=== PATIENT | male | born 1960 | race Caucasian/White ===

== ENCOUNTER 2016-09-01 12:43 | Emergency (ER) | payer OTHER, MEDICARE ==
[~2016-09-01 12:43] MED LIST: ACEPHEN650 M1 PR; ACIDOPHILUS1 EACH G TUBE; ALBUTEROL0.63 MG/1 PO; ALBUTEROL2.5 MG/3 M INH; AMOX-CLAV400 MG/5 M PO; AMOXIL 250250 MG/5 M PO; AUGMENTIN 875875 MG G TUBE; AVELOX400 MG J TUBE; BACLOFEN10 M1 G TUBE; BACTRIM DS 8001 TAB OTHER; BISAC-EVAC10 M1 PR; CLOPIDOGREL75 MG J TUBE; CLOPIDOGREL75 MG PO; COLACE100 MG J TUBE; DIOCTO50 MG/5 ML G TUBE; DOCU-LIQUI150 MG/15 PO; DULCOLAX5 MG PO; DUONEB 3 MG/3 ML3 ML INH/SOL; DURAGESIC25 MCG TOP; ESCITALOPRAM10 MG PO; FENTANYL1 EAC2 TOP; FLEET ENEMA133 ML RC; GLUCERNA 1.2 C237 ML J TUBE; ITCH RELIEF CRE28 GM TOP; JEVITY 1.2 CA1000 ML J TUBE; JEVITY 1.2 CAL237 M1 PEG; KEFLEX500 MG PO; LEXAPRO 10MG10 MG J TUBE; LIORESAL 10MG T10 MG PO; MILK OF MA400 MG/5 M PEG; MILK OF MAGNESI30 ML J TUBE; MYCOSTATIN POWD15 GM TOP; NYSTATIN15 G1 TOP; OSTERA TABLET1 EACH PO; PLAVIX 75MG TAB75 MG J TUBE; RANITIDINE15 MG/1 ML G TUBE; RANITIDINE15 MG/M1 PO; SIMVASTATIN10 MG J TUBE; SIMVASTATIN10 MG PO; TAMIFLU 75MG75 MG PO; TYLENOL EXTRA500 M2 PO; VITAMIN D31000 IU PO; VITAMIN D31000 UNI2 G TUBE; ZANTAC25 MG/ML J TUBE; ZOCOR10 M1 G TUBE; [UNRECOGNIZED DRUG - OTHER] J TUBE; [UNRECOGNIZED DRUG - OTHER] J TUBE; [UNRECOGNIZED DRUG - OTHER] PO
--- NOTE | 2016-09-01 12:50 | ED GENERAL ADULT ---
History of Present Illness General Chief Complaint: General Adult Stated Complaint: BIBA ?UPPER GI BLEED Source: patient, family, old records, EMS Exam Limitations: clinical condition Vital Signs & Intake/Output Vital Signs & Intake/Output Vital Signs Date Time Temp Pulse Resp B/P Pulse O2 O2 Flow FiO2 Ox Delivery Rate 09/01 1507 99.2 100 16 121/85 96 Trach Mask 09/01 1300 Trach Mask 09/01 1300 92 Trach Mask 40% 09/01 1257 99.3 94 16 135/81 94 Trach Mask 10L Allergies Coded Allergies: scopolamine (Mild, HIVES 10/25/15) NSAIDS (Non-Steroidal Anti-Inflamma (PER 02/29/16) adhesive (HIVES - EKG STICKERS, RED DOT [place] STICKERS 02/29/16) aspirin (PER 02/29/16) clopidogrel (From PLAVIX) (PER 02/29/16) Reconcile Medications Albuterol Sulfate 0.63 MG/3 ML VIAL.NEB 1 VIAL PO BID BREATHING PROBLEMS ( Reported) Baclofen 10 MG TABLET 1 TAB J TUBE TID SPASMS (Reported) Cholecalciferol (Vitamin D3) 1,000 IU TAB 1 TAB J TUBE DAILY SUPPLEMENT ( Reported) Docusate Sodium (Docusate Sod) 50 MG/5 ML MONICO 10 ML J TUBE BID GI (Reported) Escitalopram Oxalate 5 MG/5 ML SOLUTION 5 MG J TUBE DAILY MENTAL HEALTH ( Reported) Fentanyl 25 MCG/HR TDM 1 PAT TOP Q3D PAIN (Reported) Lactobacillus Acidophilus (Acidophilus) 1 CAP CAP 1 CAP J TUBE DAILY GI ( Reported) Oseltamivir Phosphate (Tamiflu) 30 MG CAPSULE 1 CAP PO DAILY FLU (Reported) Ranitidine HCl 15 MG/1 ML SYRUP 150 MG J TUBE BID GI (Reported) Simvastatin (Zocor) 10 MG TAB 1 TAB J TUBE QHS CHOLESTEROL (Reported) Triage Nurses Notes Reviewed? yes Onset: Just prior to arrival Duration: 2 EPISODES Timing: recent history Injury Environment: home Severity: moderate HPI: Patient is a 56-year-old male, history of CVA, on a trach presenting to [facility] emergency department [facility] with chief complaint of emesis 2 episodes prior to arrival. Per nursing staff emesis was dark, coffee ground, concern for bleeding so they sent him in for evaluation. History of coffee- ground emesis in the past. Per family no recent history of upper GI bleed. Patient does not take any NSAIDs. Per Family patient has been at baseline. No fevers documented a [facility]. (RYAN LOPEZ) Past History Medical History Any Pertinent Medical History? 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 ASP PNA Gastrointestinal: constipation, GERD, peptic ulcer disease, upper GI bleed, C. 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 MOTHER (Type 2 DM). Grand father (CVA). Hx Contributory? Yes (RYAN LOPEZ) Review of Systems Review of Systems Constitutional: Reports: no symptoms. Comments Review of systems: See HPI, All other systems negative. Constitutional, no chills fever or weight loss HEENT: No visual changes no sore throat no congestion Cardiovascular: No chest pain ,palpitation , orthopnea or ankle swelling Skin, no jaundice no rashes Respiratory: No dyspnea cough sputum or hemoptysis GI: No diarrhea : No dysuria No hematuria Muscle skeletal: no back pain Neurologic: No numbness Psych: No stress anxiety or depression,. Heme/endocrine: No bruising no bleeding no polyuria or polydipsia Immunology: No splenectomy or history of AIDS (RYAN LOPEZ) Physical Exam Physical Exam General Appearance: no apparent distress, alert, awake, TACH HOOKED UP Comments: Well-developed well-nourished person in no acute distress HEENT: Pupils equally round and reactive to light and accommodation. Nose is atraumatic. Pharynx normal. No swelling or edema. Neck: NORMAL INSPECTION WITH TRACH Cardiovascular: Regular rate and rhythms no murmurs rubs or gallops, normal JVP Respiratory: Chest nontender. No respiratory distress.breath sounds slightly diminished to auscultation bilaterally Abdomen: Soft, nontender nondistended, no appreciable organomegaly. Normal bowel sounds. No ascites Extremity: NoN pitting edema and enlarged ovaries bilaterally, no calf tenderness to palpation, normal and equal pulses. Neuro: Alert, responsive to verbal and tactile stimuli, responds with blinking eyes Skin: No appreciable rash on exposed skin, skin is warm and dry. Psych: Mood and affect is normal Core Measures ACS in differential dx? No CVA/TIA Diagnosis: No Severe Sepsis Present: No Septic Shock Present: No (HYUN ROJAS,RYAN) Progress Differential Diagnoses I considered the following diagnoses in my evaluation of the patient: Aspiration pneumonia, dehydration, all externally abnormality, gastritis, upper GI bleed Plan of Care: Orders Procedure Date/time Status PARTIAL THROMBOPLASTIN TIME 09/01 124 Complete PROTHROMBIN TIME 09/01 124 Complete COMPREHENSIVE METABOLIC PANEL 09/01 1248 Complete CBC WITHOUT DIFFERENTIAL 09/01 1248 Complete TYPE & SCREEN (NOT X-MATCH) 09/01 124 Complete Laboratory Tests 09/01/16 1335: PT 11.3, INR 1.08, APTT 34, CBC w Diff MAN DIFF ORDERED, RBC 5.51, MCV 88.0, MCH 29.0, RDW 16.1 H, MPV 10.9 H, Gran % 90.1 H, Lymphocytes % 4.7 L, Monocytes % 4.9, Eosinophils % 0.1, Basophils % 0.2, Absolute Granulocytes 10.2 H, Segmented Neutrophils 82 H, Band Neutrophils 6 H, Absolute Lymphocytes 0.5 L, Lymphocytes 4 L, Monocytes 8, Absolute Monocytes 0.6, Absolute Eosinophils 0, Absolute Basophils 0, Platelet Estimate VERIFIED BY SMEAR, Anisocytosis 1+, PUBS MCHC 33.0 09/01/16 1327: Anion Gap 11, Estimated GFR > 60, BUN/Creatinine Ratio 36.0 H, Glucose 153 H, Calcium 9.3, Total Bilirubin 1.0, AST 22, ALT 35, Alkaline Phosphatase 93, Total Protein 7.9, Albumin 3.9, Globulin 4.0, Albumin/Globulin Ratio 1.0 L Diagnostic Imaging: Viewed by Me: Radiology Read. Discussed w/RAD: Radiology Read. Radiology Impression: PATIENT: SUNDAY ESPINAL PRESENT AGE: 56 PATIENT ACCOUNT NO: [id number] : 60 LOCATION: [facility] ORDERING PHYSICIAN: RYAN ROJAS SERVICE DATE: 09/01/16 EXAM TYPE: RAD - XRY-PORTABLE CHEST XRAY EXAMINATION: XR PORTABLE CHEST CLINICAL INFORMATION: Vomiting. COMPARISON: Prior chest radiographs, most recently 2015. TECHNIQUE: Portable AP semi-erect view of the chest was obtained. FINDINGS : The heart, great vessels, pulmonary vasculature mediastinum are stable. A tracheostomy tube is unchanged in position, with tip situated approximately 4.6 cm superior to the carol. Lung volumes are again low. There is mild left base linear atelectasis. The patient's jaw overlaps the left apex, limiting evaluation. No acute osseous abnormality is seen. There is a moderate thoracic dextroscoliosis. IMPRESSION: Limited evaluation, with low lung volumes and scoliotic changes. There is mild right base atelectasis, which can be more fully evaluated with a lateral view. Initial ED EKG: none Comments: On arrival respiratory was called, trach was hooked up to ventilation. Patient no acute distress. Per family this is baseline for patient. Family members informed of all lab work results. Patient afebrile still. Oxygen saturation between 96 and 97%. Patient will be transferred back to the nursing facility. Patient was seen and evaluated by Dr. Kerns AND she agrees with plan. (RYAN LOPEZ) Departure Departure Time of Disposition: 1505 Disposition: HOME OR SELF CARE Condition: Stable Clinical Impression Primary Impression: Vomiting Qualifiers: Vomiting type: unspecified Vomiting Intractability: non-intractable Nausea presence: unspecified Qualified Code: R11.10 - Vomiting, unspecified Referrals: GABI OLVERA MD (PCP/Family) Additional Instructions: Follow-up with Dr. Olvera make an appointment. Continue prescription medications as prescribed. Return for fevers, worsening symptoms or concerns. Departure Forms: Customer Survey General Discharge Information (RYAN LOPEZ) PA/CLINICAL SERVICES DIRECTOR Co-Sign Statement Statement: ED Attending supervision documentation- [X] I saw and evaluated the patient. I have also reviewed all the pertinent lab results and diagnostic results. I agree with the findings and the plan of care as documented in the PA's/CLINICAL SERVICES DIRECTOR's documentation. [X] I have reviewed the ED Record and agree with the PA's/CLINICAL SERVICES DIRECTOR's documentation. [] Additions or exceptions (if any) to the PAs/CLINICAL SERVICES DIRECTOR's note and plan are summarized below: [] (CLAUDIA SOTELO,CHRIS) Critical Care Note Critical Care Note Critical Care Time: non-applicable (HYUN ROJAS,RYAN)
--- NOTE | 2016-09-01 13:38 | RADIOLOGY REPORT ---
EXAMINATION: XR PORTABLE CHEST CLINICAL INFORMATION: Vomiting. COMPARISON: Prior chest radiographs, most recently 06/19/2016. TECHNIQUE: Portable AP semi-erect view of the chest was obtained. FINDINGS: The heart, great vessels, pulmonary vasculature mediastinum are stable. A tracheostomy tube is unchanged in position, with tip situated approximately 4.6 cm superior to the carol. Lung volumes are again low. There is mild left base linear atelectasis. The patient's jaw overlaps the left apex, limiting evaluation. No acute osseous abnormality is seen. There is a moderate thoracic dextroscoliosis. IMPRESSION: Limited evaluation, with low lung volumes and scoliotic changes. There is mild right base atelectasis, which can be more fully evaluated with a lateral view.
[2016-09-01 14:15] LABS: ABSOLUTE BASOPHIL COUNT 0 /CUMM (0.0-0.2); ABSOLUTE EOSINOPHIL COUNT 0 /CUMM (0.0-0.7); ABSOLUTE GRANULOCYTE CT 10.2 /CUMM (1.4-6.5); ABSOLUTE LYMPH COUNT 0.5 /CUMM (1.2-3.4); ABSOLUTE MONOCYTE COUNT 0.6 /CUMM (0.10-0.60); BASOPHIL % 0.2 % (0.0-2.0); EOSINOPHIL % 0.1 % (0-5); GRANULOCYTE % 90.1 % (42.2-75.2); HEMATOCRIT 48.5 % (42-52); MEAN PLATELET VOLUME 10.9 FL (7.4-10.4); PLATELET COUNT 189 /CUMM (130-400); RBC DISTRIBUTION WIDTH 16.1 % (11.5-14.5); RED BLOOD CELL CT 5.51 /CUMM (4.70-6.10); WHITE BLOOD CELL COUNT 11.3 /CUMM (4.8-10.8)
[2016-09-01] MEDS ORDERED: TAMIFLU30 M1 PO (14:20)
[2016-09-01] MEDS ORDERED: ESCITALOPRAM OXA5 MG G TUBE (14:21)
[2016-09-01 14:22] LABS: PT 11.3 SEC (9.4-12.5); PTT 34 SEC (25-37)
[2016-09-01 15:07] VITALS: BP 121/85
== END 2016-09-01 16:00 ==
LOC: ERH 12:43
PROVIDERS: Physician Assistant
DX: R11.10 Vomiting, unspecified (principal); I69.365 Other paralytic syndrome following cerebral infarction, bilateral; G82.50 Quadriplegia, unspecified; E78.5 Hyperlipidemia, unspecified; I50.32 Chronic diastolic (congestive) heart failure; Z93.0 Tracheostomy status; Z99.81 Dependence on supplemental oxygen; Z95.828 Presence of other vascular implants and grafts
CPT/HCPCS: 1342

== ENCOUNTER 2016-09-26 11:47 | Emergency (ER) | payer OTHER, MEDICARE ==
[~2016-09-26 11:47] MED LIST changes: +ESCITALOPRAM OXA5 MG G TUBE; +TAMIFLU30 M1 PO
--- NOTE | 2016-09-26 12:13 | ED GENERAL ADULT ---
History of Present Illness General Chief Complaint: General Adult Stated Complaint: ?CLOGGED J-TUBE Source: patient, family, old records, [facility] Exam Limitations: clinical condition Vital Signs & Intake/Output Vital Signs & Intake/Output Vital Signs Date Time Temp Pulse Resp B/P Pulse O2 O2 Flow FiO2 Ox Delivery Rate 09/26 1623 97.2 75 20 97/58 94 Trach Mask 6.0L 09/26 1350 98.4 70 24 115/68 94 Trach Mask 6.0L 09/26 1244 98 Trach Mask 6.0L 09/26 1154 97.4 58 22 158/76 98 Trach Mask 30% Allergies Coded Allergies: scopolamine (Mild, HIVES 10/25/15) NSAIDS (Non-Steroidal Anti-Inflamma (PER 02/29/16) adhesive (HIVES - EKG STICKERS, RED DOT [place] STICKERS 02/29/16) aspirin (PER 02/29/16) clopidogrel (From PLAVIX) (PER 02/29/16) Uncoded Allergies: EKG AND RED DOT LEADS (Intermediate, RASH 09/26/16) Reconcile Medications Albuterol Sulfate 0.63 MG/3 ML VIAL.NEB 1 VIAL PO BID BREATHING PROBLEMS ( Reported) Baclofen 10 MG TABLET 1 TAB G TUBE TID SPASMS (Reported) Cholecalciferol (Vitamin D3) 1,000 UNIT TABLET 1 TAB G TUBE DAILY SUPPLEMENT (Reported) Docusate Sodium (Diocto) 50 MG/5 ML LIQUID 10 ML G TUBE BID GI (Reported) Escitalopram Oxalate 5 MG TABLET 1 TAB G TUBE DAILY MENTAL HEALTH (Reported) Fentanyl 25 MCG/HOUR PATCH.TD72 1 PAT TOP Q3D PAIN (Reported) Lactobacillus Acidophilus (Acidophilus) 1 EACH CAPSULE 1 CAP G TUBE DAILY GI (Reported) Ranitidine HCl 15 MG/ML SYRUP 10 ML G TUBE BID GI (Reported) Simvastatin (Zocor*) 10 MG TABLET 1 TAB G TUBE QPM CHOLESTEROL (Reported) Triage Note: BIBA FROM SNF FOR C/O CLOGGED J-TUBE PER STAFF. NOTICED J-TUBE LEAKING/NOT FLUSHING LAST NIGHT 1900. PT OTHERWISE IS AT BASELINE AND IS IN NO DISTRESS. [facility]10 FROM FACILITY REQUESTING "CAN YOU PUT IN A TUBE THAT HAS LARGER LUMEN?" Triage Nurses Notes Reviewed? yes HPI: 56-year-old male paraplegic sent in from nursing facility with a clogged gastrostomy tube. Per the records it was noted to be nonfunctional last night, he usually has is unchanged by interventional radiology here, last was done in May. I reviewed his previous records. There are no complaints at this time Past History Travel History Traveled to [place] past 21 day No Medical History Any Pertinent Medical History? 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 ASP PNA Gastrointestinal: constipation, GERD, peptic ulcer disease, upper GI bleed, C. 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 MOTHER (Type 2 DM). Grand father (CVA). Hx Contributory? No Review of Systems Review of Systems Constitutional: Reports: see HPI. EENTM: Reports: no symptoms. Respiratory: Reports: no symptoms. Cardiovascular: Reports: no symptoms. GI: Reports: no symptoms. Genitourinary: Reports: no symptoms. Musculoskeletal: Reports: no symptoms. Skin: Reports: no symptoms. Neurological/Psychological: Reports: no symptoms. Hematologic/Endocrine: Reports: no symptoms. Immunologic/Allergic: Reports: no symptoms. All Other Systems: Reviewed and Negative Physical Exam Physical Exam General Appearance: well developed/nourished Comments: Well-developed well-nourished no apparent distress. HEENT: Atraumatic, extraocular motion intact Neck: Supple, no lymphadenopathy Respiratory: No respiratory distress Abdomen: Soft nontender, G-tube site is clear, G-tube is not functioning Extremities: No edema, Neuro: Alert and oriented x3 Psych: Mood affect normal, normal memory normal judgment. Skin: Warm and dry, no rash on exposed skin Core Measures ACS in differential dx? No CVA/TIA Diagnosis: No Severe Sepsis Present: No Septic Shock Present: No Progress Differential Diagnoses I considered the following diagnoses in my evaluation of the patient: PERFORATION Plan of Care: Orders Procedure Date/time Status GASTROSTOMY TUBE CHANGE 09/26 1209 Active Initial ED EKG: none Comments: G TUBE PLACED BY IR. PT RETURNS WITHOUT COMPLICATIONS. STABLE FOR DC BACK TO ECF Departure Departure Disposition: HOME OR SELF CARE Condition: Stable Clinical Impression Primary Impression: Gastrojejunostomy tube dislodgement Referrals: GABI VASQUEZ MD (PCP/Family) Additional Instructions: RETURN NEEDED. Departure Forms: Customer Survey General Discharge Information Critical Care Note Critical Care Note Critical Care Time: non-applicable
[2016-09-26 16:23] VITALS: BP 97/58
--- NOTE | 2016-09-26 16:48 | INTERVENTIONAL RADIOLOGY RPT ---
CLINICAL HISTORY: This patient is a 56-year-old male with quadriplegia and GJ tube, who presents to interventional radiology for exchange of a nonfunctioning tube. The tube is leaking and clogged. PROCEDURES: 1. Tube sinogram. 2. Replacement of the existing 12 Fr gastrojejunostomy tube with a new 12 Fr gastrojejunostomy tube. 3. Post replacement tube sinogram. PHYSICIANS: Dr. Giovanny Britt MD Vascular interventional radiologist MONITORING: Continuous blood pressure, pulse oximetry as well as heartrate monitoring was performed by an independent registered nurse. No sedation was required. MEDICATIONS: 10 mL of 1% lidocaine SQ. COMPLICATIONS: None. ESTIMATED BLOOD LOSS: <5 mL. SPECIMENS: The existing tube was removed entirely.. CONTRAST: 20 mL Optiray. FLUOROSCOPY TIME: 252 seconds. PROCEDURE NOTE: Informed consent was obtained from the patient's sister prior to the procedure. During this process, the procedure and potential alternatives were explained along with the intended outcome and benefits. The risks of the procedure, including the possibility of an unsuccessful procedure, as well as the risk of not doing the procedure, were discussed. The patient sister was given the opportunity to ask questions regarding the procedure and appeared competent to make decisions. A signed consent form documenting this discussion was placed in the medical record. A time-out procedure was performed. The patient was placed supine on the fluoroscopy table. The abdomen was prepped and draped in the usual sterile fashion. A spot film was obtained. The existing tube was injected with contrast, but no contrast would travel through the tube as it was clogged. A 0.035 Amplatz wire was advanced through the tube and coiled within the jejunum. However, the tube could not be removed over the wire. Therefore, a 5 Syrian Kumpe catheter and stiff Glidewire were placed adjacent to the indwelling catheter via the existing tract and negotiated through the stomach into the jejunum. At this point, the existing tube and Amplatz wire were removed entirely. The Kumpe catheter was removed. A new 12 Syrian Cook jejunostomy feeding tube was placed over the stiff Glidewire. The wire was removed and the proximal pigtail was formed. Contrast was injected in the tube to confirm location within the jejunum. FINDINGS: 1. The existing nonfunctioning tube was a 12 Fr Cook gastrojejunostomy tube with distal tip positioned in the jejunum. 2. Successful replacement of the 12 Fr Cook gastrojejunostomy tube with distal tip confirmed in the jejunum. IMPRESSION: Successful exchange of a 12 Syrian gastrojejunostomy tube. PLAN: 1. The patient was stable after the procedure and was transferred back to the Emergency Department. 2. The new tube is ready for use.
== END 2016-09-26 17:09 ==
LOC: ERH 11:47
DX: K94.29 Other complications of gastrostomy (principal)

== ENCOUNTER 2016-12-17 09:53 | Emergency (ER) | payer OTHER, MEDICARE ==
[~2016-12-17] VITALS: Ht 175.3 cm; Wt 86.2 kg
[2016-12-17 09:55] VITALS: BP 150/72
--- NOTE | 2016-12-17 09:57 | ED GI/GU/ABDOMINAL COMPLAINT ---
History of Present Illness General Chief Complaint: General Adult Stated Complaint: CLOGGED PEG TUBE Allergies Coded Allergies: scopolamine (Mild, HIVES 10/25/15) NSAIDS (Non-Steroidal Anti-Inflamma (PER 02/29/16) adhesive (HIVES - EKG STICKERS, RED DOT [place] STICKERS 02/29/16) aspirin (PER 02/29/16) clopidogrel (From PLAVIX) (PER 02/29/16) Uncoded Allergies: EKG AND RED DOT LEADS (Intermediate, RASH 09/26/16) Reconcile Medications Albuterol Sulfate 0.63 MG/3 ML VIAL.NEB 1 VIAL PO BID BREATHING PROBLEMS ( Reported) Baclofen 10 MG TABLET 1 TAB G TUBE TID SPASMS (Reported) Cholecalciferol (Vitamin D3) 1,000 UNIT TABLET 1 TAB G TUBE DAILY SUPPLEMENT (Reported) Docusate Sodium (Diocto) 50 MG/5 ML LIQUID 10 ML G TUBE BID GI (Reported) Escitalopram Oxalate 5 MG TABLET 1 TAB G TUBE DAILY MENTAL HEALTH (Reported) Fentanyl 25 MCG/HOUR PATCH.TD72 1 PAT TOP Q3D PAIN (Reported) Lactobacillus Acidophilus (Acidophilus) 1 EACH CAPSULE 1 CAP G TUBE DAILY GI (Reported) Ranitidine HCl 15 MG/ML SYRUP 10 ML G TUBE BID GI (Reported) Simvastatin (Zocor*) 10 MG TABLET 1 TAB G TUBE QPM CHOLESTEROL (Reported) Past History Travel History Traveled to [place] past 21 day No Medical History Neurological: CVA, 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 ASP PNA #7 TRACH Gastrointestinal: constipation, GERD, peptic ulcer disease, upper GI bleed, C. 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 MOTHER (Type 2 DM). Grand father (CVA). Departure Departure Condition: Stable Referrals: GABI VASQUEZ MD (PCP/Family) Departure Forms: Customer Survey General Discharge Information
--- NOTE | 2016-12-17 10:18 | ED GI/GU/ABDOMINAL COMPLAINT ---
History of Present Illness General Chief Complaint: General Adult Stated Complaint: CLOGGED PEG TUBE Source: old records, EMS, [facility] Exam Limitations: clinical condition Vital Signs & Intake/Output Vital Signs & Intake/Output ED Intake and Output 12/18 0000 12/17 1200 Intake Total Output Total Balance Patient 190 lb Weight Weight Estimated Measurement Method Allergies Coded Allergies: scopolamine (Mild, HIVES 10/25/15) NSAIDS (Non-Steroidal Anti-Inflamma (PER 02/29/16) adhesive (HIVES - EKG STICKERS, RED DOT [place] STICKERS 02/29/16) aspirin (PER 02/29/16) clopidogrel (From PLAVIX) (PER 02/29/16) Uncoded Allergies: EKG AND RED DOT LEADS (Intermediate, RASH 09/26/16) Reconcile Medications Albuterol Sulfate 0.63 MG/3 ML VIAL.NEB 1 VIAL PO BID BREATHING PROBLEMS ( Reported) Baclofen 10 MG TABLET 1 TAB G TUBE TID SPASMS (Reported) Cholecalciferol (Vitamin D3) 1,000 UNIT TABLET 1 TAB G TUBE DAILY SUPPLEMENT (Reported) Docusate Sodium (Diocto) 50 MG/5 ML LIQUID 10 ML G TUBE BID GI (Reported) Escitalopram Oxalate 5 MG TABLET 1 TAB G TUBE DAILY MENTAL HEALTH (Reported) Fentanyl 25 MCG/HOUR PATCH.TD72 1 PAT TOP Q3D PAIN (Reported) Lactobacillus Acidophilus (Acidophilus) 1 EACH CAPSULE 1 CAP G TUBE DAILY GI (Reported) Ranitidine HCl 15 MG/ML SYRUP 10 ML G TUBE BID GI (Reported) Simvastatin (Zocor*) 10 MG TABLET 1 TAB G TUBE QPM CHOLESTEROL (Reported) Triage Note: PT BIBA FOR CLOGGED PEG TUBE Triage Nurses Notes Reviewed? yes Onset: Abrupt Duration: hour(s): (few) Quality/Severity: moderate Location: peg No Modifying Factors: none HPI: 56 year old male with history of CVA, locked in syndrome presents via EMS for clogged G tube. Staff reported to EMS that they were unable to give him his medications. Tube placed in September per medical records. Patient non verbal at baseline.. Past History Travel History Traveled to [place] past 21 day No Medical History Any Pertinent Medical History? 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 ASP PNA #7 TRACH Gastrointestinal: constipation, GERD, peptic ulcer disease, upper GI bleed, C. 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 MOTHER (Type 2 DM). Grand father (CVA). Hx Contributory? No Review of Systems Review of Systems Constitutional: Reports: see HPI (per w10/ems). Physical Exam Physical Exam General Appearance: well developed/nourished, alert, awake Head: LEANING TO LEFT Eyes: Bilateral: PERRL. Neck: TRACH IN PLACE Respiratory: normal breath sounds Cardiovascular: regular rate/rhythm Peripheral Pulses: 2+ radial (R), 2+ radial (L) Gastrointestinal: normal bowel sounds, soft, PEG IN EPIGASTRIUM Neurologic/Psych: awake Core Measures ACS in differential dx? No Severe Sepsis Present: No Septic Shock Present: No Progress Differential Diagnosis: CLOGGED G TUBE Plan of Care: G TUBE UNCLOGGED WITH WIRE PROBE. NOW FLUSHING WELL. Initial ED EKG: none Departure Departure Time of Disposition: 1014 Disposition: OTHER GENERAL HOSPITAL (ACUTE) Condition: Stable Clinical Impression Primary Impression: PEG (percutaneous endoscopic gastrostomy) adjustment/ replacement/removal Referrals: GABI VASQUEZ MD (PCP/Family) Departure Forms: Customer Survey General Discharge Information
== END 2016-12-17 11:13 ==
LOC: ERH 09:53
DX: K94.23 Gastrostomy malfunction (principal)
CPT/HCPCS: 99282

== ENCOUNTER 2016-12-26 11:57 | Emergency (ER) | payer OTHER, MEDICARE ==
[~2016-12-26] VITALS: Ht 172.7 cm; Wt 113.4 kg
--- NOTE | 2016-12-26 12:24 | ED GI/GU/ABDOMINAL COMPLAINT ---
History of Present Illness General Chief Complaint: General Adult Stated Complaint: CLOGGED G TUBE Source: old records, EMS Exam Limitations: physical impairment Vital Signs & Intake/Output Vital Signs & Intake/Output Vital Signs Date Time Temp Pulse Resp B/P B/P Pulse O2 O2 Flow FiO2 Mean Ox Delivery Rate 12/26 1607 98.0 77 20 113/74 95 Room Air Room Air 12/26 1434 98.3 83 20 117/79 97 Room Air Room Air 12/26 1330 05 Trach Mask 6.0L 12/26 1204 97.4 80 15 131/77 95 Trach Mask 6.0L Allergies Coded Allergies: scopolamine (Mild, HIVES 12/26/16) NSAIDS (Non-Steroidal Anti-Inflamma (PER 12/26/16) adhesive (HIVES - EKG STICKERS, RED DOT SEMINOLE STICKERS 12/26/16) aspirin (PER 12/26/16) clopidogrel (From PLAVIX) (PER 12/26/16) Uncoded Allergies: EKG AND RED DOT LEADS (Intermediate, RASH 09/26/16) Reconcile Medications Albuterol Sulfate 0.63 MG/3 ML VIAL.NEB 1 VIAL PO BID BREATHING PROBLEMS ( Reported) Baclofen 10 MG TABLET 1 TAB G TUBE TID SPASMS (Reported) Cholecalciferol (Vitamin D3) 1,000 UNIT TABLET 1 TAB G TUBE DAILY SUPPLEMENT (Reported) Docusate Sodium (Diocto) 50 MG/5 ML LIQUID 10 ML G TUBE BID GI (Reported) Escitalopram Oxalate 5 MG TABLET 1 TAB G TUBE DAILY MENTAL HEALTH (Reported) Fentanyl 25 MCG/HOUR PATCH.TD72 1 PAT TOP Q3D PAIN (Reported) Lactobacillus Acidophilus (Acidophilus) 1 EACH CAPSULE 1 CAP G TUBE DAILY GI (Reported) Ranitidine HCl 15 MG/ML SYRUP 10 ML G TUBE BID GI (Reported) Simvastatin (Zocor*) 10 MG TABLET 1 TAB G TUBE QPM CHOLESTEROL (Reported) Triage Note: PT TO ED FOR CLOGGED PEG TUBE SINCE THIS MORNING. VITALS STABLE ON ARRIVAL. Triage Nurses Notes Reviewed? 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 Patient was brought in by ambulance for concerns of J-tube being clogged. History is limited due to past medical history I discussed with nursing staff at the facility and which I evaluated patient last week in which patient was evaluated at [place] emergency room for similar complaints of J-tube being clogged in which the J-tube was dislodged and patient was returned back to his ECF and which no new J-tube was placed since. (TIP LEUNG) Past History Travel History Traveled to [place] past 21 day No Medical History Any Pertinent Medical History? 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 ASP PNA #7 TRACH Gastrointestinal: constipation, GERD, peptic ulcer disease, upper GI bleed, C. 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 MOTHER (Type 2 DM). Grand father (CVA). Hx Contributory? No (TIP LEUNG) Review of Systems Review of Systems Constitutional: Reports: no symptoms. EENTM: Reports: no symptoms. Respiratory: Reports: no symptoms. Cardiovascular: Reports: no symptoms. GI: Reports: see HPI. Genitourinary: Reports: no symptoms. Musculoskeletal: Reports: no symptoms. Skin: Reports: no symptoms. Neurological/Psychological: Reports: no symptoms. Hematologic/Endocrine: Reports: no symptoms. Immunologic/Allergic: Reports: no symptoms. All Other Systems: Reviewed and Negative (TIP LEUNG) Physical Exam Physical Exam General Appearance: no apparent distress Head: atraumatic Eyes: Bilateral: normal appearance. Neck: normal inspection Respiratory: normal breath sounds Gastrointestinal: normal bowel sounds, soft, non-tender, NOTED INDWELLING J-TUBE Extremities: normal range of motion Skin: intact, normal color Core Measures ACS in differential dx? No Severe Sepsis Present: No Septic Shock Present: No (TIP LEUNG) Progress Differential Diagnosis: AAA, AMI, appendicitis, biliary colic, bowel obstruction , colon cancer, cholecystitis, diverticulitis, epididymitis, gastritis, hepatitis, hernia, ischemic bowel, inflamm bowel dis, orchitis, pancreatitis, prostatitis, peptic ulcer, PUD/GERD, perforated viscous, pyelonephritis, SBO, testicular torsion, ureterolithiasis, urinary retention, urethritis, UTI/pyelo, J-TUBE MALFUNCTION Plan of Care: Orders Procedure Date/time Status JEJUNOSTOMY TUBE REPLACEMENT 12/26 1434 Active ON INITIAL EXAMINATION, I was unsuccessful in resolving patient's MALfunctioning J-tube. Discussed patient with Dr. Sparrow for interventional radiology and which they will perform a fluoroscopy guided removal and insertion of a new J-tube. J-tube placement was successful no complications impression was dictated below IMPRESSION: Successful over the wire exchange for new 12 Yemeni gastrojejunostomy tube. Patient will return home to [facility]. (TIP LEUNG) Initial ED EKG: none Comments: PATIENT: SUNDAY ESPINAL PRESENT AGE: 56 PATIENT ACCOUNT NO: [id number] : 60 LOCATION: [facility] ORDERING PHYSICIAN: TIP ROJAS SERVICE DATE: 12/26/16 EXAM TYPE: IR - INTERVENTIONAL SETUP; JEJUNOSTOMY TUBE REPLACEMENT EXAMINATION: GASTROJEJUNOSTOMY TUBE EXCHANGE CLINICAL INFORMATION: 56-year-old male with clogged GJ tube. COMPARISON: GJ Tube replacement 09/26/2016 Interventional radiologist: Hannah Sparrow M.D. Medication administration: None required Fluoroscopic Time: 3.4 minutes Contrast: 10 mL Optiray 320 Procedure in Detail: Informed consent was obtained from the patient's sister prior to the procedure. During this process, the procedure and potential alternatives were explained along with the intended outcome and benefits. The risks of the procedure including the possibility of an unsuccessful procedure, as well as the risk of not doing the procedure were discussed. The patient's sister was given the opportunity to ask questions regarding the procedure . A consent form which document this discussion was placed in the medical record. Following informed consent the patient was placed supine on the fluoroscopic table. The abdomen was prepped and draped in usual sterile fashion. A time out procedure was performed. Attempts were made to inject contrast through the existing gastrojejunostomy tube, however, these were unsuccessful as it was clogged. A wire would not pass through the existing gastrojejunostomy tube. The existing gastrojejunostomy tube was then cut and the retaining loop released. The tube was slightly withdrawn while maintaining access within the duodenum. The clotted portion of the tube was cut off and then a wire advanced through the remaining portion of the distal gastrojejunostomy tube. A Kumpe catheter was used to further advance the wire towards the ligament of Treitz. Contrast injection through the Kumpe catheter confirmed placement within the bowel. A stiff Glidewire was placed through the Kumpe catheter and the Kumpe catheter removed. A new 12 Yemeni Cook jejunostomy feeding tube was advanced over the stiff Glidewire. The wire was removed and the proximal retaining loop was formed and locked into position. Contrast injection verified optimal positioning within the region of the ligament of Treitz. The patient tolerated procedure well without complications. The patient was transported back to the emergency department. IMPRESSION: Successful over the wire exchange for new 12 Yemeni gastrojejunostomy tube. DICTATED BY: HANNAH SPARROW MD DATE/TIME DICTATED:12/26/161608 RADIOLOGICAL DEFENSE OFFICER:BRITTANY DATE/TIME TRANSCRIBED:12/26/161608 CONFIDENTIAL, DO NOT COPY WITHOUT APPROPRIATE AUTHORIZATION. <Electronically signed in Other Vendor System> (TIP LEUNG) Departure Departure Disposition: HOME OR SELF CARE Condition: Stable Clinical Impression Primary Impression: Malfunctioning jejunostomy tube Referrals: GABI VASQUEZ MD (PCP/Family) Additional Instructions: As discussed follow-up with primary care doctor as directed. To be 10 dictated the plan Departure Forms: Customer Survey General Discharge Information (TIP LEUNG) PA/DRAFTER ELECTRICAL Co-Sign Statement Statement: ED Attending supervision documentation- [] I saw and evaluated the patient. I have also reviewed all the pertinent lab results and diagnostic results. I agree with the findings and the plan of care as documented in the PA's/DRAFTER ELECTRICAL's documentation. [X] I have reviewed the ED Record and agree with the PA's/DRAFTER ELECTRICAL's documentation. [] Additions or exceptions (if any) to the PAs/DRAFTER ELECTRICAL's note and plan are summarized below: [] (SAKSHI SOTELO,CAMPOS Dick
[2016-12-26 16:07] VITALS: BP 113/74
--- NOTE | 2016-12-26 16:19 | INTERVENTIONAL RADIOLOGY RPT ---
EXAMINATION: GASTROJEJUNOSTOMY TUBE EXCHANGE CLINICAL INFORMATION: 56-year-old male with clogged GJ tube. COMPARISON: GJ Tube replacement 09/26/2016 Interventional radiologist: Tomas Sparrow M.D. Medication administration: None required Fluoroscopic Time: 3.4 minutes Contrast: 10 mL Optiray 320 Procedure in Detail: Informed consent was obtained from the patient's sister prior to the procedure. During this process, the procedure and potential alternatives were explained along with the intended outcome and benefits. The risks of the procedure including the possibility of an unsuccessful procedure, as well as the risk of not doing the procedure were discussed. The patient's sister was given the opportunity to ask questions regarding the procedure . A consent form which document this discussion was placed in the medical record. Following informed consent the patient was placed supine on the fluoroscopic table. The abdomen was prepped and draped in usual sterile fashion. A time out procedure was performed. Attempts were made to inject contrast through the existing gastrojejunostomy tube, however, these were unsuccessful as it was clogged. A wire would not pass through the existing gastrojejunostomy tube. The existing gastrojejunostomy tube was then cut and the retaining loop released. The tube was slightly withdrawn while maintaining access within the duodenum. The clotted portion of the tube was cut off and then a wire advanced through the remaining portion of the distal gastrojejunostomy tube. A Kumpe catheter was used to further advance the wire towards the ligament of Treitz. Contrast injection through the Kumpe catheter confirmed placement within the bowel. A stiff Glidewire was placed through the Kumpe catheter and the Kumpe catheter removed. A new 12 German Cook jejunostomy feeding tube was advanced over the stiff Glidewire. The wire was removed and the proximal retaining loop was formed and locked into position. Contrast injection verified optimal positioning within the region of the ligament of Treitz. The patient tolerated procedure well without complications. The patient was transported back to the emergency department. IMPRESSION: Successful over the wire exchange for new 12 German gastrojejunostomy tube.
== END 2016-12-26 16:19 ==
LOC: ERH 11:57
DX: K94.13 Enterostomy malfunction (principal)

== ENCOUNTER 2017-08-14 01:32 | Inpatient (IN) | payer OTHER, MEDICARE ==
[~2017-08-14] VITALS: Ht 170.2 cm; Wt 82.6 kg
[~2017-08-14 01:32] MED LIST changes: +ACETAMINOPHEN325 M2 J TUBE; +ACIDOPHILUS1 EACH J TUBE; +ALBUTEROL2.5 MG/3 M INH/SOL; +AUGMENTIN 875-1 EACH PO; -BACLOFEN10 M1 G TUBE; +BACLOFEN10 M1 J TUBE; +BISACODYL10 M1 RC; +COLACE100 M1 J TUBE; +DOCUSATE SODIU100 M2 J TUBE; +IPRAT-ALBUT 0.5-3 ML NEB; +MILK OF MA400 MG/52 J TUBE; +ONDANSETRON HCL4 MG J TUBE; -RANITIDINE15 MG/1 ML G TUBE; +RANITIDINE15 MG/1 ML J TUBE; -VITAMIN D31000 UNI2 G TUBE; +VITAMIN D31000 UNI2 J TUBE; -ZOCOR10 M1 G TUBE; +ZOCOR10 M1 J TUBE
--- NOTE | 2017-08-14 01:53 | ED DYSPNEA/ASTHMA COMPLAINT ---
History of Present Illness General Chief Complaint: Dyspnea (COPD, CHF, Other) Stated Complaint: SOB FEVER Source: old records, EMS, [facility] Exam Limitations: unable to give history Allergies Coded Allergies: scopolamine (Mild, HIVES 12/26/16) NSAIDS (Non-Steroidal Anti-Inflamma (PER -12/26/16) adhesive (HIVES - EKG STICKERS, RED DOT [place] STICKERS 12/26/16) aspirin (PER 12/26/16) clopidogrel (From PLAVIX) (PER 12/26/16) Uncoded Allergies: EKG AND RED DOT LEADS (Intermediate, RASH 09/26/16) Triage Nurses Notes Reviewed? yes HPI: PATIENT NONVERBAL. PATIENT HAD A TEMP 100.4 WITH O2 SATS 86-89% ON NRB. CURRENTLY ON VANCOMYCIN VIA PICC LINE, DAY 6 OF 7 FOR SUSPECTED PNA. PCP-DR. OLVERA INFORMED OF ADMISSION. (Fer SOTELO,[facility]) Vital Signs & Intake/Output Vital Signs & Intake/Output Vital Signs Date Time Temp Pulse Resp B/P B/P Pulse O2 O2 Flow FiO2 Mean Ox Delivery Rate 08/14 0332 93 Trach Mask 40% 08/14 0319 99.0 97 20 129/82 93 Trach Mask 40% 08/14 0255 94 Trach Mask 40% 08/14 0159 92 Trach Mask 40% 08/14 0150 101.1 102 20 142/93 94 Non 100% ReBreather Reconcile Medications Acetaminophen 325 MG TABLET 2 TAB J TUBE Q4H PRN PAIN/TEMP/>101 (Reported) Acetaminophen (Acephen) 650 MG SUPP.RECT 1 SUPP AR Q4H PRN PAIN/TEMP>101 ( Reported) Albuterol Sulfate 2.5 MG/3 ML (0.083 %) VIAL.NEB 1 Vial INH/MONICO BID RESP. ( Reported) Baclofen 10 MG TABLET 1 TAB J TUBE TID SPASMS (Reported) Bisacodyl 10 MG SUPP.RECT 1 SUP RC DAILY PRN NO BM - IF MOM INEFFECTIVE ( Reported) Cholecalciferol (Vitamin D3) 1,000 UNIT TABLET 1 TAB J TUBE DAILY SUPPLEMENT (Reported) Docusate Sodium 100 MG TABLET 1 TAB J TUBE BID STOOL SOFTENER (Reported) Escitalopram Oxalate 5 MG TABLET 1 TAB G TUBE DAILY DEPRESSION (Reported) Fentanyl 25 MCG/HOUR PATCH.TD72 1 PAT TOP Q3D PAIN (Reported) Ipratropium/Albuterol Sulfate (Iprat-Albut 0.5-3(2.5) MG/3 Ml) 0.5 MG-3 MG (2.5 MG BASE)/3 ML AMPUL.NEB 1 VIAL NEB Q4H PRN SOB (Reported) Lactobacillus Acidophilus (Acidophilus) 1 EACH CAPSULE 1 CAP J TUBE DAILY PROBIOTIC (Reported) Magnesium Hydroxide (Milk Of Magnesia) 400 MG/5 ML ORAL.SUSP 30 ML J TUBE DAILY PRN NO BM IN 3 DAYS (Reported) Na Phos,M-B/Na Phos,Di-Ba (Fleet Enema) 19 GRAM-7 GRAM/118 ML ENEMA 1 E RC DAILY PRN NO BM - IF BISACODYL INEFFECTI (Reported) Nut.tx.gluc.intoler,Lac-Fr,Soy (Glucerna 1.2 Fritz) 237 ML LIQUID 75 ML J TUBE 75 MLS/HR TUBE FEEDING (Reported) Ondansetron HCl 4 MG TABLET 1 TAB J TUBE Q8H PRN N/V (Reported) Ranitidine HCl 15 MG/ML SYRUP 10 ML J TUBE BID GI (Reported) Simvastatin (Zocor*) 10 MG TABLET 1 TAB J TUBE QHS CHOLESTEROL (Reported) Onset: Abrupt Severity: moderate, severe Activities at Onset: none Associated Symptoms: FEVER, HYPOXIA (Nancy SOTELO,[facility]) Past History Travel History Traveled to [place] past 21 day No Medical History Any Pertinent Medical History? 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 ASP PNA #7 TRACH Gastrointestinal: constipation, GERD, peptic ulcer disease, upper GI bleed, C. 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 MOTHER (Type 2 DM). Grand father (CVA). Hx Contributory? Yes (Demetrius Monroe MD) Review of Systems Review of Systems Constitutional: Reports: see HPI. (Demetrius Monroe MD) Review of Systems Constitutional: Reports: fever. (Carmen Cruz MD) Physical Exam Physical Exam General Appearance: mild distress Head: atraumatic, normal appearance Eyes: Bilateral: other (vertical eye movement). Ears, Nose, Throat: trach Neck: limited range of motion Respiratory: rhonchi, rales Cardiovascular: regular rate/rhythm Gastrointestinal: normal bowel sounds, soft Extremities: BLE diffused healed wounds, Quadriplegic Core Measures ACS in differential dx? No CVA/TIA Diagnosis No (Demetrius Monroe MD) Physical Exam Peripheral Pulses: 1+ radial (R), 1+ radial (L) Neurologic/Psych: LETHARGIC, AROUSABLE, NON VERBAL Skin: diaphoresis Core Measures Sepsis Present: Yes Sepsis Focused Exam Completed? Yes (Carmen Cruz MD) ED Sepsis Exam Date of Focused Sepsis Exam: 08/14/17 Time of Focused Sepsis Exam: 405 Sepsis Cardiac Exam: Regular Rate/Rhythm Sepsis Resp Exam: Ronchi Sepsis Cap Refill Exam: <2 Sec Sepsis Peripheral Pulse Exam: Normal Sepsis Peripheral Pulse Location: Radial Sepsis Skin Color Exam: Flushed Skin Temp/Moisture Exam: Hot/Diaphoretic (Carmen Cruz MD) Progress Differential Diagnosis: asthma, bronchitis, CHF, COPD, pneumonia Plan of Care: Orders Procedure Date/time Status Pathway - chart 08/14 043 Active House Staff 08/14 0431 Active Patient Data 08/14 0431 Active Code Status 08/14 0431 Active Patient Data 08/14 0346 Active ED Holding Orders 08/14 0316 Active Admit to inpatient 08/14 0316 Active Vital Signs 08/14 0316 Active Code Status 08/14 0316 Complete RAPID VIRAL INFLUENZA A 08/14 0310 Complete CULTURE,URINE 08/14 0247 Active URINALYSIS 08/14 0211 Active Sandy, Insertion/Removal/Asses 08/14 0155 Active LOWER RESPIRATORY CULTURE 08/14 0152 Active BLOOD CULTURE 08/14 0152 Active RT ED ORDERS 01/18 0139 Active Telemetry/Green Tire Inspector 08/14 138 Active COMPREHENSIVE METABOLIC PANEL 08/14 138 Complete CBC WITHOUT DIFFERENTIAL 08/14 138 Complete EKG 08/14 138 Active Intake & Output 08/14 134 Active VTE Mechanical Prophylaxis 08/14 UNK Active Current Medications Sig/Gil Start time Last Medication Dose Stop Time Status Admin Atorvastatin Calcium 10 MG AT BEDTIME 08/14 2200 UNVr (Lipitor) Albuterol Sulfate 3 ML BID 08/14 1000 UNVr (Proventil) Baclofen 10 MG TID 08/14 1000 UNVr (Lioresal 10MG Tablet) Cholecalciferol 1,000 IU DAILY 08/14 1000 UNVr (Vitamin D) Enoxaparin Sodium 40 MG DAILY 08/14 1000 UNVr (Lovenox) Escitalopram Oxalate 5 MG DAILY 08/14 1000 UNVr (Lexapro) Famotidine 150 MG BID 08/14 1000 UNVr (Pepcid) Acetaminophen 650 MG Q8P PRN 08/14 444 UNVr (Tylenol) Docusate Sodium 100 MG BID PRN 08/14 444 UNVr (Colace) Fentanyl Citrate 25 MCG Q3D 08/14 444 UNVr (Duragesic) Ipratropium Revere 2.5 ML Q4 HRS NEEDED PRN 08/14 444 UNVr (Atrovent) Ceftazidime 2,000 MG ONCE ONE 08/14 214 CAN (Fortaz) 08/14 215 Laboratory Tests 08/14/17 0235: Anion Gap 14, Estimated GFR > 60, BUN/Creatinine Ratio 40.0 H, Glucose 154 H, Calcium 9.2, Total Bilirubin 0.8, AST 23, ALT 55, Alkaline Phosphatase 77, Total Protein 7.6, Albumin 3.9, Globulin 3.7, Albumin/Globulin Ratio 1.1, CBC w Diff NO MAN DIFF REQ, RBC 5.14, MCV 92.3, MCH 29.8, RDW 15.6 H, MPV 10.9 H, Gran % 81.1 H, Lymphocytes % 8.7 L, Monocytes % 9.2, Eosinophils % 0.8, Basophils % 0.2, Absolute Granulocytes 11.2 H, Absolute Lymphocytes 1.2, Absolute Monocytes 1.3 H, Absolute Eosinophils 0.1, Absolute Basophils 0, PUBS MCHC 32.3 L Microbiology 01/18 0317 NASOPHARYN: Influenza Virus A & B Rapid Smear - COMP 08/14 0247 URINE ROUT: Urine Culture - ORD 08/14 0239 BLOOD: Blood Culture - RECD 08/14 0235 BLOOD: Blood Culture - RECD 08/14 0152 URINE ROUT: Urine Culture - CAN Cancelled: Cancelled via OE: Per MD Decision 08/14 015 LOWER RESP: Respiratory Culture - RECD 08/14 015 LOWER RESP: Gram Stain - RECD Initial ED EKG: nonspecific ST T wave chg, sinus tach (Demetrius Monroe MD) Diagnostic Imaging: Viewed by Me: Radiology Read. Discussed w/RAD: Radiology Read. CXR Impression: PATIENT: SUNDAY ESPINAL PRESENT AGE: 57 PATIENT ACCOUNT NO: [id number] : 60 LOCATION: [facility] ORDERING PHYSICIAN: Carmen Cruz MD SERVICE DATE: 08/14/17 EXAM TYPE: RAD - XRY-PORTABLE CHEST XRAY EXAMINATION: XR PORTABLE CHEST CLINICAL INFORMATION: Febrile. Hypoxic on IV antibiotics. COMPARISON: 08/01/2017 TECHNIQUE: Portable frontal view of the chest was obtained. FINDINGS: Lung volumes are low. Tracheostomy tube in place. Left-sided PICC line terminates near the cavoatrial junction. There is persistent right basilar opacity. No pneumothorax or pleural effusion. The cardiomediastinal silhouette is unchanged. IMPRESSION: Low lung volumes. Right basilar opacity which could represent atelectasis or pneumonia. DICTATED BY: Rudy Breen MD DATE/TIME DICTATED:08/14/17218 TEST PREPARATION TUTOR: BRITTANY DATE/TIME TRANSCRIBED:08/14/17218 CONFIDENTIAL, DO NOT COPY WITHOUT APPROPRIATE AUTHORIZATION. <Electronically signed in Other Vendor System> SIGNED BY: Rudy Breen MD 08/14/17 0225 (Carmen Cruz MD) Departure Departure Disposition: STILL A PATIENT Condition: Stable Clinical Impression Primary Impression: Aspiration pneumonia Secondary Impressions: HCAP (healthcare-associated pneumonia) Referrals: Danny Olvera MD (PCP/Family) Departure Forms: Customer Survey General Discharge Information (Demetrius Monroe MD) Departure Time of Disposition: 033 Admission Note Spoke With: Danny Olvera MD Documentation of Exam: Documentation of any treatments & extenuating circumstances including Concerns Regarding Discharge (functional status, medication knowledge or non-compliance, living conditions, etc.) that warrant an admission rather than observation: [TRC /NEBS, IV ABX, HUMIDIFIED OXYGEN, TRACH CARE, SUCTIONING, F/U CULTURES, IV HYDRATION, MONITOR I/O, ID CONSULTATION] Resident Co-Sign Statement Statement: ED Attending supervision documentation- [X] I saw and evaluated the patient. I have also reviewed all the pertinent lab results and diagnostic results. I agree with the findings and the plan of care as documented in the Resident's documentation. [X] I have reviewed the ED Record and agree with the Resident's documentation. [] Additions or exceptions (if any) to the Resident's note and plan are summarized below: [] (Nancy SOTELO,Carmen) Critical Care Note Critical Care Note Critical Care Time: non-applicable (Demetrius Monroe MD)
--- NOTE | 2017-08-14 02:25 | RADIOLOGY REPORT ---
EXAMINATION: XR PORTABLE CHEST CLINICAL INFORMATION: Febrile. Hypoxic on IV antibiotics. COMPARISON: 08/01/2017 TECHNIQUE: Portable frontal view of the chest was obtained. FINDINGS: Lung volumes are low. Tracheostomy tube in place. Left-sided PICC line terminates near the cavoatrial junction. There is persistent right basilar opacity. No pneumothorax or pleural effusion. The cardiomediastinal silhouette is unchanged. IMPRESSION: Low lung volumes. Right basilar opacity which could represent atelectasis or pneumonia.
[2017-08-14 03:06] LABS: ABSOLUTE BASOPHIL COUNT 0 /CUMM (0.0-0.2); ABSOLUTE EOSINOPHIL COUNT 0.1 /CUMM (0.0-0.7); ABSOLUTE GRANULOCYTE CT 11.2 /CUMM (1.4-6.5); ABSOLUTE LYMPH COUNT 1.2 /CUMM (1.2-3.4); ABSOLUTE MONOCYTE COUNT 1.3 /CUMM (0.10-0.60); BASOPHIL % 0.2 % (0.0-2.0); EOSINOPHIL % 0.8 % (0-5); GRANULOCYTE % 81.1 % (42.2-75.2); HEMATOCRIT 47.5 % (42-52); MEAN CORPUSCULAR HGB 29.8 PG (27.0-31.0); MEAN CORPUSCULAR HGB CONC 32.3 G/DL (33.0-37.0); MEAN CORPUSCULAR VOLUME 92.3 FL (80.0-94.0); MEAN PLATELET VOLUME 10.9 FL (7.4-10.4); PLATELET COUNT 243 /CUMM (130-400); RBC DISTRIBUTION WIDTH 15.6 % (11.5-14.5); RED BLOOD CELL CT 5.14 /CUMM (4.70-6.10); WHITE BLOOD CELL COUNT 13.8 /CUMM (4.8-10.8)
--- NOTE | 2017-08-14 03:28 | History & Physical ---
See Addendum Scotty SOTELO,Karli 08/14/17 0328: General Information and HPI MD Statement: I have seen and personally examined SUNDAY ESPINAL and documented this H&P. The patient is a 57 year old M who presented with a patient stated chief complaint of [FEVER]. 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 The patient has had multiple admissions for aspiration pneumonia in the past. Today he is coming from a nursing facility on 08/14 for chief complaint of low-grade temperature and desaturation to 86's to 89's. I called the detention and talked with the nurse taking care of the patient. I was informed that today patient spiked a fever of 100.4 and his O2 sats dropped up to 86%, patient received nebulization treatment and oxygen was bumped up from 6 L to 8 L. He was suctioned twice and there was thick yellow-colored mucus secretions at tracheostomy stoma. Patient remained intermittently febrile throughout the day and the fever was not controlled by Tylenol, prompting visit to [facility] Of note patient was recently hospitalized at [facility] and was discharged 7 days ago. He went to [facility] because [facility] was in diversion. As per facility's nurse patient was diagnosed of pneumonia and was treated with vancomycin and underwent PICC line placement there. He has received 6 doses at the nursing facility and has one last dose remaining. We need to get records from [facility] to get more information regarding diagnosis and choice of vancomycin. Patient is not verbal at baseline but usually he responds with eye-movement. During the encounter patient was easily arousable, he did not respond with eye movements to the asked questions so history and review of systems was unobtainable. Allergies/Medications Allergies: Coded Allergies: scopolamine (Mild, HIVES 12/26/16) NSAIDS (Non-Steroidal Anti-Inflamma (PER W-10 06/01/17) adhesive (HIVES - EKG STICKERS, RED DOT [place] STICKERS 12/26/16) aspirin (PER 12/26/16) clopidogrel (From PLAVIX) (PER 12/26/16) Uncoded Allergies: EKG AND RED DOT LEADS (Intermediate, RASH 09/26/16) Home Med list Acetaminophen 325 MG TABLET 2 TAB J TUBE Q4H PRN PAIN/TEMP/>101 (Reported) Acetaminophen (Acephen) 650 MG SUPP.RECT 1 SUPP [place] Q4H PRN PAIN/TEMP>101 ( Reported) Albuterol Sulfate 2.5 MG/3 ML (0.083 %) VIAL.NEB 1 Vial INH/MONICO BID RESP. ( Reported) Baclofen 10 MG TABLET 1 TAB J TUBE TID SPASMS (Reported) Bisacodyl 10 MG SUPP.RECT 1 SUP RC DAILY PRN NO BM - IF MOM INEFFECTIVE ( Reported) Cholecalciferol (Vitamin D3) 1,000 UNIT TABLET 1 TAB J TUBE DAILY SUPPLEMENT (Reported) Docusate Sodium 100 MG TABLET 1 TAB J TUBE BID STOOL SOFTENER (Reported) Escitalopram Oxalate 5 MG TABLET 1 TAB G TUBE DAILY DEPRESSION (Reported) Fentanyl 25 MCG/HOUR PATCH.TD72 1 PAT TOP Q3D PAIN (Reported) Ipratropium/Albuterol Sulfate (Iprat-Albut 0.5-3(2.5) MG/3 Ml) 0.5 MG-3 MG (2.5 MG BASE)/3 ML AMPUL.NEB 1 VIAL NEB Q4H PRN SOB (Reported) Lactobacillus Acidophilus (Acidophilus) 1 EACH CAPSULE 1 CAP J TUBE DAILY PROBIOTIC (Reported) Magnesium Hydroxide (Milk Of Magnesia) 400 MG/5 ML ORAL.SUSP 30 ML J TUBE DAILY PRN NO BM IN 3 DAYS (Reported) Na Phos,M-B/Na Phos,Di-Ba (Fleet Enema) 19 GRAM-7 GRAM/118 ML ENEMA 1 E RC DAILY PRN NO BM - IF BISACODYL INEFFECTI (Reported) Nut.tx.gluc.intoler,Lac-Fr,Soy (Glucerna 1.2 Fritz) 237 ML LIQUID 75 ML J TUBE 75 MLS/HR TUBE FEEDING (Reported) Ondansetron HCl 4 MG TABLET 1 TAB J TUBE Q8H PRN N/V (Reported) Ranitidine HCl 15 MG/ML SYRUP 10 ML J TUBE BID GI (Reported) Simvastatin (Zocor*) 10 MG TABLET 1 TAB J TUBE QHS CHOLESTEROL (Reported) Past History Travel History Traveled to [place] past 21 day No Medical History Neurological: CVA, 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 ASP PNA Gastrointestinal: constipation, GERD, peptic ulcer disease, upper GI bleed, C. Difficile DYSPHAGIA GTUBE Hepatic: NONE Renal: nephrolithiasis, UTI Musculoskeletal: gout, MUSCLE SPASMS Psychiatric: depression, schizophrenia Endocrine: DIABETES VIT D DEFICIENCY Blood Disorders: NONE Cancer(s): NONE RN INFUSION/Reproductive: NONE History of MRSA: Yes History of VRE: Yes History of CDIFF: No Surgical History Surgical History: hernia repair-inguinal (8 years prior to admission), GASTOJEJUNOSTOMY status post IVC filter Past Family/Social History Family History Relations & Conditions if any FATHER (CVA, type 2 DM, Colon Ca). MOTHER (Type 2 DM). Grand father (CVA). Psychosocial History Where do you live? Extended Care Facility Who Do You Live With? self Services at Home: from [facility] Primary Language: Kiswahili Smoking Status: Unknown If Ever Smoked Functional Ability ADLs Needs Assist: dressing, eating, toileting, bathing. Ambulation: non-ambulatory IADLs Needs Assist: shopping, housework, finances, food prep, telephone, transportation, medication admin. Review of Systems Review of Systems Constitutional: Reports: see HPI. Exam & Diagnostic Data Last 24 Hrs of Vital Signs/I&O Vital Signs Date Time Temp Pulse Resp B/P B/P Pulse O2 O2 Flow FiO2 Mean Ox Delivery Rate 08/14 0319 99.0 97 20 129/82 93 Trach Mask 40% 08/14 0255 94 Trach Mask 40% 08/14 0159 92 Trach Mask 40% 08/14 0150 101.1 102 20 142/93 94 Non 100% ReBreather Intake & Output 08/14 0800 08/14 0000 08/13 1600 Intake Total Output Total Balance Patient 200 lb Weight Weight Estimated Measurement Method Physical Exam General Appearance No Acute Distress Neck trach mask in palce Cardiovascular Normal S1, Normal S2 Lungs decreased breath sounds Abdomen Normal Bowel Sounds, Soft, No Tenderness, Jtube in palce, area around Jtube clean no signs of infection Extremities picc line in place in left arm Body Front and Back (Adult) 1) b/l scabbed abrassions, no signs of active infection 2) 3) jtube 4) picc line Last 24 Hrs of Labs/Rashard: Laboratory Tests 08/14/17 0235: Anion Gap 14, Estimated GFR > 60, BUN/Creatinine Ratio 40.0 H, Glucose 154 H, Calcium 9.2, Total Bilirubin 0.8, AST 23, ALT 55, Alkaline Phosphatase 77, Total Protein 7.6, Albumin 3.9, Globulin 3.7, Albumin/Globulin Ratio 1.1, CBC w Diff NO MAN DIFF REQ, RBC 5.14, MCV 92.3, MCH 29.8, RDW 15.6 H, MPV 10.9 H, Gran % 81.1 H, Lymphocytes % 8.7 L, Monocytes % 9.2, Eosinophils % 0.8, Basophils % 0.2, Absolute Granulocytes 11.2 H, Absolute Lymphocytes 1.2, Absolute Monocytes 1.3 H, Absolute Eosinophils 0.1, Absolute Basophils 0, PUBS MCHC 32.3 L Microbiology 08/14 0317 NASOPHARYN: Influenza Virus A & B Rapid Smear - COMP 08/14 0247 URINE ROUT: Urine Culture - ORD 08/14 0239 BLOOD: Blood Culture - RECD 08/14 0235 BLOOD: Blood Culture - RECD 08/14 0152 URINE ROUT: Urine Culture - CAN Cancelled: Cancelled via OE: Per MD Decision 08/14 0150 LOWER RESP: Respiratory Culture - RECD 08/14 0150 LOWER RESP: Gram Stain - RECD Diagnostic Data CXR Results FINDINGS: Lung volumes are low. Tracheostomy tube in place. Left-sided PICC line terminates near the cavoatrial junction. There is persistent right basilar opacity. No pneumothorax or pleural effusion. The cardiomediastinal silhouette is unchanged. IMPRESSION: Low lung volumes. Right basilar opacity which could represent atelectasis or pneumonia Assessment/Plan Assessment: The patient has multiple comorbidities including 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 The patient has had multiple admissions for aspiration pneumonia in the past. Today he is coming from a nursing facility on 08/14 for chief complaint of low-grade temperature and desaturation to 86's to 89's. Patient arrived on nonrebreather at 15 mL O2 at 95% through trach -VS Tmax 101.1, HR 102, RR 20, BP 142/93 and pulse ox 94% on nonrebreather -Pertinent labs WBC count 13.8, sodium 148, bicarbonate 32, BUN 28 -CXR dictated above -In ED patient received 1.5 g Unasyn and ceftazidime, porter cultures were sent. Respiratory therapist set up Trach mask with 40% humidified FIO2 and suctioned copious amount of thick yellow tenacious secretion sample of which was sent for culture. He is being admitted to the general medicine floor and is being treated and evaluated for following conditions # Acute on chronic hypoxic respiratory failure likely secondary to Aspiration pneumonia versus HCAP vs mucous plug Patient is presenting with temperature and drop in oxygen saturation along with thick yellow secretions from the tracheostomy stoma. He has history of multiple admissions for aspiration pneumonia. He meets SIRS with Tmax 100.1 HR 102 nonspecific. White count 13.8. It is possible that secretions can be from a mucous plug, but presence of fever and WBC count warrants further evaluation. CXR suspicious of right basilar opacity atelectasis versus pneumonia. Patient has had a recent admission in [facility] 7 days ago and is being treated with IV vancomycin via PICC line. Other possible sources of infection can be urine and skin or infected line. We will check urine to rule out UTI, patient has bilateral skin abrasions which are scabbed and do not look infected. PICC line in place does not appear to be infected. -Monitor fever and WBC curve -Follow-up pancultures -Follow-up urine strep and Legionella antigen -Follow-up UA to rule out UTI -Aspiration precautions -Humidified oxygen -Respiratory therapy TRC -Tracheostomy care and suction -Aggressive pulmonary toilet -ID consult in the a.m. -Monitor off antibiotics for now -Obtain records from [facility] for reason of admission and management #Nutrition via J-tube feeds -Glucerna 1.2 at the rate of 75 mL per hour x 20hr #History of diabetes mellitus Patient is not currently on any anti-diabetic medication. Consider checking HbA1c #Chronic medical conditions depression, GERD, muscle spasm, hyperlipidemia, constipation Continue Lexapro,Pepcid, Baclofen, Lipitor, Colace #FC/ Tube feeds/ DVT prophylaxis with Lovenox As Ranked By This Provider Problem List: 1. Aspiration pneumonitis 2. LOCKED-IN SYNDROME Core Measures/Misc (04/13) Acute Coronary Syndrome ACS Diagnosis: No Congestive Heart Failure Congestive Heart Failure Diagnosis No Cerebrovascular Accident CVA/TIA Diagnosis: No VTE (View Protocol) VTE Risk Factors Age>40 No Mechanical VTE Prophylaxis d/t N/A MechProphylax Ordered No VTE Pharm Prophylaxis d/t NA PharmProphylax ordered Sepsis (View protocol) Sepsis Present: Yes SaranSimon 08/14/17 0520: Resident Review Statement Resident Statement: discussed with record label internship Other Findings: 57-year-old man detention resident with quadriplegia status post a brainstem infarct resulting in locked-in syndrome, status post tracheostomy with 35% oxygen requirement via trach mask , status post J-tube placement for feeding, multiple admissions for aspiration pneumonia, C. difficile infection, diabetes, gout, depression, history of NC, MRSA infection in the past, able to communicate with his eyes only presented to [facility] with fever (temperature 100.4 at ECF) and decreased oxygen saturation to 86-89%. Patient arrived to ER on a nonrebreather with 95% oxygen through trach. Upon arrival his temperature was 101.1, pulse 102, respiratory rate 20, blood pressure 142/93 and oxygen saturation 94% on 100% nonrebreather mask. Respiratory therapist was called who suctioned copious amounts of thick yellow secretions and sample was sent to the lab. His oxygen requirement decreased down to 40%. It was difficult to obtain proper history from patient so we called [facility]. We were told that patient recently discharged from [facility] one week ago where he was treated for questionable pneumonia. PICC was placed while in hospital and he was discharged on vancomycin. His last dose was due today. In ER chest x-ray showed low lung volumes with right basilar opacity, atelectasis versus pneumonia. He was given Unasyn 1500 mg 1 and Fortaz 1 g 1. Physical exam: A weak, no acute distress. PICC Left upper extremity. Lungs anteriorly, decreased breath sounds bilaterally. No rhonchi or wheezes. Heart regular rate and rhythm without any murmurs. Abdomen soft nontender positive bowel sounds J-tube in place. Area around G-tube was clean without any signs of infection. Abrasions Bilateral lower extremity without any signs of infection. No edema. Assessment and plan Acute on chronic hypoxic respiratory failure likely secondary to ? Aspiration pneumonia versus HCAP vs mucous plug. Positive SIRS criteria. He was recently discharged from [facility] a week ago. He was treated for ? Pneumonia discharged from [facility] via PICC, last dose was due today. He was spiking fever despite on Vanco and his respiratory status got worse. His WBC count is 13.8. CT chest without IV contrast done on August 01 showed focal consolidation at the right lung base with air bronchograms. After suctioning his oxygen requirement decreased down from 100% to 40%. He has history of growing multiple resistant bugs in sputum in past. In ER he got Unasyn and Fortaz. Blood and sputum cultures were sent. Rapid flu negative. Will check urine antigens for Legionella and strep pneumonia. As he is covered for most organisms for now so we will follow him off antibiotics and get ID consult in a.m. for expert opinion. We will continue TRC nebs. Aggressive pulmonary toilet. Aspiration precautions. Consider pulm consult in a.m. Get records of recent hospitalization in [facility]. Continue home medications. DVT prophylaxis. He is full code.
--- NOTE | 2017-08-14 07:15 | PN- Housestaff ---
See Addendum Subjective Follow-up For: - Acute on chronic hypoxic respiratory failure ? Aspiration pneumonia versus HCAP vs mucous plug Subjective: Patient is seen and examined at bedside, very sleepy and hard to communicate, he only communicates by moving his eyes. Denies fever, chills,, nausea, vomiting. His sister was at the bedside, denies any clear history of choking or aspiration in the nursing facility where he lives Review of Systems Constitutional: Reports: diaphoresis, fever, malaise, weakness. Cardiovascular: Denies: no symptoms. Respiratory: Reports: cough, sputum production. Gastrointestinal: Denies: no symptoms. Genitourinary: Denies: no symptoms. Objective Last 24 Hrs of Vital Signs/I&O Vital Signs Date Time Temp Pulse Resp B/P B/P Pulse O2 O2 Flow FiO2 Mean Ox Delivery Rate 08/14 1200 97.0 94 18 129/79 95 Trach Mask 08/14 1148 97.0 80 129/79 08/14 1125 94 Trach Mask 50% 08/14 1050 Trach Mask 50% 08/14 1032 99.2 98 112/68 08/14 1031 99.2 94 112/58 08/14 0815 94 Trach Mask 50% 08/14 0749 99.2 90 120/82 08/14 0555 92 Trach Mask 40% 08/14 0332 93 Trach Mask 40% 08/14 0319 99.0 97 20 129/82 93 Trach Mask 40% 08/14 0255 94 Trach Mask 40% 08/14 0159 92 Trach Mask 40% 08/14 0150 101.1 102 20 142/93 94 Non 100% ReBreather Intake & Output 08/14 1600 08/14 0800 08/14 0000 Intake Total Output Total Balance Patient 183 lb 200 lb Weight Weight Estimated Measurement Method Physical Exam General Appearance: Cooperative, No Acute Distress Skin: multiple exocriation and erythematous lesions in both shins of legs HEENT: Atraumatic, PERRLA, EOMI, Mucous Membr. 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 The patient has had multiple admissions for aspiration pneumonia in the past. Last admission was to [facility], records were obtained which showed that he grew Escherichia coli resistant to cefepime and has a sputum, and patient had a PICC line placed in and he was restarted on a 6 day course of ertapenem which is started on , PICC line was placed on. In the ED patient received 1 dose of cyst has 1 g and Unasyn 1500 mg ONCE #Pneumonia On admission the patient had temperature of 101.1, leukocytosis, right basilar opacity Differential diagnosis includes HCAP, aspiration, Ligonellaand strep pneumonia negative Follow-up on blood culture, sputum culture Continue to monitor on general medicine floor ID and pulmonology consult has been placed we'll follow up on the recommendation TRC,NEBS We will start antibiotics according to ID recommendation x-ray confirmed the left-sided PICC line is in place patient is full code DVT prophylaxis with Lovenox Tubes feeding Problem List: 1. HCAP (healthcare-associated pneumonia) 2. PEG (percutaneous endoscopic gastrostomy) adjustment/replacement/removal Pain Ratin Pain Location: N/A Pain Goal: Remain pain free Pain Plan: PATHWAY Tomorrow's Labs & Rationales: CBC BEP
[2017-08-14 10:32] VITALS: BP 112/68
[2017-08-14 10:37] LABS: ABSOLUTE BASOPHIL COUNT 0.1 /CUMM (0.0-0.2); ABSOLUTE EOSINOPHIL COUNT 0.2 /CUMM (0.0-0.7); ABSOLUTE GRANULOCYTE CT 9.2 /CUMM (1.4-6.5); ABSOLUTE LYMPH COUNT 1.1 /CUMM (1.2-3.4); ABSOLUTE MONOCYTE COUNT 1.2 /CUMM (0.10-0.60); BASOPHIL % 0.5 % (0.0-2.0); EOSINOPHIL % 1.4 % (0-5); GRANULOCYTE % 78.4 % (42.2-75.2); HEMATOCRIT 44.5 % (42-52); MEAN CORPUSCULAR HGB 30.3 PG (27.0-31.0); MEAN CORPUSCULAR HGB CONC 33.1 G/DL (33.0-37.0); MEAN CORPUSCULAR VOLUME 91.8 FL (80.0-94.0); MEAN PLATELET VOLUME 10.8 FL (7.4-10.4); PLATELET COUNT 215 /CUMM (130-400); RBC DISTRIBUTION WIDTH 15.5 % (11.5-14.5); RED BLOOD CELL CT 4.85 /CUMM (4.70-6.10); WHITE BLOOD CELL COUNT 11.7 /CUMM (4.8-10.8)
[2017-08-14 12:00] VITALS: BP 129/79
--- NOTE | 2017-08-14 13:06 | Admission Certification ---
Admission Certification Certification Statement - As attending physician, I certify that at the time of - admission, based on clinical presentation, severity of - symptoms, need for further diagnostic testing and - therapeutic interventions, and risk of adverse outcomes - without in-hospital treatment, in my clinical assessment, - this patient requires an acute hospital stay for a minimum - of two nights or longer. I have also considered psychsocial - factors such as support system, advanced age, financial - issues, cognitive issues, and failed out-patient treatments, - past re-admission history, safety of patient, and lack of - compliance as applicable. Specific rationale supporting this admission is: Fever, leukocytosis and right basilar opacity on chest x-ray
--- NOTE | 2017-08-14 13:09 | PN- Att Addend ---
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 Overnight again fevers O2 saturations were dropping high rigger reasons to send him back to this emergency room was found to have a temperature of 101.1, leukocytosis and a right basilar opacity patient was pancultured started on antibiotic treatment and admitted Current Medications Sig/Gil Start time Last Medication Dose Route Stop Time Status Admin Acetaminophen 650 MG Q8P PRN 08/14 0445 AC PO Albuterol Sulfate 3 ML BID 08/14 2200 AC 08/14 INH 1119 Albuterol Sulfate 3 ML BID 08/14 1000 DC INH Ampicillin Sodium/ 1,500 MG ONCE ONE 08/14 0215 DC 08/14 Sulbactam Sodium IV 08/14 0244 0301 Sodium Chloride 100 ML Atorvastatin Calcium 10 MG AT BEDTIME 08/14 2199 AC PO Baclofen 10 MG TID 08/14 1000 AC 08/14 PO 0928 Ceftazidime 1,000 MG ONCE ONE 08/14 0300 DC 08/14 IV 08/14 0301 0254 Ceftazidime 0 .STK-MED ONE 08/14 0253 DC .ROUTE Ceftazidime 2,000 MG ONCE ONE 08/14 0215 CAN IV 08/14 0216 Cholecalciferol 1,000 IU DAILY 08/14 1000 AC 08/14 PO 0928 Docusate Sodium 100 MG BID PRN 08/14 0445 AC PO Enoxaparin Sodium 40 MG DAILY 08/14 1000 AC 08/14 SC 0928 Escitalopram Oxalate 5 MG DAILY 08/14 1000 AC 08/14 PO 0928 Famotidine 20 MG BID 08/14 1000 AC 08/14 PO 0928 Famotidine 0 .STK-MED ONE 08/14 0931 DC PO Fentanyl Citrate 25 MCG Q3D 08/14 0445 AC TOP Ipratropium [place] 2.5 ML BID 08/14 2200 AC 08/14 INH 1119 Ipratropium [place] 2.5 ML Q4 HRS NEEDED PRN 08/14 0445 DC INH Sodium Chloride 1,000 ML Q10H 08/14 0630 AC 08/14 IV 08/14 1629 0641 Laboratory Tests 08/14/17 0946: CBC w Diff NO MAN DIFF REQ, RBC 4.85, MCV 91.8, MCH 30.3, RDW 15.5 H, MPV 10.8 H, Gran % 78.4 H, Lymphocytes % 9.5 L, Monocytes % 10.2 H, Eosinophils % 1.4, Basophils % 0.5, Absolute Granulocytes 9.2 H, Absolute Lymphocytes 1.1 L, Absolute Monocytes 1.2 H, Absolute Eosinophils 0.2, Absolute Basophils 0.1, PUBS MCHC 33.1 08/14/17729: Urine Color YEL, Urine Clarity CLEAR, Urine pH 6.0, Ur Specific [place] 1.020, Urine Protein TRACE H, Urine Ketones NEG, Urine Nitrite NEG, Urine Bilirubin NEG, Urine Urobilinogen 0.2, Ur Leukocyte Esterase NEG, Ur Microscopic SEDIMENT EXAMINED, Urine RBC RARE, Urine WBC 1-3 H, Hyaline Casts 1-3 H, Granular Casts 1-3 H, Urine Hemoglobin NEG, Urine Glucose NEG 08/14/17 0632: Lactic Acid 1.4 08/14/17 0632: Anion Gap 13, Estimated GFR > 60, BUN/Creatinine Ratio 38.6 H 08/14/17 0235: Anion Gap 14, Estimated GFR > 60, BUN/Creatinine Ratio 40.0 H, Glucose 154 H, Calcium 9.2, Total Bilirubin 0.8, AST 23, ALT 55, Alkaline Phosphatase 77, Total Protein 7.6, Albumin 3.9, Globulin 3.7, Albumin/Globulin Ratio 1.1, CBC w Diff NO MAN DIFF REQ, RBC 5.14, MCV 92.3, MCH 29.8, RDW 15.6 H, MPV 10.9 H, Gran % 81.1 H, Lymphocytes % 8.7 L, Monocytes % 9.2, Eosinophils % 0.8, Basophils % 0.2, Absolute Granulocytes 11.2 H, Absolute Lymphocytes 1.2, Absolute Monocytes 1.3 H, Absolute Eosinophils 0.1, Absolute Basophils 0, PUBS MCHC 32.3 L Microbiology 08/14 729 URINE ROUT: Legionella Antigen - COMP 08/14 729 URINE ROUT: Streptococcus pneumoniae Antigen (M - COMP 08/14 316 NASOPHARYN: Influenza Virus A & B Rapid Smear - COMP Vital Signs Date Time Temp Pulse Resp B/P B/P Pulse O2 O2 Flow FiO2 Mean Ox Delivery Rate 08/14 1200 97.0 94 18 129/79 95 Trach Mask 08/14 1148 97.0 80 129/79 08/14 1125 94 Trach Mask 50% 08/14 1050 Trach Mask 50% 08/14 1032 99.2 98 112/68 08/14 1031 99.2 94 112/58 08/14 0815 94 Trach Mask 50% 08/14 0749 99.2 90 120/82 08/14 0555 92 Trach Mask 40% Intake & Output 08/14 1600 Intake Total Output Total Balance Patient 183 lb Weight
[2017-08-14 13:28] VITALS: BP 119/71
[2017-08-14 15:03] VITALS: BP 114/59
[2017-08-14 16:24] LABS: ABSOLUTE BASOPHIL COUNT 0 /CUMM (0.0-0.2); ABSOLUTE EOSINOPHIL COUNT 0.2 /CUMM (0.0-0.7); ABSOLUTE LYMPH COUNT 0.9 /CUMM (1.2-3.4); BASOPHIL % 0.4 % (0.0-2.0); EOSINOPHIL % 1.8 % (0-5); GRANULOCYTE % 79.4 % (42.2-75.2); HEMATOCRIT 42.6 % (42-52); MEAN CORPUSCULAR HGB 30.2 PG (27.0-31.0); MEAN CORPUSCULAR VOLUME 91.6 FL (80.0-94.0); MEAN PLATELET VOLUME 10.2 FL (7.4-10.4); PLATELET COUNT 229 /CUMM (130-400); RBC DISTRIBUTION WIDTH 15.8 % (11.5-14.5); RED BLOOD CELL CT 4.65 /CUMM (4.70-6.10); WHITE BLOOD CELL COUNT 10.1 /CUMM (4.8-10.8)
[2017-08-14 18:32] VITALS: BP 112/86
--- NOTE | 2017-08-14 18:47 | Cons- Infect Disease ---
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, with a J-tube in place, status post multiple hospitalizations, typically for aspiration pneumonia/mucous plugging or urinary tract infections, last hospitalized at [facility] 2 months prior to admission with hematemesis, seen in the ER 2 weeks prior to admission with a recurrent episode of hematemesis, found to be afebrile with a normal white blood cell count and with a CT of the chest, abdomen and pelvis revealing consolidation at the right lung base with air bronchograms, discharged on Augmentin but apparently hospitalized at [facility] later that day after a recurrent episode of hematemesis, apparently treated with Ertapenem for a resistant Escherichia coli in his sputum and discharged 5 days prior to this admission to complete a 10 day course via a PICC, admitted early this morning after he was sent to the emergency room because of fever and hypoxia. On admission he was febrile to 101.1. Laboratory data revealed a white blood cell count of 14,000, BUN/creatinine 28 and 0.7, sodium 148, with normal liver enzymes. Urinalysis rare RBCs/1-3 WBCs. Chest x- ray revealed a right basilar opacity. He was given Unasyn and Ceftazidime and then followed off antibiotics. Meropenem, however, was apparently ordered earlier this evening. He has defervesced since this morning and white blood cell count has normalized. He is unable to provide any history secondary to his underlying condition. Allergies/Medications Allergies: Coded Allergies: scopolamine (Mild, HIVES 12/26/16) NSAIDS (Non-Steroidal Anti-Inflamma (PER -12/26/16) adhesive (HIVES - EKG STICKERS, RED DOT [place] STICKERS 12/26/16) aspirin (PER -12/26/16) clopidogrel (From PLAVIX) (PER -12/26/16) Uncoded Allergies: EKG AND RED DOT LEADS (Intermediate, RASH 09/26/16) Home Med List: Acetaminophen 325 MG TABLET 2 TAB J TUBE Q4H PRN PAIN/TEMP/>101 (Reported) Acetaminophen (Acephen) 650 MG SUPP.RECT 1 SUPP MS Q4H PRN PAIN/TEMP>101 ( Reported) Albuterol Sulfate 2.5 MG/3 ML (0.083 %) VIAL.NEB 1 Vial INH/MONICO BID RESP. ( Reported) Baclofen 10 MG TABLET 1 TAB J TUBE TID SPASMS (Reported) Bisacodyl 10 MG SUPP.RECT 1 SUP RC DAILY PRN NO BM - IF MOM INEFFECTIVE ( Reported) Cholecalciferol (Vitamin D3) 1,000 UNIT TABLET 1 TAB J TUBE DAILY SUPPLEMENT (Reported) Docusate Sodium 100 MG TABLET 1 TAB J TUBE BID STOOL SOFTENER (Reported) Escitalopram Oxalate 5 MG TABLET 1 TAB G TUBE DAILY DEPRESSION (Reported) Fentanyl 25 MCG/HOUR PATCH.TD72 1 PAT TOP Q3D PAIN (Reported) Ipratropium/Albuterol Sulfate (Iprat-Albut 0.5-3(2.5) MG/3 Ml) 0.5 MG-3 MG (2.5 MG BASE)/3 ML AMPUL.NEB 1 VIAL NEB Q4H PRN SOB (Reported) Lactobacillus Acidophilus (Acidophilus) 1 EACH CAPSULE 1 CAP J TUBE DAILY PROBIOTIC (Reported) Magnesium Hydroxide (Milk Of Magnesia) 400 MG/5 ML ORAL.SUSP 30 ML J TUBE DAILY PRN NO BM IN 3 DAYS (Reported) Na Phos,M-B/Na Phos,Di-Ba (Fleet Enema) 19 GRAM-7 GRAM/118 ML ENEMA 1 E RC DAILY PRN NO BM - IF BISACODYL INEFFECTI (Reported) Nut.tx.gluc.intoler,Lac-Fr,Soy (Glucerna 1.2 Fritz) 237 ML LIQUID 75 ML J TUBE 75 MLS/HR TUBE FEEDING (Reported) Ondansetron HCl 4 MG TABLET 1 TAB J TUBE Q8H PRN N/V (Reported) Ranitidine HCl 15 MG/ML SYRUP 10 ML J TUBE BID GI (Reported) Simvastatin (Zocor*) 10 MG TABLET 1 TAB J TUBE QHS CHOLESTEROL (Reported) Past History Travel History Traveled to [place] past 21 day No Medical History Blood Transfusion Hx: No Neurological: CVA, 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 ASP PNA Gastrointestinal: constipation, GERD, peptic ulcer disease, upper GI bleed, C. 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 MOTHER (Type 2 DM). Grand father (CVA). Psychosocial History Where Do You Live? Extended Care Facility Who Do You Live With? self Services at Home: from [facility] Primary Language: Syrian Smoking Status: Never Smoked Functional Ability ADLs Needs Assist: dressing, eating, toileting, bathing. Ambulation: non-ambulatory IADLs Needs Assist: shopping, housework, finances, food prep, telephone, transportation, medication admin. Review of Systems Comments Not obtainable Exam & Diagnostic Data Last 24 Hrs of Vital Signs/I&O Vital Signs Date Time Temp Pulse Resp B/P B/P Pulse O2 O2 Flow FiO2 Mean Ox Delivery Rate 08/14 1832 97.9 96 20 112/86 92 Trach Mask 50% 08/14 1732 Trach Mask 50% 08/14 1503 99.2 92 114/59 08/14 1431 93 Trach Mask 50% 08/14 1349 99.9 08/14 1338 99.9 08/14 1328 97.2 94 119/71 08/14 1309 99.9 94 119/71 08/14 1200 97.0 94 18 129/79 95 Trach Mask 08/14 1148 97.0 80 129/79 08/14 1125 94 Trach Mask 50% 08/14 1050 Trach Mask 50% 08/14 1032 99.2 98 112/68 08/14 1031 99.2 94 112/58 08/14 0815 94 Trach Mask 50% 08/14 0800 93 Trach Mask 50% 08/14 0749 99.2 90 120/82 08/14 0555 92 Trach Mask 40% 08/14 0332 93 Trach Mask 40% 08/14 0319 99.0 97 20 129/82 93 Trach Mask 40% 08/14 0255 94 Trach Mask 40% 08/14 0159 92 Trach Mask 40% 08/14 0150 101.1 102 20 142/93 94 Non 100% ReBreather Intake & Output 08/14 1600 08/14 0800 08/14 0000 Intake Total 1460 Output Total 1100 Balance 360 Intake, IV 800 Intake, Tube 600 Feeding Intake, Tube 60 Irrigant Output, Urine 1100 Patient 183 lb 200 lb Weight Weight Estimated Measurement Method Physical Exam Other Physical Findings: MAXIMUM TEMPERATURE 101.1. He is lethargic and unresponsive to pain. Skin reveals scattered excoriations over his lower extremities. HEENT negative. Neck is supple with no adenopathy; trach mask in place. Lungs bilateral rhonchi. Heart regular rhythm with no murmur. Abdomen is soft, with positive bowel sounds; J-tube in place with no inflammation at the site. Back no breakdown. Extremities no cyanosis, clubbing or edema; PICC in place in the left upper extremity with no inflammation at the site. Neuro decerebrate posturing with quadriplegia. Last 24 Hours of Lab Results: Laboratory Tests 08/14 08/14 1600 0946 Chemistry Sodium (137 - 145 mmol/L) 148 H Potassium (3.5 - 5.1 mmol/L) 4.2 Chloride (98 - 107 mmol/L) 104 Carbon Dioxide (22 - 30 mmol/L) 31 H Anion Gap (5 - 16) 13 BUN (9 - 20 mg/dL) 27 H Creatinine (0.7 - 1.2 mg/dL) 0.6 L Estimated GFR (>60 ml/min) > 60 BUN/Creatinine Ratio (7 - 25 %) 45.0 H Hematology CBC w Diff NO MAN DIFF REQ NO MAN DIFF REQ WBC (4.8 - 10.8 /CUMM) 10.1 11.7 H RBC (4.70 - 6.10 /CUMM) 4.65 L 4.85 Hgb (14.0 - 18.0 G/DL) 14.1 14.7 Hct (42 - 52 %) 42.6 44.5 MCV (80.0 - 94.0 FL) 91.6 91.8 MCH (27.0 - 31.0 PG) 30.2 30.3 RDW (11.5 - 14.5 %) 15.8 H 15.5 H Plt Count (130 - 400 /CUMM) 229 215 MPV (7.4 - 10.4 FL) 10.2 10.8 H Gran % (42.2 - 75.2 %) 79.4 H 78.4 H Lymphocytes % (20.5 - 51.1 %) 8.7 L 9.5 L Monocytes % (1.7 - 9.3 %) 9.7 H 10.2 H Eosinophils % (0 - 5 %) 1.8 1.4 Basophils % (0.0 - 2.0 %) 0.4 0.5 Absolute Granulocytes (1.4 - 6.5 /CUMM) 8.0 H 9.2 H Absolute Lymphocytes (1.2 - 3.4 /CUMM) 0.9 L 1.1 L Absolute Monocytes (0.10 - 0.60 /CUMM) 1.0 H 1.2 H Absolute Eosinophils (0.0 - 0.7 /CUMM) 0.2 0.2 Absolute Basophils (0.0 - 0.2 /CUMM) 0 0.1 PUBS MCHC (33.0 - 37.0 G/DL) 33.0 33.1 08/14 08/14 08/14 0730 0632 0632 Chemistry Sodium (137 - 145 mmol/L) 149 H Potassium (3.5 - 5.1 mmol/L) 4.4 Chloride (98 - 107 mmol/L) 102 Carbon Dioxide (22 - 30 mmol/L) 35 H Anion Gap (5 - 16) 13 BUN (9 - 20 mg/dL) 27 H Creatinine (0.7 - 1.2 mg/dL) 0.7 Estimated GFR (>60 ml/min) > 60 BUN/Creatinine Ratio (7 - 25 %) 38.6 H Lactic Acid (0.7 - 2.1 mmol/L) 1.4 Urines Urine Color (YEL,AMB,STR) YEL Urine Clarity (CLEAR) CLEAR Urine pH (5.0 - 8.0) 6.0 Ur Specific [place] (1.001 - 1.035) 1.020 Urine Protein (NEG,<30 MG/DL) TRACE H Urine Ketones (NEG) NEG Urine Nitrite (NEG) NEG Urine Bilirubin (NEG) NEG Urine Urobilinogen (0.1 - 1.0 EU/dl) 0.2 Ur Leukocyte Esterase (NEG) NEG Ur Microscopic SEDIMENT EXAMINED Urine RBC (0 - 5 /HPF) RARE Urine WBC (0 - 2 /HPF) 1-3 H Hyaline Casts (0/LPF) 1-3 H Granular Casts (NONE /LPF) 1-3 H Urine Hemoglobin (NEG) NEG Urine Glucose (N MG/DL) NEG 08/14 0235 Chemistry Sodium (137 - 145 mmol/L) 148 H Potassium (3.5 - 5.1 mmol/L) 4.4 Chloride (98 - 107 mmol/L) 102 Carbon Dioxide (22 - 30 mmol/L) 32 H Anion Gap (5 - 16) 14 BUN (9 - 20 mg/dL) 28 H Creatinine (0.7 - 1.2 mg/dL) 0.7 Estimated GFR (>60 ml/min) > 60 BUN/Creatinine Ratio (7 - 25 %) 40.0 H Glucose (65 - 99 mg/dL) 154 H Calcium (8.4 - 10.2 mg/dL) 9.2 Total Bilirubin (0.2 - 1.3 mg/dL) 0.8 AST (17 - 59 U/L) 23 ALT (21 - 72 U/L) 55 Alkaline Phosphatase (< 127 U/L) 77 Total Protein (6.3 - 8.2 g/dL) 7.6 Albumin (3.5 - 5.0 g/dL) 3.9 Globulin (1.9 - 4.2 gm/dL) 3.7 Albumin/Globulin Ratio (1.1 - 2.2 %) 1.1 Hematology CBC w Diff NO MAN DIFF REQ WBC (4.8 - 10.8 /CUMM) 13.8 H RBC (4.70 - 6.10 /CUMM) 5.14 Hgb (14.0 - 18.0 G/DL) 15.3 Hct (42 - 52 %) 47.5 MCV (80.0 - 94.0 FL) 92.3 MCH (27.0 - 31.0 PG) 29.8 RDW (11.5 - 14.5 %) 15.6 H Plt Count (130 - 400 /CUMM) 243 MPV (7.4 - 10.4 FL) 10.9 H Gran % (42.2 - 75.2 %) 81.1 H Lymphocytes % (20.5 - 51.1 %) 8.7 L Monocytes % (1.7 - 9.3 %) 9.2 Eosinophils % (0 - 5 %) 0.8 Basophils % (0.0 - 2.0 %) 0.2 Absolute Granulocytes (1.4 - 6.5 /CUMM) 11.2 H Absolute Lymphocytes (1.2 - 3.4 /CUMM) 1.2 Absolute Monocytes (0.10 - 0.60 /CUMM) 1.3 H Absolute Eosinophils (0.0 - 0.7 /CUMM) 0.1 Absolute Basophils (0.0 - 0.2 /CUMM) 0 PUBS MCHC (33.0 - 37.0 G/DL) 32.3 L Last 24 Hours of Rashard Results: Blood cultures 2 August 14 pending Sputum culture August 14 pending, with gram stain revealing many white blood cells, rare gram-positive cocci and rare gram-positive rods Rapid flu swab August 14 negative Urine strep pneumo antigen and Legionella antigen August 14 negative Urine culture August 14 pending Diagnostic Data Recent Imaging Findings: Chest x-ray August 14 reveals a right basilar opacity Assessment/Plan Assessment/Plan Impression: This is a 57-year-old man, [facility] resident, with quadriplegia, 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 Though his clinical picture may suggest pneumonia, for example secondary to recurrent aspiration, it could also be secondary to mucous plugging and, given the fact that he has just completed a nearly 10 day course of antibiotics for a presumed pneumonia, feel that at this point it would be best to follow him off antibiotics. The right basilar density and chest x-ray is of unclear significance and could certainly represent a residual density from his recent pneumonia. Of note his labs on admission suggest dehydration, and his decreased temperatures and white blood cell count this afternoon may be secondary to rehydration. His overall prognosis remains quite poor and reevaluation of his overall status would be appropriate. Suggestion: 1. Would reevaluate the goals of care in this debilitated patient 2. Follow-up recent cultures 3. Discontinue Meropenem and follow off antibiotics Consult Acknowledgment - Thank you for your consult request.
--- NOTE | 2017-08-14 18:53 | Cons- Pulmonary ---
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 The patient has had multiple admissions for aspiration pneumonia in the past. Today he is coming from a nursing facility on 08/14 for chief complaint of low-grade temperature and desaturation to 86's to 89's. IN the rehab where he lives Patient spiked a fever of 100.4 and his O2 sats dropped up to 86%, patient received nebulization treatment and oxygen was bumped up from 6 L to 8 L. He was suctioned twice and there was thick yellow-colored mucus secretions at tracheostomy stoma. Patient remained intermittently febrile throughout the day and the fever was not controlled by Tylenol, prompting visit to [place] [facility] Of note patient was recently hospitalized at [facility] and was discharged 7 days ago. He went to [facility] because [place] [facility] was in diversion. As per facility's nurse patient was diagnosed of pneumonia and was treated with vancomycin and underwent PICC line placement there. He has received 6 doses at the nursing facility and has one last dose remaining. PT had esbl ecoli and was being rxd with ertropenam Allergies/Medications Allergies: Coded Allergies: scopolamine (Mild, HIVES 12/26/16) NSAIDS (Non-Steroidal Anti-Inflamma (PER W-12/26/16) adhesive (HIVES - EKG STICKERS, RED DOT [place] STICKERS 12/26/16) aspirin (PER W-12/26/16) clopidogrel (From PLAVIX) (PER -12/26/16) Uncoded Allergies: EKG AND RED DOT LEADS (Intermediate, RASH 09/26/16) Home Med List: Acetaminophen 325 MG TABLET 2 TAB J TUBE Q4H PRN PAIN/TEMP/>101 (Reported) Acetaminophen (Acephen) 650 MG SUPP.RECT 1 SUPP MI Q4H PRN PAIN/TEMP>101 ( Reported) Albuterol Sulfate 2.5 MG/3 ML (0.083 %) VIAL.NEB 1 Vial INH/MONICO BID RESP. ( Reported) Baclofen 10 MG TABLET 1 TAB J TUBE TID SPASMS (Reported) Bisacodyl 10 MG SUPP.RECT 1 SUP RC DAILY PRN NO BM - IF MOM INEFFECTIVE ( Reported) Cholecalciferol (Vitamin D3) 1,000 UNIT TABLET 1 TAB J TUBE DAILY SUPPLEMENT (Reported) Docusate Sodium 100 MG TABLET 1 TAB J TUBE BID STOOL SOFTENER (Reported) Escitalopram Oxalate 5 MG TABLET 1 TAB G TUBE DAILY DEPRESSION (Reported) Fentanyl 25 MCG/HOUR PATCH.TD72 1 PAT TOP Q3D PAIN (Reported) Ipratropium/Albuterol Sulfate (Iprat-Albut 0.5-3(2.5) MG/3 Ml) 0.5 MG-3 MG (2.5 MG BASE)/3 ML AMPUL.NEB 1 VIAL NEB Q4H PRN SOB (Reported) Lactobacillus Acidophilus (Acidophilus) 1 EACH CAPSULE 1 CAP J TUBE DAILY PROBIOTIC (Reported) Magnesium Hydroxide (Milk Of Magnesia) 400 MG/5 ML ORAL.SUSP 30 ML J TUBE DAILY PRN NO BM IN 3 DAYS (Reported) Na Phos,M-B/Na Phos,Di-Ba (Fleet Enema) 19 GRAM-7 GRAM/118 ML ENEMA 1 E RC DAILY PRN NO BM - IF BISACODYL INEFFECTI (Reported) Nut.tx.gluc.intoler,Lac-Fr,Soy (Glucerna 1.2 Fritz) 237 ML LIQUID 75 ML J TUBE 75 MLS/HR TUBE FEEDING (Reported) Ondansetron HCl 4 MG TABLET 1 TAB J TUBE Q8H PRN N/V (Reported) Ranitidine HCl 15 MG/ML SYRUP 10 ML J TUBE BID GI (Reported) Simvastatin (Zocor*) 10 MG TABLET 1 TAB J TUBE QHS CHOLESTEROL (Reported) Review of Systems Review of Systems Constitutional: Reports: see HPI. Past History Travel History Traveled to [place] past 21 day No Medical History Blood Transfusion Hx: No Neurological: CVA, 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 ASP PNA Gastrointestinal: constipation, GERD, peptic ulcer disease, upper GI bleed, C. 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 MOTHER (Type 2 DM). Grand father (CVA). Psychosocial History Where Do You Live? Extended Care Facility Who Do You Live With? self Services at Home: [facility] Primary Language: Frisian Smoking Status: Never Smoked Functional Ability ADLs Needs Assist: dressing, eating, toileting, bathing. Ambulation: non-ambulatory IADLs Needs Assist: shopping, housework, finances, food prep, telephone, transportation, medication admin. Exam & Diagnostic Data Last 24 Hrs of Vital Signs/I&O Vital Signs Date Time Temp Pulse Resp B/P B/P Pulse O2 O2 Flow FiO2 Mean Ox Delivery Rate 08/14 1832 97.9 96 20 112/86 92 Trach Mask 50% 08/14 1732 Trach Mask 50% 08/14 1503 99.2 92 114/59 08/14 1431 93 Trach Mask 50% 08/14 1349 99.9 08/14 1338 99.9 08/14 1328 97.2 94 119/71 08/14 1309 99.9 94 119/71 08/14 1200 97.0 94 18 129/79 95 Trach Mask 08/14 1148 97.0 80 129/79 08/14 1125 94 Trach Mask 50% 08/14 1050 Trach Mask 50% 08/14 1032 99.2 98 112/68 08/14 1031 99.2 94 112/58 08/14 0815 94 Trach Mask 50% 08/14 0800 93 Trach Mask 50% 08/14 0749 99.2 90 120/82 08/14 0555 92 Trach Mask 40% 08/14 0332 93 Trach Mask 40% 08/14 0319 99.0 97 20 129/82 93 Trach Mask 40% 08/14 0255 94 Trach Mask 40% 08/14 0159 92 Trach Mask 40% 08/14 0150 101.1 102 20 142/93 94 Non 100% ReBreather Intake & Output 08/14 1600 08/14 0800 08/14 0000 Intake Total 1460 Output Total 1100 Balance 360 Intake, IV 800 Intake, Tube 600 Feeding Intake, Tube 60 Irrigant Output, Urine 1100 Patient 183 lb 200 lb Weight Weight Estimated Measurement Method Last 48 Hrs of Labs/Rashard: Laboratory Tests 08/14/17 1600: Anion Gap 13, Estimated GFR > 60, BUN/Creatinine Ratio 45.0 H, CBC w Diff NO MAN DIFF REQ, RBC 4.65 L, MCV 91.6, MCH 30.2, RDW 15.8 H, MPV 10.2, Gran % 79.4 H, Lymphocytes % 8.7 L, Monocytes % 9.7 H, Eosinophils % 1.8, Basophils % 0.4, Absolute Granulocytes 8.0 H, Absolute Lymphocytes 0.9 L, Absolute Monocytes 1.0 H, Absolute Eosinophils 0.2, Absolute Basophils 0, PUBS MCHC 33.0 08/14/17 0946: CBC w Diff NO MAN DIFF REQ, RBC 4.85, MCV 91.8, MCH 30.3, RDW 15.5 H, MPV 10.8 H, Gran % 78.4 H, Lymphocytes % 9.5 L, Monocytes % 10.2 H, Eosinophils % 1.4, Basophils % 0.5, Absolute Granulocytes 9.2 H, Absolute Lymphocytes 1.1 L, Absolute Monocytes 1.2 H, Absolute Eosinophils 0.2, Absolute Basophils 0.1, PUBS MCHC 33.1 08/14/17 0730: Urine Color YEL, Urine Clarity CLEAR, Urine pH 6.0, Ur Specific [place] 1.020, Urine Protein TRACE H, Urine Ketones NEG, Urine Nitrite NEG, Urine Bilirubin NEG, Urine Urobilinogen 0.2, Ur Leukocyte Esterase NEG, Ur Microscopic SEDIMENT EXAMINED, Urine RBC RARE, Urine WBC 1-3 H, Hyaline Casts 1-3 H, Granular Casts 1-3 H, Urine Hemoglobin NEG, Urine Glucose NEG 08/14/17 0632: Lactic Acid 1.4 08/14/17 0632: Anion Gap 13, Estimated GFR > 60, BUN/Creatinine Ratio 38.6 H 08/14/17 0235: Anion Gap 14, Estimated GFR > 60, BUN/Creatinine Ratio 40.0 H, Glucose 154 H, Calcium 9.2, Total Bilirubin 0.8, AST 23, ALT 55, Alkaline Phosphatase 77, Total Protein 7.6, Albumin 3.9, Globulin 3.7, Albumin/Globulin Ratio 1.1, CBC w Diff NO MAN DIFF REQ, RBC 5.14, MCV 92.3, MCH 29.8, RDW 15.6 H, MPV 10.9 H, Gran % 81.1 H, Lymphocytes % 8.7 L, Monocytes % 9.2, Eosinophils % 0.8, Basophils % 0.2, Absolute Granulocytes 11.2 H, Absolute Lymphocytes 1.2, Absolute Monocytes 1.3 H, Absolute Eosinophils 0.1, Absolute Basophils 0, PUBS MCHC 32.3 L Microbiology 08/14 729 URINE ROUT: Legionella Antigen - COMP 08/14 729 URINE ROUT: Streptococcus pneumoniae Antigen (M - COMP 08/14 316 NASOPHARYN: Influenza Virus A & B Rapid Smear - COMP Assessment/Plan Impression/Plan: General Appearance No Acute Distress Neck trach mask in palce Cardiovascular Normal S1, Normal S2 Lungs decreased breath sounds Abdomen Normal Bowel Sounds, Soft, No Tenderness, Jtube in palce, area around Jtube clean no signs of infection Extremities picc line in place in left arm Body Front and Back (Adult) The patient has multiple comorbidities including 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 The patient has had multiple admissions for aspiration pneumonia in the past. 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 difficile, nephrolithiasis, UTI, gout, muscle spasms, vitamin D deficiency, diabetes mellitus, depression, neurogenic bladder, MRSA colonizaion and ESBL ecoli colonization REC * Cont vanco * Start meropenam * Sputum culture * COnt j tube feeding * ID eval please * Rpt cxr in 48 hrs * Discussed with sister * Periodex oral care tid * Keep hob up Consult Acknowledgment - Thank you for your consult request.
[2017-08-14 22:00] VITALS: BP 135/83
--- NOTE | 2017-08-15 03:22 | Event Note ---
Event Note Event Note: -Was notified by the nurse that one bottle is growing gram-positive cocci Called the lab to find out whether it is in clusters or chains, was notified that it will be reported in the morning Holding off any antibiotic for now for now -Was notified by the nurse that patient's J-tube is clogged, will sign out to the morning team
--- NOTE | 2017-08-15 06:58 | PN- Housestaff ---
Subjective Follow-up For: - Acute on chronic hypoxic respiratory failure ? Aspiration pneumonia versus HCAP vs mucous plug Subjective: Patient is seen and examined at bedside, very sleepy and hard to communicate, he only communicates by moving his eyes. Denies fever, chills,, nausea, vomiting. The PEG tube was noticed to be slightly clogged overnight, nurse was able to flush it and he received his by mouth morning medications and tube feeds through it, his sodium was elevated today 150, Review of Systems Constitutional: Denies: no symptoms. Objective Last 24 Hrs of Vital Signs/I&O Vital Signs Date Time Temp Pulse Resp B/P B/P Pulse O2 O2 Flow FiO2 Mean Ox Delivery Rate 08/15 0945 90 Trach Mask 45% 08/15 0711 97.7 99 20 132/87 92 Trach Mask 50% 08/15 0315 95 Trach Mask 45% 08/15 0139 96 08/15 0045 95 Trach Mask 45% 08/15 0000 Trach Mask 50% 08/14 2226 91 Trach Mask 45% 08/14 2200 98.0 110 22 135/83 92 Trach Mask 50% 08/14 1925 90 Trach Mask 45% 08/14 1832 97.9 96 20 112/86 92 Trach Mask 50% 08/14 1732 Trach Mask 50% 08/14 1600 92 Trach Mask 45% 08/14 1503 99.2 92 114/59 08/14 1431 93 Trach Mask 50% Intake & Output 08/15 1600 08/15 0800 08/15 0000 Intake Total 150 Output Total 500 Balance -500 150 Intake, Tube 150 Feeding Output, Urine 500 Patient 182 lb Weight Weight Bed scale Measurement Method Physical Exam General Appearance: No Acute Distress, sleepy HEENT: Atraumatic, PERRLA, tracheostomy tube , tracheal mask Cardiovascular: Normal S1, Normal S2, No Murmurs Lungs: Clear to Auscultation Abdomen: Normal Bowel Sounds, Soft, No Tenderness Neurological: Normal Speech, Strength at 5/5 X4 Ext, Normal Tone Extremities: No Clubbing, No Cyanosis, No Edema Vascular: Normal Pulses Assessment/Plan Assessment: 57-year-old gentleman with past medical history of quadriplegia, 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 The patient has had multiple admissions for aspiration pneumonia in the past. Last admission was to [facility], records were obtained which showed that he grew Escherichia coli resistant to cefepime and has a sputum, and patient had a PICC line placed in and he was restarted on a 6 day course of ertapenem which is started on , PICC line was placed . In the ED patient received 1 dose of cyst has 1 g and Unasyn 1500 mg ONCE #Pneumonia On admission the patient had temperature of 101.1, leukocytosis, right basilar opacity Differential diagnosis includes HCAP, aspiration, Ligonellaand strep pneumonia negative Follow-up on blood culture, sputum culture Continue to monitor on general medicine floor follow up on ID and pulmonology TRC,NEBS Continue to hold antibiotics according to ID recommendation Goals of care need to be addressed with the family Follow up chest x-ray was ordered for tomorrow # Hyponatremia Patient's sodium has been increasing slowly today sodium is 150 Water deficit was calculated and is 3 L Water flushes was added to his tube feeds 100 mL every 4 Follow-up BEP in the evening and if the patient still has increased sodium was started on D5W patient is full code DVT prophylaxis with Lovenox Tubes feeding Problem List: 1. Pneumonia 2. PEG (percutaneous endoscopic gastrostomy) adjustment/replacement/removal Pain Ratin Pain Location: N/A Pain Goal: Remain pain free Pain Plan: pathway Tomorrow's Labs & Rationales: CBC BEP DVT/Prophylaxis: mechanical, pharmacological
[2017-08-15 07:11] VITALS: BP 132/87
[2017-08-15 08:16] LABS: ABSOLUTE BASOPHIL COUNT 0 /CUMM (0.0-0.2); ABSOLUTE EOSINOPHIL COUNT 0.2 /CUMM (0.0-0.7); ABSOLUTE GRANULOCYTE CT 7.6 /CUMM (1.4-6.5); ABSOLUTE LYMPH COUNT 1.1 /CUMM (1.2-3.4); ABSOLUTE MONOCYTE COUNT 1.2 /CUMM (0.10-0.60); HEMATOCRIT 43.5 % (42-52); MEAN CORPUSCULAR HGB 30.2 PG (27.0-31.0); MEAN CORPUSCULAR HGB CONC 32.7 G/DL (33.0-37.0); MEAN CORPUSCULAR VOLUME 92.4 FL (80.0-94.0); MEAN PLATELET VOLUME 11.6 FL (7.4-10.4); PLATELET COUNT 230 /CUMM (130-400); RBC DISTRIBUTION WIDTH 15.8 % (11.5-14.5); RED BLOOD CELL CT 4.72 /CUMM (4.70-6.10); WHITE BLOOD CELL COUNT 10.1 /CUMM (4.8-10.8)
[2017-08-15 08:33] LABS: BASOPHIL % 0.3 % (0.0-2.0); EOSINOPHIL % 1.8 % (0-5); GRANULOCYTE % 75.3 % (42.2-75.2)
--- NOTE | 2017-08-15 10:10 | PN- Pulmonary ---
Subjective HPI/Critical Care Issues: Still has lots of secretions Objective Current Medications: Current Medications Sig/Gil Start time Last Medication Dose Route Stop Time Status Admin Acetaminophen 650 MG Q8P PRN 08/14 0445 AC PO Acetylcysteine 2 ML BID 08/14 2200 AC 08/15 INH 0938 Albuterol Sulfate 3 ML BID 08/14 2200 AC 08/15 INH 0938 Albuterol Sulfate 3 ML BID 08/14 1000 DC INH Atorvastatin Calcium 10 MG AT BEDTIME 08/14 2200 AC 08/14 PO 2144 Baclofen 10 MG TID 08/14 1000 AC 08/15 PO 0852 Ceftazidime 1,000 MG Q12 08/14 1424 DC 08/14 IV 1438 Ceftriaxone Sodium 0 .STK-MED ONE 08/14 1440 DC .ROUTE Cholecalciferol 1,000 IU DAILY 08/14 1000 AC 08/15 PO 0851 Docusate Sodium 100 MG BID PRN 08/14 0445 AC PO Enoxaparin Sodium 40 MG DAILY 08/14 1000 AC 08/15 SC 0851 Escitalopram Oxalate 5 MG DAILY 08/14 1000 AC 08/15 PO 0852 Famotidine 20 MG BID 08/14 1000 AC 08/15 PO 0851 Fentanyl Citrate 25 MCG Q3D 08/14 0445 AC TOP Ipratropium [place] 2.5 ML BID 08/14 2200 DC 08/14 INH 1119 Ipratropium [place] 2.5 ML Q4 HRS NEEDED PRN 08/14 0445 DC INH Meropenem 1 GM IQ8 08/14 1815 DC IV Sodium Chloride 1,000 ML Q10H 08/14 0630 DC 08/14 IV 08/14 1629 0641 Vancomycin HCl 1,000 MG DAILY 08/14 1600 DC Dextrose/Water 250 ML IV Vancomycin HCl 1,000 MG DAILY 08/14 1423 DC Sodium Chloride 250 ML IV Vital Signs & I&O Last 24 Hrs of Vitals and I&O: Vital Signs Date Time Temp Pulse Resp B/P B/P Pulse O2 O2 Flow FiO2 Mean Ox Delivery Rate 08/15 0711 97.7 99 20 132/87 92 Trach Mask 50% 08/15 0315 95 Trach Mask 45% 08/15 0139 96 08/15 0045 95 Trach Mask 45% 08/15 0000 Trach Mask 50% 08/14 2226 91 Trach Mask 45% 01/18 2200 98.0 110 22 135/83 92 Trach Mask 50% 08/14 1925 90 Trach Mask 45% 08/14 1832 97.9 96 20 112/86 92 Trach Mask 50% 08/14 1732 Trach Mask 50% 08/14 1600 92 Trach Mask 45% 08/14 1503 99.2 92 114/59 08/14 1431 93 Trach Mask 50% 08/14 1349 99.9 08/14 1338 99.9 08/14 1328 97.2 94 119/71 08/14 1309 99.9 94 119/71 08/14 1200 97.0 94 18 129/79 95 Trach Mask 08/14 1148 97.0 80 129/79 08/14 1125 94 Trach Mask 50% 08/14 1050 Trach Mask 50% 08/14 1032 99.2 98 112/68 08/14 1031 99.2 94 112/58 Intake & Output 08/15 1600 08/15 0800 08/15 0000 Intake Total 150 Output Total 500 Balance -500 150 Intake, Tube 150 Feeding Output, Urine 500 Patient 182 lb Weight Weight Bed scale Measurement Method Impression/Plan Impression/Plan Impression/Plan: General Appearance No Acute Distress Neck trach mask in palce Cardiovascular Normal S1, Normal S2 Lungs decreased breath sounds Abdomen Normal Bowel Sounds, Soft, No Tenderness, Jtube in palce, area around Jtube clean no signs of infection Extremities picc line in place in left arm Body Front and Back (Adult) The patient has multiple comorbidities including 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 The patient has had multiple admissions for aspiration pneumonia in the past. 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 difficile, nephrolithiasis, UTI, gout, muscle spasms, vitamin D deficiency, diabetes mellitus, depression, neurogenic bladder, MRSA colonizaion and ESBL ecoli colonization REC * Abx per id * Sputum culture pending * COnt j tube feeding * ID eval ongoing * Rpt cxr in 48 hrs * Discussed with sister * Periodex oral care tid * Keep hob up
--- NOTE | 2017-08-15 11:10 | PN- Att Addend ---
Attending Addendum Attending Brief Note Patient in bed, mental status at baseline. Vital signs are stable temp max 99 9 white count 10,000. No major changes on physical. Continue treatment as per consultants recommendations Intake & Output 08/15 1600 08/15 0400 08/14 1600 08/14 0400 08/13 1600 08/13 0400 Intake Total 150 1460 Output Total 860 496 6346 Balance -200 -150 360 Intake, IV 800 Intake, Tube 150 600 Feeding Intake, Tube 60 Irrigant Output, Urine [phone] Patient 182 lb 183 lb 200 lb Weight Weight Bed scale Estimated Measurement Method Current Medications Sig/Gil Start time Last Medication Dose Route Stop Time Status Admin Acetaminophen 650 MG Q8P PRN 08/14 0445 PO Acetylcysteine 2 ML BID 08/14 2200 AC 08/15 INH 0938 Albuterol Sulfate 3 ML BID 08/14 2200 AC 08/15 INH 0938 Atorvastatin Calcium 10 MG AT BEDTIME 08/14 2200 AC 08/14 PO 2144 Baclofen 10 MG TID 08/14 1000 AC 08/15 PO 0852 Ceftazidime 1,000 MG Q12 08/14 1424 DC 08/14 IV 1438 Ceftriaxone Sodium 0 .STK-MED ONE 08/14 1440 DC .ROUTE Cholecalciferol 1,000 IU DAILY 08/14 1000 AC 08/15 PO 0851 Docusate Sodium 100 MG BID PRN 08/14 0445 PO Enoxaparin Sodium 40 MG DAILY 08/14 1000 AC 08/15 SC 0851 Escitalopram Oxalate 5 MG DAILY 08/14 1000 AC 08/15 PO 0852 Famotidine 20 MG BID 08/14 1000 AC 08/15 PO 0851 Fentanyl Citrate 25 MCG Q3D 08/14 0445 TOP Ipratropium [place] 2.5 ML BID 08/14 2200 DC 08/14 INH 1119 Meropenem 1 GM IQ8 08/14 1815 DC IV Sodium Chloride 1,000 ML Q10H 08/14 0630 DC 08/14 IV 08/14 1629 0641 Vancomycin HCl 1,000 MG DAILY 08/14 1600 DC Dextrose/Water 250 ML IV Vancomycin HCl 1,000 MG DAILY 08/14 1423 DC Sodium Chloride 250 ML IV Laboratory Tests 08/15/17 0545: Anion Gap 14, Estimated GFR > 60, BUN/Creatinine Ratio 32.9 H, CBC w Diff NO MAN DIFF REQ, RBC 4.72, MCV 92.4, MCH 30.2, RDW 15.8 H, MPV 11.6 H, Gran % 75.3 H, Lymphocytes % 11.1 L, Monocytes % 11.5 H, Eosinophils % 1.8, Basophils % 0.3, Absolute Granulocytes 7.6 H, Absolute Lymphocytes 1.1 L, Absolute Monocytes 1.2 H, Absolute Eosinophils 0.2, Absolute Basophils 0, PUBS MCHC 32.7 L 08/14/17 1600: Anion Gap 13, Estimated GFR > 60, BUN/Creatinine Ratio 45.0 H, CBC w Diff NO MAN DIFF REQ, RBC 4.65 L, MCV 91.6, MCH 30.2, RDW 15.8 H, MPV 10.2, Gran % 79.4 H, Lymphocytes % 8.7 L, Monocytes % 9.7 H, Eosinophils % 1.8, Basophils % 0.4, Absolute Granulocytes 8.0 H, Absolute Lymphocytes 0.9 L, Absolute Monocytes 1.0 H, Absolute Eosinophils 0.2, Absolute Basophils 0, PUBS MCHC 33.0 08/14/17 0946: CBC w Diff NO MAN DIFF REQ, RBC 4.85, MCV 91.8, MCH 30.3, RDW 15.5 H, MPV 10.8 H, Gran % 78.4 H, Lymphocytes % 9.5 L, Monocytes % 10.2 H, Eosinophils % 1.4, Basophils % 0.5, Absolute Granulocytes 9.2 H, Absolute Lymphocytes 1.1 L, Absolute Monocytes 1.2 H, Absolute Eosinophils 0.2, Absolute Basophils 0.1, PUBS MCHC 33.1 08/14/17 0730: Urine Color YEL, Urine Clarity CLEAR, Urine pH 6.0, Ur Specific [place] 1.020, Urine Protein TRACE H, Urine Ketones NEG, Urine Nitrite NEG, Urine Bilirubin NEG, Urine Urobilinogen 0.2, Ur Leukocyte Esterase NEG, Ur Microscopic SEDIMENT EXAMINED, Urine RBC RARE, Urine WBC 1-3 H, Hyaline Casts 1-3 H, Granular Casts 1-3 H, Urine Hemoglobin NEG, Urine Glucose NEG 08/14/17 0632: Lactic Acid 1.4 08/14/17 0632: Anion Gap 13, Estimated GFR > 60, BUN/Creatinine Ratio 38.6 H 08/14/17 0235: Anion Gap 14, Estimated GFR > 60, BUN/Creatinine Ratio 40.0 H, Glucose 154 H, Calcium 9.2, Total Bilirubin 0.8, AST 23, ALT 55, Alkaline Phosphatase 77, Total Protein 7.6, Albumin 3.9, Globulin 3.7, Albumin/Globulin Ratio 1.1, CBC w Diff NO MAN DIFF REQ, RBC 5.14, MCV 92.3, MCH 29.8, RDW 15.6 H, MPV 10.9 H, Gran % 81.1 H, Lymphocytes % 8.7 L, Monocytes % 9.2, Eosinophils % 0.8, Basophils % 0.2, Absolute Granulocytes 11.2 H, Absolute Lymphocytes 1.2, Absolute Monocytes 1.3 H, Absolute Eosinophils 0.1, Absolute Basophils 0, PUBS MCHC 32.3 L Microbiology 08/15 808 BLOOD: Blood Culture - COLB 08/15 808 BLOOD: Blood Culture - COLB 08/14 729 URINE ROUT: Legionella Antigen - COMP 08/14 729 URINE ROUT: Streptococcus pneumoniae Antigen (M - COMP 08/14 729 URINE ROUT: Urine Culture - RES 08/14 316 NASOPHARYN: Influenza Virus A & B Rapid Smear - COMP 08/14 238 BLOOD: Blood Culture - RES STAPH COAGULASE NEGATIVE 08/14 234 BLOOD: Blood Culture - WKST 08/14 151 URINE ROUT: Urine Culture - CAN Cancelled: Cancelled via OE: Per MD Decision 08/14 149 LOWER RESP: Respiratory Culture - RES YEAST GRAM NEGATIVE RODS 08/14 149 LOWER RESP: Gram Stain - RES Microbiology 08/15 808 BLOOD: Blood Culture - COLB 08/15 808 BLOOD: Blood Culture - COLB 08/14 729 URINE ROUT: Legionella Antigen - COMP 08/14 729 URINE ROUT: Streptococcus pneumoniae Antigen (M - COMP 08/14 729 URINE ROUT: Urine Culture - RES 08/14 316 NASOPHARYN: Influenza Virus A & B Rapid Smear - COMP 08/14 238 BLOOD: Blood Culture - RES STAPH COAGULASE NEGATIVE 08/14 234 BLOOD: Blood Culture - WKST 08/14 151 URINE ROUT: Urine Culture - CAN Cancelled: Cancelled via OE: Per MD Decision 08/14 015 LOWER RESP: Respiratory Culture - RES YEAST GRAM NEGATIVE RODS 08/14 149 LOWER RESP: Gram Stain - RES Vital Signs Date Time Temp Pulse Resp B/P B/P Pulse O2 O2 Flow FiO2 Mean Ox Delivery Rate 08/15 0711 97.7 99 20 132/87 92 Trach Mask 50% 08/15 0315 95 Trach Mask 45% 08/15 0139 96 08/15 0045 95 Trach Mask 45% 08/15 0000 Trach Mask 50% 08/14 2226 91 Trach Mask 45% 08/14 2200 98.0 110 22 135/83 92 Trach Mask 50% 08/14 1925 90 Trach Mask 45% 08/14 1832 97.9 96 20 112/86 92 Trach Mask 50% 08/14 1732 Trach Mask 50% 08/14 1600 92 Trach Mask 45% 08/14 1503 99.2 92 114/59 08/14 1431 93 Trach Mask 50% 08/14 1349 99.9 08/14 1338 99.9 08/14 1328 97.2 94 119/71 08/14 1309 99.9 94 119/71 08/14 1200 97.0 94 18 129/79 95 Trach Mask 08/14 1148 97.0 80 129/79 08/14 1125 94 Trach Mask 50%
--- NOTE | 2017-08-15 12:17 | PN- Infect Dx ---
Subjective Subjective: Afebrile. He is being suctioned for copious secretions. He does not report any complaints Objective Last 24 Hrs of Vital Signs/I&O Vital Signs Date Time Temp Pulse Resp B/P B/P Pulse O2 O2 Flow FiO2 Mean Ox Delivery Rate 08/15 0945 90 Trach Mask 45% 08/15 0711 97.7 99 20 132/87 92 Trach Mask 50% 08/15 0315 95 Trach Mask 45% 08/15 0139 96 08/15 0045 95 Trach Mask 45% 08/15 0000 Trach Mask 50% 08/14 2226 91 Trach Mask 45% 08/14 2200 98.0 110 22 135/83 92 Trach Mask 50% 08/14 1925 90 Trach Mask 45% 08/14 1832 97.9 96 20 112/86 92 Trach Mask 50% 08/14 1732 Trach Mask 50% 08/14 1600 92 Trach Mask 45% 08/14 1503 99.2 92 114/59 08/14 1431 93 Trach Mask 50% 08/14 1349 99.9 08/14 1338 99.9 08/14 1328 97.2 94 119/71 08/14 1309 99.9 94 119/71 Intake & Output 08/15 1600 08/15 0800 08/15 0000 Intake Total 150 Output Total 500 Balance -500 150 Intake, Tube 150 Feeding Output, Urine 500 Patient 182 lb Weight Weight Bed scale Measurement Method Physical Exam Other Physical Findings: He is lethargic but arousable in no acute distress Lungs scattered rhonchi bilaterally Heart regular rhythm with no murmur Abdomen is mildly distended, nontender with positive bowel sounds Extremities contracted Results Last 24 Hours of Lab Results: Laboratory Tests 08/15 08/14 0545 1600 Chemistry Sodium (137 - 145 mmol/L) 150 H 148 H Potassium (3.5 - 5.1 mmol/L) 4.3 4.2 Chloride (98 - 107 mmol/L) 102 104 Carbon Dioxide (22 - 30 mmol/L) 34 H 31 H Anion Gap (5 - 16) 14 13 BUN (9 - 20 mg/dL) 23 H 27 H Creatinine (0.7 - 1.2 mg/dL) 0.7 0.6 L Estimated GFR (>60 ml/min) > 60 > 60 BUN/Creatinine Ratio (7 - 25 %) 32.9 H 45.0 H Hematology CBC w Diff NO MAN DIFF REQ NO MAN DIFF REQ WBC (4.8 - 10.8 /CUMM) 10.1 10.1 RBC (4.70 - 6.10 /CUMM) 4.72 4.65 L Hgb (14.0 - 18.0 G/DL) 14.2 14.1 Hct (42 - 52 %) 43.5 42.6 MCV (80.0 - 94.0 FL) 92.4 91.6 MCH (27.0 - 31.0 PG) 30.2 30.2 RDW (11.5 - 14.5 %) 15.8 H 15.8 H Plt Count (130 - 400 /CUMM) 230 229 MPV (7.4 - 10.4 FL) 11.6 H 10.2 Gran % (42.2 - 75.2 %) 75.3 H 79.4 H Lymphocytes % (20.5 - 51.1 %) 11.1 L 8.7 L Monocytes % (1.7 - 9.3 %) 11.5 H 9.7 H Eosinophils % (0 - 5 %) 1.8 1.8 Basophils % (0.0 - 2.0 %) 0.3 0.4 Absolute Granulocytes (1.4 - 6.5 /CUMM) 7.6 H 8.0 H Absolute Lymphocytes (1.2 - 3.4 /CUMM) 1.1 L 0.9 L Absolute Monocytes (0.10 - 0.60 /CUMM) 1.2 H 1.0 H Absolute Eosinophils (0.0 - 0.7 /CUMM) 0.2 0.2 Absolute Basophils (0.0 - 0.2 /CUMM) 0 0 PUBS MCHC (33.0 - 37.0 G/DL) 32.7 L 33.0 Last 24 Hours of Rashard Results: Blood cultures August 14 one bottle positive for coag-negative Staph Sputum culture August 14 positive for gram-negative rods and yeast Urine culture August 14 negative Assessment/Plan Impression: Condition poor with respiratory failure, possibly secondary to mucous plugging or recurrent aspiration, with temperatures and white blood cell count normal off antibiotics. The positive sputum culture may represent colonization and, as he has just received one week of treatment with a broad-spectrum antibiotic, feel that he can continue to be followed off antibiotics. The positive blood culture for coag negative Staph represents a contaminant and does not require treatment or repeat blood cultures. His overall prognosis remains poor and feel that his goals of care should be reevaluated. Suggestion: 1. Would reevaluate the goals of care in this debilitated patient 2. Follow-up final cultures 3. Continue to follow off antibiotics
[2017-08-15 21:54] VITALS: BP 138/80
[2017-08-16 07:03] VITALS: BP 132/76
[2017-08-16 08:25] LABS: ABSOLUTE BASOPHIL COUNT 0 /CUMM (0.0-0.2); ABSOLUTE EOSINOPHIL COUNT 0.1 /CUMM (0.0-0.7); ABSOLUTE GRANULOCYTE CT 4.6 /CUMM (1.4-6.5); ABSOLUTE LYMPH COUNT 0.9 /CUMM (1.2-3.4); ABSOLUTE MONOCYTE COUNT 0.9 /CUMM (0.10-0.60); BASOPHIL % 0.4 % (0.0-2.0); EOSINOPHIL % 2.2 % (0-5); GRANULOCYTE % 69.3 % (42.2-75.2); MEAN CORPUSCULAR HGB 30.3 PG (27.0-31.0); MEAN CORPUSCULAR HGB CONC 33.1 G/DL (33.0-37.0); MEAN CORPUSCULAR VOLUME 91.5 FL (80.0-94.0); MEAN PLATELET VOLUME 11.1 FL (7.4-10.4); PLATELET COUNT 211 /CUMM (130-400); RBC DISTRIBUTION WIDTH 15.4 % (11.5-14.5); RED BLOOD CELL CT 4.49 /CUMM (4.70-6.10); WHITE BLOOD CELL COUNT 6.6 /CUMM (4.8-10.8)
--- NOTE | 2017-08-16 08:52 | PN- Housestaff ---
Subjective Follow-up For: - Acute on chronic hypoxic respiratory failure from Aspiration pneumonia versus HCAP vs mucous plug Subjective: Patient interviewed and examined. Appears quite uncomfortable with his NG tube. Denies chest pain abdominal pain, cough, chills , subjective fever. The ptient 's PEG tube is now completely clogged, unable to be flushed. We are no longer able to use the PEG for feedings and meds. we started the patient on D51/2 NS for nourishment. Review of Systems Constitutional: Reports: weakness. Cardiovascular: Reports: no symptoms. Respiratory: Reports: see HPI, cough, short of breath. Gastrointestinal: Reports: no symptoms. Musculoskeletal: Reports: no symptoms. Objective Last 24 Hrs of Vital Signs/I&O Vital Signs Date Time Temp Pulse Resp B/P B/P Pulse O2 O2 Flow FiO2 Mean Ox Delivery Rate 08/16 2042 Aerosol 50% Mask 08/16 1600 93 Trach Mask 50% 08/16 1318 96.3 84 17 134/70 90 Trach Mask 50% 08/16 1309 93 Trach Mask 50% 08/16 1000 93 Trach Mask 50% 08/16 0800 94 Trach Mask 50% 08/16 0703 97.8 89 20 132/76 94 08/16 0131 93 Trach Mask 70% 08/16 0000 91 Trach Mask 75% Intake & Output 08/16 1600 08/16 0800 08/16 0000 Intake Total 600 600 935 Output Total Balance 600 600 935 Intake, IV 600 600 10 Intake, Oral 0 0 Intake, Tube 0 525 Feeding Intake, Tube 400 Irrigant Number 1 Bowel Movements Physical Exam General Appearance: Alert, Cooperative, Mild Distress Skin: No Rashes Skin Temp/Moisture Exam: Warm/Dry Sepsis Skin Exam (color): Normal for Ethnicity HEENT: Atraumatic, PERRLA, EOMI Cardiovascular: Regular Rate, Normal S1, Normal S2, No Murmurs Lungs: Clear to Auscultation, Normal Air Movement Abdomen: Normal Bowel Sounds, Soft, No Hepatospenomegaly, No Masses Current Medications: Current Medications Sig/Gil Start time Last Medication Dose Route Stop Time Status Admin Acetaminophen 650 MG Q8P PRN 08/14 0445 AC PO Acetylcysteine 2 ML BID 08/14 2200 AC 08/16 INH 2041 Albuterol Sulfate 3 ML TID 08/16 1600 AC 01/20 INH 2040 Albuterol Sulfate 3 ML BID 08/14 2200 DC 08/16 INH 0952 Alteplase, 2 MG ONE ONE 08/16 2100 DC 08/16 Recombinant IV 08/16 2101 2300 Atorvastatin Calcium 10 MG AT BEDTIME 08/14 2200 AC 08/14 PO 2144 Baclofen 10 MG TID 08/14 1000 AC 08/15 PO 1639 Chlorhexidine 15 ML BID 08/15 1600 AC 08/16 Gluconate PO 2114 Cholecalciferol 1,000 IU DAILY 08/14 1000 AC 08/15 PO 0851 Dextrose/Sodium 1,000 ML Q13H 08/15 2345 AC 08/16 Chloride IV 1521 Docusate Sodium 100 MG BID PRN 08/14 0445 AC PO Enoxaparin Sodium 40 MG DAILY 08/14 1000 AC 08/16 SC 1001 Escitalopram Oxalate 5 MG DAILY 08/14 1000 AC 08/15 PO 0852 Famotidine 20 MG BID 08/16 1011 AC 08/16 IV 2112 Famotidine 20 MG BID 08/14 1000 DC 08/15 PO 0851 Fentanyl Citrate 25 MCG Q3D 08/14 0445 [facility] Last 24 Hrs of Lab/Rashard Results Last 24 Hrs of Labs/Mics: Laboratory Tests 08/16/17 0540: Anion Gap 13, Estimated GFR > 60, BUN/Creatinine Ratio 33.3 H, CBC w Diff NO MAN DIFF REQ, RBC 4.49 L, MCV 91.5, MCH 30.3, RDW 15.4 H, MPV 11.1 H, Gran % 69.3, Lymphocytes % 14.5 L, Monocytes % 13.6 H, Eosinophils % 2.2, Basophils % 0.4, Absolute Granulocytes 4.6, Absolute Lymphocytes 0.9 L, Absolute Monocytes 0.9 H, Absolute Eosinophils 0.1, Absolute Basophils 0, PUBS MCHC 33.1 Assessment/Plan Assessment: 57-year-old gentleman with past medical history of quadriplegia, 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 The patient has had multiple admissions for aspiration pneumonia in the past. Last admission was to [facility], records were obtained which showed that he grew Escherichia coli resistant to cefepime and has a sputum, and patient had a PICC line placed in and he was restarted on a 6 day course of ertapenem which is started on , PICC line was placed on. In the ED patient received 1 dose of cyst has 1 g and Unasyn 1500 mg ONCE #Pneumonia On admission the patient had temperature of 101.1, leukocytosis, right basilar opacity Differential diagnosis includes HCAP, aspiration, Ligonella and strep pneumonia negative Follow-up on blood culture, sputum culture from 08/14 which showed yeast and pseudomanas aeruginosa CXR today showed stable patchy airspace disease at right lung base and imrpoved aeration at left lung base wince last CXR. Continue to monitor on general medicine floor follow up on ID and pulmonology TRC,NEBS Continue to hold antibiotics according to ID recommendation. temp and white bc count normal.pt received one week treatement with broad spectrum antibiotic meropenem. Coag negative staph is thought to be a contaminant Goals of care need to be addressed with the family # Hyponatremia Patient's sodium has been stable at 146 Water flushes were added to his tube feeds 100 mL every 4 as per almond blancher operator #PEG tube clogged Patient's PEG tube has been clogged for a few days Patient's PPI has been changed to IV and D51/2 NS has been started for nutrition. I was told by attending Dr. Olvera t reach out to IR for unclogging of the tube. However nobody was there and nobody at [facility] picked up the phone in the few locations that I called. I spoke with gastroenterology who noted that as IR placed the tube, they would need to unclog it. We will continue the patient on IVF and place a call out to IR again in the morning. #PICC LINE We receivved word from nursing that the patient's PICC line where it has the credit union examiner will not return and will not flush. I ordered 2mg alteplase flush. patient is full code DVT prophylaxis with Lovenox Tubes feeding Problem List: 1. Pneumonia 2. Gastrostomy tube dysfunction 3. PEG (percutaneous endoscopic gastrostomy) adjustment/replacement/removal 4. Vomiting Pain Ratin Pain Location: na Pain Goal: Remain pain free Pain Plan: na Tomorrow's Labs & Rationales: cbc bep
[2017-08-16 13:18] VITALS: BP 134/70
--- NOTE | 2017-08-16 14:16 | PN- Att Addend ---
Attending Addendum Attending Brief Note Comfortable in bed. Vital signs are stable he has no fever. No major changes on physical patient getting his tube feedings and extra fluid boluses, his sodium is now 146, potassium 4.0 and his white count is down to 6600 and no new culture results will continue antibiotic therapy and respiratory therapy as per consultants recommendations Intake & Output 08/16 1600 08/16 0400 08/15 1600 08/15 0400 08/14 1600 08/14 0400 Intake Total 483 036 4958 150 1460 Output Total 412 641 3829 Balance 600 935 825 -150 360 Intake, IV 600 10 800 Intake, Oral 0 600 Intake, Tube 0 525 225 150 600 Feeding Intake, Tube 400 200 60 Irrigant Number 1 Bowel Movements Output, Urine 362 179 9674 Patient 182 lb 183 lb 200 lb Weight Weight Bed scale Estimated Measurement Method Current Medications Sig/Gil Start time Last Medication Dose Route Stop Time Status Admin Acetaminophen 650 MG Q8P PRN 08/14 0445 PO Acetylcysteine 2 ML BID 08/14 2200 AC 08/16 INH 0953 Albuterol Sulfate 3 ML TID 08/16 1600 AC 08/16 INH 1304 Albuterol Sulfate 3 ML BID 08/14 2200 DC 08/16 INH 0952 Atorvastatin Calcium 10 MG AT BEDTIME 08/14 2200 AC 08/14 PO 2144 Baclofen 10 MG TID 08/14 1000 AC 08/15 PO 1639 Chlorhexidine 15 ML BID 08/15 1600 AC 08/16 Gluconate PO 1004 Cholecalciferol 1,000 IU DAILY 08/14 1000 AC 08/15 PO 0851 Dextrose/Sodium 1,000 ML Q13H 08/15 2345 AC 08/16 Chloride IV 0032 Docusate Sodium 100 MG BID PRN 08/14 0445 PO Enoxaparin Sodium 40 MG DAILY 08/14 1000 AC 08/16 SC 1001 Escitalopram Oxalate 5 MG DAILY 08/14 1000 AC 08/15 PO 0852 Famotidine 20 MG BID 08/16 1011 AC 08/16 IV 1148 Famotidine 20 MG BID 08/14 1000 DC 08/15 PO 0851 Fentanyl Citrate 25 MCG Q3D 08/14 0445 TOP Laboratory Tests 08/16/17 0540: Anion Gap 13, Estimated GFR > 60, BUN/Creatinine Ratio 33.3 H, CBC w Diff NO MAN DIFF REQ, RBC 4.49 L, MCV 91.5, MCH 30.3, RDW 15.4 H, MPV 11.1 H, Gran % 69.3, Lymphocytes % 14.5 L, Monocytes % 13.6 H, Eosinophils % 2.2, Basophils % 0.4, Absolute Granulocytes 4.6, Absolute Lymphocytes 0.9 L, Absolute Monocytes 0.9 H, Absolute Eosinophils 0.1, Absolute Basophils 0, PUBS MCHC 33.1 08/15/17 1450: Hemoglobin A1c Pending 08/15/17 1450: Anion Gap 12, Estimated GFR > 60, BUN/Creatinine Ratio 38.3 H 08/15/17 1450: Albumin 3.4 L 08/15/17 0545: Anion Gap 14, Estimated GFR > 60, BUN/Creatinine Ratio 32.9 H, CBC w Diff NO MAN DIFF REQ, RBC 4.72, MCV 92.4, MCH 30.2, RDW 15.8 H, MPV 11.6 H, Gran % 75.3 H, Lymphocytes % 11.1 L, Monocytes % 11.5 H, Eosinophils % 1.8, Basophils % 0.3, Absolute Granulocytes 7.6 H, Absolute Lymphocytes 1.1 L, Absolute Monocytes 1.2 H, Absolute Eosinophils 0.2, Absolute Basophils 0, PUBS MCHC 32.7 L 08/14/17 1600: Anion Gap 13, Estimated GFR > 60, BUN/Creatinine Ratio 45.0 H, CBC w Diff NO MAN DIFF REQ, RBC 4.65 L, MCV 91.6, MCH 30.2, RDW 15.8 H, MPV 10.2, Gran % 79.4 H, Lymphocytes % 8.7 L, Monocytes % 9.7 H, Eosinophils % 1.8, Basophils % 0.4, Absolute Granulocytes 8.0 H, Absolute Lymphocytes 0.9 L, Absolute Monocytes 1.0 H, Absolute Eosinophils 0.2, Absolute Basophils 0, PUBS MCHC 33.0 08/14/17 0946: CBC w Diff NO MAN DIFF REQ, RBC 4.85, MCV 91.8, MCH 30.3, RDW 15.5 H, MPV 10.8 H, Gran % 78.4 H, Lymphocytes % 9.5 L, Monocytes % 10.2 H, Eosinophils % 1.4, Basophils % 0.5, Absolute Granulocytes 9.2 H, Absolute Lymphocytes 1.1 L, Absolute Monocytes 1.2 H, Absolute Eosinophils 0.2, Absolute Basophils 0.1, PUBS MCHC 33.1 08/14/17 0730: Urine Color YEL, Urine Clarity CLEAR, Urine pH 6.0, Ur Specific [place] 1.020, Urine Protein TRACE H, Urine Ketones NEG, Urine Nitrite NEG, Urine Bilirubin NEG, Urine Urobilinogen 0.2, Ur Leukocyte Esterase NEG, Ur Microscopic SEDIMENT EXAMINED, Urine RBC RARE, Urine WBC 1-3 H, Hyaline Casts 1-3 H, Granular Casts 1-3 H, Urine Hemoglobin NEG, Urine Glucose NEG 08/14/17 0632: Lactic Acid 1.4 08/14/17 0632: Anion Gap 13, Estimated GFR > 60, BUN/Creatinine Ratio 38.6 H 08/14/17 023: Anion Gap 14, Estimated GFR > 60, BUN/Creatinine Ratio 40.0 H, Glucose 154 H, Calcium 9.2, Total Bilirubin 0.8, AST 23, ALT 55, Alkaline Phosphatase 77, Total Protein 7.6, Albumin 3.9, Globulin 3.7, Albumin/Globulin Ratio 1.1, CBC w Diff NO MAN DIFF REQ, RBC 5.14, MCV 92.3, MCH 29.8, RDW 15.6 H, MPV 10.9 H, Gran % 81.1 H, Lymphocytes % 8.7 L, Monocytes % 9.2, Eosinophils % 0.8, Basophils % 0.2, Absolute Granulocytes 11.2 H, Absolute Lymphocytes 1.2, Absolute Monocytes 1.3 H, Absolute Eosinophils 0.1, Absolute Basophils 0, PUBS MCHC 32.3 L Microbiology 08/15 08 BLOOD: Blood Culture - CAN Cancelled: Cancelled via OE: Per Decision 08/15 808 BLOOD: Blood Culture - CAN Cancelled: Cancelled via OE: Per MD Decision 08/14 729 URINE ROUT: Legionella Antigen - COMP 08/14 729 URINE ROUT: Streptococcus pneumoniae Antigen (M - COMP 08/14 729 URINE ROUT: Urine Culture - COMP 08/14 316 NASOPHARYN: Influenza Virus A & B Rapid Smear - COMP 08/14 238 BLOOD: Blood Culture - COMP 08/14 234 BLOOD: Blood Culture - RES 08/14 0152 URINE ROUT: Urine Culture - CAN Cancelled: Cancelled via OE: Per Decision 08/14 0150 LOWER RESP: Respiratory Culture - COMP YEAST PSEUDOMONAS AERUGINOSA 08/14 0150 LOWER RESP: Gram Stain - COMP Microbiology 08/15 08 BLOOD: Blood Culture - CAN Cancelled: Cancelled via OE: Per MD Decision 08/15 808 BLOOD: Blood Culture - CAN Cancelled: Cancelled via OE: Per MD Decision 08/14 729 URINE ROUT: Legionella Antigen - COMP 08/14 729 URINE ROUT: Streptococcus pneumoniae Antigen (M - COMP 08/14 729 URINE ROUT: Urine Culture - COMP 08/14 316 NASOPHARYN: Influenza Virus A & B Rapid Smear - COMP 08/14 023 BLOOD: Blood Culture - COMP 08/14 023 BLOOD: Blood Culture - RES 08/14 015 URINE ROUT: Urine Culture - CAN Cancelled: Cancelled via OE: Per MD Decision 08/14 015 LOWER RESP: Respiratory Culture - COMP YEAST PSEUDOMONAS AERUGINOSA 08/14 015 LOWER RESP: Gram Stain - COMP Vital Signs Date Time Temp Pulse Resp B/P B/P Pulse O2 O2 Flow FiO2 Mean Ox Delivery Rate 08/16 1318 96.3 84 17 134/70 90 Trach Mask 50% 08/16 1309 93 Trach Mask 50% 08/16 1000 93 Trach Mask 50% 08/16 0800 94 Trach Mask 50% 08/16 0703 97.8 89 20 132/76 94 08/16 0131 93 Trach Mask 70% 08/16 0000 91 Trach Mask 75% 08/15 2307 91 Trach Mask 70% 08/15 2154 97.9 98 20 138/80 92 Trach Mask 50% 08/15 1903 92 Trach Mask 45% 08/15 1600 93 Trach Mask 10L
--- NOTE | 2017-08-16 14:40 | RADIOLOGY REPORT ---
EXAMINATION: XR PORTABLE CHEST CLINICAL INFORMATION: Fever. COMPARISON: Chest done on 08/14/2017. TECHNIQUE: Portable frontal view of the chest was obtained. FINDINGS: Technically limited study due to poor positioning and motion artifacts. Low lung volume is present bilaterally. Patchy airspace disease is noted at right lung base. There is improved aeration noted at left lung base. There is a left-sided PICC line present, appears in stable position. Tracheostomy tube is partially visualized, obscured by overlapping flexed head and neck, grossly appears stable. The visualized upper abdomen is unremarkable. IMPRESSION: 1. Technically limited study. 2. Stable patchy airspace disease at right lung base and improved aeration at left lung base since 08/14/2017.
[2017-08-16 23:27] VITALS: BP 136/84
--- NOTE | 2017-08-17 06:04 | PN- Housestaff ---
Subjective Follow-up For: -Acute on chronic hypoxic respiratory failure -Aspiration pneumonia versus HCAP vs mucous plug Subjective: Patient is seen and examined at bedside, big tube continued to be clogged, patient is receiving IV fluids, for nourishment, he is somnolent, unable to express any complaints Review of Systems Constitutional: Reports: see HPI. Objective Last 24 Hrs of Vital Signs/I&O Vital Signs Date Time Temp Pulse Resp B/P B/P Pulse O2 O2 Flow FiO2 Mean Ox Delivery Rate 08/17 0800 92 Trach Mask 60% 08/17 0700 96.8 92 18 138/72 92 08/17 0232 92 Trach Mask 60% 08/17 0000 92 Trach Mask 60% 08/16 2327 97.8 97 20 136/84 90 Trach Mask 08/16 2042 Aerosol 50% Mask 08/16 1600 93 Trach Mask 50% 08/16 1318 96.3 84 17 134/70 90 Trach Mask 50% 08/16 1309 93 Trach Mask 50% Intake & Output 08/17 1600 08/17 0800 08/17 0000 Intake Total 0 620 Output Total Balance 0 620 Intake, IV 620 Intake, Oral 0 0 Number 2 1 Bowel Movements Physical Exam General Appearance: sleepy, unable to communicate HEENT: Atraumatic, PERRLA, EOMI, tracheostomy , with tracheal mask Cardiovascular: Normal S1, Normal S2, No Murmurs Lungs: Clear to Auscultation Abdomen: Normal Bowel Sounds, Soft, No Tenderness Extremities: No Clubbing, No Cyanosis, No Edema Assessment/Plan Assessment: 57-year-old gentleman with past medical history of quadriplegia, 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 The patient has had multiple admissions for aspiration pneumonia in the past. Last admission was to [facility], records were obtained which showed that he grew Escherichia coli resistant to cefepime and has a sputum, and patient had a PICC line placed in and he was restarted on a 6 day course of ertapenem which is started on , PICC line was placed on. In the ED patient received 1 dose of cyst has 1 g and Unasyn 1500 mg ONCE #Pneumonia On admission the patient had temperature of 101.1, leukocytosis, right basilar opacity Differential diagnosis includes HCAP, aspiration, Ligonella and strep pneumonia negative Follow-up on blood culture, sputum culture from 08/14 which showed yeast and pseudomanas aeruginosa CXR showed stable patchy airspace disease at right lung base and imrpoved aeration at left lung base wince last CXR. Continue to monitor on general medicine floor follow up on ID and pulmonology TRC,NEBS Continue to hold antibiotics according to ID recommendation. temp and white bc count normal.pt received one week treatement with broad spectrum antibiotic meropenem. Coag negative staph is thought to be a contaminant Goals of care need to be addressed with the family # Hyponatremia Patient's sodium has been stable at 146 Water flushes were added to his tube feeds 100 mL every 4 as per patient services assistant #PEG tube clogged Patient's PEG tube has been clogged for a few days Patient's PPI has been changed to IV and D51/2 NS has been started for nutrition. I was told by attending Dr. Olvera t reach out to IR for unclogging of the tube. However nobody was there and nobody at [facility] picked up the phone in the few locations that I called. I spoke with gastroenterology who noted that as IR placed the tube, they would need to unclog it. We will continue the patient on IVF and place a call out to IR again in the morning. #PICC LINE We receivved word from nursing that the patient's PICC line where it has the registered nurse renal will not return and will not flush. I ordered 2mg alteplase flush. patient is full code DVT prophylaxis with Lovenox Tubes feeding Problem List: 1. Pneumonia 2. Gastrostomy tube dysfunction 3. Vomiting Pain Ratin Pain Location: n/a Pain Goal: Remain pain free Pain Plan: pathway Tomorrow's Labs & Rationales: cbc bep DVT/Prophylaxis: mechanical, pharmacological
[2017-08-17 07:00] VITALS: BP 138/72
[2017-08-17 09:17] LABS: ABSOLUTE BASOPHIL COUNT 0 /CUMM (0.0-0.2); ABSOLUTE EOSINOPHIL COUNT 0.2 /CUMM (0.0-0.7); ABSOLUTE GRANULOCYTE CT 3.6 /CUMM (1.4-6.5); ABSOLUTE LYMPH COUNT 1.2 /CUMM (1.2-3.4); ABSOLUTE MONOCYTE COUNT 0.7 /CUMM (0.10-0.60); BASOPHIL % 0.8 % (0.0-2.0); EOSINOPHIL % 3.6 % (0-5); GRANULOCYTE % 61.9 % (42.2-75.2); HEMATOCRIT 39.2 % (42-52); MEAN CORPUSCULAR HGB 30.2 PG (27.0-31.0); MEAN CORPUSCULAR HGB CONC 33.3 G/DL (33.0-37.0); MEAN CORPUSCULAR VOLUME 90.9 FL (80.0-94.0); MEAN PLATELET VOLUME 11.3 FL (7.4-10.4); PLATELET COUNT 202 /CUMM (130-400); RBC DISTRIBUTION WIDTH 15.4 % (11.5-14.5); RED BLOOD CELL CT 4.31 /CUMM (4.70-6.10); WHITE BLOOD CELL COUNT 5.8 /CUMM (4.8-10.8)
[2017-08-17 15:16] VITALS: BP 120/74
--- NOTE | 2017-08-17 15:37 | PN- Att Addend ---
Attending Addendum Attending Brief Note Patient comfortable in bed still suctioning some material still on the trach mask. The feeding tube is clogged unable to flush it trying to get somebody to replace the tube has been difficult some of the meds were IV others her on hold, not being essential will continue monitoring and follow-up labs continue respiratory therapy. Intake & Output 08/17 1600 08/17 0400 08/16 1600 08/16 0400 08/15 1600 08/15 0400 Intake Total 946 634 6458 935 1025 150 Output Total 200 300 Balance 005 288 6422 935 825 -150 Intake, IV 143 596 8217 10 Intake, Oral 0 0 0 600 Intake, Tube 0 525 225 150 Feeding Intake, Tube 400 200 Irrigant Number 2 1 1 Bowel Movements Output, Urine 200 300 Patient 182 lb Weight Weight Bed scale Measurement Method Current Medications Sig/Gil Start time Last Medication Dose Route Stop Time Status Admin Acetaminophen 650 MG Q8P PRN 08/14 0445 PO Acetylcysteine 2 ML BID 08/14 2200 AC 08/17 INH 0800 Albuterol Sulfate 3 ML TID 08/16 1600 AC 08/17 INH 1454 Alteplase, 2 MG ONE ONE 08/16 2100 DC 08/16 Recombinant IV 08/16 2101 2300 Atorvastatin Calcium 10 MG AT BEDTIME 08/14 2200 AC 08/14 PO 2144 Baclofen 10 MG TID 08/14 1000 AC 08/15 PO 1639 Chlorhexidine 15 ML BID 08/15 1600 AC 08/17 Gluconate PO 1029 Cholecalciferol 1,000 IU DAILY 08/14 1000 AC 08/15 PO 0851 Dextrose/Sodium 1,000 ML Q13H 08/15 2345 AC 08/17 [place]loride [place] 0613 Docusate Sodium 100 MG BID PRN 08/14 0445 PO Enoxaparin Sodium 40 MG DAILY 08/14 1000 AC 08/17 SC 1028 Escitalopram Oxalate 5 MG DAILY 08/14 1000 AC 08/15 PO 0852 Famotidine 20 MG BID 08/16 1011 AC 08/17 IV 1028 Fentanyl Citrate 25 MCG Q3D 08/14 0445 08/17 TOP 0530 Laboratory Tests 08/17/17 0630: Anion Gap 11, Estimated GFR > 60, BUN/Creatinine Ratio 32.0 H, CBC w Diff NO MAN DIFF REQ, RBC 4.31 L, MCV 90.9, MCH 30.2, RDW 15.4 H, MPV 11.3 H, Gran % 61.9, Lymphocytes % 21.2, Monocytes % 12.5 H, Eosinophils % 3.6, Basophils % 0.8, Absolute Granulocytes 3.6, Absolute Lymphocytes 1.2, Absolute Monocytes 0.7 H, Absolute Eosinophils 0.2, Absolute Basophils 0, PUBS MCHC 33.3 08/16/17 0540: Anion Gap 13, Estimated GFR > 60, BUN/Creatinine Ratio 33.3 H, CBC w Diff NO MAN DIFF REQ, RBC 4.49 L, MCV 91.5, MCH 30.3, RDW 15.4 H, MPV 11.1 H, Gran % 69.3, Lymphocytes % 14.5 L, Monocytes % 13.6 H, Eosinophils % 2.2, Basophils % 0.4, Absolute Granulocytes 4.6, Absolute Lymphocytes 0.9 L, Absolute Monocytes 0.9 H, Absolute Eosinophils 0.1, Absolute Basophils 0, PUBS MCHC 33.1 08/15/17 1450: Hemoglobin A1c Pending 08/15/17 1450: Anion Gap 12, Estimated GFR > 60, BUN/Creatinine Ratio 38.3 H 08/15/17 1450: Albumin 3.4 L 08/15/17 0545: Anion Gap 14, Estimated GFR > 60, BUN/Creatinine Ratio 32.9 H, CBC w Diff NO MAN DIFF REQ, RBC 4.72, MCV 92.4, MCH 30.2, RDW 15.8 H, MPV 11.6 H, Gran % 75.3 H, Lymphocytes % 11.1 L, Monocytes % 11.5 H, Eosinophils % 1.8, Basophils % 0.3, Absolute Granulocytes 7.6 H, Absolute Lymphocytes 1.1 L, Absolute Monocytes 1.2 H, Absolute Eosinophils 0.2, Absolute Basophils 0, PUBS MCHC 32.7 L 08/14/17 1600: Anion Gap 13, Estimated GFR > 60, BUN/Creatinine Ratio 45.0 H, CBC w Diff NO MAN DIFF REQ, RBC 4.65 L, MCV 91.6, MCH 30.2, RDW 15.8 H, MPV 10.2, Gran % 79.4 H, Lymphocytes % 8.7 L, Monocytes % 9.7 H, Eosinophils % 1.8, Basophils % 0.4, Absolute Granulocytes 8.0 H, Absolute Lymphocytes 0.9 L, Absolute Monocytes 1.0 H, Absolute Eosinophils 0.2, Absolute Basophils 0, PUBS MCHC 33.0 Microbiology 08/15 808 BLOOD: Blood Culture - CAN Cancelled: Cancelled via OE: Per MD Decision 08/15 808 BLOOD: Blood Culture - CAN Cancelled: Cancelled via OE: Per MD Decision Microbiology 08/15 808 BLOOD: Blood Culture - CAN Cancelled: Cancelled via OE: Per MD Decision 08/15 808 BLOOD: Blood Culture - CAN Cancelled: Cancelled via OE: Per MD Decision Vital Signs Date Time Temp Pulse Resp B/P B/P Pulse O2 O2 Flow FiO2 Mean Ox Delivery Rate 08/17 1516 97.1 89 19 120/74 93 Trach Mask 08/17 0801 95 Trach Mask 50% 08/17 0800 92 Trach Mask 60% 08/17 0700 96.8 92 18 138/72 92 08/17 0232 92 Trach Mask 60% 08/17 0000 92 Trach Mask 60% 08/16 2327 97.8 97 20 136/84 90 Trach Mask 08/16 2042 Aerosol 50% Mask 08/16 1600 93 Trach Mask 50%
[2017-08-17 21:09] VITALS: BP 120/70
[2017-08-18 06:00] VITALS: BP 118/66
--- NOTE | 2017-08-18 08:35 | PN- Housestaff ---
Subjective Follow-up For: -Acute on chronic hypoxic respiratory failure -Aspiration pneumonia versus HCAP vs mucous plug Subjective: Patient is seen and examined at bedside, continues to be sleepy,peg tube still clogged, I contacted IR for uncloggiing or replacement Review of Systems Constitutional: Reports: see HPI. Objective Last 24 Hrs of Vital Signs/I&O Vital Signs Date Time Temp Pulse Resp B/P B/P Pulse O2 O2 Flow FiO2 Mean Ox Delivery Rate 08/18 1101 Trach Mask 50% 08/18 0821 93 Trach Mask 50% 08/18 0800 Venti Mask 50% 08/18 0600 98.6 74 18 118/66 95 08/18 0342 93 Trach Mask 50% 08/18 0000 94 Trach Mask 50% 08/17 2137 95 Trach Mask 50% 08/17 2109 99.0 80 20 120/70 92 Trach Mask 50% 08/17 1600 92 Trach Mask 50% 08/17 1516 97.1 89 19 120/74 93 Trach Mask Intake & Output 08/18 1600 08/18 0800 08/18 0000 Intake Total 300 630 Output Total 0 Balance 300 630 Intake, IV 300 630 Intake, Oral 0 0 Intake, Tube 0 Feeding Number 0 0 Bowel Movements Output, Other 0 Physical Exam General Appearance: sleepy Assessment/Plan Assessment: 57-year-old gentleman with past medical history of quadriplegia, 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 The patient has had multiple admissions for aspiration pneumonia in the past. Last admission was to [facility], records were obtained which showed that he grew Escherichia coli resistant to cefepime and has a sputum, and patient had a PICC line placed in and he was restarted on a 6 day course of ertapenem which is started on , PICC line was placed on. In the ED patient received 1 dose of cyst has 1 g and Unasyn 1500 mg ONCE #Pneumonia On admission the patient had temperature of 101.1, leukocytosis, right basilar opacity Differential diagnosis includes HCAP, aspiration, Ligonella and strep pneumonia negative Follow-up on blood culture, sputum culture from 08/14 which showed yeast and pseudomanas aeruginosa CXR showed stable patchy airspace disease at right lung base and imrpoved aeration at left lung base wince last CXR. Continue to monitor on general medicine floor follow up on ID and pulmonology TRC,NEBS Continue to hold antibiotics according to ID recommendation. temp and white bc count normal.pt received one week treatement with broad spectrum antibiotic meropenem. Coag negative staph is thought to be a contaminant Goals of care need to be addressed with the family # Hyponatremia Improved her sodium is normal today Will resume Water flushes were added to his tube feeds 100 mL every 4 as per rubbish collection supervisor nc PEG tube is uncloged or relaced #PEG tube clogged Patient's PEG tube has been clogged for a few days Patient's PPI has been changed to IV and D51/2 NS has been started for nutrition will go today for PEG tube un clogging or replacement #PICC LINE We receivved word from nursing that the patient's PICC line where it has the light armored reconnaissance officer will not return and will not flush. I ordered 2mg alteplase flush and patient is full code DVT prophylaxis with Lovenox Tubes feeding Problem List: 1. PEG (percutaneous endoscopic gastrostomy) adjustment/replacement/removal 2. HCAP (healthcare-associated pneumonia) 3. Pneumonia Pain Ratin Pain Location: n/a Pain Goal: Remain pain free Pain Plan: [place] Tomorrow's Labs & Rationales: cbc bep DVT/Prophylaxis: mechanical, pharmacological
[2017-08-18 09:15] LABS: ABSOLUTE BASOPHIL COUNT 0.1 /CUMM (0.0-0.2); ABSOLUTE EOSINOPHIL COUNT 0.2 /CUMM (0.0-0.7); ABSOLUTE GRANULOCYTE CT 3.8 /CUMM (1.4-6.5); ABSOLUTE LYMPH COUNT 1.7 /CUMM (1.2-3.4); ABSOLUTE MONOCYTE COUNT 0.5 /CUMM (0.10-0.60); BASOPHIL % 0.9 % (0.0-2.0); EOSINOPHIL % 3.4 % (0-5); GRANULOCYTE % 60.7 % (42.2-75.2); HEMATOCRIT 37.3 % (42-52); MEAN CORPUSCULAR HGB CONC 32.9 G/DL (33.0-37.0); MEAN CORPUSCULAR VOLUME 91.1 FL (80.0-94.0); MEAN PLATELET VOLUME 11.3 FL (7.4-10.4); PLATELET COUNT 205 /CUMM (130-400); RBC DISTRIBUTION WIDTH 15.3 % (11.5-14.5); RED BLOOD CELL CT 4.09 /CUMM (4.70-6.10); WHITE BLOOD CELL COUNT 6.2 /CUMM (4.8-10.8)
--- NOTE | 2017-08-18 10:53 | PN- Att Addend ---
Attending Addendum Attending Brief Note Patient calm in bed. Patient is afebrile and his temperature max 99 yesterday, BP stable. No new changes on physical. His white count is 6200 episode abnormalities as potassium of 3.2, replacing make sure he gets his feeding tube replaced today. Also check with infectious diseases about his antibiotic coverage and see if is stable to start disposition plans Intake & Output 08/18 1600 08/18 0400 08/17 1600 08/17 0400 08/16 1600 08/16 0400 Intake Total 300 630 195 214 6654 935 Output Total 0 Balance 300 630 400 414 0667 935 Intake, IV 300 630 514 657 4627 10 Intake, Oral 0 0 0 0 0 Intake, Tube 0 0 525 Feeding Intake, Tube 400 Irrigant Number 0 0 2 1 1 Bowel Movements Output, Other 0 Current Medications Sig/Gil Start time Last Medication Dose Route Stop Time Status Admin Acetaminophen 650 MG Q8P PRN 08/14 0445 PO Acetylcysteine 2 ML BID 08/14 2200 08/18 INH 0814 Albuterol Sulfate 3 ML TID 08/16 1600 AC 08/18 INH 0815 Atorvastatin Calcium 10 MG AT BEDTIME 08/14 2200 AC 08/14 PO 2144 Baclofen 10 MG TID 08/14 1000 AC 08/15 PO 1639 Chlorhexidine 15 ML BID 08/15 1600 AC 08/18 Gluconate PO 0906 Cholecalciferol 1,000 IU DAILY 08/14 1000 AC 08/15 PO 0851 Dextrose/Sodium 1,000 ML Q13H 08/15 2345 AC 08/17 Chloride IV 2039 Docusate Sodium 100 MG BID PRN 08/14 0445 PO Enoxaparin Sodium 40 MG DAILY 08/14 1000 AC 08/18 SC 0907 Escitalopram Oxalate 5 MG DAILY 08/14 1000 AC 08/15 PO 0852 Famotidine 20 MG BID 08/16 1011 AC 08/18 IV 0907 Fentanyl Citrate 25 MCG Q3D 08/14 0445 08/17 TOP 0530 Laboratory Tests 08/18/17 0555: Anion Gap 10, Estimated GFR > 60, BUN/Creatinine Ratio 21.7, CBC w Diff NO MAN DIFF REQ, RBC 4.09 L, MCV 91.1, MCH 30.0, RDW 15.3 H, MPV 11.3 H, Gran % 60.7 , Lymphocytes % 27.1, Monocytes % 7.9, Eosinophils % 3.4, Basophils % 0.9, Absolute Granulocytes 3.8, Absolute Lymphocytes 1.7, Absolute Monocytes 0.5, Absolute Eosinophils 0.2, Absolute Basophils 0.1, PUBS MCHC 32.9 L 08/17/17 0630: Anion Gap 11, Estimated GFR > 60, BUN/Creatinine Ratio 32.0 H, CBC w Diff NO MAN DIFF REQ, RBC 4.31 L, MCV 90.9, MCH 30.2, RDW 15.4 H, MPV 11.3 H, Gran % 61.9, Lymphocytes % 21.2, Monocytes % 12.5 H, Eosinophils % 3.6, Basophils % 0.8, Absolute Granulocytes 3.6, Absolute Lymphocytes 1.2, Absolute Monocytes 0.7 H, Absolute Eosinophils 0.2, Absolute Basophils 0, PUBS MCHC 33.3 08/16/17 0540: Anion Gap 13, Estimated GFR > 60, BUN/Creatinine Ratio 33.3 H, CBC w Diff NO MAN DIFF REQ, RBC 4.49 L, MCV 91.5, MCH 30.3, RDW 15.4 H, MPV 11.1 H, Gran % 69.3, Lymphocytes % 14.5 L, Monocytes % 13.6 H, Eosinophils % 2.2, Basophils % 0.4, Absolute Granulocytes 4.6, Absolute Lymphocytes 0.9 L, Absolute Monocytes 0.9 H, Absolute Eosinophils 0.1, Absolute Basophils 0, PUBS MCHC 33.1 08/15/17 1450: Hemoglobin A1c 5.8 08/15/17 1450: Anion Gap 12, Estimated GFR > 60, BUN/Creatinine Ratio 38.3 H 08/15/17 1450: Albumin 3.4 L Vital Signs Date Time Temp Pulse Resp B/P B/P Pulse O2 O2 Flow FiO2 Mean Ox Delivery Rate 08/18 0821 93 Trach Mask 50% 08/18 0800 Venti Mask 50% 08/18 0600 98.6 74 18 118/66 95 08/18 0342 93 Trach Mask 50% 08/18 0000 94 Trach Mask 50% 08/17 2137 95 Trach Mask 50% 08/17 2109 99.0 80 20 120/70 92 Trach Mask 50% 08/17 1600 92 Trach Mask 50% 08/17 1516 97.1 89 19 120/74 93 Trach Mask
--- NOTE | 2017-08-18 13:17 | PN- Pulmonary ---
Subjective HPI/Critical Care Issues: Afebrile No new issues Objective Current Medications: Current Medications Sig/Gil Start time Last Medication Dose Route Stop Time Status Admin Acetaminophen 650 MG Q8P PRN 08/14 0445 AC PO Acetylcysteine 2 ML BID 08/14 2200 AC 08/18 INH 0814 Albuterol Sulfate 3 ML TID 08/16 1600 AC 08/18 INH 0815 Atorvastatin Calcium 10 MG AT BEDTIME 08/14 2200 AC 08/14 PO 2144 Baclofen 10 MG TID 08/14 1000 AC 08/15 PO 1639 Chlorhexidine 15 ML BID 08/15 1600 AC 08/18 Gluconate PO 0906 Cholecalciferol 1,000 IU DAILY 08/14 1000 AC 08/15 PO 0851 Dextrose/Sodium 1,000 ML Q13H 08/15 2345 AC 08/17 Chloride IV 2039 Docusate Sodium 100 MG BID PRN 08/14 0445 PO Enoxaparin Sodium 40 MG DAILY 08/14 1000 AC 08/18 SC 0907 Escitalopram Oxalate 5 MG DAILY 08/14 1000 AC 08/15 PO 0852 Famotidine 20 MG BID 08/16 1011 AC 08/18 IV 0907 Fentanyl Citrate 25 MCG Q3D 08/14 0445 AC 08/17 TOP 0530 Ioversol 0 .STK-MED ONE 08/18 1258 DC IV Lidocaine 0 .STK-MED ONE 08/18 1258 DC .ROUTE Vital Signs & I&O Last 24 Hrs of Vitals and I&O: Vital Signs Date Time Temp Pulse Resp B/P B/P Pulse O2 O2 Flow FiO2 Mean Ox Delivery Rate 08/18 1101 Trach Mask 50% 08/18 0821 93 Trach Mask 50% 08/18 0800 Venti Mask 50% 08/18 0600 98.6 74 18 118/66 95 08/18 0342 93 Trach Mask 50% 08/18 0000 94 Trach Mask 50% 08/17 2137 95 Trach Mask 50% 08/17 2109 99.0 80 20 120/70 92 Trach Mask 50% 08/17 1600 92 Trach Mask 50% 08/17 1516 97.1 89 19 120/74 93 Trach Mask Intake & Output 08/18 1600 08/18 0800 08/18 0000 Intake Total 300 630 Output Total 0 Balance 300 630 Intake, IV 300 630 Intake, Oral 0 0 Intake, Tube 0 Feeding Number 0 0 Bowel Movements Output, Other 0 Impression/Plan Impression/Plan Impression/Plan: General Appearance No Acute Distress Neck trach mask in palce Cardiovascular Normal S1, Normal S2 Lungs decreased breath sounds Abdomen Normal Bowel Sounds, Soft, No Tenderness, Jtube in palce, area around Jtube clean no signs of infection Extremities picc line in place in left arm Body Front and Back (Adult) The patient has multiple comorbidities including 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 The patient has had multiple admissions for aspiration pneumonia in the past. 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 difficile, nephrolithiasis, UTI, gout, muscle spasms, vitamin D deficiency, diabetes mellitus, depression, neurogenic bladder, MRSA colonizaion and ESBL ecoli colonization REC * Cont current meds * COnt j tube feeding * Reduce Fio2 to keep sat at 90 and above * Periodex oral care tid * Keep hob up
--- NOTE | 2017-08-18 14:15 | PN- Infect Dx ---
Subjective Subjective: Afebrile without any apparent complaints. Objective Last 24 Hrs of Vital Signs/I&O Vital Signs Date Time Temp Pulse Resp B/P B/P Pulse O2 O2 Flow FiO2 Mean Ox Delivery Rate 08/18 1101 Trach Mask 50% 08/18 0821 93 Trach Mask 50% 08/18 0800 Venti Mask 50% 08/18 0600 98.6 74 18 118/66 95 08/18 0342 93 Trach Mask 50% 08/18 0000 94 Trach Mask 50% 08/17 2137 95 Trach Mask 50% 08/17 2109 99.0 80 20 120/70 92 Trach Mask 50% 08/17 1600 92 Trach Mask 50% 08/17 1516 97.1 89 19 120/74 93 Trach Mask Intake & Output 08/18 1600 08/18 0800 08/18 0000 Intake Total 300 630 Output Total 0 Balance 300 630 Intake, IV 300 630 Intake, Oral 0 0 Intake, Tube 0 Feeding Number 0 0 Bowel Movements Output, Other 0 Physical Exam Other Physical Findings: He is awake and alert on a 50% trach mask, in no apparent distress Lungs bilateral rhonchi Heart regular rhythm with no murmur Abdomen is soft, nontender with positive bowel sounds; PEG in place Extremities PICC in place in the left upper extremity with no inflammation at the site Results Last 24 Hours of Lab Results: Laboratory Tests 08/18 0555 Chemistry Sodium (137 - 145 mmol/L) 142 Potassium (3.5 - 5.1 mmol/L) 3.2 L Chloride (98 - 107 mmol/L) 99 Carbon Dioxide (22 - 30 mmol/L) 33 H Anion Gap (5 - 16) 10 BUN (9 - 20 mg/dL) 13 Creatinine (0.7 - 1.2 mg/dL) 0.6 L Estimated GFR (>60 ml/min) > 60 BUN/Creatinine Ratio (7 - 25 %) 21.7 Hematology CBC w Diff NO MAN DIFF REQ WBC (4.8 - 10.8 /CUMM) 6.2 RBC (4.70 - 6.10 /CUMM) 4.09 L Hgb (14.0 - 18.0 G/DL) 12.3 L Hct (42 - 52 %) 37.3 L MCV (80.0 - 94.0 FL) 91.1 MCH (27.0 - 31.0 PG) 30.0 RDW (11.5 - 14.5 %) 15.3 H Plt Count (130 - 400 /CUMM) 205 MPV (7.4 - 10.4 FL) 11.3 H Gran % (42.2 - 75.2 %) 60.7 Lymphocytes % (20.5 - 51.1 %) 27.1 Monocytes % (1.7 - 9.3 %) 7.9 Eosinophils % (0 - 5 %) 3.4 Basophils % (0.0 - 2.0 %) 0.9 Absolute Granulocytes (1.4 - 6.5 /CUMM) 3.8 Absolute Lymphocytes (1.2 - 3.4 /CUMM) 1.7 Absolute Monocytes (0.10 - 0.60 /CUMM) 0.5 Absolute Eosinophils (0.0 - 0.7 /CUMM) 0.2 Absolute Basophils (0.0 - 0.2 /CUMM) 0.1 PUBS MCHC (33.0 - 37.0 G/DL) 32.9 L Last 24 Hours of Rashard Results: Blood cultures 2 August 14 negative Sputum culture August 14 positive for Pseudomonas sensitive to all antibiotics tested and yeast Assessment/Plan Impression: Condition poor with respiratory failure, possibly secondary to mucous plugging or recurrent aspiration, with temperatures and white blood cell count remaining normal off antibiotics. The positive sputum culture may represent colonization and, as he has just received one week of treatment with a broad spectrum antibiotic, feel that he can continue to be followed off antibiotics. His overall prognosis remains poor and feel that his goals of care should be reevaluated. Suggestion: 1. Would reevaluate the goals of care in this debilitated patient 2. Continue to follow off antibiotics
--- NOTE | 2017-08-18 17:03 | INTERVENTIONAL RADIOLOGY RPT ---
EXAMINATION: Gastrojejunostomy tube exchange CLINICAL INFORMATION: 57-year-old male with chronic indwelling gastrojejunostomy tube. Primary team reported the gastrojejunostomy tube was clogged. Exchange requested. COMPARISON: Prior gastrojejunostomy tube exchange 04/29/[address] chest, abdomen and pelvis 08/01/2017 Interventional radiologist: Tomas Sparrow M.D. Medication administration: None required FLUOROSCOPY TIME: 0.2 minutes DOSE AREA PRODUCT: 1.7 mGy-m2 (milligray-meter squared) Procedure in Detail: Informed consent was obtained from the patient's sister prior to the procedure. During this process, the procedure and potential alternatives were explained along with the intended outcome and benefits. The risks of the procedure including the possibility of an unsuccessful procedure, as well as the risk of not doing the procedure were discussed. The patient's sister was given the opportunity to ask questions regarding the procedure. A consent form which document this discussion was placed in the medical record. Following informed consent the patient was placed supine on the fluoroscopic table. The abdomen was prepped and draped in usual sterile fashion. A time out procedure was performed. Initial spot image demonstrated gastrojejunostomy tube in expected orientation. The previously placed 12 Italian jejunostomy tube was exchanged at an outside institution approximately one week ago and a new HELENE style gastrojejunostomy tube was present. The retention balloon was opacified, projecting over the stomach. An IVC filter was also appreciated. Contrast was injected through the existing jejunostomy tube to verify correct positioning. Contrast flowed easily throughout the tube and opacified jejunum beyond the ligament of Treitz. There was no evidence of sluggish flow or obstruction. Given the fact this tube was recently exchanged approximately one week ago, the decision was made not to replace the tube at this time. The tube was flushed with saline. The patient tolerated procedure well without complications. IMPRESSION: Properly functioning gastrojejunostomy tube. Tube was not exchanged at the current tube is only approximately one week old. Tube ready to use at this time.
[2017-08-18 21:32] VITALS: BP 110/60
[2017-08-19 05:23] VITALS: BP 132/72
--- NOTE | 2017-08-19 07:45 | PN- Housestaff ---
Subjective Follow-up For: -Acute on chronic hypoxic respiratory failure -Aspiration pneumonia versus HCAP vs mucous plug Subjective: Patient is seen and examined at bedside, afebrile off antibiotics, continues to be sleepy, back to up was noticed to be clogged again today, IR was contacted for replacement Review of Systems Constitutional: Reports: see HPI. Objective Last 24 Hrs of Vital Signs/I&O Vital Signs Date Time Temp Pulse Resp B/P B/P Pulse O2 O2 Flow FiO2 Mean Ox Delivery Rate 08/19 0840 96 Trach Mask 40% 08/19 0523 99.0 90 24 132/72 93 Trach Mask 40% 08/19 0323 91 Trach Mask 40% 08/18 2219 93 Trach Mask 40% 08/18 2132 98.4 73 19 110/60 95 Trach Mask 40% 08/18 1950 93 Trach Mask 40% 08/18 1645 95 Trach Mask 50% 08/18 1101 Trach Mask 50% Physical Exam General Appearance: sleepy Neck: tracheostomy , no surrounding skin changes, tracheal tube in place Cardiovascular: Normal S1, Normal S2, No Murmurs Lungs: Clear to Auscultation Abdomen: Normal Bowel Sounds, Soft, No Tenderness Extremities: No Clubbing, No Cyanosis, No Edema, bilateral scabs and redness on both LE, Vascular: Normal Pulses Sepsis Peripheral Pulse Location: Radial Assessment/Plan Assessment: 57-year-old gentleman with past medical history of quadriplegia, 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 The patient has had multiple admissions for aspiration pneumonia in the past. Last admission was to [facility], records were obtained which showed that he grew Escherichia coli resistant to cefepime and has a sputum, and patient had a PICC line placed in and he was restarted on a 6 day course of ertapenem which is started on , PICC line was placed on. In the ED patient received 1 dose of cyst has 1 g and Unasyn 1500 mg ONCE #Pneumonia On admission the patient had temperature of 101.1, leukocytosis, right basilar opacity Differential diagnosis includes HCAP, aspiration, Currently afebrile, with normal WBC count of antibiotics Ligonella and strep pneumonia negative CXR showed stable patchy airspace disease at right lung base and imrpoved aeration at left lung base wince last CXR. Continue to monitor on general medicine floor follow up on ID and pulmonology TRC,NEBS Continue to hold antibiotics according to ID recommendation. Coag negative staph is thought to be a contaminant Goals of care need to be addressed with the family # Hyponatremia Improved her sodium is normal today Will resume Water flushes were added to his tube feeds 100 mL every 4 as per lithograph operator nc PEG tube is uncloged or relaced # J tube clogged Patient's J tube was unclogged by IR yesterday -This morning the nurse was having hard time using his nutrition, contacted IR , Unglogged it again, working fine pt is sabel t be discharged today to his nursing facility to follow up as an outpatient with his PCP patient is full code DVT prophylaxis with Lovenox Tubes feeding Problem List: 1. PEG (percutaneous endoscopic gastrostomy) adjustment/replacement/removal 2. Pneumonia Pain Ratin Pain Location: none Pain Goal: Remain pain free Pain Plan: pathway Tomorrow's Labs & Rationales: cbc bep DVT/Prophylaxis: mechanical, pharmacological
[2017-08-19 09:00] LABS: ABSOLUTE BASOPHIL COUNT 0 /CUMM (0.0-0.2); ABSOLUTE EOSINOPHIL COUNT 0.3 /CUMM (0.0-0.7); ABSOLUTE GRANULOCYTE CT 6.2 /CUMM (1.4-6.5); ABSOLUTE LYMPH COUNT 1.2 /CUMM (1.2-3.4); ABSOLUTE MONOCYTE COUNT 0.6 /CUMM (0.10-0.60); BASOPHIL % 0.3 % (0.0-2.0); EOSINOPHIL % 3.2 % (0-5); GRANULOCYTE % 75.1 % (42.2-75.2); HEMATOCRIT 38.2 % (42-52); MEAN CORPUSCULAR HGB 30.6 PG (27.0-31.0); MEAN CORPUSCULAR HGB CONC 33.7 G/DL (33.0-37.0); MEAN CORPUSCULAR VOLUME 90.8 FL (80.0-94.0); MEAN PLATELET VOLUME 10.7 FL (7.4-10.4); PLATELET COUNT 216 /CUMM (130-400); RBC DISTRIBUTION WIDTH 14.9 % (11.5-14.5); RED BLOOD CELL CT 4.21 /CUMM (4.70-6.10); WHITE BLOOD CELL COUNT 8.3 /CUMM (4.8-10.8)
--- NOTE | 2017-08-19 13:33 | PN- Att Addend ---
Attending Addendum Attending Brief Note Radiology unclogged the feeding tube using an adapter and some smaller syringes and pushing fluids vital signs are stable temp max 99 white count within normal limits with no new changes on physical. She is off antibiotics will start disposition plans for the patient to return to the [facility] special instructions to keep the feeding tube open Intake & Output 08/19 1600 08/19 0400 08/18 1600 08/18 0400 08/17 1600 08/17 0400 Intake Total 900 630 600 620 Output Total 0 Balance 900 630 600 620 Intake, IV 900 630 600 620 Intake, Oral 0 0 0 0 Intake, Tube 0 Feeding Number 0 0 2 1 Bowel Movements Output, Other 0 Current Medications Sig/Gil Start time Last Medication Dose Route Stop Time Status Admin Acetaminophen 650 MG Q8P PRN 08/14 0445 PO Acetylcysteine 2 ML BID 08/14 2200 AC 08/18 INH 1950 Albuterol Sulfate 3 ML TID 08/16 1600 AC 08/19 INH 0837 Atorvastatin Calcium 10 MG AT BEDTIME 08/14 2200 AC 08/18 PO 2153 Baclofen 10 MG TID 08/14 1000 AC 08/19 PO 1156 Chlorhexidine 15 ML BID 08/15 1600 AC 08/19 Gluconate PO 1015 Cholecalciferol 1,000 IU DAILY 08/14 1000 AC 08/19 PO 1156 Dextrose/Sodium 1,000 ML Q13H 08/15 2345 DC 08/18 Chloride IV 1200 Docusate Sodium 100 MG BID PRN 08/14 0445 PO Enoxaparin Sodium 40 MG DAILY 08/14 1000 AC 08/19 SC 1015 Escitalopram Oxalate 5 MG DAILY 08/14 1000 AC 08/19 PO 1155 Famotidine 20 MG BID 08/16 1011 AC 08/19 IV 1015 Fentanyl Citrate 25 MCG Q3D 08/14 0445 AC 08/17 TOP 0530 Potassium Chloride 20 MEQ ONCE ONE 08/19 1015 DC 08/19 PO 08/19 1016 1156 Potassium Chloride 10 MEQ Q1H 08/18 2014 DC 08/18 IV 08/18 Potassium Chloride 10 MEQ Q1H 08/18 1500 DC 08/18 IV 08/18 1601 1740 Laboratory Tests 08/19/17 0740: Anion Gap 12, Estimated GFR > 60, BUN/Creatinine Ratio 21.7, CBC w Diff NO MAN DIFF REQ, RBC 4.21 L, MCV 90.8, MCH 30.6, RDW 14.9 H, MPV 10.7 H, Gran % 75.1 , Lymphocytes % 14.8 L, Monocytes % 6.6, Eosinophils % 3.2, Basophils % 0.3, Absolute Granulocytes 6.2, Absolute Lymphocytes 1.2, Absolute Monocytes 0.6, Absolute Eosinophils 0.3, Absolute Basophils 0, PUBS MCHC 33.7 08/18/17 0555: Anion Gap 10, Estimated GFR > 60, BUN/Creatinine Ratio 21.7, CBC w Diff NO MAN DIFF REQ, RBC 4.09 L, MCV 91.1, MCH 30.0, RDW 15.3 H, MPV 11.3 H, Gran % 60.7 , Lymphocytes % 27.1, Monocytes % 7.9, Eosinophils % 3.4, Basophils % 0.9, Absolute Granulocytes 3.8, Absolute Lymphocytes 1.7, Absolute Monocytes 0.5, Absolute Eosinophils 0.2, Absolute Basophils 0.1, PUBS MCHC 32.9 L 08/17/17 0630: Anion Gap 11, Estimated GFR > 60, BUN/Creatinine Ratio 32.0 H, CBC w Diff NO MAN DIFF REQ, RBC 4.31 L, MCV 90.9, MCH 30.2, RDW 15.4 H, MPV 11.3 H, Gran % 61.9, Lymphocytes % 21.2, Monocytes % 12.5 H, Eosinophils % 3.6, Basophils % 0.8, Absolute Granulocytes 3.6, Absolute Lymphocytes 1.2, Absolute Monocytes 0.7 H, Absolute Eosinophils 0.2, Absolute Basophils 0, PUBS MCHC 33.3 Vital Signs Date Time Temp Pulse Resp B/P B/P Pulse O2 O2 Flow FiO2 Mean Ox Delivery Rate 08/19 0840 96 Trach Mask 40% 08/19 0523 99.0 90 24 132/72 93 Trach Mask 40% 08/19 0323 91 Trach Mask 40% 08/189 93 Trach Mask 40% 08/18 2132 98.4 73 19 110/60 95 Trach Mask 40% 08/18 1950 93 Trach Mask 40% 08/18 1645 95 Trach Mask 50%
[2017-08-19 14:51] VITALS: BP 153/76
[2017-08-19] MEDS ORDERED: ACETYLCYST200 MG/1 M INH (15:02)
--- NOTE | 2017-08-19 15:06 | Patient Discharge Instructions ---
Discharge Instructions General Discharge Information You were seen/treated for: -Acute on chronic hypoxic respiratory failure -Aspiration pneumonia , Possible mucous plug Special Instructions: 1- please follow up with your PCP in 1 week of discharge 2- Please follow up with your coding machine operator in 1 week of discharge Diet Continue normal diet: No Recommended Diet: tube feeding Acute Coronary Syndrome Inclusion Criteria At DC or during hospital stay patient has or had the following: ACS DIAGNOSIS No Discharge Core Measures Meds if any: Prescribed or Continued at Discharge Meds if any: NOT Prescribed or Continued at Discharge Congestive Heart Failure Inclusion Criteria At DC or during hospital stay patient has or had the following: CHF DIAGNOSIS No Discharge Core Measures Meds if any: Prescribed or Continued at Discharge Meds if any: NOT Prescribed or Continued at Discharge Cerebrovascular accident Inclusion Criteria At DC or during hospital stay patient has or had the following: CVA/TIA Diagnosis No Discharge Core Measures Meds if any: Prescribed or Continued at Discharge Meds if any: NOT Prescribed or Continued at Discharge Venous thromboembolism Inclusion Criteria VTE Diagnosis No VTE Type NONE VTE Confirmed by (Test) NONE Discharge Core Measures - Per Current guidelines, there needs to be overlap - treatment for the first 5 days of Warfarin therapy. - If discharged on Warfarin prior to 5 days of - overlap therapy, the patient will need to be - assessed for post discharge needs including - *Post discharge parental anticoagulation - *Warfarin and/or parental anticoagulation education - *Follow up date to check INR post discharge At least 5 days overlap therapy as Inpatient No Meds if any: Prescribed or Continued at Discharge Note: Overlap Therapy is Warfarin and Anticoagulant Meds if any: NOT Prescribed or Continued at Discharge
--- NOTE | 2017-08-19 16:16 | Discharge Summary ---
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 difficile infection, diabetes, gout, depression, history of NC, MRSA infection in the past, able to communicate with his eyes only presented to [place] [facility] with fever (temperature 100.4 at ECF) and decreased oxygen saturation to 86-89%. Patient arrived to ER on a nonrebreather with 95% oxygen through trach. Upon arrival his temperature was 101.1, pulse 102, respiratory rate 20, blood pressure 142/93 and oxygen saturation 94% on 100% nonrebreather mask. Respiratory therapist was called who suctioned copious amounts of thick yellow secretions and sample was sent to the lab. His oxygen requirement decreased down to 40%. It was difficult to obtain proper history from patient so we called [facility], [facility]. We were told that patient recently discharged from [facility] one week ago where he was treated for questionable pneumonia. PICC was placed while in hospital and he was discharged on vancomycin. His last dose was due today. In ER chest x-ray showed low lung volumes with right basilar opacity, atelectasis versus pneumonia. He was given Unasyn 1500 mg 1 and Fortaz 1 g 1. 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 On the next day patient was kept off antibiotic pre Recommendation off ID team, as it was on the weekend we try to open his tube feeding with the flushing and aspiration of for [employer] and water it's open on Friday and get obstructed on Friday morning so we contacted interventional radiology and they came and assessed the G-tube feeding and they open it and we restart his tube feeding. Special instruction been provided to [facility] nursing team by the telephonic case manager and how to manage his tube feeding. During his hospital stay patient only spike a fever once of 101.1 rectally on the day of admission otherwise he remained afebrile ANTIBIOTIC. Imaging: EXAM TYPE: IR - FLUOROSCOPY,INDEPEND PROC; INTERVENTIONAL SETUP EXAMINATION: Gastrojejunostomy tube exchange CLINICAL INFORMATION: 57-year-old male with chronic indwelling gastrojejunostomy tube. Primary team reported the gastrojejunostomy tube was clogged. Exchange requested. COMPARISON: Prior gastrojejunostomy tube exchange 04/29/[address] chest, abdomen and pelvis 08/01/2017 Interventional radiologist: Tomas Sparrow M.D. Medication administration: None required FLUOROSCOPY TIME: 0.2 minutes DOSE AREA PRODUCT: 1.7 mGy-m2 (milligray-meter squared) Procedure in Detail: Informed consent was obtained from the patient's sister prior to the procedure. During this process, the procedure and potential alternatives were explained along with the intended outcome and benefits. The risks of the procedure including the possibility of an unsuccessful procedure, as well as the risk of not doing the procedure were discussed. The patient's sister was given the opportunity to ask questions regarding the procedure. A consent form which document this discussion was placed in the medical record. Following informed consent the patient was placed supine on the fluoroscopic table. The abdomen was prepped and draped in usual sterile fashion. A time out procedure was performed. Initial spot image demonstrated gastrojejunostomy tube in expected orientation. The previously placed 12 [place] jejunostomy tube was exchanged at an outside institution approximately one week ago and a new HELENE style gastrojejunostomy tube was present. The retention balloon was opacified, projecting over the stomach. An IVC filter was also appreciated. Contrast was injected through the existing jejunostomy tube to verify correct positioning. Contrast flowed easily throughout the tube and opacified jejunum beyond the ligament of Treitz. There was no evidence of sluggish flow or obstruction. Given the fact this tube was recently exchanged approximately one week ago, the decision was made not to replace the tube at this time. The tube was flushed with saline. The patient tolerated procedure well without complications. IMPRESSION: Properly functioning gastrojejunostomy tube. Tube was not exchanged at the current tube is only approximately one week old. Tube ready to use at this time. Allergies: Coded Allergies: scopolamine (Mild, HIVES 12/26/16) NSAIDS (Non-Steroidal Anti-Inflamma (PER W-12/26/16) adhesive (HIVES - EKG STICKERS, RED DOT [place] STICKERS 12/26/16) aspirin (PER W-12/26/16) clopidogrel (From PLAVIX) (PER W-12/26/16) Uncoded Allergies: EKG AND RED DOT LEADS (Intermediate, RASH 09/26/16) Pertinent Lab Results: Laboratory Tests 08/19 08/18 0740 0555 Chemistry Sodium (137 - 145 mmol/L) 144 142 Potassium (3.5 - 5.1 mmol/L) 3.7 3.2 L Chloride (98 - 107 mmol/L) 99 99 Carbon Dioxide (22 - 30 mmol/L) 33 H 33 H Anion Gap (5 - 16) 12 10 BUN (9 - 20 mg/dL) 13 13 Creatinine (0.7 - 1.2 mg/dL) 0.6 L 0.6 L Estimated GFR (>60 ml/min) > 60 > 60 BUN/Creatinine Ratio (7 - 25 %) 21.7 21.7 Hematology CBC w Diff NO MAN DIFF REQ NO MAN DIFF REQ WBC (4.8 - 10.8 /CUMM) 8.3 6.2 RBC (4.70 - 6.10 /CUMM) 4.21 L 4.09 L Hgb (14.0 - 18.0 G/DL) 12.9 L 12.3 L Hct (42 - 52 %) 38.2 L 37.3 L MCV (80.0 - 94.0 FL) 90.8 91.1 MCH (27.0 - 31.0 PG) 30.6 30.0 RDW (11.5 - 14.5 %) 14.9 H 15.3 H Plt Count (130 - 400 /CUMM) 216 205 MPV (7.4 - 10.4 FL) 10.7 H 11.3 H Gran % (42.2 - 75.2 %) 75.1 60.7 Lymphocytes % (20.5 - 51.1 %) 14.8 L 27.1 Monocytes % (1.7 - 9.3 %) 6.6 7.9 Eosinophils % (0 - 5 %) 3.2 3.4 Basophils % (0.0 - 2.0 %) 0.3 0.9 Absolute Granulocytes (1.4 - 6.5 /CUMM) 6.2 3.8 Absolute Lymphocytes (1.2 - 3.4 /CUMM) 1.2 1.7 Absolute Monocytes (0.10 - 0.60 /CUMM) 0.6 0.5 Absolute Eosinophils (0.0 - 0.7 /CUMM) 0.3 0.2 Absolute Basophils (0.0 - 0.2 /CUMM) 0 0.1 PUBS MCHC (33.0 - 37.0 G/DL) 33.7 32.9 L 08/17 0630 Chemistry Sodium (137 - 145 mmol/L) 144 Potassium (3.5 - 5.1 mmol/L) 3.5 Chloride (98 - 107 mmol/L) 100 Carbon Dioxide (22 - 30 mmol/L) 33 H Anion Gap (5 - 16) 11 BUN (9 - 20 mg/dL) 16 Creatinine (0.7 - 1.2 mg/dL) 0.5 L Estimated GFR (>60 ml/min) > 60 BUN/Creatinine Ratio (7 - 25 %) 32.0 H Hematology CBC w Diff NO MAN DIFF REQ WBC (4.8 - 10.8 /CUMM) 5.8 RBC (4.70 - 6.10 /CUMM) 4.31 L Hgb (14.0 - 18.0 G/DL) 13.0 L Hct (42 - 52 %) 39.2 L MCV (80.0 - 94.0 FL) 90.9 MCH (27.0 - 31.0 PG) 30.2 RDW (11.5 - 14.5 %) 15.4 H Plt Count (130 - 400 /CUMM) 202 MPV (7.4 - 10.4 FL) 11.3 H Gran % (42.2 - 75.2 %) 61.9 Lymphocytes % (20.5 - 51.1 %) 21.2 Monocytes % (1.7 - 9.3 %) 12.5 H Eosinophils % (0 - 5 %) 3.6 Basophils % (0.0 - 2.0 %) 0.8 Absolute Granulocytes (1.4 - 6.5 /CUMM) 3.6 Absolute Lymphocytes (1.2 - 3.4 /CUMM) 1.2 Absolute Monocytes (0.10 - 0.60 /CUMM) 0.7 H Absolute Eosinophils (0.0 - 0.7 /CUMM) 0.2 Absolute Basophils (0.0 - 0.2 /CUMM) 0 PUBS MCHC (33.0 - 37.0 G/DL) 33.3 Disposition Summary Disposition Principal Diagnosis: * Occluded tube feeding * Fever cough and pneumonia HCAP, with recent ESBL ecoli was on ertropenam Additional Diagnosis: * Chronic respiratory failure * 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 * Chronic aspiration Discharge Disposition: SNF ([facility]) Discharge Instructions General Discharge Information Code Status: Full Code Patient's Diet: Tube feeding Type of Tube+ Jejunostomy Tube Insertion Date: Site WNL: DSG Change Date: 08/19/17 Time: 1000 =CURRENT ORDERS & SUGGESTED SCHEDULE= : GLUCERNA 1.2 : WATER FLUSH 100 ML Q4H : Type of Supplement: Continuous Rate: Bolus Amount: Residual: 0 Flush: % Meal Eaten+ NPO Note Patient's Activity: As torelated Follow-Up Instructions/Appts: 1- please follow up with your PCP in 1 week of discharge 2- Please follow up with your package maker in 1 week of discharge Medications at Discharge Discharge Medications: Continue taking these medications: Fentanyl (Fentanyl) 25 MCG/HOUR PATCH.TD72 1 Patch On the skin Every 3 days Cholecalciferol (Vitamin D3) 1,000 UNIT TABLET 1 Tablet J TUBE DAILY Ranitidine HCl (Ranitidine HCl) 15 MG/ML SYRUP 10 Milliliters J TUBE TWICE DAILY Simvastatin (Zocor*) 10 MG TABLET 1 Tablet J TUBE TAKE AT BEDTIME Baclofen (Baclofen) 10 MG TABLET 1 Tablet J TUBE THREE TIMES DAILY Escitalopram Oxalate (Escitalopram Oxalate) 5 MG TABLET 1 Tablet G TUBE DAILY Ondansetron HCl (Ondansetron HCl) 4 MG TABLET 1 Tablet J TUBE Q8H as needed for N/V Nut.tx.gluc.intoler,Lac-Fr,Soy (Glucerna 1.2 Fritz) 237 ML LIQUID 75 Milliliters J TUBE 75 MLS/HR Lactobacillus Acidophilus (Acidophilus) 1 EACH CAPSULE 1 Capsule J TUBE DAILY Albuterol Sulfate (Albuterol Sulfate) 2.5 MG/3 ML (0.083 %) VIAL.NEB 1 Vial Inhale Solution TWICE DAILY Acetaminophen (Acetaminophen) 325 MG TABLET 2 Tablet J TUBE Q4H as needed for PAIN/TEMP/>101 Acetaminophen (Acephen) 650 MG SUPP.RECT 1 SUPPOSITORY RECTALLY Q4H as needed for PAIN/TEMP>101 Bisacodyl (Bisacodyl) 10 MG SUPP.RECT 1 Suppository RECTAL DAILY as needed for NO BM - IF MOM INEFFECTIVE Na Phos,M-B/Na Phos,Di-Ba (Fleet Enema) 19 GRAM-7 GRAM/118 ML ENEMA 1 Enema RECTAL DAILY as needed for NO BM - IF BISACODYL INEFFECTI Ipratropium/Albuterol Sulfate (Iprat-Albut 0.5-3(2.5) MG/3 Ml) 0.5 MG-3 MG (2.5 MG BASE)/3 ML AMPUL.NEB 1 VIAL Inhale Solution via Nebulizer Q4H as needed for SOB Magnesium Hydroxide (Milk Of Magnesia) 400 MG/5 ML ORAL.SUSP 30 Milliliters J TUBE DAILY as needed for NO BM IN 3 DAYS Docusate Sodium (Docusate Sodium) 100 MG TABLET 1 Tablet J TUBE TWICE DAILY Start taking the following new medications: Acetylcysteine (Acetylcysteine) 200 MG/ML (20 %) VIAL 2 Milliliters Inhale through mouth TWICE DAILY Qty = 3 No Refills Copies To: Milan SOTELO,Irving Stevenson; Cheryle SOTELO,Saud Latham; Wade SOTELO,Danny
[2017-08-19 17:31] VITALS: BP 153/76
--- NOTE | 2017-08-19 18:10 | PN- Pulmonary ---
Subjective HPI/Critical Care Issues: Clogged j tube remains afebrile Objective Current Medications: Current Medications Sig/Gil Start time Last Medication Dose Route Stop Time Status Admin Acetaminophen 650 MG Q8P PRN 08/14 0445 AC PO Acetylcysteine 2 ML BID 08/14 2200 AC 08/19 INH 1342 Albuterol Sulfate 3 ML TID 08/16 1600 AC 08/19 INH 1342 Atorvastatin Calcium 10 MG AT BEDTIME 08/14 2200 AC 08/18 PO 2153 Baclofen 10 MG TID 08/14 1000 AC 08/19 PO 1649 Chlorhexidine 15 ML BID 08/15 1600 AC 08/19 Gluconate PO 1015 Cholecalciferol 1,000 IU DAILY 08/14 1000 AC 08/19 PO 1156 Dextrose/Sodium 1,000 ML Q13H 08/15 2345 DC 08/18 Chloride IV 1200 Docusate Sodium 100 MG BID PRN 08/14 0445 PO Enoxaparin Sodium 40 MG DAILY 08/14 1000 AC 08/19 SC 1015 Escitalopram Oxalate 5 MG DAILY 08/14 1000 AC 08/19 PO 1155 Famotidine 20 MG BID 08/16 1011 AC 08/19 IV 1015 Fentanyl Citrate 25 MCG Q3D 08/14 0445 AC 08/17 TOP 0530 Potassium Chloride 20 MEQ ONCE ONE 08/19 1015 DC 08/19 PO 08/19 1016 1156 Potassium Chloride 10 MEQ Q1H 08/18 2015 DC 08/18 IV 08/18 Vital Signs & I&O Last 24 Hrs of Vitals and I&O: Vital Signs Date Time Temp Pulse Resp B/P B/P Pulse O2 O2 Flow FiO2 Mean Ox Delivery Rate 08/19 1731 98.1 101 20 153/76 08/19 1451 98.1 101 20 153/76 95 Trach Mask 40% 08/19 0840 96 Trach Mask 40% 08/19 08 95 Trach Mask 40% 08/19 05 99.0 90 24 132/72 93 Trach Mask 40% 08/193 91 Trach Mask 40% 08/18 2218 93 Trach Mask 40% 08/18 2131 98.4 73 19 110/60 95 Trach Mask 40% 08/18 1950 93 Trach Mask 40% Intake & Output 08/19 1600 08/19 0800 08/19 0000 Intake Total 575 Output Total Balance 575 Intake, Tube 375 Feeding Intake, Tube 200 Irrigant Impression/Plan Impression/Plan Impression/Plan: General Appearance No Acute Distress Neck trach mask in palce Cardiovascular Normal S1, Normal S2 Lungs decreased breath sounds Abdomen Normal Bowel Sounds, Soft, No Tenderness, Jtube in palce, area around Jtube clean no signs of infection Extremities picc line in place in left arm Body Front and Back (Adult) The patient has multiple comorbidities including 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 The patient has had multiple admissions for aspiration pneumonia in the past. Today he is coming from a nursing facility * Resolved Reported Fever cough and with recent pneumonia HCAP, with recent ESBL ecoli was on ertropenam / now with ongoing increasing secretions, consistant with bronchitis vs pna (s/p full course of ertropenam)/ Has GNR in the sputum colonization vs pathogen diff to diff * Chronic resp failure * 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 from previous cva * Diastolic heart * Chronic aspiration * Multiple issues including iastolic CHF, hyperlipidemia, constipation, GERD, PUD, upper GI bleed, C. difficile, nephrolithiasis, UTI, gout, muscle spasms, vitamin D deficiency, diabetes mellitus, depression, neurogenic bladder, MRSA colonizaion and ESBL ecoli colonization REC * Cont current meds * COnt j tube feeding once unclogged * Reduce Fio2 to keep sat at 90 and above * Periodex oral care tid * Keep hob up
== END 2017-08-19 18:00 | DRG 177 ==
LOC: ERH 01:32 → ERHI 03:16 → 2NB 03:16 → ERHI 08:12 → ENRESERV 15:08 → ENTRNSPT 16:43 → EDTRNSPTSTS 16:46 → EDTRNSPT 16:46 → 2NB 17:07 → CMPTRNSPT 17:53 → 2NB 08-19 18:00
PROVIDERS: Emergency Medicine; Internal Medicine; Student in an Organized Health Care Education/Training Program
PROC: 0D20XUZ Change Feeding Device in Upper Intestinal Tract, External Approach (ICD-10-PCS; principal; 2017-08-18)
DX: J69.0 Pneumonitis due to inhalation of food and vomit (principal); G83.5 Locked-in state; J96.21 Acute and chronic respiratory failure with hypoxia; G82.50 Quadriplegia, unspecified; Z93.0 Tracheostomy status; Z99.81 Dependence on supplemental oxygen; I50.30 Unspecified diastolic (congestive) heart failure; K94.23 Gastrostomy malfunction; E11.8 Type 2 diabetes mellitus with unspecified complications; I69.365 Other paralytic syndrome following cerebral infarction, bilateral; F32.9 Major depressive disorder, single episode, unspecified; I25.2 Old myocardial infarction; Z86.14 Personal history of Methicillin resistant Staphylococcus aureus infection; E78.5 Hyperlipidemia, unspecified; F20.9 Schizophrenia, unspecified; E55.9 Vitamin D deficiency, unspecified; M62.838 Other muscle spasm; K59.00 Constipation, unspecified; N31.9 Neuromuscular dysfunction of bladder, unspecified; Z93.1 Gastrostomy status; Y83.3 Surgical operation with formation of external stoma as the cause of abnormal reaction of the patient, or of later complication, without mention of misadventure at the time of the procedure
CPT/HCPCS: 2NBP; 36415; 71045; 81001; 82436; 87040; 87070; 87071; 87086; 87147; 87449; 87450; 87804; 87804-59; 93005; 93010; 96365; 96366; 96375; J0696; J0713; J1650; J2185; J2997; J3370; J7040; J7042; J7060; J7608

== ENCOUNTER 2017-09-22 17:30 | Emergency (ER) | payer OTHER, MEDICARE ==
[~2017-09-22 17:30] MED LIST changes: +ACETYLCYST200 MG/1 M INH
[2017-09-22 17:53] VITALS: BP 153/90
--- NOTE | 2017-09-22 18:09 | ED GI/GU/ABDOMINAL COMPLAINT ---
History of Present Illness General Chief Complaint: General Adult Stated Complaint: PULLED J TUBE AGAIN Source: old records, EMS Exam Limitations: clinical condition Vital Signs & Intake/Output Vital Signs & Intake/Output Vital Signs Date Time Temp Pulse Resp B/P B/P Pulse O2 O2 Flow FiO2 Mean Ox Delivery Rate 09/22 1753 97.5 73 16 153/90 92 Trach Mask 3.0L F Allergies Coded Allergies: scopolamine (Mild, HIVES 12/26/16) NSAIDS (Non-Steroidal Anti-Inflamma (PER 12/26/16) adhesive (HIVES - EKG STICKERS, RED DOT [place] STICKERS 12/26/16) aspirin (PER 12/26/16) clopidogrel (From PLAVIX) (PER 12/26/16) Uncoded Allergies: EKG AND RED DOT LEADS (Intermediate, RASH 09/26/16) Reconcile Medications Acetaminophen 325 MG TABLET 2 TAB J TUBE Q4H PRN PAIN/TEMP/>101 (Reported) Acetaminophen (Acephen) 650 MG SUPP.RECT [address] Q4H PRN PAIN/TEMP>101 ( Reported) Albuterol Sulfate 2.5 MG/3 ML (0.083 %) VIAL.NEB 1 Vial INH/MONICO BID RESP. ( Reported) Baclofen 10 MG TABLET 1 TAB J TUBE TID SPASMS (Reported) Bisacodyl 10 MG SUPP.RECT 1 SUP RC DAILY PRN NO BM - IF MOM INEFFECTIVE ( Reported) Cholecalciferol (Vitamin D3) 1,000 UNIT TABLET 1 TAB J TUBE DAILY SUPPLEMENT (Reported) Docusate Sodium 100 MG TABLET 1 TAB J TUBE BID STOOL SOFTENER (Reported) Escitalopram Oxalate 5 MG TABLET 1 TAB G TUBE DAILY DEPRESSION (Reported) Fentanyl 25 MCG/HOUR PATCH.TD72 1 PAT TOP Q3D PAIN (Reported) Ipratropium/Albuterol Sulfate (Iprat-Albut 0.5-3(2.5) MG/3 Ml) 0.5 MG-3 MG (2.5 MG BASE)/3 ML AMPUL.NEB 1 VIAL NEB Q4H PRN SOB (Reported) Lactobacillus Acidophilus (Acidophilus) 1 EACH CAPSULE 1 CAP J TUBE DAILY PROBIOTIC (Reported) Magnesium Hydroxide (Milk Of Magnesia) 400 MG/5 ML ORAL.SUSP 30 ML J TUBE DAILY PRN NO BM IN 3 DAYS (Reported) Kassie JuarezMEzno/Na Phos,Di-Ba (Fleet Enema) 19 GRAM-7 GRAM/118 ML ENEMA 1 E RC DAILY PRN NO BM - IF BISACODYL INEFFECTI (Reported) Nut.tx.gluc.intoler,Lac-Fr,Soy (Glucerna 1.2 Fritz) 237 ML LIQUID 75 ML J TUBE 75 MLS/HR TUBE FEEDING (Reported) Ondansetron HCl 4 MG TABLET 1 TAB J TUBE Q8H PRN N/V (Reported) Ranitidine HCl 15 MG/ML SYRUP 10 ML J TUBE BID GI (Reported) Simvastatin (Zocor*) 10 MG TABLET 1 TAB J TUBE QHS CHOLESTEROL (Reported) Triage Note: PT BIBA FROM [facility] AFTER ACCIDENTAL REMOVAL OF J TUBE. PT ARRIVES AT BASELINE, AWAKE, MINIMALLY RESPONSIVE, NON-VERBAL. Triage Nurses Notes Reviewed? yes Onset: Abrupt Duration: constant Timing: single episode today Quality/Severity: moderate Severity Numbers: 5 HPI: Patient is a 57-year-old male with known locked-in syndrome and quadriplegia with a known long history of G-tube placement and malfunction and accidental pullout in which patient presents emergent brought in by ambulance from [facility] for concerns of accidental J-tube dislodgment today. No complaints otherwise per W -10 History is limited due to patient's past medical history (Christina ROJAS,Marcus) Past History Travel History Traveled to [place] past 21 day No Medical History Any Pertinent Medical History? 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 ASP PNA Gastrointestinal: constipation, GERD, peptic ulcer disease, upper GI bleed, C. Difficile DYSPHAGIA GTUBE Hepatic: NONE Renal: nephrolithiasis, UTI Musculoskeletal: gout, MUSCLE SPASMS Psychiatric: depression, schizophrenia Endocrine: DIABETES VIT D DEFICIENCY Blood Disorders: NONE Cancer(s): NONE IN HOME CAREGIVER/Reproductive: NONE History of MRSA: Yes History of VRE: Yes History of CDIFF: Yes Surgical History Surgical History: hernia repair-inguinal (8 years prior to admission), GASTOJEJUNOSTOMY status post IVC filter Psychosocial History Who do you live with W10 Services at Home from [facility] What is your primary language Ukrainian Tobacco Use: UN ETOH Use: 5 Family History Family History, If Any: FATHER (CVA, type 2 DM, Colon Ca). MOTHER (Type 2 DM). Grand father (CVA). Hx Contributory? No (Marcus Nuno) Review of Systems Review of Systems Constitutional: Reports: no symptoms. EENTM: Reports: no symptoms. Respiratory: Reports: no symptoms. Cardiovascular: Reports: no symptoms. GI: Reports: see HPI. Genitourinary: Reports: no symptoms. Musculoskeletal: Reports: no symptoms. Skin: Reports: no symptoms. Neurological/Psychological: Reports: no symptoms. Hematologic/Endocrine: Reports: no symptoms. Immunologic/Allergic: Reports: no symptoms. All Other Systems: Reviewed and Negative (Marcus Nuno) Physical Exam Physical Exam General Appearance: no apparent distress, comfortable Head: atraumatic Eyes: Bilateral: normal appearance. Ears, Nose, Throat, Mouth: moist mucous membrane Respiratory: no respiratory distress Gastrointestinal: normal bowel sounds, soft, non-tender Neurologic/Psych: awake Skin: normal color Diagram Body Front & Back 1) Noted ostomy site looks well no signs of infection no erythema no warmth nontender Core Measures ACS in differential dx? No Sepsis Present: No Sepsis Focused Exam Completed? No (Marcus Nuno) Progress Differential Diagnosis: bowel obstruction, ischemic bowel, pancreatitis, SBO Plan of Care: The J-tube that patient presented with was noted to be 18 Kiswahili and which a Sandy catheter was then prepared for reinsertion the site was cleaned with Betadine using surgical lube the Sandy was placed balloon tube was filled There was resistance upon retraction of the Sandy after balloon tube was filled The Sandy was functional and which fluid was able to be advanced and retracted Sandy was functioning upon discharge and adhered with abdominal pad and tape to patient's abdomen W 10 dictated to follow-up with IR for J-tube placement Initial ED EKG: none (Marcus Nuno) Departure Departure Disposition: HOME OR SELF CARE Condition: Stable Clinical Impression Primary Impression: Jejunostomy tube fell out Referrals: Danny Olvera MD (PCP/Family) Additional Instructions: Follow-up tomorrow with interventional radiology to have G-tube placement if symptoms worsen return to emergency room Departure Forms: Customer Survey General Discharge Information (Marcus Nuno) PA/LINE PALLETIZER Co-Sign Statement Statement: ED Attending supervision documentation- x I saw and evaluated the patient. I have also reviewed all the pertinent lab results and diagnostic results. I agree with the findings and the plan of care as documented in the PA's/LINE PALLETIZER's documentation. [] I have reviewed the ED Record and agree with the PA's/LINE PALLETIZER's documentation. [] Additions or exceptions (if any) to the PAs/LINE PALLETIZER's note and plan are summarized below: [] (Eddie SOTELO,Garrett)
== END 2017-09-22 18:48 ==
LOC: ERH 17:30
DX: Z43.4 Encounter for attention to other artificial openings of digestive tract (principal)

== ENCOUNTER 2017-10-06 15:01 | Inpatient (IN) | payer OTHER, MEDICARE ==
[~2017-10-06] VITALS: Ht 170.2 cm; Wt 93.9 kg
--- NOTE | 2017-10-06 15:13 | ED GENERAL ADULT ---
History of Present Illness General Chief Complaint: General Adult Stated Complaint: PULLED J TUBE Source: old records, W10 Exam Limitations: clinical condition Vital Signs & Intake/Output Vital Signs & Intake/Output Vital Signs Date Time Temp Pulse Resp B/P B/P Pulse O2 O2 Flow FiO2 Mean Ox Delivery Rate 10/07 1114 Trach Mask 40% 10/07 1113 96 Trach Mask 40% 10/07 0800 Trach Mask 40% 10/07 0659 97.7 84 20 136/86 96 Nasal 4.5L Cannula 10/07 0208 93 Trach Mask 40% 10/07 0000 Trach Mask 5.0L 10/06 2308 96.7 83 20 128/84 92 Nasal Cannula 10/06 2055 98.2 81 20 148/88 94 Trach Mask 5.0L 10/06 1851 97.6 77 18 147/82 93 Trach Mask 5.0L 10/06 1508 98.1 90 22 153/90 95 Trach Mask ED Intake and Output 10/07 0000 10/06 1200 Intake Total 0 Output Total Balance 0 Intake, Oral 0 Patient 170 lb Weight Allergies Coded Allergies: scopolamine (Mild, HIVES 12/26/16) NSAIDS (Non-Steroidal Anti-Inflamma (PER W12/26/16) adhesive (HIVES - EKG STICKERS, RED DOT [place] STICKERS 12/26/16) aspirin (PER 12/26/16) clopidogrel (From PLAVIX) (PER 12/26/16) Uncoded Allergies: EKG AND RED DOT LEADS (Intermediate, RASH 09/26/16) Reconcile Medications Acetaminophen 325 MG TABLET 2 TAB J TUBE Q4H PRN PAIN/TEMP/>101 (Reported) Acetaminophen (Acephen) 650 MG SUPP.RECT 1 SUPP VA Q4H PRN PAIN/TEMP>101 ( Reported) Albuterol Sulfate 2.5 MG/3 ML (0.083 %) VIAL.NEB 1 Vial INH/MON[place] BID RESP. ( Reported) Baclofen 10 MG TABLET 1 TAB J TUBE TID SPASMS (Reported) Bisacodyl 10 MG SUPP.RECT 1 SUP RC DAILY PRN NO BM - IF MOM INEFFECTIVE ( Reported) Cholecalciferol (Vitamin D3) 1,000 UNIT TABLET 1 TAB J TUBE DAILY SUPPLEMENT (Reported) Docusate Sodium 100 MG TABLET 1 TAB J TUBE BID STOOL SOFTENER (Reported) Escitalopram Oxalate 5 MG TABLET 1 TAB G TUBE DAILY DEPRESSION (Reported) Fentanyl 25 MCG/HOUR PATCH.TD72 1 PAT TOP Q3D PAIN (Reported) Ipratropium/Albuterol Sulfate (Iprat-Albut 0.5-3(2.5) MG/3 Ml) 0.5 MG-3 MG (2.5 MG BASE)/3 ML AMPUL.NEB 1 VIAL NEB Q4H PRN SOB (Reported) Lactobacillus Acidophilus (Acidophilus) 1 EACH CAPSULE 1 CAP J TUBE DAILY PROBIOTIC (Reported) Magnesium Hydroxide (Milk Of Magnesia) 400 MG/5 ML ORAL.SUSP 30 ML J TUBE DAILY PRN NO BM IN 3 DAYS (Reported) Na Phos,M-B/Na Phos,Di-Ba (Fleet Enema) 19 GRAM-7 GRAM/118 ML ENEMA 1 E RC DAILY PRN NO BM - IF BISACODYL INEFFECTI (Reported) Nut.tx.gluc.intoler,Lac-Fr,Soy (Glucerna 1.2 Fritz) 237 ML LIQUID 75 ML J TUBE 75 MLS/HR TUBE FEEDING (Reported) Ondansetron HCl 4 MG TABLET 1 TAB J TUBE Q8H PRN N/V (Reported) Ranitidine HCl 15 MG/ML SYRUP 10 ML J TUBE BID GI (Reported) Simvastatin (Zocor*) 10 MG TABLET 1 TAB J TUBE QHS CHOLESTEROL (Reported) Triage Note: PT BIBA FROM ECF AFTER DISLODGMENT OF J TUBE. PT AT BASELINE NON-VERBAL QUADRIPLEGIC. VSS EN ROUTE Triage Nurses Notes Reviewed? yes Onset: Just prior to arrival Duration: hour(s): Timing: recent history Injury Environment: home No Modifying Factors: none HPI: Patient is a 57-year-old male with a of locked-in syndrome, gout, diabetes, hypoxia, trach presenting to the emergency department with chief complaint of G- tube with being dislodged this issue in the past. According to family member ever since they were seen at another facility and had a larger tube placed in the pathway they'll have had issues with the G-tube falling out. Last time they were at the hospital 6 days ago they replaced the J-tube. No fevers or chills. Patient is nothing by mouth secondary to history of aspiration. According to nursing staff are not sure how it fell out. (AldairMadelin Valencia) Past History Travel History Traveled to [place] past 21 day No Medical History Any Pertinent Medical History? 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 ASP PNA Gastrointestinal: constipation, GERD, peptic ulcer disease, upper GI bleed, C. Difficile DYSPHAGIA GTUBE Hepatic: NONE Renal: nephrolithiasis, UTI Musculoskeletal: gout, MUSCLE SPASMS Psychiatric: depression, schizophrenia Endocrine: DIABETES VIT D DEFICIENCY Blood Disorders: NONE Cancer(s): NONE P D DRIVER/Reproductive: NONE History of MRSA: Yes History of VRE: Yes History of CDIFF: Yes Surgical History Surgical History: hernia repair-inguinal (8 years prior to admission), GASTOJEJUNOSTOMY status post IVC filter Psychosocial History Who do you live with 0 Services at [facility] What is your primary language Khmer Tobacco Use: Cognitive Impairment ETOH Use: 5 Family History Family History, If Any: FATHER (CVA, type 2 DM, Colon Ca). MOTHER (Type 2 DM). Grand father (CVA). Hx Contributory? No (Madelin Lehman) Review of Systems Review of Systems Constitutional: Reports: no symptoms. Comments Review of systems: See HPI, PROVIDD BY EMS, W10 AND RETIREMENT Constitutional, no chills fever or weight loss HEENT: no sore throat no congestion Cardiovascular: No chest pain ,palpitation Skin, no jaundice no rashes Respiratory: No dyspnea cough sputum or hemoptysis GI: No nausea no vomiting : No dysuria No hematuria Muscle skeletal: NO PAIN NOTED BY STAFF AT RETIREMENT Neurologic: No CHANGE IN MENTAL STATUS Psych: No INCREASED stress anxiety or depression,. Heme/endocrine: No bruising no bleeding no polyuria or polydipsia Immunology: No splenectomy or history of AIDS (Madelin Lehman) Physical Exam Physical Exam General Appearance: no apparent distress, awake, comfortable Comments: Well-developed well-nourished person in no acute distress HEENT: RIGHT CONJUNCTIVA APPEARS SLIGHTLY ERYTEHMATOUS, MILD PURULENT DRAINAGE NOTED IN UPPER AND LOWER LASHES. Nose is atraumatic. Neck: TRACH IN PLACE, NO SURROUNDING ERYTHEMA NOTED. Cardiovascular: Regular rate and rhythms no murmurs rubs or gallops, normal JVP Respiratory: No respiratory distress.breath sounds clear to auscultation bilaterally- TRACH IN PLACE. Abdomen: Soft, nontender nondistended, no appreciable organomegaly. Normal bowel sounds. G/J TUBE IN OPENING BUT BALLOON APPEARS TO BE RIPPED. MINIMAL SURROUND ERYTHEMA TO TUBE OPENING.NO PALPABLE MASS. MILD AMOUNT OF PURULENCE NOTED AROUDN TUBE. Extremity: No edema Neuro: Alert , ABLE TO BLINK EYES TO RESPOND TO ACKNOWLEDGE. Skin: SEE ABDOMINAL EXAM. OTHERWISE.No appreciable rash on exposed skin, skin is warm and dry. Psych: Mood and affect is BASELINE. Core Measures ACS in differential dx? No CVA/TIA Diagnosis: No Sepsis Present: No Sepsis Focused Exam Completed? No (Aldair ROJAS,Madelin) Progress Differential Diagnoses I considered the following diagnoses in my evaluation of the patient: Dysfunction of GJ tubE, CONJUNCTIVITIS Plan of Care: Orders Procedure Date/time Status Nothing by Mouth 10/07 B Active RT: Evaluation 10/07 1113 Active CBC WITHOUT DIFFERENTIAL 10/07 0600 Complete BASIC ELECTROLYTES PLUS BUN&CR 10/07 0600 Complete OXYGEN SETUP (GEN) 10/07 0214 Complete TRC EVALUATION (GEN) 10/07 UNK Complete THERAPIST ORDERS 10/07 UNK Complete XRY-FLUOROSCOPY,INDEPEND PROC 10/07 UNK Active MISSING MEDICATION FORM 10/07 UNK Active Code Status 10/06 2242 Active Vital Signs 10/06 2223 Active Teach/Educate 10/06 2223 Active Pain Treatment and Response 10/06 2223 Active Nutritional Intake, Monitor 10/06 2223 Active Isolation 10/06 2223 Active Intake & Output 10/06 2223 Active Patient Care Conference 10/06 2223 Active Activity/Ambulation 10/06 2223 Active FingerStick- Glucose 10/06 220 Active Pathway - chart 10/06 2014 Active Saline Lock 10/06 2009 Active Pathway - chart 10/06 2009 Active House Staff 10/06 2009 Active EKG 10/06 2010 Active Patient Data 10/[address] in observation 10/06 1830 Active ED Holding Orders 10/06 1830 Active Straight Cath 10/06 1738 Active URINALYSIS 10/06 1736 Complete PARTIAL THROMBOPLASTIN TIME 10/06 1546 Complete PROTHROMBIN TIME 10/06 1546 Complete COMPREHENSIVE METABOLIC PANEL 10/06 1546 Complete CBC WITHOUT DIFFERENTIAL 10/06 1546 Complete TYPE & SCREEN (NOT X-MATCH) 10/06 1546 Complete GASTROSTOMY TUBE CHANGE 10/06 1512 Active Intake & Output 10/06 1509 Active VTE Mechanical Prophylaxis 10/06 UNK Active Current Medications Sig/Gil Start time Last Medication Dose Stop Time Status Admin Atorvastatin Calcium 10 MG 1700 10/07 1700 AC (Lipitor) Albuterol Sulfate 3 ML BID 10/07 1000 AC 10/07 (Proventil) 1028 Baclofen 10 MG TID 10/07 1000 AC (Lioresal 10MG Tablet) Cholecalciferol 1,000 IU DAILY 10/07 1000 AC (Vitamin D) Enoxaparin Sodium 40 MG DAILY 10/07 1000 AC 10/07 (Lovenox) 0820 Escitalopram Oxalate 5 MG DAILY 10/07 1000 AC (Lexapro) Famotidine 20 MG DAILY 10/07 1000 AC (Pepcid) Lactobacillus 1 CAP DAILY 10/07 1000 AC Acidophilus (Probiotic) Fentanyl Citrate 25 MCG Q3D 10/06 2245 AC 10/07 (Duragesic) 0401 Midodrine 10 MG ONCE ONE 10/06 2215 CAN (Pro-Amatine) 10/06 2216 Dextrose/Sodium 1,000 ML Q13H 10/06 2200 AC 10/06 Chloride 2258 (D5W-1/2 Normal Saline 1000ML) Laboratory Tests 10/07/17 0814: Anion Gap 8, Estimated GFR > 60, BUN/Creatinine Ratio 25.0, CBC w Diff NO MAN DIFF REQ, RBC 4.12 L, MCV 91.3, MCH 30.7, MCHC 33.6, RDW 15.3 H, MPV 10.5 H, Gran % 69.3, Lymphocytes % 19.6 L, Monocytes % 9.6 H, Eosinophils % 1.2, Basophils % 0.3, Absolute Granulocytes 4.7, Absolute Lymphocytes 1.3, Absolute Monocytes 0.6, Absolute Eosinophils 0.1, Absolute Basophils 0 10/06/17 1932: Urine Color YEL, Urine Clarity HAZY H, Urine pH 7.0, Ur Specific [place] 1.010, Urine Protein TRACE H, Urine Ketones NEG, Urine Nitrite NEG, Urine Bilirubin NEG, Urine Urobilinogen 1.0, Ur Leukocyte Esterase MOD H, Ur Microscopic SEDIMENT EXAMINED, Urine RBC FEW H, Urine WBC 25-50 H, Urine Crystals TALC, Urine Hemoglobin NEG, Urine Glucose NEG 10/06/17 1640: Anion Gap 9, Estimated GFR > 60, BUN/Creatinine Ratio 32.0 H, Glucose 130 H, Calcium 9.2, Total Bilirubin 1.2, AST 23, ALT 33, Alkaline Phosphatase 74, Total Protein 7.4, Albumin 3.9, Globulin 3.5, Albumin/Globulin Ratio 1.1, PT 11.0, INR 1.01, APTT 31, CBC w Diff NO MAN DIFF REQ, RBC 4.90, MCV 90.8, MCH 30.6, MCHC 33.7, RDW 15.5 H, MPV 10.1, Gran % 78.9 H, Lymphocytes % 12.2 L, Monocytes % 7.6, Eosinophils % 1.0, Basophils % 0.3, Absolute Granulocytes 7.3 H, Absolute Lymphocytes 1.1 L, Absolute Monocytes 0.7 H, Absolute Eosinophils 0.1, Absolute Basophils 0 10/06/2017 4:25:07 PM SPOKE WITH RETIREMENT STAFF, CORI, THEY ARE UNSURE exactly how the tube fell out. 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 They have requested and is service to be performed regarding tube in the safety and care of them. Diagnostic Imaging: Viewed by Me: Radiology Read. Discussed w/RAD: Radiology Read. Radiology Impression: PATIENT: SUNDAY ESPINAL PRESENT AGE: 57 PATIENT ACCOUNT NO: [id number] : 60 LOCATION: [facility] ORDERING PHYSICIAN: Madelin ROJAS SERVICE DATE: 10/06/17 EXAM TYPE: RAD - XRY-PORTABLE ABDOMEN EXAMINATION: XR PORTABLE ABDOMEN CLINICAL INFORMATION: Confirm placement of gastrojejunostomy tube. COMPARISON: 09/30/2017 TECHNIQUE: AP view of the abdomen. FINDINGS: There is tubing overlying the central abdomen. There is no distal extension of tubing seen in the bowel. This could be secondary to exposure or due to retraction of the tube from the placement imaging on 09/30/2017. IVC filter is noted. The bowel gas pattern is unremarkable. No dilated loops of bowel. Degenerative changes of the spine. IMPRESSION: Tubing overlies the central abdomen without evidence of extension into the bowel. This could be secondary to retraction from the previous study. DICTATED BY: Nuha SOTELO,Rudy DATE/TIME DICTATED:10/06/171548 PRINTING EQUIPMENT MECHANIC APPRENTICE:BRITTANY DATE/TIME TRANSCRIBED:10/06/17 / 1549 CONFIDENTIAL, DO NOT COPY WITHOUT APPROPRIATE AUTHORIZATION. <Electronically signed in Other Vendor System> SIGNED BY: Nuha SOTELO,Rudy 10/06/17 1558 Initial ED EKG: none (Madelin Lehman) Departure Departure Time of Disposition: 1831 Disposition: STILL A PATIENT Condition: Stable Clinical Impression Primary Impression: Complaint associated with gastric tube Referrals: Danny Olvera MD (PCP/Family) Departure Forms: Customer Survey General Discharge Information Observation Note Spoke With: Danny Olvera MD Physician Advisor Notified: ABIGAIL LUGO DO Place Patient In: Non-ED OBS Care Area Rationale for Observation: My rational for observation is as follows . Requiring interventional radiology for J-tube placement, nothing by mouth status, IV hydration slowly, case management consultation. Discharge at this time is medically harmful. Monitor vitals. (Madelin Lehman) PA/VALVE ASSEMBLER Co-Sign Statement Statement: ED Attending supervision documentation- [X] I saw and evaluated the patient. I have also reviewed all the pertinent lab results and diagnostic results. I agree with the findings and the plan of care as documented in the PA's/VALVE ASSEMBLER's documentation. [X] I have reviewed the ED Record and agree with the PA's/VALVE ASSEMBLER's documentation. [] Additions or exceptions (if any) to the PAs/VALVE ASSEMBLER's note and plan are summarized below: [] Patietn seen and examined with BOB Quinteros, will place in observation for IR intervention tomorrow and case management evaluation. (Nancy SOTELO,Carmen) Critical Care Note Critical Care Note Critical Care Time: non-applicable (Madelin Lehman)
--- NOTE | 2017-10-06 15:55 | RADIOLOGY REPORT ---
EXAMINATION: XR PORTABLE ABDOMEN CLINICAL INFORMATION: Confirm placement of gastrojejunostomy tube. COMPARISON: 09/30/2017 TECHNIQUE: AP view of the abdomen. FINDINGS: There is tubing overlying the central abdomen. There is no distal extension of tubing seen in the bowel. This could be secondary to exposure or due to retraction of the tube from the placement imaging on 09/30/2017. IVC filter is noted. The bowel gas pattern is unremarkable. No dilated loops of bowel. Degenerative changes of the spine. IMPRESSION: Tubing overlies the central abdomen without evidence of extension into the bowel. This could be secondary to retraction from the previous study.
[2017-10-06 16:50] LABS: ABSOLUTE BASOPHIL COUNT 0 /CUMM (0.0-0.2); ABSOLUTE EOSINOPHIL COUNT 0.1 /CUMM (0.0-0.7); ABSOLUTE GRANULOCYTE CT 7.3 /CUMM (1.4-6.5); ABSOLUTE LYMPH COUNT 1.1 /CUMM (1.2-3.4); ABSOLUTE MONOCYTE COUNT 0.7 /CUMM (0.10-0.60); BASOPHIL % 0.3 % (0.0-2.0); GRANULOCYTE % 78.9 % (42.2-75.2); HEMATOCRIT 44.5 % (42-52); MEAN CORPUSCULAR HGB 30.6 PG (27.0-31.0); MEAN CORPUSCULAR HGB CONC 33.7 G/DL (33.0-37.0); MEAN CORPUSCULAR VOLUME 90.8 FL (80.0-94.0); MEAN PLATELET VOLUME 10.1 FL (7.4-10.4); PLATELET COUNT 180 /CUMM (130-400); RBC DISTRIBUTION WIDTH 15.5 % (11.5-14.5); WHITE BLOOD CELL COUNT 9.2 /CUMM (4.8-10.8)
[2017-10-06 17:00] LABS: PTT 31 SEC (25-37)
--- NOTE | 2017-10-06 18:24 | PN- Att Addend ---
Attending Addendum Attending Brief Note 57 -year-old patient of [facility] has had many problems with his feeding tube again the feeding tube pulled today comes to the ER in evaluated by radiology, and will consider a different kind feeding tube likely jejunostomy this will be done in the morning check labs and urinalysis to make sure patient is stable for the procedure Laboratory Tests 10/06/17 1640: Anion Gap 9, Estimated GFR > 60, BUN/Creatinine Ratio 32.0 H, Glucose 130 H, Calcium 9.2, Total Bilirubin 1.2, AST 23, ALT 33, Alkaline Phosphatase 74, Total Protein 7.4, Albumin 3.9, Globulin 3.5, Albumin/Globulin Ratio 1.1, PT 11.0, INR 1.01, APTT 31, CBC w Diff NO MAN DIFF REQ, RBC 4.90, MCV 90.8, MCH 30.6, MCHC 33.7, RDW 15.5 H, MPV 10.1, Gran % 78.9 H, Lymphocytes % 12.2 L, Monocytes % 7.6, Eosinophils % 1.0, Basophils % 0.3, Absolute Granulocytes 7.3 H, Absolute Lymphocytes 1.1 L, Absolute Monocytes 0.7 H, Absolute Eosinophils 0.1, Absolute Basophils 0 Vital Signs Date Time Temp Pulse Resp B/P B/P Pulse O2 O2 Flow FiO2 Mean Ox Delivery Rate 10/06 1508 98.1 90 22 153/90 95 Trach Mask Intake & Output 10/06 1600 Intake Total 0 Output Total Balance 0 Intake, Oral 0
--- NOTE | 2017-10-06 20:29 | History & Physical ---
See Addendum Mary Fitzgerald MD 10/06/172026: General Information and HPI MD Statement: I have seen and personally examined SUNDAY ESPINAL and documented this H&P. The patient is a 57 year old M who presented with a patient stated chief complaint of FEEDING TUBE REQUIRING REPLACEMENT. 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 difficile infection, gout, depression, MRSA infection in the past that is sent in by ambulance from [place] for displacement of his feeding tube. All history was taken from the patient's sister as he is unable to communicate except for eye blinking. The patient was previously admitted to [place] in July for healthcare acquired pneumonia status post discharge from 1 week prior where he was treated for pneumonia. While at , he had his feeding tube replaced with a larger one. Since this, the patient has been having issues with his feeding tube becoming dislodged frequently and has required trips to [facility] biweekly for adjustment of the tube and recannulization as it has become occluded. The patient has had no symptoms including weight loss, fever, chills, nausea, vomiting, diarrhea, constipation. Patient had been on Glucerna 1.2 with water flushes 100 mL every 4 and residual/ 0. The patient's PCP is Dr. Olvera. Allergies/Medications Allergies: Coded Allergies: scopolamine (Mild, HIVES 12/26/16) NSAIDS (Non-Steroidal Anti-Inflamma (PER W-12/26/16) adhesive (HIVES - EKG STICKERS, RED DOT [place] STICKERS 12/26/16) aspirin (PER -12/26/16) clopidogrel (From PLAVIX) (PER -12/26/16) Uncoded Allergies: EKG AND RED DOT LEADS (Intermediate, RASH 09/26/16) Home Med list Acetaminophen 325 MG TABLET 2 TAB J TUBE Q4H PRN PAIN/TEMP/>101 (Reported) Acetaminophen (Acephen) 650 MG SUPP.RECT 1 SUPP WI Q4H PRN PAIN/TEMP>101 ( Reported) Albuterol Sulfate 2.5 MG/3 ML (0.083 %) VIAL.NEB 1 Vial INH/MON[place] BID RESP. ( Reported) Baclofen 10 MG TABLET 1 TAB J TUBE TID SPASMS (Reported) Bisacodyl 10 MG SUPP.RECT 1 SUP RC DAILY PRN NO BM - IF MOM INEFFECTIVE ( Reported) Cholecalciferol (Vitamin D3) 1,000 UNIT TABLET 1 TAB J TUBE DAILY SUPPLEMENT (Reported) Docusate Sodium 100 MG TABLET 1 TAB J TUBE BID STOOL SOFTENER (Reported) Escitalopram Oxalate 5 MG TABLET 1 TAB G TUBE DAILY DEPRESSION (Reported) Fentanyl 25 MCG/HOUR PATCH.TD72 1 PAT TOP Q3D PAIN (Reported) Ipratropium/Albuterol Sulfate (Iprat-Albut 0.5-3(2.5) MG/3 Ml) 0.5 MG-3 MG (2.5 MG BASE)/3 ML AMPUL.NEB 1 VIAL NEB Q4H PRN SOB (Reported) Lactobacillus Acidophilus (Acidophilus) 1 EACH CAPSULE 1 CAP J TUBE DAILY PROBIOTIC (Reported) Magnesium Hydroxide (Milk Of Magnesia) 400 MG/5 ML ORAL.SUSP 30 ML J TUBE DAILY PRN NO BM IN 3 DAYS (Reported) Na Phos,M-B/Na Phos,Di-Ba (Fleet Enema) 19 GRAM-7 GRAM/118 ML ENEMA 1 E RC DAILY PRN NO BM - IF BISACODYL INEFFECTI (Reported) Nut.tx.gluc.intoler,Lac-Fr,Soy (Glucerna 1.2 Fritz) 237 ML LIQUID 75 ML J TUBE 75 MLS/HR TUBE FEEDING (Reported) Ondansetron HCl 4 MG TABLET 1 TAB J TUBE Q8H PRN N/V (Reported) Ranitidine HCl 15 MG/ML SYRUP 10 ML J TUBE BID GI (Reported) Simvastatin (Zocor*) 10 MG TABLET 1 TAB J TUBE QHS CHOLESTEROL (Reported) Compliance With Home Meds: GOOD Past History Travel History Traveled to [place] past 21 day No Medical History Neurological: CVA, 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 ASP PNA Gastrointestinal: constipation, GERD, peptic ulcer disease, upper GI bleed, C. 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 MOTHER (Type 2 DM). Grand father (CVA). Psychosocial History Who Do You Live With? self Services at Home: from [facility] Primary Language: Sinhala ETOH Use: 5 Functional Ability ADLs Needs Assist: dressing, eating, toileting, bathing. Ambulation: non-ambulatory IADLs Needs Assist: shopping, housework, finances, food prep, telephone, transportation, medication admin. Review of Systems Review of Systems Constitutional: Reports: no symptoms. EENTM: Reports: no symptoms. Cardiovascular: Reports: no symptoms. Respiratory: Reports: no symptoms. GI: Reports: no symptoms. Genitourinary: Reports: no symptoms. Musculoskeletal: Reports: see HPI. Skin: Reports: no symptoms. Neurological/Psychological: Reports: cognitive dysfunction, pre-existing deficit. Hematologic/Endocrine: Reports: no symptoms. Immunologic/Allergic: Reports: no symptoms. Exam & Diagnostic Data Last 24 Hrs of Vital Signs/I&O Vital Signs Date Time Temp Pulse Resp B/P B/P Pulse O2 O2 Flow FiO2 Mean Ox Delivery Rate 10/06 2308 96.7 83 20 128/84 92 Nasal Cannula 10/06 2055 98.2 81 20 148/88 94 Trach Mask 5.0L 10/06 1851 97.6 77 18 147/82 93 Trach Mask 5.0L 10/06 1508 98.1 90 22 153/90 95 Trach Mask Intake & Output 10/07 0800 10/07 0000 10/06 1600 Intake Total 0 Output Total Balance 0 Intake, Oral 0 Patient 170 lb Weight Physical Exam General Appearance Alert, Cooperative, No Acute Distress Skin No Rashes, No Significant Lesion, J TUBE INSERTION SITE MILD AMOUNT OF DEGRANULATION TISSUE AT OPENING, VERY MILD ERYTHEMA. Skin Temp/Moisture Exam: Warm/Dry Sepsis Skin Exam (color): Normal for Ethnicity HEENT Atraumatic, PERRLA, EOMI, Mucous Membr. moist/pink Neck No JVD Cardiovascular Regular Rate, Normal S1, Normal S2, No Murmurs Lungs Clear to Auscultation, Normal Air Movement Abdomen Normal Bowel Sounds, Soft, No Tenderness, No Hepatospenomegaly, No Masses, j TUBE INSERTED, BALLOON RIPPED, BANDAGED. Neurological QUADRAPALEGIC, NONCOMMUNICATIVE EXCEPT FOR EYE BLINKS Extremities No Clubbing, No Cyanosis, No Edema, Normal Pulses, No Tenderness/ Swelling Vascular Normal Pulses, Pulses Symmetrical Sepsis Peripheral Pulse Location: Radial Sepsis Peripheral Pulse Exam: Normal Sepsis Cap Refill Exam: <2 Sec Last 24 Hrs of Labs/Rashard: Laboratory Tests 10/06/17 1932: Urine Color YEL, Urine Clarity HAZY H, Urine pH 7.0, Ur Specific [place] 1.010, Urine Protein TRACE H, Urine Ketones NEG, Urine Nitrite NEG, Urine Bilirubin NEG, Urine Urobilinogen 1.0, Ur Leukocyte Esterase MOD H, Ur Microscopic SEDIMENT EXAMINED, Urine RBC FEW H, Urine WBC 25-50 H, Urine Crystals TALC, Urine Hemoglobin NEG, Urine Glucose NEG 10/06/17 1640: Anion Gap 9, Estimated GFR > 60, BUN/Creatinine Ratio 32.0 H, Glucose 130 H, Calcium 9.2, Total Bilirubin 1.2, AST 23, ALT 33, Alkaline Phosphatase 74, Total Protein 7.4, Albumin 3.9, Globulin 3.5, Albumin/Globulin Ratio 1.1, PT 11.0, INR 1.01, APTT 31, CBC w Diff NO MAN DIFF REQ, RBC 4.90, MCV 90.8, MCH 30.6, MCHC 33.7, RDW 15.5 H, MPV 10.1, Gran % 78.9 H, Lymphocytes % 12.2 L, Monocytes % 7.6, Eosinophils % 1.0, Basophils % 0.3, Absolute Granulocytes 7.3 H, Absolute Lymphocytes 1.1 L, Absolute Monocytes 0.7 H, Absolute Eosinophils 0.1, Absolute Basophils 0 Assessment/Plan Assessment: Patient is a 57-year-old male with a past medical history significant for 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 difficile infection, gout, depression, MRSA infection in the past that is sent in by ambulance from [place] for displacement of his feeding tube. Patient apparently had J feeding tube replaced with larger one at and since then has required multiple trips to [place] for repositioning and recannulization of the tube secondary to occlusion. Patient is symptom free at this time. In the ED, vitals were 98.1 temperature, pulse rate 90, respiratory rate 22, blood pressure 153/90, 95% oxygen saturation on 5 L trach mask. Labs showed sodium 137, potassium 4.1, chloride 96, carbon dioxide 32, BUN 16, creatinine 0.5, glucose 130. Urinalysis showed evidence of infection with hazy clarity, moderate leukocyte esterase, 25-50 urine WBCs. Abdominal x-ray showed no extension into the bowel of tubing secondary to retraction. Plan J-tube displacement -Interventional radiology consult in the morning for J-tube placement -As patient is nothing by mouth at this time, D5 half-normal saline, Accu-Cheks and insulin sliding scale. Evidence of UTI on UA -Consider antibiotic therapy if patient communicates any urinary symptoms in the morning by blinking (patient sleeping at the time that UA was found to be positive for leukocyte esterase, no symptoms communicated to sister, no symptoms in W 10) Chronic medical problems -Start medications after J-tube replacement -Atorvastatin 10 mg for hyperlipidemia -Lexapro for depression 5 mg -Pepcid 20 mg daily for GERD DVT prophylaxis with Lovenox and Alps Patient is full code as per his wishes according to sister As Ranked By This Provider Problem List: 1. Complaint associated with gastric tube Core Measures/Misc (04/13) Acute Coronary Syndrome ACS Diagnosis: No Congestive Heart Failure Congestive Heart Failure Diagnosis No Cerebrovascular Accident CVA/TIA Diagnosis: No VTE (View Protocol) VTE Risk Factors Immobility No Mechanical VTE Prophylaxis d/t N/A MechProphylax Ordered No VTE Pharm Prophylaxis d/t NA PharmProphylax ordered Sepsis (View protocol) Sepsis Present: No Emily Maher 10/06/17 2240: Resident Review Statement Resident Statement: examined this patient, discussed with application development intern, agreed with application development intern, discussed with family, reviewed EMR data (avail), discussed with nursing , reviewed images Other Findings: 57-year-old man residential resident with quadriplegia status post a brainstem infarct resulting in locked-in syndrome, status post tracheostomy with 35% oxygen requirement via trach mask , status post J-tube placement for feeding, multiple admissions for aspiration pneumonia, C. difficile infection, diabetes, gout, depression, history of PR, MRSA infection in the past, able to communicate with his eyes only presented to [facility] [place] [facility] for placement of J-tube. Patient needs IR consult at a.m. for J-tube placement, all of his medication to be started after that. Will order D5 half normal saline, Accu-Chek, insulin sliding scale. DVT prophylaxis with SC Lovenox, he is full code
[2017-10-06 23:08] VITALS: BP 128/84
[2017-10-07 06:59] VITALS: BP 136/86
--- NOTE | 2017-10-07 07:51 | PN- Housestaff ---
Subjective Review of Systems Constitutional: Reports: see HPI. Objective Last 24 Hrs of Vital Signs/I&O Vital Signs Date Time Temp Pulse Resp B/P B/P Pulse O2 O2 Flow FiO2 Mean Ox Delivery Rate 10/07 0800 Trach Mask 40% 10/07 0659 97.7 84 20 136/86 96 Nasal 4.5L Cannula 10/07 0208 93 Trach Mask 40% 10/07 0000 Trach Mask 5.0L 10/06 2308 96.7 83 20 128/84 92 Nasal Cannula 10/06 2055 98.2 81 20 148/88 94 Trach Mask 5.0L 10/06 1851 97.6 77 18 147/82 93 Trach Mask 5.0L 10/06 1508 98.1 90 22 153/90 95 Trach Mask Intake & Output 10/07 1600 10/07 0800 10/07 0000 Intake Total 600 Output Total Balance 600 Intake, IV 600 Patient 170 lb Weight Physical Exam General Appearance: Lethargic, unable to assess orientation Skin: L chest maculopapular rash HEENT: Trachea intact Cardiovascular: Regular Rate, Normal S1, Normal S2, No Murmurs Current Medications: Current Medications Sig/Gil Start time Last Medication Dose Route Stop Time Status Admin Albuterol Sulfate 3 ML BID 10/07 1000 AC 10/07 INH 1028 Atorvastatin Calcium 10 MG 1700 10/07 1700 AC PO Baclofen 10 MG TID 10/07 1000 AC PO Cholecalciferol 1,000 IU DAILY 10/07 1000 AC PO Dextrose/Sodium 1,000 ML Q13H 10/06 2200 AC 10/06 Chloride IV 2258 Enoxaparin Sodium 40 MG DAILY 10/07 1000 AC 10/07 SC 0820 Escitalopram Oxalate 5 MG DAILY 10/07 1000 AC PO Famotidine 20 MG DAILY 10/07 1000 AC PO Fentanyl Citrate 25 MCG Q3D 10/06 2245 AC 10/07 TOP 0401 Lactobacillus 1 CAP DAILY 10/07 1000 AC Acidophilus PO Midodrine 10 MG ONCE ONE 10/06 2215 CAN PO 10/06 2216 Polymyxin/ 2 GTT ONCE ONE 10/06 1600 DC 10/06 Trimethoprim Sulfate OPH 10/06 1601 1648 Potassium Chloride 10 MEQ Q1H 10/07 0945 DC 10/07 IV 10/07 1046 1037 Sodium Chloride 1,000 ML ONCE ONE 10/06 1945 DC 10/06 IV 10/07 092002 Last 24 Hrs of Lab/Rashard Results Last 24 Hrs of Labs/Mics: Laboratory Tests 10/07/17 0814: Anion Gap 8, Estimated GFR > 60, BUN/Creatinine Ratio 25.0, CBC w Diff NO MAN DIFF REQ, RBC 4.12 L, MCV 91.3, MCH 30.7, MCHC 33.6, RDW 15.3 H, MPV 10.5 H, Gran % 69.3, Lymphocytes % 19.6 L, Monocytes % 9.6 H, Eosinophils % 1.2, Basophils % 0.3, Absolute Granulocytes 4.7, Absolute Lymphocytes 1.3, Absolute Monocytes 0.6, Absolute Eosinophils 0.1, Absolute Basophils 0 10/06/17 1932: Urine Color YEL, Urine Clarity HAZY H, Urine pH 7.0, Ur Specific [place] 1.010, Urine Protein TRACE H, Urine Ketones NEG, Urine Nitrite NEG, Urine Bilirubin NEG, Urine Urobilinogen 1.0, Ur Leukocyte Esterase MOD H, Ur Microscopic SEDIMENT EXAMINED, Urine RBC FEW H, Urine WBC 25-50 H, Urine Crystals TALC, Urine Hemoglobin NEG, Urine Glucose NEG 10/06/17 1640: Anion Gap 9, Estimated GFR > 60, BUN/Creatinine Ratio 32.0 H, Glucose 130 H, Calcium 9.2, Total Bilirubin 1.2, AST 23, ALT 33, Alkaline Phosphatase 74, Total Protein 7.4, Albumin 3.9, Globulin 3.5, Albumin/Globulin Ratio 1.1, PT 11.0, INR 1.01, APTT 31, CBC w Diff NO MAN DIFF REQ, RBC 4.90, MCV 90.8, MCH 30.6, MCHC 33.7, RDW 15.5 H, MPV 10.1, Gran % 78.9 H, Lymphocytes % 12.2 L, Monocytes % 7.6, Eosinophils % 1.0, Basophils % 0.3, Absolute Granulocytes 7.3 H, Absolute Lymphocytes 1.1 L, Absolute Monocytes 0.7 H, Absolute Eosinophils 0.1, Absolute Basophils 0 Assessment/Plan Problem List: 1. Gastrojejunostomy tube dislodgement Pain Ratin Pain Location: NA Pain Goal: Remain pain free Pain Plan: NA
[2017-10-07 09:06] LABS: ABSOLUTE BASOPHIL COUNT 0 /CUMM (0.0-0.2); ABSOLUTE EOSINOPHIL COUNT 0.1 /CUMM (0.0-0.7); ABSOLUTE GRANULOCYTE CT 4.7 /CUMM (1.4-6.5); ABSOLUTE LYMPH COUNT 1.3 /CUMM (1.2-3.4); ABSOLUTE MONOCYTE COUNT 0.6 /CUMM (0.10-0.60); BASOPHIL % 0.3 % (0.0-2.0); EOSINOPHIL % 1.2 % (0-5); GRANULOCYTE % 69.3 % (42.2-75.2); MEAN CORPUSCULAR HGB 30.7 PG (27.0-31.0); MEAN CORPUSCULAR HGB CONC 33.6 G/DL (33.0-37.0); MEAN CORPUSCULAR VOLUME 91.3 FL (80.0-94.0); MEAN PLATELET VOLUME 10.5 FL (7.4-10.4); PLATELET COUNT 169 /CUMM (130-400); RBC DISTRIBUTION WIDTH 15.3 % (11.5-14.5); RED BLOOD CELL CT 4.12 /CUMM (4.70-6.10); WHITE BLOOD CELL COUNT 6.7 /CUMM (4.8-10.8)
[2017-10-07 09:36] LABS: HEMATOCRIT 37.7 % (42-52)
--- NOTE | 2017-10-07 10:58 | PN-Observation ---
Observation Note Observation Note _ I have personally examined SUNDAY ISABEL. him disposition is uncertain at this time. Before a determination can be made, he requires continued observation for the following reasons GJ tube dislodgement. Assessment/Plan Medical Assessment: Ms. 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 difficile infection, gout, depression, MRSA infection in the past that is sent in by ambulance from [place] for displacement of his feeding tube. Patient apparently had J feeding tube replaced with larger one at [facility] and since then has required multiple trips to [place] for repositioning and recannulization of the tube secondary to occlusion. Problem list: GJ-tube dislodgment Hypokalemia Plan: Continue 23 hour observation status Hold meds TRC/nebs PRN Monitor and replete potassium PRN IR consult for possible replacement today DVT prophylaxis with Lovenox and Alps Patient is full code Problem List: 1. Gastrojejunostomy tube dislodgement 2. PEG (percutaneous endoscopic gastrostomy) adjustment/replacement/removal Subjective Follow-up For: Feeding tube dislodged Subjective: No acute events overnight Review of Systems Constitutional: Reports: see HPI. Objective Last 24 Hrs of Vital Signs/I&O Vital Signs Date Time Temp Pulse Resp B/P B/P Pulse O2 O2 Flow FiO2 Mean Ox Delivery Rate 10/07 0800 Trach Mask 40% 10/07 0659 97.7 84 20 136/86 96 Nasal 4.5L Cannula 10/07 0208 93 Trach Mask 40% 10/07 0000 Trach Mask 5.0L 10/06 2308 96.7 83 20 128/84 92 Nasal Cannula 10/06 2055 98.2 81 20 148/88 94 Trach Mask 5.0L 10/06 1851 97.6 77 18 147/82 93 Trach Mask 5.0L 10/06 1508 98.1 90 22 153/90 95 Trach Mask Intake & Output 10/07 1600 10/07 0800 10/07 0000 Intake Total 600 Output Total Balance 600 Intake, IV 600 Patient 170 lb Weight Physical Exam General Appearance: Lethargic, unable to assess orientation Skin: L chest maculopapular rash Neck: Trach intact Cardiovascular: Regular Rate, Normal S1, Normal S2 Abdomen: J tube with minimal yellowish drainage Current Medications: Current Medications Sig/Gil Start time Last Medication Dose Route Stop Time Status Admin Albuterol Sulfate 3 ML BID 10/07 1000 AC 10/07 INH 1028 Atorvastatin Calcium 10 MG 1700 10/07 1700 AC PO Baclofen 10 MG TID 10/07 1000 AC PO Cholecalciferol 1,000 IU DAILY 10/07 1000 AC PO Dextrose/Sodium 1,000 ML Q13H 10/06 2200 AC 10/06 Chloride IV 2258 Enoxaparin Sodium 40 MG DAILY 10/07 1000 AC 10/07 SC 0820 Escitalopram Oxalate 5 MG DAILY 10/07 1000 AC PO Famotidine 20 MG DAILY 10/07 1000 AC PO Fentanyl Citrate 25 MCG Q3D 10/06 2245 AC 10/07 TOP 0401 Lactobacillus 1 CAP DAILY 10/07 1000 AC Acidophilus PO Midodrine 10 MG ONCE ONE 10/06 2215 CAN PO 10/06 2216 Polymyxin/ 2 GTT ONCE ONE 10/06 1600 DC 10/06 Trimethoprim Sulfate OPH 10/06 1601 1648 Potassium Chloride 10 MEQ Q1H 10/07 0945 DC 10/07 IV 10/07 1046 1037 Sodium Chloride 1,000 ML ONCE ONE 10/06 1945 DC 10/06 IV 10/07 0904 2002 Last 24 Hrs of Labs/Mics: Laboratory Tests 10/07/17 0814: Anion Gap 8, Estimated GFR > 60, BUN/Creatinine Ratio 25.0, CBC w Diff NO MAN DIFF REQ, RBC 4.12 L, MCV 91.3, MCH 30.7, MCHC 33.6, RDW 15.3 H, MPV 10.5 H, Gran % 69.3, Lymphocytes % 19.6 L, Monocytes % 9.6 H, Eosinophils % 1.2, Basophils % 0.3, Absolute Granulocytes 4.7, Absolute Lymphocytes 1.3, Absolute Monocytes 0.6, Absolute Eosinophils 0.1, Absolute Basophils 0 10/06/171931: Urine Color YEL, Urine Clarity HAZY H, Urine pH 7.0, Ur Specific [place] 1.010, Urine Protein TRACE H, Urine Ketones NEG, Urine Nitrite NEG, Urine Bilirubin NEG, Urine Urobilinogen 1.0, Ur Leukocyte Esterase MOD H, Ur Microscopic SEDIMENT EXAMINED, Urine RBC FEW H, Urine WBC 25-50 H, Urine Crystals TALC, Urine Hemoglobin NEG, Urine Glucose NEG 10/06/17 1640: Anion Gap 9, Estimated GFR > 60, BUN/Creatinine Ratio 32.0 H, Glucose 130 H, Calcium 9.2, Total Bilirubin 1.2, AST 23, ALT 33, Alkaline Phosphatase 74, Total Protein 7.4, Albumin 3.9, Globulin 3.5, Albumin/Globulin Ratio 1.1, PT 11.0, INR 1.01, APTT 31, CBC w Diff NO MAN DIFF REQ, RBC 4.90, MCV 90.8, MCH 30.6, MCHC 33.7, RDW 15.5 H, MPV 10.1, Gran % 78.9 H, Lymphocytes % 12.2 L, Monocytes % 7.6, Eosinophils % 1.0, Basophils % 0.3, Absolute Granulocytes 7.3 H, Absolute Lymphocytes 1.1 L, Absolute Monocytes 0.7 H, Absolute Eosinophils 0.1, Absolute Basophils 0
--- NOTE | 2017-10-07 11:36 | PN- Att Addend ---
Attending Addendum Attending Brief Note Patient in bed comfortably, nothing by mouth waiting for the radiologist to call to we can send patient down for special procedure Vital signs are stable no fever , no new changes on physical. 24 TOTALS 10/07 0000 10/06 0000 Intake Total 0 Output Total Balance 0 Intake, Oral 0 Patient 170 lb Weight Laboratory Tests 10/07/17 0814: Anion Gap 8, Estimated GFR > 60, BUN/Creatinine Ratio 25.0, CBC w Diff NO MAN DIFF REQ, RBC 4.12 L, MCV 91.3, MCH 30.7, MCHC 33.6, RDW 15.3 H, MPV 10.5 H, Gran % 69.3, Lymphocytes % 19.6 L, Monocytes % 9.6 H, Eosinophils % 1.2, Basophils % 0.3, Absolute Granulocytes 4.7, Absolute Lymphocytes 1.3, Absolute Monocytes 0.6, Absolute Eosinophils 0.1, Absolute Basophils 0 10/06/17 1932: Urine Color YEL, Urine Clarity HAZY H, Urine pH 7.0, Ur Specific [place] 1.010, Urine Protein TRACE H, Urine Ketones NEG, Urine Nitrite NEG, Urine Bilirubin NEG, Urine Urobilinogen 1.0, Ur Leukocyte Esterase MOD H, Ur Microscopic SEDIMENT EXAMINED, Urine RBC FEW H, Urine WBC 25-50 H, Urine Crystals TALC, Urine Hemoglobin NEG, Urine Glucose NEG 10/06/17 1640: Anion Gap 9, Estimated GFR > 60, BUN/Creatinine Ratio 32.0 H, Glucose 130 H, Calcium 9.2, Total Bilirubin 1.2, AST 23, ALT 33, Alkaline Phosphatase 74, Total Protein 7.4, Albumin 3.9, Globulin 3.5, Albumin/Globulin Ratio 1.1, PT 11.0, INR 1.01, APTT 31, CBC w Diff NO MAN DIFF REQ, RBC 4.90, MCV 90.8, MCH 30.6, MCHC 33.7, RDW 15.5 H, MPV 10.1, Gran % 78.9 H, Lymphocytes % 12.2 L, Monocytes % 7.6, Eosinophils % 1.0, Basophils % 0.3, Absolute Granulocytes 7.3 H, Absolute Lymphocytes 1.1 L, Absolute Monocytes 0.7 H, Absolute Eosinophils 0.1, Absolute Basophils 0 Vital Signs Date Time Temp Pulse Resp B/P B/P Pulse O2 O2 Flow FiO2 Mean Ox Delivery Rate 10/07 1114 Trach Mask 40% 10/07 1113 96 Trach Mask 40% 10/07 0800 Trach Mask 40% 10/07 0659 97.7 84 20 136/86 96 Nasal 4.5L Cannula 10/07 0208 93 Trach Mask 40% 10/07 0000 Trach Mask 5.0L 10/06 2308 96.7 83 20 128/84 92 Nasal Cannula 10/06 2055 98.2 81 20 148/88 94 Trach Mask 5.0L 10/06 1851 97.6 77 18 147/82 93 Trach Mask 5.0L 10/06 1508 98.1 90 22 153/90 95 Trach Mask
--- NOTE | 2017-10-07 15:32 | Patient Discharge Instructions ---
Discharge Instructions General Discharge Information You were seen/treated for: JG tube obstruction You had these procedures: JG tube replacement Special Instructions: Follow up with your PCP within 1-2 weeks upon discharge PLEASE USE PORTS LABELED GASTRIC AND JEJUNAL FOR FLUSHES. DO NOT USE BALLOON PORT (WHITE TAPE) FOR ANY OTHER USE BESIDES BALLOON INFLATION OR TO CHECK RESIDUAL. PLEASE CONTINUE TO TAPE BALLOON PORT WHEN NOT IN USE Diet Additional DIET Information: Tube feeds Acute Coronary Syndrome Inclusion Criteria At DC or during hospital stay patient has or had the following: ACS DIAGNOSIS No Discharge Core Measures Meds if any: Prescribed or Continued at Discharge Meds if any: NOT Prescribed or Continued at Discharge Congestive Heart Failure Inclusion Criteria At DC or during hospital stay patient has or had the following: CHF DIAGNOSIS No Discharge Core Measures Meds if any: Prescribed or Continued at Discharge Meds if any: NOT Prescribed or Continued at Discharge Cerebrovascular accident Inclusion Criteria At DC or during hospital stay patient has or had the following: CVA/TIA Diagnosis No Discharge Core Measures Meds if any: Prescribed or Continued at Discharge Meds if any: NOT Prescribed or Continued at Discharge Venous thromboembolism Inclusion Criteria VTE Diagnosis No VTE Type NONE VTE Confirmed by (Test) NONE Discharge Core Measures - Per Current guidelines, there needs to be overlap - treatment for the first 5 days of Warfarin therapy. - If discharged on Warfarin prior to 5 days of - overlap therapy, the patient will need to be - assessed for post discharge needs including - *Post discharge parental anticoagulation - *Warfarin and/or parental anticoagulation education - *Follow up date to check INR post discharge At least 5 days overlap therapy as Inpatient No Meds if any: Prescribed or Continued at Discharge Note: Overlap Therapy is Warfarin and Anticoagulant Meds if any: NOT Prescribed or Continued at Discharge
--- NOTE | 2017-10-07 15:58 | INTERVENTIONAL RADIOLOGY RPT ---
CLINICAL HISTORY: 57 [id number] Male with feeding intolerance, who presents to Interventional Radiology for replacement of his gastrojejunostomy tube. His gastrojejunostomy tube became dislodged after the retention balloon ruptured. PROCEDURES: 1. Replacement of the existing 18-Fr gastrostomy tube with a new 18-Fr gastrostomy tube. 2. Post replacement tube sinogram. PHYSICIANS: Dr. Best Brandt (attending). MEDICATIONS: None required for today's procedure. CONTRAST: 60 mL Optiray 320 FLUOROSCOPY TIME: 5.3 minutes DAP: 30.9 COMPLICATIONS: None ESTIMATED BLOOD LOSS: <5 mL SPECIMENS: None IMPLANT: None PROCEDURE NOTE: Informed consent was obtained from the patient's sister Patricia, prior to the procedure. During this process, the procedure and potential alternatives were explained along with the intended outcome and benefits. The risks of the procedure, including the possibility of an unsuccessful procedure, as well as the risk of not doing the procedure, were discussed. Patricia was given the opportunity to ask questions regarding the procedure. A consent form documenting this discussion was placed in the medical record. A time-out procedure was performed. The patient was placed supine on the fluoroscopy table. The abdomen was prepped and draped in the usual sterile fashion. All elements of maximal sterile barrier technique followed including use of cap, mask, sterile gown, sterile gloves, a sterile full body drape and hand hygiene. Also followed skin preparation with 2% chlorhexidine for cutaneous antisepsis, and sterile ultrasound preparation with sterile gel and probe cover when applicable. Preliminary fluoroscopy demonstrated the gastrojejunostomy tube to be nearly completely retracted out of the stomach. The existing gastrojejunostomy tube was removed over a stiff glide wire. The wire was coiled within the stomach. Over the wire, a 5 [place] Kumpe catheter was advanced and directed into the jejunum. The Kumpe catheter was injected with contrast, confirming proper location. The wire was reintroduced into the jejunum and the Kumpe catheter was removed over the wire. A new lubricated 18-Fr gastrojejunostomy tube was advanced into the jejunum. The wire was removed and the balloon was insufflated with 9 mL sterile water. Contrast was injected into both ports of the tube to confirm location. The patient tolerated the procedure well. FINDINGS: 1. The previous gastrojejunostomy tube was significantly retracted with rupture of the retention balloon. 2. Successful replacement of the gastrojejunostomy tube. IMPRESSION: 1. Successful replacement of the of gastrojejunostomy tube. PLAN: 1. The patient was stable after the procedure and was transferred to the interventional recovery area. 2. The new tube is ready for use.
[2017-10-07 22:00] VITALS: BP 119/82
[2017-10-07 22:45] VITALS: BP 119/82
[2017-10-08 06:49] VITALS: BP 112/70
--- NOTE | 2017-10-08 08:05 | PN-Observation ---
Assessment/Plan Medical Assessment: Ms. 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 difficile infection, gout, depression, MRSA infection in the past that is sent in by ambulance from [place] for displacement of his feeding tube. Patient apparently had J feeding tube replaced with larger one at [facility] and since then has required multiple trips to [place] for repositioning and recannulization of the tube secondary to occlusion. Problem list: GJ-tube dislodgment/obstruction s/p replacement Hypokalemia - resolved Plan: Resume meds and tube feeding TRC/nebs PRN Monitor and replete potassium PRN Nutrionist recommendations appreciated DVT prophylaxis with Lovenox and Alps Diet: Glucerna Possible discharge today to [facility] Patient is full code Problem List: 1. PEG (percutaneous endoscopic gastrostomy) adjustment/replacement/removal 2. Gastrostomy tube dysfunction Subjective Follow-up For: GJ-tube dislodgment Hypokalemia - resolved Subjective: No complaints or acute overnight Review of Systems Constitutional: Reports: see HPI. Objective Last 24 Hrs of Vital Signs/I&O Vital Signs Date Time Temp Pulse Resp B/P B/P Pulse O2 O2 Flow FiO2 Mean Ox Delivery Rate 10/08 0800 Trach Mask 35% 10/08 0649 97.0 61 18 112/70 95 Trach Mask 10/08 0520 95 Trach Mask 35% 10/08 0128 99 Trach Mask 40% 10/08 0000 95 Trach Mask 40% 10/07 2245 97.1 66 119/82 98 10/07 2200 97.1 66 18 119/82 98 Trach Mask 40% 10/08 2019 94 Trach Mask 40% 10/07 1600 Trach Mask 40% 10/07 1114 Trach Mask 40% 10/07 1113 96 Trach Mask 40% Intake & Output 10/08 1600 10/08 0800 10/08 0000 Intake Total 600 550 Output Total 350 300 Balance 250 250 Intake, IV 600 550 Intake, Oral 0 0 Output, Urine 350 300 Physical Exam General Appearance: Unable to assess orientation Neck: Trach mask on 35% oxygen Cardiovascular: Regular Rate, Normal S1, Normal S2 Lungs: Clear to Auscultation, Normal Air Movement Abdomen: JG tube in place with no drainage around insertion site Current Medications: Current Medications Sig/Gil Start time Last Medication Dose Route Stop Time Status Admin Albuterol Sulfate 3 ML BID 10/07 1000 AC 10/07 INH 2020 Atorvastatin Calcium 10 MG 1700 10/07 1700 AC 10/07 PO 1709 Baclofen 10 MG TID 10/07 1000 AC 10/08 PO 0811 Cholecalciferol 1,000 IU DAILY 10/07 1000 AC 10/08 PO 0811 Dextrose/Sodium 1,000 ML Q13H 10/06 2200 AC 10/08 Chloride IV 0525 Enoxaparin Sodium 40 MG DAILY 10/07 1000 AC 10/08 SC 0812 Escitalopram Oxalate 5 MG DAILY 10/07 1000 AC 10/08 PO 0810 Famotidine 20 MG DAILY 10/07 1000 AC 10/08 PO 0812 Fentanyl Citrate 25 MCG Q3D 10/06 2245 AC 10/07 TOP 0401 Lactobacillus 1 CAP DAILY 10/07 1000 AC 10/08 Acidophilus PO 0811 Nystatin 1 MELISSA BID 10/08 1010 UNVr TOP Potassium Chloride 10 MEQ Q1H 10/07 0945 DC 10/07 IV 10/07 1046 1510 Last 24 Hrs of Labs/Mics: Laboratory Tests 10/08/17 0755: Anion Gap 8, Estimated GFR > 60, BUN/Creatinine Ratio 20.0, CBC w Diff NO MAN DIFF REQ, RBC 4.51 L, MCV 91.2, MCH 30.6, MCHC 33.6, RDW 14.9 H, MPV 11.6 H, Gran % 61.3, Lymphocytes % 25.4, Monocytes % 10.4 H, Eosinophils % 2.4, Basophils % 0.5, Absolute Granulocytes 4.8, Absolute Lymphocytes 2.0, Absolute Monocytes 0.8 H, Absolute Eosinophils 0.2, Absolute Basophils 0 10/07/17 2000: Sodium Cancelled, Potassium Cancelled, Chloride Cancelled, Carbon Dioxide Cancelled, Anion Gap Cancelled, BUN Cancelled, Creatinine Cancelled, BUN/ Creatinine Ratio Cancelled 10/07/17 1848: Anion Gap 11, Estimated GFR > 60, BUN/Creatinine Ratio 25.0 10/07/17 1800: Sodium Cancelled, Potassium Cancelled, Chloride Cancelled, Carbon Dioxide Cancelled, Anion Gap Cancelled, BUN Cancelled, Creatinine Cancelled, BUN/ Creatinine Ratio Cancelled
--- NOTE | 2017-10-08 09:00 | Discharge Summary ---
See Addendum Visit Information Visit Dates Admission Date: 10/06/17 Discharge Date: 10/08/17 Hospital Course Course Attending Physician: Wade SOTELO,Danny Primary Care Physician: Wade SOTELO,[facility] Course: 57-year-old man longterm resident with quadriplegia status post a brainstem infarct resulting in locked-in syndrome, status post tracheostomy with 35% oxygen requirement via trach mask and status post J-tube placement for feeding and medication, multiple admissions for aspiration pneumonia, C. difficile infection, diabetes, gout, depression, history of [place], MRSA infection in the past and only able to communicate with his eyes presented to [facility] for replacement of a disloged and blocked J-tube. Problem List #Replacement of a disloged and blocked J-tube Patient is reliant on J-tube for feeding and medication administration and gets regular replacement here at [facility]. He got his J-tube replaced on by interventional radiology without complications. His medications and tube feedings have been re-started. Electrolytes were repleted. Accu-Cheks, insulin sliding scale and DVT prophylaxis were provided. #Chronic Medical conditions Stable. Continue his current home medications. Complications: none Allergies: Coded Allergies: scopolamine (Mild, HIVES 12/26/16) NSAIDS (Non-Steroidal Anti-Inflamma (PER W-10 12/26/16) adhesive (HIVES - EKG STICKERS, RED DOT [place] STICKERS 12/26/16) aspirin (PER W-10 12/26/16) clopidogrel (From PLAVIX) (PER W-10 12/26/16) Uncoded Allergies: EKG AND RED DOT LEADS (Intermediate, RASH 09/26/16) Significant Procedures: 1. Replacement of the existing 18-Fr gastrostomy tube with a new 18-Fr gastrostomy tube. 2. Post replacement tube sinogram. Disposition Summary Disposition Principal Diagnosis: #Replacement of J-tube Additional Diagnosis: #Quadriplegia status post a brainstem infarct resulting in locked-in syndrome status post tracheostomy with 35% oxygen requirement via trach mask #Multiple admissions for aspiration pneumonia, C. difficile infection #Diabetes, gout, depression, #history of [place] #history of MRSA infection Discharge Disposition: SNF Discharge Instructions General Discharge Information Code Status: Full Code Patient's Diet: Tube feeds with Glucerna Patient's Activity: Bedbound Follow-Up Instructions/Appts: Please follow up with your PCP in 1 week. Medications at Discharge Discharge Medications: Continue taking these medications: Fentanyl (Fentanyl) 25 MCG/HOUR PATCH.TD72 1 Patch On the skin Every 3 days Comments: Last Taken: CHANGED 10/07/17 Time: 4:00 am Cholecalciferol (Vitamin D3) 1,000 UNIT TABLET 1 Tablet J TUBE DAILY Comments: Last Taken: 10/08/17 Time: 8:00 am Ranitidine HCl (Ranitidine HCl) 15 MG/ML SYRUP 10 Milliliters J TUBE TWICE DAILY Comments: NOT GIVEN IN HOSPITAL Simvastatin (Zocor*) 10 MG TABLET 1 Tablet J TUBE TAKE AT BEDTIME Comments: Last Taken: 10/07/17 Time: 5:00 PM Baclofen (Baclofen) 10 MG TABLET 1 Tablet J TUBE THREE TIMES DAILY Comments: Last Taken: 10/08/17 Time: 8:00 am Escitalopram Oxalate (Escitalopram Oxalate) 5 MG TABLET 1 Tablet G TUBE DAILY Comments: Last Taken: 10/08/17 Time: 8:00 am Ondansetron HCl (Ondansetron HCl) 4 MG TABLET 1 Tablet J TUBE Q8H as needed for N/V Comments: NOT GIVEN IN HOSPITAL Nut.tx.gluc.intoler,Lac-Fr,Soy (Glucerna 1.2 Fritz) 237 ML LIQUID 75 Milliliters J TUBE 75 MLS/HR Comments: TUBE FEEDING NOT STARTED IN HOSPITAL Lactobacillus Acidophilus (Acidophilus) 1 EACH CAPSULE 1 Capsule J TUBE DAILY Comments: Last Taken: 10/08/17 Time: 8:00 am Albuterol Sulfate (Albuterol Sulfate) 2.5 MG/3 ML (0.083 %) VIAL.NEB 1 Vial Inhale Solution TWICE DAILY Comments: Last Taken: 10/08/17 Time: 10:35 am Acetaminophen (Acetaminophen) 325 MG TABLET 2 Tablet J TUBE Q4H as needed for PAIN/TEMP/>101 Comments: NOT GIVEN IN HOSPITAL Acetaminophen (Acephen) 650 MG SUPP.RECT 1 SUPPOSITORY RECTALLY Q4H as needed for PAIN/TEMP>101 Comments: NOT GIVEN IN HOSP Bisacodyl (Bisacodyl) 10 MG SUPP.RECT 1 Suppository RECTAL DAILY as needed for NO BM - IF MOM INEFFECTIVE Comments: NOT GIVEN IN HOSPITAL Chanell ZhuB/Na Phos,Di-Ba (Fleet Enema) 19 GRAM-7 GRAM/118 ML ENEMA 1 Enema RECTAL DAILY as needed for NO BM - IF BISACODYL INEFFECTI Ipratropium/Albuterol Sulfate (Iprat-Albut 0.5-3(2.5) MG/3 Ml) 0.5 MG-3 MG (2.5 MG BASE)/3 ML AMPUL.NEB 1 VIAL Inhale Solution via Nebulizer Q4H as needed for SOB Comments: NOT GIVEN IN HOSPITAL Magnesium Hydroxide (Milk Of Magnesia) 400 MG/5 ML ORAL.SUSP 30 Milliliters J TUBE DAILY as needed for NO BM IN 3 DAYS Comments: NOT GIVEN IN HOSPITAL Docusate Sodium (Docusate Sodium) 100 MG TABLET 1 Tablet J TUBE TWICE DAILY Comments: NOT GIVEN IN HOSP Copies To: Wade SOTELO,Danny
[2017-10-08 09:02] LABS: ABSOLUTE BASOPHIL COUNT 0 /CUMM (0.0-0.2); ABSOLUTE EOSINOPHIL COUNT 0.2 /CUMM (0.0-0.7); ABSOLUTE GRANULOCYTE CT 4.8 /CUMM (1.4-6.5); ABSOLUTE MONOCYTE COUNT 0.8 /CUMM (0.10-0.60); BASOPHIL % 0.5 % (0.0-2.0); EOSINOPHIL % 2.4 % (0-5); GRANULOCYTE % 61.3 % (42.2-75.2); HEMATOCRIT 41.1 % (42-52); MEAN CORPUSCULAR HGB 30.6 PG (27.0-31.0); MEAN CORPUSCULAR HGB CONC 33.6 G/DL (33.0-37.0); MEAN CORPUSCULAR VOLUME 91.2 FL (80.0-94.0); MEAN PLATELET VOLUME 11.6 FL (7.4-10.4); PLATELET COUNT 145 /CUMM (130-400); RBC DISTRIBUTION WIDTH 14.9 % (11.5-14.5); RED BLOOD CELL CT 4.51 /CUMM (4.70-6.10); WHITE BLOOD CELL COUNT 7.8 /CUMM (4.8-10.8)
--- NOTE | 2017-10-08 09:47 | PN- Att Addend ---
Attending Addendum Attending Brief Note Patient comfortable in bed. Vital signs are stable no fever. Interventional radiologist replaced existing 18 [place] gastrostomy tube which was defective with a new 18 [place] tube had post replacement tube sinogram. The procedure was successful. He can start being fed through the tube and also can start disposition plans to return to the snf 24 TOTALS 10/08 0000 10/07 0000 Intake Total 1900 0 Output Total 300 Balance 1600 0 Intake, IV 1900 Intake, Oral 0 0 Output, Urine 300 Patient 169 lb 170 lb Weight Current Medications Sig/Gil Start time Last Medication Dose Route Stop Time Status Admin Albuterol Sulfate 3 ML BID 10/07 1000 AC 10/07 INH 2020 Atorvastatin Calcium 10 MG 1700 10/07 1700 AC 10/07 PO 1709 Baclofen 10 MG TID 10/07 1000 AC 10/08 PO 0811 Cholecalciferol 1,000 IU DAILY 10/07 1000 AC 10/08 PO 0811 Dextrose/Sodium 1,000 ML Q13H 10/06 2200 AC 10/08 Chloride IV 0525 Enoxaparin Sodium 40 MG DAILY 10/07 1000 AC 10/08 SC 0812 Escitalopram Oxalate 5 MG DAILY 10/07 1000 AC 10/08 PO 0810 Famotidine 20 MG DAILY 10/07 1000 AC 10/08 PO 0812 Fentanyl Citrate 25 MCG Q3D 10/06 2245 AC 10/07 TOP 0401 Lactobacillus 1 CAP DAILY 10/07 1000 AC 10/08 Acidophilus PO 0811 Potassium Chloride 10 MEQ Q1H 10/07 0945 DC 10/07 IV 10/07 1046 1510 Laboratory Tests 10/08/17 0755: Anion Gap 8, Estimated GFR > 60, BUN/Creatinine Ratio 20.0, CBC w Diff NO MAN DIFF REQ, RBC 4.51 L, MCV 91.2, MCH 30.6, MCHC 33.6, RDW 14.9 H, MPV 11.6 H, Gran % 61.3, Lymphocytes % 25.4, Monocytes % 10.4 H, Eosinophils % 2.4, Basophils % 0.5, Absolute Granulocytes 4.8, Absolute Lymphocytes 2.0, Absolute Monocytes 0.8 H, Absolute Eosinophils 0.2, Absolute Basophils 0 10/07/171999: Sodium Cancelled, Potassium Cancelled, Chloride Cancelled, Carbon Dioxide Cancelled, Anion Gap Cancelled, BUN Cancelled, Creatinine Cancelled, BUN/ Creatinine Ratio Cancelled 10/07/17 1848: Anion Gap 11, Estimated GFR > 60, BUN/Creatinine Ratio 25.0 10/07/17 1800: Sodium Cancelled, Potassium Cancelled, Chloride Cancelled, Carbon Dioxide Cancelled, Anion Gap Cancelled, BUN Cancelled, Creatinine Cancelled, BUN/ Creatinine Ratio Cancelled 10/07/17 0814: Anion Gap 8, Estimated GFR > 60, BUN/Creatinine Ratio 25.0, CBC w Diff NO MAN DIFF REQ, RBC 4.12 L, MCV 91.3, MCH 30.7, MCHC 33.6, RDW 15.3 H, MPV 10.5 H, Gran % 69.3, Lymphocytes % 19.6 L, Monocytes % 9.6 H, Eosinophils % 1.2, Basophils % 0.3, Absolute Granulocytes 4.7, Absolute Lymphocytes 1.3, Absolute Monocytes 0.6, Absolute Eosinophils 0.1, Absolute Basophils 0 10/06/17 1932: Urine Color YEL, Urine Clarity HAZY H, Urine pH 7.0, Ur Specific [place] 1.010, Urine Protein TRACE H, Urine Ketones NEG, Urine Nitrite NEG, Urine Bilirubin NEG, Urine Urobilinogen 1.0, Ur Leukocyte Esterase MOD H, Ur Microscopic SEDIMENT EXAMINED, Urine RBC FEW H, Urine WBC 25-50 H, Urine Crystals TALC, Urine Hemoglobin NEG, Urine Glucose NEG 10/06/17 1640: Anion Gap 9, Estimated GFR > 60, BUN/Creatinine Ratio 32.0 H, Glucose 130 H, Calcium 9.2, Total Bilirubin 1.2, AST 23, ALT 33, Alkaline Phosphatase 74, Total Protein 7.4, Albumin 3.9, Globulin 3.5, Albumin/Globulin Ratio 1.1, PT 11.0, INR 1.01, APTT 31, CBC w Diff NO MAN DIFF REQ, RBC 4.90, MCV 90.8, MCH 30.6, MCHC 33.7, RDW 15.5 H, MPV 10.1, Gran % 78.9 H, Lymphocytes % 12.2 L, Monocytes % 7.6, Eosinophils % 1.0, Basophils % 0.3, Absolute Granulocytes 7.3 H, Absolute Lymphocytes 1.1 L, Absolute Monocytes 0.7 H, Absolute Eosinophils 0.1, Absolute Basophils 0 Vital Signs Date Time Temp Pulse Resp B/P B/P Pulse O2 O2 Flow FiO2 Mean Ox Delivery Rate 10/08 0800 Trach Mask 35% 10/08 0649 97.0 61 18 112/70 95 Trach Mask 10/08 0520 95 Trach Mask 35% 10/08 0128 99 Trach Mask 40% 10/08 0000 95 Trach Mask 40% 10/07 2245 97.1 66 119/82 98 10/07 2200 97.1 66 18 119/82 98 Trach Mask 40% 10/07 2020 94 Trach Mask 40% 10/07 1600 Trach Mask 40% 10/07 1114 Trach Mask 40% 10/07 1113 96 Trach Mask 40%
[2017-10-08 11:36] VITALS: BP 112/70
[2017-10-08 14:56] VITALS: BP 110/70
[2017-10-08 23:01] VITALS: BP 110/60
[2017-10-09 07:00] VITALS: BP 110/70
--- NOTE | 2017-10-09 07:28 | PN-Observation ---
Observation Note Observation Note _ I have personally examined SUNDAY ISABEL. him disposition is uncertain at this time. Before a determination can be made, he requires continued observation for the following reasons GJ tube obstruction/dislodgement. Assessment/Plan Medical Assessment: Ms. 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 difficile infection, gout, depression, MRSA infection in the past that is sent in by ambulance from [place] for displacement of his feeding tube. Patient apparently had J feeding tube replaced with [facility] one at [facility] and since then has required multiple trips to [place] for repositioning and recannulization of the tube secondary to occlusion. Problem list: GJ-tube dislodgment/obstruction s/p replacement by IR Hypokalemia - resolved Plan: Continue tube feeding TRC/nebs PRN Monitor and replete potassium PRN Nutrionist recommendations appreciated IR recommendations appreciated Surgery consult for J tube revision DVT prophylaxis with Lovenox and Alps Diet: Glucerna 1.2 Awaiting STR placement Patient is full code Problem List: 1. Gastrojejunostomy tube dislodgement Subjective Follow-up For: GJ-tube dislodgment Hypokalemia - resolved Subjective: No complaints or acute events overnight Review of Systems Constitutional: Reports: see HPI. Objective Last 24 Hrs of Vital Signs/I&O Vital Signs Date Time Temp Pulse Resp B/P B/P Pulse O2 O2 Flow FiO2 Mean Ox Delivery Rate 10/09 0700 99.7 62 18 110/70 97 Trach Mask 35% 10/09 0540 97 Trach Mask 35% 10/09 0145 98 Trach Mask 35% 10/09 0000 93 Trach Mask 35% 10/08 2301 98.2 67 20 110/60 95 Trach Mask 10/08 2214 98 Trach Mask 35% 10/08 1903 98 Trach Mask 35% 14 1606 98 Trach Mask 35% 14 1600 Trach Mask 35% 14 1136 97.0 61 18 112/70 03 1037 94 Trach Mask 35% 10/08 0800 Trach Mask 35% Intake & Output 10/09 0800 03/15 0000 10/08 1600 Intake Total 325 600 Output Total Balance 325 600 Intake, IV 150 600 Intake, Oral 0 Intake, Tube 75 Feeding Intake, Tube 100 Irrigant Physical Exam General Appearance: Lethargic, Trach mask on 35% O2 Neck: Peristomal yellowish drainage Cardiovascular: Regular Rate, Normal S1, Normal S2, No Murmurs Lungs: Clear to Auscultation, Normal Air Movement Abdomen: GJ tube intact, no drainage around insertion site, no warmth or hematoma Current Medications: Current Medications Sig/Gil Start time Last Medication Dose Route Stop Time Status Admin Albuterol Sulfate 3 ML BID 10/07 1000 AC 10/08 INH 1850 Atorvastatin Calcium 10 MG 1700 10/07 1700 AC 10/08 PO 1654 Baclofen 10 MG TID 10/07 1000 AC 10/08 PO 2206 Cholecalciferol 1,000 IU DAILY 10/07 1000 AC 10/08 PO 0811 Dextrose/Sodium 1,000 ML Q13H 10/06 2200 DC 10/08 Chloride IV 1307 Enoxaparin Sodium 40 MG DAILY 10/07 1000 AC 10/08 SC 0812 Escitalopram Oxalate 5 MG DAILY 10/07 1000 AC 10/08 PO 0810 Famotidine 20 MG DAILY 10/07 1000 AC 10/08 PO 0812 Fentanyl Citrate 25 MCG Q3D 10/06 2245 AC 10/07 TOP 0401 Lactobacillus 1 CAP DAILY 10/07 1000 AC 10/08 Acidophilus PO 0811 Nystatin 1 MELISSA BID 10/08 1010 AC 10/08 TOP 2207 Last 24 Hrs of Labs/Mics: Laboratory Tests 10/08/17 0755: Anion Gap 8, Estimated GFR > 60, BUN/Creatinine Ratio 20.0, CBC w Diff NO MAN DIFF REQ, RBC 4.51 L, MCV 91.2, MCH 30.6, MCHC 33.6, RDW 14.9 H, MPV 11.6 H, Gran % 61.3, Lymphocytes % 25.4, Monocytes % 10.4 H, Eosinophils % 2.4, Basophils % 0.5, Absolute Granulocytes 4.8, Absolute Lymphocytes 2.0, Absolute Monocytes 0.8 H, Absolute Eosinophils 0.2, Absolute Basophils 0
--- NOTE | 2017-10-09 11:27 | PN- Att Addend ---
Attending Addendum Attending Brief Note No new complaints. The original tube was replaced, but IR worried that with the care he has been getting that the tube might be dislodging again, suggested surgery see the patient and see if he is a candidate for more permanent way to put the J-tube in Intake & Output 10/09 1600 10/09 0800 10/09 0000 10/08 1600 10/08 0800 10/08 0000 Intake Total 335 325 600 600 550 Output Total 350 300 Balance 335 325 600 250 250 Intake, IV 150 600 600 550 Intake, Oral 0 0 0 0 Intake, Tube 225 75 Feeding Intake, Tube 110 100 Irrigant Output, Urine 350 300 Current Medications Sig/Gil Start time Last Medication Dose Route Stop Time Status Admin Albuterol Sulfate 3 ML BID 10/07 1000 AC 10/09 INH 0941 Atorvastatin Calcium 10 MG 1700 10/07 1700 AC 10/08 PO 1654 Baclofen 10 MG TID 10/07 1000 AC 10/09 PO 1015 Cholecalciferol 1,000 IU DAILY 10/07 1000 AC 10/09 PO 1016 Dextrose/Sodium 1,000 ML Q13H 10/06 2200 DC 10/08 Chloride IV 1307 Enoxaparin Sodium 40 MG DAILY 10/07 1000 AC 10/09 SC 1015 Escitalopram Oxalate 5 MG DAILY 10/07 1000 AC 10/09 PO 1015 Famotidine 20 MG DAILY 10/07 1000 AC 10/09 PO 1016 Fentanyl Citrate 25 MCG Q3D 10/06 2245 AC 10/07 TOP 0401 Lactobacillus 1 CAP DAILY 10/07 1000 AC 10/09 Acidophilus PO 1016 Nystatin 1 MELISSA BID 10/08 1010 AC 10/09 TOP 1016 Laboratory Tests 10/09/17 0805: Anion Gap 9, Estimated GFR > 60, BUN/Creatinine Ratio 14.0 10/08/17 0755: Anion Gap 8, Estimated GFR > 60, BUN/Creatinine Ratio 20.0, CBC w Diff NO MAN DIFF REQ, RBC 4.51 L, MCV 91.2, MCH 30.6, MCHC 33.6, RDW 14.9 H, MPV 11.6 H, Gran % 61.3, Lymphocytes % 25.4, Monocytes % 10.4 H, Eosinophils % 2.4, Basophils % 0.5, Absolute Granulocytes 4.8, Absolute Lymphocytes 2.0, Absolute Monocytes 0.8 H, Absolute Eosinophils 0.2, Absolute Basophils 0 10/07/171999: Sodium Cancelled, Potassium Cancelled, Chloride Cancelled, Carbon Dioxide Cancelled, Anion Gap Cancelled, BUN Cancelled, Creatinine Cancelled, BUN/ Creatinine Ratio Cancelled 10/07/17 1848: Anion Gap 11, Estimated GFR > 60, BUN/Creatinine Ratio 25.0 10/07/17 1800: Sodium Cancelled, Potassium Cancelled, Chloride Cancelled, Carbon Dioxide Cancelled, Anion Gap Cancelled, BUN Cancelled, Creatinine Cancelled, BUN/ Creatinine Ratio Cancelled Vital Signs Date Time Temp Pulse Resp B/P B/P Pulse O2 O2 Flow FiO2 Mean Ox Delivery Rate 10/09 0948 95 Trach Mask 35% 10/09 0700 99.7 62 18 110/70 97 Trach Mask 35% 10/09 0540 97 Trach Mask 35% 10/09 0145 98 Trach Mask 35% 10/09 0000 93 Trach Mask 35% 10/08 2301 98.2 67 20 110/60 95 Trach Mask 10/08 2214 98 Trach Mask 35% 10/08 1903 98 Trach Mask 35% 10/08 1606 98 Trach Mask 35% 10/08 1600 Trach Mask 35% 10/08 1136 97.0 61 18 112/70
--- NOTE | 2017-10-09 13:52 | Cons- General Surgery ---
General Information and HPI Consulting Request Date of Consult: 10/09/17 Requested By: Danny Olvera MD History of Present Illness: History is taken from patient family at the bedside. I have known him from previous encounters. Current concern is that of malpositioned GJ tube. Patient had gastrostomy tube placed over 10 years ago but subsequently developed aspiration pneumonitis. He was converted to a GJ tube and has been functioning for many years. Most recently it became dislodged from inexperienced caregiver. There is also dysfunction with the balloon, again from an experienced caregiver. Patient had replacement of the GJ tube by interventional radiology and currently is functioning well. Allergies/Medications Allergies: Coded Allergies: scopolamine (Mild, HIVES 12/26/16) NSAIDS (Non-Steroidal Anti-Inflamma (PER -12/26/16) adhesive (HIVES - EKG STICKERS, RED DOT [place] STICKERS 12/26/16) aspirin (PER -12/26/16) clopidogrel (From PLAVIX) (PER 12/26/16) Uncoded Allergies: EKG AND RED DOT LEADS (Intermediate, RASH 09/26/16) Home Med List: Acetaminophen 325 MG TABLET 2 TAB J TUBE Q4H PRN PAIN/TEMP/>101 (Reported) Acetaminophen (Acephen) 650 MG SUPP.RECT 1 SUPP DE Q4H PRN PAIN/TEMP>101 ( Reported) Albuterol Sulfate 2.5 MG/3 ML (0.083 %) VIAL.NEB 1 Vial INH/[place] BID RESP. ( Reported) Baclofen 10 MG TABLET 1 TAB J TUBE TID SPASMS (Reported) Bisacodyl 10 MG SUPP.RECT 1 SUP RC DAILY PRN NO BM - IF MOM INEFFECTIVE ( Reported) Cholecalciferol (Vitamin D3) 1,000 UNIT TABLET 1 TAB J TUBE DAILY SUPPLEMENT (Reported) Docusate Sodium 100 MG TABLET 1 TAB J TUBE BID STOOL SOFTENER (Reported) Escitalopram Oxalate 5 MG TABLET 1 TAB G TUBE DAILY DEPRESSION (Reported) Fentanyl 25 MCG/HOUR PATCH.TD72 1 PAT TOP Q3D PAIN (Reported) Ipratropium/Albuterol Sulfate (Iprat-Albut 0.5-3(2.5) MG/3 Ml) 0.5 MG-3 MG (2.5 MG BASE)/3 ML AMPUL.NEB 1 VIAL NEB Q4H PRN SOB (Reported) Lactobacillus Acidophilus (Acidophilus) 1 EACH CAPSULE 1 CAP J TUBE DAILY PROBIOTIC (Reported) Magnesium Hydroxide (Milk Of Magnesia) 400 MG/5 ML ORAL.SUSP 30 ML J TUBE DAILY PRN NO BM IN 3 DAYS (Reported) Na Phos,M-B/Na Phos,Di-Ba (Fleet Enema) 19 GRAM-7 GRAM/118 ML ENEMA 1 E RC DAILY PRN NO BM - IF BISACODYL INEFFECTI (Reported) Nut.tx.gluc.intoler,Lac-Fr,Soy (Glucerna 1.2 Fritz) 237 ML LIQUID 75 ML J TUBE 75 MLS/HR TUBE FEEDING (Reported) Ondansetron HCl 4 MG TABLET 1 TAB J TUBE Q8H PRN N/V (Reported) Ranitidine HCl 15 MG/ML SYRUP 10 ML J TUBE BID GI (Reported) Simvastatin (Zocor*) 10 MG TABLET 1 TAB J TUBE QHS CHOLESTEROL (Reported) Current Medications: Current Medications Sig/Gil Start time Last Medication Dose Route Stop Time Status Admin Albuterol Sulfate 3 ML BID 10/07 1000 AC 10/09 INH 0941 Atorvastatin Calcium 10 MG 1700 10/07 1700 AC 10/08 PO 1654 Baclofen 10 MG TID 10/07 1000 AC 10/09 PO 1015 Cholecalciferol 1,000 IU DAILY 10/07 1000 AC 10/09 PO 1016 Dextrose/Sodium 1,000 ML Q13H 10/06 2200 DC 10/08 Chloride IV 1307 Enoxaparin Sodium 40 MG DAILY 10/07 1000 AC 10/09 SC 1015 Escitalopram Oxalate 5 MG DAILY 10/07 1000 AC 10/09 PO 1015 Famotidine 20 MG DAILY 10/07 1000 AC 10/09 PO 1016 Fentanyl Citrate 25 MCG Q3D 10/06 2245 AC 10/07 TOP 0401 Lactobacillus 1 CAP DAILY 10/07 1000 AC 10/09 Acidophilus PO 1016 Nystatin 1 MELISSA BID 10/08 1010 AC 10/09 TOP 1016 Past History Medical History Neurological: CVA, 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 ASP PNA Gastrointestinal: constipation, GERD, peptic ulcer disease, upper GI bleed, C. 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 MOTHER (Type 2 DM). Grand father (CVA). Psychosocial History Who Do You Live With? self Services at Home: from [facility] Primary Language: Maori Smoking Status: Never Smoked ETOH Use: 5 Functional Ability ADLs Needs Assist: dressing, eating, toileting, bathing. Ambulation: non-ambulatory IADLs Needs Assist: shopping, housework, finances, food prep, telephone, transportation, medication admin. Employment History Retired? yes Review of Systems Review of Systems: Unobtainable Exam & Diagnostic Data Vital Signs and I&O Vital Signs Date Time Temp Pulse Resp B/P B/P Pulse O2 O2 Flow FiO2 Mean Ox Delivery Rate 10/09 0948 95 Trach Mask 35% 10/09 0700 99.7 62 18 110/70 97 Trach Mask 35% 10/09 0540 97 Trach Mask 35% 10/09 0145 98 Trach Mask 35% 10/09 0000 93 Trach Mask 35% 10/08 2301 98.2 67 20 110/60 95 Trach Mask 10/08 2214 98 Trach Mask 35% 10/08 1903 98 Trach Mask 35% 10/08 1606 98 Trach Mask 35% 10/08 1600 Trach Mask 35% Intake & Output 10/09 1600 10/09 0800 10/09 0000 10/08 1600 10/08 0800 10/08 0000 Intake Total 335 325 600 600 550 Output Total 350 300 Balance 335 325 600 250 250 Intake, IV 150 600 600 550 Intake, Oral 0 0 0 0 Intake, Tube 225 75 Feeding Intake, Tube 110 100 Irrigant Output, Urine 350 300 Physical Exam: General: Obese no distress opens eyes and responds to questions Abdomen soft nontender nondistended well-functioning tube in the left upper quadrant Assessment/Plan Assessment/Plan Patient with permanent need for enteric feeds. He has a functioning GJ tube that was misplaced prior to admission. Currently is in good position after replacement by interventional radiology. There is no indication for surgical jejunostomy tube placement. Tube placement would require general anesthesia with laparotomy. This would place the patient at unnecessary risk. Furthermore jejunostomy tubes are smaller in caliber and are fraught with clogging issues related to medication administration. Therefore I do not recommend transitioning to a surgically placed J-tube. He has a GJ tube that has been functioning for a number of years. Anticipate intermittent need for replacement into the jejunum. Consult Acknowledgment - Thank you for your consult request.
[2017-10-09 14:03] VITALS: BP 110/75
[2017-10-09 23:04] VITALS: BP 122/80
[2017-10-10 06:38] VITALS: BP 108/78
--- NOTE | 2017-10-10 07:30 | PN- Housestaff ---
Subjective Follow-up For: GJ tube obstruction/dislodgement Subjective: No events overnight. This morning patient reports diffused pain while on fentanyl patch Review of Systems Constitutional: Reports: see HPI. Objective Last 24 Hrs of Vital Signs/I&O Vital Signs Date Time Temp Pulse Resp B/P B/P Pulse O2 O2 Flow FiO2 Mean Ox Delivery Rate 10/10 0638 97.1 80 20 108/78 97 Trach Mask 10/10 0608 98 Trach Mask 35% 10/10 0144 96 Trach Mask 35% 10/10 0000 96 Trach Mask 35% 10/09 2304 98.5 74 24 122/80 97 Trach Mask 10/09 2225 96 Trach Mask 35% 10/09 1851 98 Trach Mask 35% 10/09 1650 Trach Mask 35% 10/09 1620 96 Trach Mask 35% 10/09 1600 Trach Mask 35% 10/09 1403 99.0 65 20 110/75 97 10/09 0948 95 Trach Mask 35% Intake & Output 10/10 1600 10/10 0800 10/10 0000 Intake Total 570 770 Output Total Balance 570 770 Intake, IV 10 Intake, Tube 450 550 Feeding Intake, Tube 110 220 Irrigant Number 1 Bowel Movements Patient 207 lb Weight Weight Bed scale Measurement Method Physical Exam General Appearance: Lethargic, Trach mask on 35% O2 Neck: No peristomal drainage Cardiovascular: Regular Rate, Normal S1, Normal S2 Lungs: Clear to Auscultation, Normal Air Movement Abdomen: GJ tube intact Current Medications: Current Medications Sig/Gil Start time Last Medication Dose Route Stop Time Status Admin Albuterol Sulfate 3 ML BID 10/07 1000 AC 10/09 INH 1840 Atorvastatin Calcium 10 MG 1700 10/07 1700 AC 10/09 PO 1637 Baclofen 10 MG TID 10/07 1000 AC 10/09 PO 2216 Cholecalciferol 1,000 IU DAILY 10/07 1000 AC 10/09 PO 1016 Enoxaparin Sodium 40 MG DAILY 10/07 1000 AC 10/09 SC 1015 Escitalopram Oxalate 5 MG DAILY 10/07 1000 AC 10/09 PO 1015 Famotidine 20 MG DAILY 10/07 1000 AC 10/09 PO 1016 Fentanyl Citrate 25 MCG Q3D 10/06 2245 AC 10/09 TOP 2215 Lactobacillus 1 CAP DAILY 10/07 1000 AC 10/09 Acidophilus PO 1016 Nystatin 1 MELISSA BID 10/08 1010 AC 03/15 TOP 2217 Assessment/Plan Assessment: Ms. 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 difficile infection, gout, depression, MRSA infection in the past that is sent in by ambulance from [place] for displacement of his feeding tube. Patient apparently had J feeding tube replaced with larger one at [facility] and since then has required multiple trips to [place] for repositioning and recannulization of the tube secondary to occlusion. Problem list: GJ-tube dislodgment/obstruction s/p replacement by IR Hypokalemia - resolved Plan: Continue tube feeding TRC/nebs PRN Monitor and replete potassium PRN Nutrionist recommendations appreciated IR recommendations appreciated Surgery consult for J tube revision DVT prophylaxis with Lovenox and Alps Diet: Glucerna 1.2 Awaiting STR placement Patient is full code Problem List: 1. Gastrostomy tube dysfunction Pain Ratin Pain Location: NA Pain Goal: Remain pain free Pain Plan: NA Tomorrow's Labs & Rationales: None
--- NOTE | 2017-10-10 10:45 | PN- Att Addend ---
Attending Addendum Attending Brief Note No new issues, fdc staff will come in and check the tube, and make sure they know how to handle it to avoid dislodgment signs are stable no fever, no new changes on physical. To return to [facility]dc later on today see discharge summary and C Intake & Output 10/10 1600 10/10 0400 10/09 1600 10/09 0400 10/08 1600 10/08 0400 Intake Total 280 222 0258 325 1200 550 Output Total 350 300 Balance 280 970 9232 325 850 250 Intake, IV 10 628 365 7570 550 Intake, Oral 0 0 0 0 Intake, Tube 450 550 505 75 Feeding Intake, Tube 110 220 330 100 Irrigant Number 1 Bowel Movements Output, Urine 350 300 Patient 207 lb Weight Weight Bed scale Measurement Method Current Medications Sig/Gil Start time Last Medication Dose Route Stop Time Status Admin Albuterol Sulfate 3 ML BID 10/07 1000 AC 10/10 INH 0919 Atorvastatin Calcium 10 MG 1700 10/07 1700 AC 10/09 PO 1637 Baclofen 10 MG TID 10/07 1000 AC 10/09 PO 2216 Cholecalciferol 1,000 IU DAILY 10/07 1000 AC 10/09 PO 1016 Enoxaparin Sodium 40 MG DAILY 10/07 1000 AC 10/09 SC 1015 Escitalopram Oxalate 5 MG DAILY 10/07 1000 AC 10/09 PO 1015 Famotidine 20 MG DAILY 10/07 1000 AC 10/09 PO 1016 Fentanyl Citrate 25 MCG Q3D 10/06 2245 AC 10/09 TOP 2215 Lactobacillus 1 CAP DAILY 10/07 1000 AC 10/09 Acidophilus PO 1016 Nystatin 1 MELISSA BID 10/08 1010 AC 10/09 TOP 2217 Tramadol HCl 50 MG ONCE ONE 10/10 0930 DC PO 10/10 0931 Laboratory Tests 10/09/17 0805: Anion Gap 9, Estimated GFR > 60, BUN/Creatinine Ratio 14.0 10/08/17 0755: Anion Gap 8, Estimated GFR > 60, BUN/Creatinine Ratio 20.0, CBC w Diff NO MAN DIFF REQ, RBC 4.51 L, MCV 91.2, MCH 30.6, MCHC 33.6, RDW 14.9 H, MPV 11.6 H, Gran % 61.3, Lymphocytes % 25.4, Monocytes % 10.4 H, Eosinophils % 2.4, Basophils % 0.5, Absolute Granulocytes 4.8, Absolute Lymphocytes 2.0, Absolute Monocytes 0.8 H, Absolute Eosinophils 0.2, Absolute Basophils 0 10/07/171999: Sodium Cancelled, Potassium Cancelled, Chloride Cancelled, Carbon Dioxide Cancelled, Anion Gap Cancelled, BUN Cancelled, Creatinine Cancelled, BUN/ Creatinine Ratio Cancelled 10/07/17 184: Anion Gap 11, Estimated GFR > 60, BUN/Creatinine Ratio 25.0 10/07/17 1800: Sodium Cancelled, Potassium Cancelled, Chloride Cancelled, Carbon Dioxide Cancelled, Anion Gap Cancelled, BUN Cancelled, Creatinine Cancelled, BUN/ Creatinine Ratio Cancelled Vital Signs Date Time Temp Pulse Resp B/P B/P Pulse O2 O2 Flow FiO2 Mean Ox Delivery Rate 10/10 0921 94 Trach Mask 35% 10/10 0638 97.1 80 20 108/78 97 Trach Mask 10/10 0608 98 Trach Mask 35% 10/10 0144 96 Trach Mask 35% 10/10 0000 96 Trach Mask 35% 10/09 2304 98.5 74 24 122/80 97 Trach Mask 10/09 2225 96 Trach Mask 35% 10/09 1851 98 Trach Mask 35% 10/09 1650 Trach Mask 35% 10/09 1620 96 Trach Mask 35% 10/09 1600 Trach Mask 35% 10/09 1403 99.0 65 20 110/75 97
[2017-10-10 11:47] VITALS: BP 112/70
[2017-10-10 15:00] VITALS: BP 132/84
== END 2017-10-10 16:50 | DRG 393 ==
LOC: ERH 15:01 → ERHI 18:30 → 2NA 18:30 → ENRESERV 20:15 → ENTRNSPT 21:31 → 2NA 21:51 → CMPTRNSPT 21:57 → 2NA 21:58 → ENPENDDIS 10-08 11:46 → 2NA 10-09 16:50
PROVIDERS: Physician Assistant; Student in an Organized Health Care Education/Training Program
PROC: 0D2DXUZ Change Feeding Device in Lower Intestinal Tract, External Approach (ICD-10-PCS; principal; 2017-10-07)
DX: K94.13 Enterostomy malfunction (principal); G83.5 Locked-in state; G82.50 Quadriplegia, unspecified; I50.32 Chronic diastolic (congestive) heart failure; Z99.81 Dependence on supplemental oxygen; N39.0 Urinary tract infection, site not specified; E78.5 Hyperlipidemia, unspecified; Z95.818 Presence of other cardiac implants and grafts; K27.7 Chronic peptic ulcer, site unspecified, without hemorrhage or perforation; F32.9 Major depressive disorder, single episode, unspecified; M10.9 Gout, unspecified; Z86.14 Personal history of Methicillin resistant Staphylococcus aureus infection; Z88.6 Allergy status to analgesic agent; Z88.8 Allergy status to other drugs, medicaments and biological substances; Z79.51 Long term (current) use of inhaled steroids; Z87.01 Personal history of pneumonia (recurrent); K59.00 Constipation, unspecified; E55.9 Vitamin D deficiency, unspecified; Z95.9 Presence of cardiac and vascular implant and graft, unspecified; Z82.3 Family history of stroke; Z83.3 Family history of diabetes mellitus; E87.6 Hypokalemia; I69.365 Other paralytic syndrome following cerebral infarction, bilateral; Z86.19 Personal history of other infectious and parasitic diseases
CPT/HCPCS: 2NAP; 36415; 36592; 74018; 81001; 82436; 93005; 93010; J1650; J3490; J7042

== ENCOUNTER 2017-11-11 12:29 | Emergency (ER) | payer OTHER, MEDICARE ==
[~2017-11-11] VITALS: Ht 182.9 cm; Wt 90.7 kg
[~2017-11-11 12:29] MED LIST changes: -ACIDOPHILUS1 EACH J TUBE; +BACLOFEN10 M1 G TUBE; -BACLOFEN10 M1 J TUBE; +DOCUSATE SODIU100 M2 G TUBE; -DOCUSATE SODIU100 M2 J TUBE; +GLUCERNA 1.2 C237 ML G TUBE; +ONDANSETRON HCL4 MG G TUBE; -ONDANSETRON HCL4 MG J TUBE; +RANITIDINE15 MG/1 ML G TUBE; -RANITIDINE15 MG/1 ML J TUBE; +VITAMIN D31000 UNI2 G TUBE; -VITAMIN D31000 UNI2 J TUBE; +ZOCOR10 M1 G TUBE; -ZOCOR10 M1 J TUBE
[2017-11-11 12:33] VITALS: BP 126/71
== END 2017-11-11 12:35 | disposition admitted as inpatient to this hospital (09) ==
LOC: ERH 12:29
DX: Z43.1 Encounter for attention to gastrostomy (principal)

== ENCOUNTER 2017-12-21 11:18 | Emergency (ER) | payer OTHER, MEDICARE ==
[~2017-12-21] VITALS: Ht 175.3 cm; Wt 86.2 kg
--- NOTE | 2017-12-21 11:53 | ED GI/GU/ABDOMINAL COMPLAINT ---
History of Present Illness General Chief Complaint: General Adult Stated Complaint: BIBA COFFEE GROUND EMESIS Source: family (sister) Exam Limitations: unable to give history, physical impairment (locked-in syndrome) Vital Signs & Intake/Output Vital Signs & Intake/Output Vital Signs Date Time Temp Pulse Resp B/P B/P Pulse O2 O2 Flow FiO2 Mean Ox Delivery Rate 12/21 1437 99.1 108 20 177/95 95 Trach Mask 5.0L 12/21 1200 94 Trach Mask 35% 12/21 1120 97.7 90 20 137/84 96 Trach Mask 5.0L ED Intake and Output 12/22 0000 12/21 1200 Intake Total Output Total Balance Patient 190 lb Weight Weight Reported by Patient Measurement Method Allergies Coded Allergies: scopolamine (Mild, HIVES 12/26/16) NSAIDS (Non-Steroidal Anti-Inflamma (PER 12/26/16) adhesive (HIVES - EKG STICKERS, RED DOT [place] STICKERS 12/26/16) aspirin (PER 12/26/16) clopidogrel (From PLAVIX) (PER 12/26/16) Uncoded Allergies: EKG AND RED DOT LEADS (Intermediate, RASH 09/26/16) Reconcile Medications Acetaminophen 325 MG TABLET 2 TAB J TUBE Q4H PRN PAIN/TEMP/>101 (Reported) Acetaminophen (Acephen) [address]PP[address]RECT [address] Q4H PRN PAIN/TEMP>101 ( Reported) Albuterol Sulfate 2.5 MG/3 ML (0.083 %) VIAL.NEB 1 Vial INH/[place] BID RESP. ( Reported) Baclofen 10 MG TABLET 1 TAB G TUBE TID SPASMS (Reported) Bisacodyl 10 MG SUPP.RECT 1 SUP RC DAILY PRN NO BM - IF MOM INEFFECTIVE ( Reported) Cholecalciferol (Vitamin D3) 1,000 UNIT TABLET 1 TAB G TUBE DAILY SUPPLEMENT (Reported) Docusate Sodium 100 MG TABLET 1 TAB G TUBE BID STOOL SOFTENER (Reported) Escitalopram Oxalate 5 MG TABLET 1 TAB G TUBE DAILY DEPRESSION (Reported) Fentanyl 25 MCG/HOUR PATCH.TD72 1 PAT TOP Q3D PAIN (Reported) Ipratropium/Albuterol Sulfate (Iprat-Albut 0.5-3(2.5) MG/3 Ml) 0.5 MG-3 MG (2.5 MG BASE)/3 ML AMPUL.NEB 1 VIAL NEB Q4H PRN DYSPNEA (Reported) Lactobacillus Acidophilus (Acidophilus) 1 EACH CAPSULE 1 CAP G TUBE DAILY PROBIOTIC (Reported) Magnesium Hydroxide (Milk Of Magnesia) 400 MG/5 ML ORAL.SUSP 30 ML J TUBE DAILY PRN NO BM IN 3 DAYS (Reported) Na Phos,M-B/Na Phos,Di-Ba (Fleet Enema) 19 GRAM-7 GRAM/118 ML ENEMA 1 E RC DAILY PRN NO BM - IF BISACODYL INEFFECTI (Reported) Nut.tx.gluc.intoler,Lac-Fr,Soy (Glucerna 1.2 Fritz) 237 ML LIQUID 75 ML G TUBE 75 MLS/HR TUBE FEEDING (Reported) Ondansetron HCl 4 MG TABLET 1 TAB G TUBE Q8H PRN N/V (Reported) Ranitidine HCl 15 MG/ML SYRUP 10 ML G TUBE BID GI (Reported) Simvastatin (Zocor*) 10 MG TABLET 1 TAB G TUBE DAILY CHOLESTEROL (Reported) Triage Note: PT BIBA FROM ECF C/C 1 EPISODE OF VOMITING COFFEE GROUND EMESIS FROM TRACH AND MOUTH. PER SPOUSE HX OF SAME, DENIES HX OF GI ULCERATIONS, GI BLEEDS, OR ANTICOAGULATION. 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 PER EMS PT O2 SAT ON 28% TRACH MASK 82% INCREASED TO 90'S ON 35% (BASELINE). AFTER SUCTIONING PT SATS TO 95% ON 35% TRACH MASK. PT GOWN SOILED IN COFFE-GROUND APPEARING SUBSTANCE. SKIN CARE PROVIDED AND PATIENT REPOSITIONED FOR COMFORT. Triage Nurses Notes Reviewed? yes Unable To Obtain Hx Due To: patient nonverbal Onset: Abrupt Timing: remote history HPI: 57-year-old male with significant medical history presents to the emergency department with his sister. He is a snf resident with quadriplegia status post a brainstem infarct resulting in locked-in syndrome, status post tracheostomy with 35% oxygen requirement via trach mask and status post J-tube placement for feeding and medication. Sister reports that at the snf this morning unknown time patient had vomited brown thick vomit. She states that she was not present at the time but was given information from the snf regarding this. She also states that it is a new snf and that patient had been laying flat at the time while getting a continuous feed through his J-tube. She states that typically patient is always sitting partially upright to prevent this from occurring. Patient able only to respond with eye movements. When asked if he was nauseous prior to vomiting he signaled yes. When asked if he felt that this was in relation to him laying flat at the time he signaled yes. When asked if he is having any abdominal pain or nausea at this time he signaled no. He has a history of aspiration pneumonia, C difficile infection, diabetes, gout, depression, history of MN, MRSA infection in the past. (Amber Galicia) Past History Travel History Traveled to [facility] past 21 day No Medical History Any Pertinent Medical History? 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 ASP PNA Gastrointestinal: constipation, GERD, peptic ulcer disease, upper GI bleed, C. 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 MOTHER (Type 2 DM). Grand father (CVA). Hx Contributory? No (Amber Galicia) Review of Systems Review of Systems Constitutional: Reports: no symptoms, see HPI. EENTM: Reports: no symptoms. Respiratory: Reports: no symptoms, see HPI. Cardiovascular: Reports: no symptoms. GI: Reports: see HPI. Genitourinary: Reports: no symptoms. Musculoskeletal: Reports: no symptoms. Skin: Reports: no symptoms. Neurological/Psychological: Reports: no symptoms. Hematologic/Endocrine: Reports: no symptoms. Immunologic/Allergic: Reports: no symptoms. All Other Systems: Reviewed and Negative (Amber Galicia) Physical Exam Physical Exam General Appearance: well developed/nourished, no apparent distress, comfortable Head: atraumatic, normal appearance Eyes: Bilateral: normal appearance. Ears, Nose, Throat, Mouth: hearing grossly normal Neck: normal inspection, TRACHEOSTOMY TUBE IN PLACE AND CLEAN Respiratory: chest non-tender, no respiratory distress Cardiovascular: regular rate/rhythm Gastrointestinal: normal bowel sounds, soft, non-tender, J-TUBE IN PLACE, SURROUNDING SKIN CLEAN WITH SLIGHT ERYTHEMA Rectal: normal inspection, heme negative stool Neurologic/Psych: awake, alert Skin: intact, normal color, warm/dry Core Measures ACS in differential dx? No Sepsis Present: No Sepsis Focused Exam Completed? No (Chandan ROJAS,Amber) Progress Differential Diagnosis: aspiration pneumonia, GI bleed Plan of Care: Orders Procedure Date/time Status PARTIAL THROMBOPLASTIN TIME 12/21 1156 Complete PROTHROMBIN TIME 12/21 1156 Complete LIPASE 12/21 1156 Complete COMPREHENSIVE METABOLIC PANEL 12/21 1156 Complete CBC WITHOUT DIFFERENTIAL 12/21 1156 Complete Laboratory Tests 12/21/17 1225: Anion Gap 15, Estimated GFR > 60, BUN/Creatinine Ratio 38.0 H, Glucose 153 H, Calcium 9.3, Total Bilirubin 1.0, AST 19, ALT 25, Alkaline Phosphatase 89, Total Protein 8.3 H, Albumin 4.1, Globulin 4.2, Albumin/Globulin Ratio 1.0 L, Lipase 73, PT 11.6, INR 1.06, APTT 31, CBC w Diff NO MAN DIFF REQ, RBC 5.07, MCV 91.0, MCH 30.6, MCHC 33.6, RDW 14.4, MPV 10.4, Gran % 92.2 H, Lymphocytes % 3.4 L, Monocytes % 4.4, Eosinophils % 0, Basophils % 0, Absolute Granulocytes 12.0 H, Absolute Lymphocytes 0.4 L, Absolute Monocytes 0.6, Absolute Eosinophils 0, Absolute Basophils 0 Diagnostic Imaging: Viewed by Me: Radiology Read. Discussed w/RAD: Radiology Read. Radiology Impression: PATIENT: SUNDAY ESPINAL PRESENT AGE: 57 PATIENT ACCOUNT NO: [id number] : 60 LOCATION: [facility] ORDERING PHYSICIAN: Amber ROJAS SERVICE DATE: 12/21/17-1156 EXAM TYPE: RAD - XRY-PORTABLE CHEST XRAY EXAMINATION: XR PORTABLE CHEST CLINICAL INFORMATION: Aspiration pneumonia COMPARISON: Previous chest x-ray most recent July 2017 TECHNIQUE: Portable frontal view of the chest was obtained. FINDINGS: The lung volumes are low. The cardiac and mediastinal contours are stable. There is a tracheostomy tube in satisfactory position. There are increased markings in the right mid lung level of the hilum and at the left lung base. This does not appear appreciably changed from previous chest x-rays. No definite evidence of an acute pneumonia is seen. There is no significant pleural effusion. There is no pneumothorax. There is a G-tube that is partially visualized. IMPRESSION: Low lung volumes. Stable increased markings in the right midlung and left lung base. No evidence of acute pneumonia. DICTATED BY: Andreina Bradley MD DATE/TIME DICTATED:12/21/171255 NITRO MAN:BRITTANY DATE/ TIME TRANSCRIBED:12/21/171255 CONFIDENTIAL, DO NOT COPY WITHOUT APPROPRIATE AUTHORIZATION. <Electronically signed in Other Vendor System> SIGNED BY: Andreina Bradley MD 12/21/17 1303 Initial ED EKG: none (Amber Galicia) Departure Departure Disposition: HOME OR SELF CARE Condition: Stable Clinical Impression Primary Impression: Emesis Qualifiers: Vomiting type: unspecified Vomiting Intractability: non-intractable Nausea presence: with nausea Qualified Code: R11.2 - Nausea with vomiting, unspecified Referrals: Danny Olvera MD (PCP/Family) Additional Instructions: Please ensure that patient is upright in bed at all times and not flat. Patient to follow-up with PCP and also GI specialist on Friday, December 23. Return to the emergency department with other concerning symptoms or continued vomiting. Departure Forms: Customer Survey General Discharge Information Comments 57-year-old male presented to the emergency department by ambulance for coffee ground emesis that was reported by the snf this morning around 10 AM. Chest x-ray unremarkable. Although white blood cell count slightly elevated patient is not tachypneic or tachycardic, and is also afebrile. Patient was discharged back to [facility] facility and advised to keep head elevated at all times to avoid emesis and/or aspiration. Patient was discharged in stable condition. (Amber Galicia) PA/BACCARAT MANAGER Co-Sign Statement Statement: ED Attending supervision documentation- I saw and evaluated the patient. I have also reviewed all the pertinent lab results and diagnostic results. I agree with the findings and the plan of care as documented in the PA's/BACCARAT MANAGER's documentation. x I have reviewed the ED Record and agree with the PA's/BACCARAT MANAGER's documentation. [] Additions or exceptions (if any) to the PAs/BACCARAT MANAGER's note and plan are summarized below: [] (Eddie SOTELO,Garrett)
[2017-12-21 12:34] LABS: BASOPHIL % 0 % (0.0-2.0); EOSINOPHIL % 0 % (0-5); HEMATOCRIT 46.2 % (42-52); MEAN CORPUSCULAR HGB 30.6 PG (27.0-31.0); MEAN CORPUSCULAR HGB CONC 33.6 G/DL (33.0-37.0); MEAN PLATELET VOLUME 10.4 FL (7.4-10.4); PLATELET COUNT 224 /CUMM (130-400); RBC DISTRIBUTION WIDTH 14.4 % (11.5-14.5); RED BLOOD CELL CT 5.07 /CUMM (4.70-6.10)
[2017-12-21 12:35] LABS: ABSOLUTE BASOPHIL COUNT 0 /CUMM (0.0-0.2); ABSOLUTE EOSINOPHIL COUNT 0 /CUMM (0.0-0.7); ABSOLUTE LYMPH COUNT 0.4 /CUMM (1.2-3.4); ABSOLUTE MONOCYTE COUNT 0.6 /CUMM (0.10-0.60)
[2017-12-21 12:42] LABS: PT 11.6 SEC (9.4-12.5); PTT 31 SEC (25-37)
[2017-12-21 12:48] LABS: GRANULOCYTE % 92.2 % (42.2-75.2)
--- NOTE | 2017-12-21 13:03 | RADIOLOGY REPORT ---
EXAMINATION: XR PORTABLE CHEST CLINICAL INFORMATION: Aspiration pneumonia COMPARISON: Previous chest x-ray most recent July 2017 TECHNIQUE: Portable frontal view of the chest was obtained. FINDINGS: The lung volumes are low. The cardiac and mediastinal contours are stable. There is a tracheostomy tube in satisfactory position. There are increased markings in the right mid lung level of the hilum and at the left lung base. This does not appear appreciably changed from previous chest x-rays. No definite evidence of an acute pneumonia is seen. There is no significant pleural effusion. There is no pneumothorax. There is a G-tube that is partially visualized. IMPRESSION: Low lung volumes. Stable increased markings in the right midlung and left lung base. No evidence of acute pneumonia.
[2017-12-21 14:37] VITALS: BP 177/95
== END 2017-12-21 15:34 ==
LOC: ERH 11:18
PROVIDERS: Physician Assistant
DX: R11.10 Vomiting, unspecified (principal)
CPT/HCPCS: 71045

== ENCOUNTER 2018-01-15 05:16 | Inpatient (IN) | payer OTHER, MEDICARE ==
[~2018-01-15] VITALS: Ht 165.1 cm; Wt 88.1 kg
[2018-01-15 05:47] LABS: ABSOLUTE BASOPHIL COUNT 0 /CUMM (0.0-0.2); ABSOLUTE EOSINOPHIL COUNT 0 /CUMM (0.0-0.7); ABSOLUTE GRANULOCYTE CT 14.1 /CUMM (1.4-6.5); ABSOLUTE LYMPH COUNT 0.6 /CUMM (1.2-3.4); ABSOLUTE MONOCYTE COUNT 0.7 /CUMM (0.10-0.60); BASOPHIL % 0 % (0.0-2.0); EOSINOPHIL % 0.1 % (0-5); HEMATOCRIT 49.4 % (42-52); MEAN CORPUSCULAR HGB 29.9 PG (27.0-31.0); MEAN CORPUSCULAR HGB CONC 32.8 G/DL (33.0-37.0); MEAN CORPUSCULAR VOLUME 91.3 FL (80.0-94.0); MEAN PLATELET VOLUME 10.6 FL (7.4-10.4); PLATELET COUNT 228 /CUMM (130-400); RBC DISTRIBUTION WIDTH 14.8 % (11.5-14.5); RED BLOOD CELL CT 5.42 /CUMM (4.70-6.10); WHITE BLOOD CELL COUNT 15.4 /CUMM (4.8-10.8)
--- NOTE | 2018-01-15 05:51 | ED GENERAL ADULT ---
History of Present Illness General Chief Complaint: General Adult Stated Complaint: BIBA COFFEE GROUND BLACK NOTED Source: EMS, W10 Exam Limitations: unable to give history, physical impairment Allergies Coded Allergies: scopolamine (Mild, HIVES 12/26/16) NSAIDS (Non-Steroidal Anti-Inflamma (PER -12/26/16) adhesive (HIVES - EKG STICKERS, RED DOT [place] STICKERS 12/26/16) aspirin (PER 12/26/16) clopidogrel (From PLAVIX) (PER 12/26/16) Uncoded Allergies: EKG AND RED DOT LEADS (Intermediate, RASH 09/26/16) Reconcile Medications Acetaminophen 325 MG TABLET 2 TAB J TUBE Q4H PRN PAIN/TEMP/>101 (Reported) Acetaminophen (Acephen) 650 MG SUPP.RECT 1 SUPP [place] Q4H PRN PAIN/TEMP>101 ( Reported) Albuterol Sulfate 2.5 MG/3 ML (0.083 %) VIAL.NEB 1 Vial INH/[place] BID RESP. ( Reported) Baclofen 10 MG TABLET 1 TAB G TUBE TID SPASMS (Reported) Bisacodyl 10 MG SUPP.RECT 1 SUP RC DAILY PRN NO BM - IF MOM INEFFECTIVE ( Reported) Cholecalciferol (Vitamin D3) 1,000 UNIT TABLET 1 TAB G TUBE DAILY SUPPLEMENT (Reported) Docusate Sodium 100 MG TABLET 1 TAB G TUBE BID STOOL SOFTENER (Reported) Escitalopram Oxalate 5 MG TABLET 1 TAB G TUBE DAILY DEPRESSION (Reported) Fentanyl 25 MCG/HOUR PATCH.TD72 1 PAT TOP Q3D PAIN (Reported) Ipratropium/Albuterol Sulfate (Iprat-Albut 0.5-3(2.5) MG/3 Ml) 0.5 MG-3 MG (2.5 MG BASE)/3 ML AMPUL.NEB 1 VIAL NEB Q4H PRN DYSPNEA (Reported) Lactobacillus Acidophilus (Acidophilus) 1 EACH CAPSULE 1 CAP G TUBE DAILY PROBIOTIC (Reported) Magnesium Hydroxide (Milk Of Magnesia) 400 MG/5 ML ORAL.SUSP 30 ML J TUBE DAILY PRN NO BM IN 3 DAYS (Reported) Na Phos,M-B/Na Phos,Di-Ba (Fleet Enema) 19 GRAM-7 GRAM/118 ML ENEMA 1 E RC DAILY PRN NO BM - IF BISACODYL INEFFECTI (Reported) Ondansetron HCl 4 MG TABLET 1 TAB G TUBE Q8H PRN N/V (Reported) Ranitidine HCl 15 MG/ML SYRUP 10 ML G TUBE BID GI (Reported) Simvastatin (Zocor*) 10 MG TABLET 1 TAB G TUBE DAILY CHOLESTEROL (Reported) Triage Note: 57YO MALE TO RM 3 VIA AMB FROM ECF SP FOUND W/DK COFFEEGROUND COLORED SECRETIONS COMING FROM [facility]. Triage Nurses Notes Reviewed? yes Unable To Obtain Hx Due To: patient nonverbal Onset: Abrupt Duration: minute(s): Timing: single episode today Severity: moderate HPI: 01/15/18 57-year-old man with a past medical history of locked-in syndrome, tracheostomy, presents from the [place] [facility] for coffee ground material coming from around the trach. No fever. History is limited due to his clinical condition. He is awake and alert. Respiratory was called and suctioned out the trach. Coffee ground material was present. Stool was guaiac negative, performed by the nursing staff , when he changed the diaper. (Praful Ge DO) Vital Signs & Intake/Output Vital Signs & Intake/Output Vital Signs Date Time Temp Pulse Resp B/P B/P Pulse O2 O2 Flow FiO2 Mean Ox Delivery Rate 01/15 0730 99.3 115 18 135/92 93 Trach Mask 40% 01/15 0700 96.8 112 18 132/76 98 Room Air 01/15 0654 92 Trach Mask 40% 01/15 0532 94 Trach Mask 40% 01/15 0527 93 Trach Mask 40% 01/15 0524 96.4 115 24 145/98 96 Trach Mask 40% 01/15/18 5:27 57 year old male presents to the emergency department for reported coffee ground emisis from trach. Patient is non verbal and ambulitory at base line due to CVA. (Praful Ge DO) (Marisela SOTELO,Praful Maldonado) Past History Travel History Traveled to [place] past 21 day No Medical History Any Pertinent Medical History? 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 ASP PNA Gastrointestinal: constipation, GERD, peptic ulcer disease, upper GI bleed, C. 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 MOTHER (Type 2 DM). Grand father (CVA). Hx Contributory? No (Praful Ge DO) Review of Systems Review of Systems Constitutional: Reports: no symptoms. Denies: see HPI. EENTM: Reports: see HPI. Respiratory: Reports: cough. Denies: see HPI. Cardiovascular: Reports: no symptoms. Denies: see HPI. GI: Reports: no symptoms. Denies: see HPI. Genitourinary: Reports: no symptoms. Denies: see HPI. Musculoskeletal: Reports: no symptoms. Denies: see HPI. Skin: Reports: no symptoms. Denies: see HPI. Neurological/Psychological: Denies: see HPI. Hematologic/Endocrine: Reports: no symptoms. Denies: see HPI. Immunologic/Allergic: Reports: no symptoms. Denies: see HPI. (Praful Ge DO) Physical Exam Physical Exam General Appearance: awake, mild distress Head: atraumatic Eyes: Bilateral: normal appearance, PERRL, EOMI. Ears, Nose, Throat: tracheostomy Neck: limited range of motion Respiratory: decreased breath sounds, rhonchi Cardiovascular: regular rate/rhythm Peripheral Pulses: 4+ radial (R), 4+ radial (L) Gastrointestinal: gastrostomy Rectal: heme negative stool, DONE BY THE NURSING STAFF Back: decreased range of motion Extremities: limited range of motion, lower extremity cachexia Neurologic/Psych: awake, quadriplegia Skin: intact, normal color, warm/dry Core Measures ACS in differential dx? No CVA/TIA Diagnosis: No Sepsis Present: No Sepsis Focused Exam Completed? No (Praful Ge DO) Progress Differential Diagnoses I considered the following diagnoses in my evaluation of the patient: [GI bleed, aspiration pneumonia, tracheitis, bronchitis,] Initial ED EKG: NSR (Praful Ge DO) Plan of Care: Orders Procedure Date/time Status Nothing by Mouth 01/15 L Active URINALYSIS 01/15 0801 Active Misc Message 01/15 751 Active ED Holding Orders 01/15 751 Active Admit to inpatient 01/15 751 Active Vital Signs 01/15 751 Active Code Status 01/15 075 Active Patient Data 01/15 07 Active BLOOD CULTURE 01/15 0658 Active RT ED ORDERS 01/15 527 Active COMPREHENSIVE METABOLIC PANEL 01/15 527 Complete CBC WITHOUT DIFFERENTIAL 01/15 527 Complete Current Medications Sig/Gil Start time Last Medication Dose Stop Time Status Admin Pantoprazole Sodium 40 MG DAILY 01/15 0900 UNVr (Protonix) Sodium Chloride 1,000 ML ONCE ONE 01/15 05 AC 01/15 (Normal Saline 0.9%) 01/15 1209 0608 Laboratory Tests 01/15/18 0538: Anion Gap 13, Estimated GFR > 60, BUN/Creatinine Ratio 36.0 H, Glucose 177 H, Calcium 9.7, Total Bilirubin 0.9, AST 21, ALT 37, Alkaline Phosphatase 92, Total Protein 8.1, Albumin 3.9, Globulin 4.2, Albumin/Globulin Ratio 0.9 L, CBC w Diff NO MAN DIFF REQ, RBC 5.42, MCV 91.3, MCH 29.9, MCHC 32.8 L, RDW 14.8 H, MPV 10.6 H, Gran % 91.8 H, Lymphocytes % 3.7 L, Monocytes % 4.4, Eosinophils % 0.1, Basophils % 0, Absolute Granulocytes 14.1 H, Absolute Lymphocytes 0.6 L , Absolute Monocytes 0.7 H, Absolute Eosinophils 0, Absolute Basophils 0 Microbiology 01/15 0748 BLOOD: Blood Culture - RECD 01/15 658 BLOOD: Blood Culture - ORD (Praful Antonio MD) Departure Departure Disposition: STILL A PATIENT Condition: Stable Clinical Impression Primary Impression: Aspiration pneumonia Secondary Impressions: Tracheitis Referrals: Danny Olvera MD (PCP/Family) Departure Forms: Customer Survey General Discharge Information Admission Note Spoke With: Danny Olvera MD Documentation of Exam: Documentation of any treatments & extenuating circumstances including Concerns Regarding Discharge (functional status, medication knowledge or non-compliance, living conditions, etc.) that warrant an admission rather than observation: [The patient needs admission for IV antibiotics, respiratory suctioning, consider GI consult] Consider CT scan, considered the possibility of fistula. PATIENT: SUNDAY ESPINAL PRESENT AGE: 57 PATIENT ACCOUNT NO: [id number] : 60 LOCATION: [facility] ORDERING PHYSICIAN: Praful Ge DO SERVICE DATE: 01/15/18 EXAM TYPE: RAD - XRY-PORTABLE CHEST XRAY EXAMINATION: CHEST 1 VIEW CLINICAL INFORMATION: Congestion. COMPARISON: December 21, 2017. TECHNIQUE: An AP view of the chest is provided. The examination is limited as the lung apices are excluded from view. FINDINGS: The cardiac silhouette is stable. As stated above, the exam is quite limited. Lung volumes are decreased. There is mild bibasilar atelectasis. There are no demonstrable pleural effusions. A G-tube is in place. The osseous structures are stable. IMPRESSION: Limited exam as stated above. Bibasilar atelectasis in the setting of low lung volumes. DICTATED BY: Giovanny Alejo MD DATE/TIME DICTATED:01/15/18554 INTERMEDIATE SCHOOL TEACHER:BRITTANY DATE/TIME TRANSCRIBED:01/15/18554 CONFIDENTIAL, DO NOT COPY WITHOUT APPROPRIATE AUTHORIZATION. <Electronically signed in Other Vendor System> SIGNED BY: Giovanny Alejo MD 01/15/18599 (Praful Ge DO) Critical Care Note Critical Care Note Critical Care Time: non-applicable (Praful Ge DO)
--- NOTE | 2018-01-15 06:00 | RADIOLOGY REPORT ---
EXAMINATION: CHEST 1 VIEW CLINICAL INFORMATION: Congestion. COMPARISON: December 21, 2017. TECHNIQUE: An AP view of the chest is provided. The examination is limited as the lung apices are excluded from view. FINDINGS: The cardiac silhouette is stable. As stated above, the exam is quite limited. Lung volumes are decreased. There is mild bibasilar atelectasis. There are no demonstrable pleural effusions. A G-tube is in place. The osseous structures are stable. IMPRESSION: Limited exam as stated above. Bibasilar atelectasis in the setting of low lung volumes.
[2018-01-15 06:04] LABS: GRANULOCYTE % 91.8 % (42.2-75.2)
--- NOTE | 2018-01-15 08:03 | History & Physical ---
General Information and HPI MD Statement: I have seen and personally examined SUNDAY ESPINAL and documented this H&P. The patient is a 57 year old M who presented with a patient stated chief complaint of [tracheal secretions]. 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 difficile infection, diabetes, gout, depression, history of GA, MRSA infection in the past and only able to communicate with his eyes. Patient had a Gastrostomy tube which was replaced by GJ tube due to aspiration years ago which was clogged and dislodged by IR in september 2017. He also found to have right bronchial stenosis resulting in multiple postobstructive pneumonias in the past, grew resistant bugs. He was broad sprectrum antibiotics in the past. Patient had coffee ground/black secretions from his mouth and trach this morning at the facility. He is usually on humified mask with 40% FiO2. Similar episode on december 21 sent without antibiotics, apparently received augmentin at facility which was done by january 04. He reportedly had significant secretions via trach during the course of antibiotics. Last week he remained stable. Usully trach was suctioned every shift. Not sure when was the last time the trach changed. Seen by at the center. After coming to ER he had copious amount of secretions from the trach, red to dark. Clearly no hisotry provided by the patient. Sister at bedside, reports moving to [facility] recently after [facility] closed. Allergies/Medications Allergies: Coded Allergies: scopolamine (Mild, HIVES 12/26/16) NSAIDS (Non-Steroidal Anti-Inflamma (PER W-12/26/16) adhesive (HIVES - EKG STICKERS, RED DOT [place] STICKERS 12/26/16) aspirin (PER W-12/26/16) clopidogrel (From PLAVIX) (PER -12/26/16) Uncoded Allergies: EKG AND RED DOT LEADS (Intermediate, RASH 03/02/17) Home Med list Acetaminophen 325 MG TABLET 2 TAB J TUBE Q4H PRN PAIN/TEMP/>101 (Reported) Acetaminophen (Acephen) 650 MG SUPP.RECT 1 SUPP DE Q4H PRN PAIN/TEMP>101 ( Reported) Albuterol Sulfate 2.5 MG/3 ML (0.083 %) VIAL.NEB 1 Vial INH/[place] BID RESP. ( Reported) Baclofen 10 MG TABLET 1 TAB G TUBE TID SPASMS (Reported) Bisacodyl 10 MG SUPP.RECT 1 SUP RC DAILY PRN NO BM - IF MOM INEFFECTIVE ( Reported) Cholecalciferol (Vitamin D3) 1,000 UNIT TABLET 1 TAB G TUBE DAILY SUPPLEMENT (Reported) Docusate Sodium 100 MG TABLET 1 TAB G TUBE BID STOOL SOFTENER (Reported) Escitalopram Oxalate 5 MG TABLET 1 TAB G TUBE DAILY DEPRESSION (Reported) Ipratropium/Albuterol Sulfate (Iprat-Albut 0.5-3(2.5) MG/3 Ml) 0.5 MG-3 MG (2.5 MG BASE)/3 ML AMPUL.NEB 1 VIAL NEB Q4H PRN DYSPNEA (Reported) Lactobacillus Acidophilus (Acidophilus) 1 EACH CAPSULE 1 CAP G TUBE DAILY PROBIOTIC (Reported) Magnesium Hydroxide (Milk Of Magnesia) 400 MG/5 ML ORAL.SUSP 30 ML J TUBE DAILY PRN NO BM IN 3 DAYS (Reported) Na Phos,M-B/Na Phos,Di-Ba (Fleet Enema) 19 GRAM-7 GRAM/118 ML ENEMA 1 E RC DAILY PRN NO BM - IF BISACODYL INEFFECTI (Reported) Ondansetron HCl 4 MG TABLET 1 TAB G TUBE Q8H PRN N/V (Reported) Ranitidine HCl 15 MG/ML SYRUP 10 ML G TUBE BID GI (Reported) Simvastatin (Zocor*) 10 MG TABLET 1 TAB G TUBE DAILY CHOLESTEROL (Reported) Compliance With Home Meds: UNKNOWN Past History Travel History Traveled to [place] past 21 day No Medical History Neurological: CVA, 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 ASP PNA Gastrointestinal: constipation, GERD, peptic ulcer disease, upper GI bleed, C. 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 MOTHER (Type 2 DM). Grand father (CVA). Psychosocial History Who Do You Live With? self Services at Home: from [facility] Primary Language: Martiniquais Functional Ability ADLs Needs Assist: dressing, eating, toileting, bathing. Ambulation: non-ambulatory IADLs Needs Assist: shopping, housework, finances, food prep, telephone, transportation, medication admin. Review of Systems Review of Systems Constitutional: Reports: see HPI. Comments not appreciated in view of clinical condition Exam & Diagnostic Data Last 24 Hrs of Vital Signs/I&O Vital Signs Date Time Temp Pulse Resp B/P B/P Pulse O2 O2 Flow FiO2 Mean Ox Delivery Rate 01/15 0730 99.3 115 18 135/92 93 Trach Mask 40% 01/15 0700 96.8 112 18 132/76 98 Room Air 01/15 0654 92 Trach Mask 40% 01/15 0532 94 Trach Mask 40% 01/15 0527 93 Trach Mask 40% 01/15 0524 96.4 115 24 145/98 96 Trach Mask 40% Intake & Output 01/15 1600 01/15 0800 01/15 0000 Intake Total Output Total Balance Number 1 Bowel Movements Patient 106.594 kg Weight Physical Exam General Appearance Alert Skin No Rashes, multiple scabs with erythema and nodules on bother lower legs on dorsal surface Skin Temp/Moisture Exam: Warm/Dry HEENT Atraumatic, PERRLA, EOMI Neck Supple Cardiovascular Normal S1, Normal S2, tachycardic Lungs unable to appreciate well, but no rales or rhochi. Clear to auscultate Abdomen Normal Bowel Sounds, No Tenderness, distended Extremities No Clubbing, No Cyanosis Vascular Normal Pulses Body Front and Back (Adult) 1) trach present 2) quadriplegic 3) erythematous, crusted lesions with scabs. 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 Patient had similar presentation on 12/21/17 came to ER, recommended to raise the head end of bed. He had a history of GI bleed and PUD in the past. VS at presentation - afebrile, tachycadic 115, BP stable, on baseline 40% Fio2 without increased requirement. Physical exam did show distended abdomen, normal heart and lung exam. erythematous scaby lesions on the lower extremities. Labs did show signs of dehydration with H&H of 16/49, white count of 15. Na 146, BUN/Cr 18/0.5. Imaging shows hazyness in the lungs without definetive pneumonia signs. Differential Coffee ground emesis - probably erosive from esophagus/ bleeding from peptic ulcer disease or tracheal erosions from persistent suctioning. Patient is tachycardic suggestive of atleast 500ml of volume loss. Problem list 1. Coffee ground emesis - possible Upper GI bleed 2. Possible aspiration pneumonitis (h/o multiple aspiration pneumonias) 3. Locked in syndrome with trach on 40% FiO2 4. J tube for feeding Plan Admit to telemtry floor for continous rhythm monitoring Coffee ground emesis Differential: Upper GI bleed (erosions/ breakthrough bleeding from PUD/ectatic gastric vessels). Patient is in upright position lately after recent similar episode on 12/21/17. abdomen is distended. On pepcid 10ml daily last dose yesterday. Not on PPI possibly due to C.diff in the past. Other consideration is tracheal erosion from suctioning. Unsure about the last change in trach given recent change in detention. Although not hemodynamically not significant the reason for recurrent bleeding needs to be sorted out. * IV PPI * Aggressive hydration with D51/2NS * PT/PTT * Aspiration precautions * GI consult for further evaluation Aspiration pneumonitis white count of 14. afebrile. CXR did show mild haziness but not convincing for pneumonia on personal review. At baseline oxygen requirement. * Aspiration precautions * OFF antibiotics * Blood cultures * Monitor for fever/increased oxygen requirement -- if present start IV unasyn * Hold tube feeds for today (was on jevity 1.2 with Q4hr 100ml flushes) * Pulm consult if deemed, seen by in the past. * Repeat CXR tomorrow * [place] CBC, BEP Erythematous scaby lesions on bilateral legs Unclear for now. possibly difficult to do ALPS Continue home medicaitons including simvastatin, baclofen, bowel regimen. DVT prophylaxis ALPS given bleeding code status full code As Ranked By This Provider Problem List: 1. Tracheostomy in place 2. LOCKED-IN SYNDROME 3. Full code status 4. Leucocytosis 5. Quadriplegia 6. Dehydration Core Measures/Misc (04/13) Acute Coronary Syndrome ACS Diagnosis: No Congestive Heart Failure Congestive Heart Failure Diagnosis No Cerebrovascular Accident CVA/TIA Diagnosis: No VTE (View Protocol) VTE Risk Factors Acute Medical Illness No Mechanical VTE Prophylaxis d/t Medical Contraindication No VTE Pharm Prophylaxis d/t Bleeding (Active) Comment: bleeding Sepsis (View protocol) Sepsis Present: No If YES complete Sepsis Event Note If YES complete Sepsis Event Note
--- NOTE | 2018-01-15 09:57 | Admission Certification ---
Admission Certification Certification Statement - As attending physician, I certify that at the time of - admission, based on clinical presentation, severity of - symptoms, need for further diagnostic testing and - therapeutic interventions, and risk of adverse outcomes - without in-hospital treatment, in my clinical assessment, - this patient requires an acute hospital stay for a minimum - of two nights or longer. I have also considered psychsocial - factors such as support system, advanced age, financial - issues, cognitive issues, and failed out-patient treatments, - past re-admission history, safety of patient, and lack of - compliance as applicable. Specific rationale supporting this admission is: Increased tracheal secretions, some blood within, aspiration pneumonia
--- NOTE | 2018-01-15 10:01 | PN- Att Addend ---
Attending Addendum Attending Brief Note 57-year-old white male resident of [facility] with several chronic conditions has a chronic tracheostomy tube has a feeding tube. Has been dealing with increased secretions and frequent suctioning has been on antibiotic treatments. But the secretions continue, been suctioned frequently in the late secretions are also mixed with some dark blood. For all those reasons he sent to the emergency room. He sounds congested. His chest x-ray showed basilar atelectasis and low volumes. His white count is 15,400. Has a low-grade temperature. Will admit with culture and probably treated with antibiotic therapy. Also get the proper consults Current Medications Sig/Gil Start time Last Medication Dose Route Stop Time Status Admin Atorvastatin Calcium 5 MG 1700 01/15 1700 AC PO Baclofen 10 MG TID 01/15 09 AC PO Bisacodyl 10 MG DAILY PRN 01/15 0845 AC MS Cholecalciferol 1,000 IU DAILY 01/15 09 AC PO Dextrose/Sodium 1,000 ML Q13H 01/15 0945 AC Chloride IV Dextrose/Water 1,000 ML CONTINOUS INFUSION 01/15 0815 DC IV 01/16 0414 Docusate Sodium 100 MG BID 01/15 09 AC PO Escitalopram Oxalate 5 MG DAILY 01/15 09 AC PO Fentanyl Citrate 25 MCG Q3D 01/15 0845 DC TOP Lactobacillus 1 CAP DAILY 01/15 900 AC Acidophilus PO Magnesium Hydroxide 30 ML DAILY PRN 01/15 0845 AC PO Pantoprazole Sodium 40 MG DAILY 01/15 0900 AC 01/15 IV 0750 Pantoprazole Sodium 0 .STK-MED ONE 01/15 0720 DC IV Sodium Chloride 1,000 ML ONCE ONE 01/15 0530 DC 01/15 IV 01/15 1209 0608 Laboratory Tests 01/15/18 0957: Urine Color Pending, Urine Clarity Pending, Urine pH Pending, Ur Specific [place] Pending, Urine Protein Pending, Urine Ketones Pending, Urine Nitrite Pending, Urine Bilirubin Pending, Urine Urobilinogen Pending, Ur Leukocyte Esterase Pending, Ur Microscopic Pending, Urine Hemoglobin Pending, Urine Glucose Pending 01/15/18 0538: Anion Gap 13, Estimated GFR > 60, BUN/Creatinine Ratio 36.0 H, Glucose 177 H, Calcium 9.7, Total Bilirubin 0.9, AST 21, ALT 37, Alkaline Phosphatase 92, Total Protein 8.1, Albumin 3.9, Globulin 4.2, Albumin/Globulin Ratio 0.9 L, CBC w Diff NO MAN DIFF REQ, RBC 5.42, MCV 91.3, MCH 29.9, MCHC 32.8 L, RDW 14.8 H, MPV 10.6 H, Gran % 91.8 H, Lymphocytes % 3.7 L, Monocytes % 4.4, Eosinophils % 0.1, Basophils % 0, Absolute Granulocytes 14.1 H, Absolute Lymphocytes 0.6 L , Absolute Monocytes 0.7 H, Absolute Eosinophils 0, Absolute Basophils 0 Vital Signs Date Time Temp Pulse Resp B/P B/P Pulse O2 O2 Flow FiO2 Mean Ox Delivery Rate 01/15 0928 99.0 115 22 108/81 92 Trach Mask 01/15 0839 99.2 112 20 128/82 93 Trach Mask 01/15 0730 99.3 115 18 135/92 93 Trach Mask 40% 01/15 0700 96.8 112 18 132/76 98 Room Air 01/15 0654 92 Trach Mask 40% 01/15 0532 94 Trach Mask 40% 01/15 0527 93 Trach Mask 40% 01/15 0524 96.4 115 24 145/98 96 Trach Mask 40%
[2018-01-15 13:24] LABS: ABSOLUTE BASOPHIL COUNT 0.1 /CUMM (0.0-0.2); ABSOLUTE EOSINOPHIL COUNT 0 /CUMM (0.0-0.7); ABSOLUTE GRANULOCYTE CT 7.4 /CUMM (1.4-6.5); ABSOLUTE LYMPH COUNT 1.2 /CUMM (1.2-3.4); ABSOLUTE MONOCYTE COUNT 0.9 /CUMM (0.10-0.60); BASOPHIL % 0.7 % (0.0-2.0); EOSINOPHIL % 0.2 % (0-5); GRANULOCYTE % 77.5 % (42.2-75.2); HEMATOCRIT 44.5 % (42-52); MEAN CORPUSCULAR HGB 30.8 PG (27.0-31.0); MEAN CORPUSCULAR HGB CONC 33.7 G/DL (33.0-37.0); MEAN CORPUSCULAR VOLUME 91.6 FL (80.0-94.0); MEAN PLATELET VOLUME 10.6 FL (7.4-10.4); PLATELET COUNT 187 /CUMM (130-400); RBC DISTRIBUTION WIDTH 14.5 % (11.5-14.5); RED BLOOD CELL CT 4.86 /CUMM (4.70-6.10); WHITE BLOOD CELL COUNT 9.6 /CUMM (4.8-10.8)
--- NOTE | 2018-01-15 14:00 | Cons- Gastroenterology ---
General Information and HPI Consulting Request Date of Consult: 01/15/18 Requested By: Danny Olvera MD Reason for Consult: Hematemesis Source of Information: old records Exam Limitations: clinical condition History of Present Illness: Mr. Isabel is a 57 year old male with multiple medical problems including quadriplegia with a locked in state s/p trach and feeding tube (GJ tube) who was sent into for coffee ground secretions around his trach site that was noted this morning. There are no reports of vomiting or of abdominal pain. He has not had any bright red secretions and there are no reports of melena, or hematochezia. In the ER he was tachycardic but normotensive stable and was noted to have a hemoglobin of 16. He was admitted to medical service for observation and he was given an IV PPI, and while there was a concern of possible aspiration pneumonia there was no obvious infiltrate on chest x-ray and it was therefore decided to observe him off of antibiotics. Allergies/Medications Allergies: Coded Allergies: scopolamine (Mild, HIVES 12/26/16) NSAIDS (Non-Steroidal Anti-Inflamma (PER W-12/26/16) adhesive (HIVES - EKG STICKERS, RED DOT WILTON STICKERS 12/26/16) aspirin (PER 12/26/16) clopidogrel (From PLAVIX) (PER 12/26/16) Uncoded Allergies: EKG AND RED DOT LEADS (Intermediate, RASH 09/26/16) Home Med List: Acetaminophen 325 MG TABLET 2 TAB J TUBE Q4H PRN PAIN/TEMP/>101 (Reported) Acetaminophen (Acephen) 650 MG SUPP.RECT 1 SUPP NM Q4H PRN PAIN/TEMP>101 ( Reported) Albuterol Sulfate 2.5 MG/3 ML (0.083 %) VIAL.NEB 1 Vial INH/MONICO BID RESP. ( Reported) Baclofen 10 MG TABLET 1 TAB G TUBE TID SPASMS (Reported) Bisacodyl 10 MG SUPP.RECT 1 SUP RC DAILY PRN NO BM - IF MOM INEFFECTIVE ( Reported) Cholecalciferol (Vitamin D3) 1,000 UNIT TABLET 1 TAB G TUBE DAILY SUPPLEMENT (Reported) Docusate Sodium 100 MG TABLET 1 TAB G TUBE BID STOOL SOFTENER (Reported) Escitalopram Oxalate 5 MG TABLET 1 TAB G TUBE DAILY DEPRESSION (Reported) Ipratropium/Albuterol Sulfate (Iprat-Albut 0.5-3(2.5) MG/3 Ml) 0.5 MG-3 MG (2.5 MG BASE)/3 ML AMPUL.NEB 1 VIAL NEB Q4H PRN DYSPNEA (Reported) Lactobacillus Acidophilus (Acidophilus) 1 EACH CAPSULE 1 CAP G TUBE DAILY PROBIOTIC (Reported) Magnesium Hydroxide (Milk Of Magnesia) 400 MG/5 ML ORAL.SUSP 30 ML J TUBE DAILY PRN NO BM IN 3 DAYS (Reported) Na Phos,M-B/Na Phos,Di-Ba (Fleet Enema) 19 GRAM-7 GRAM/118 ML ENEMA 1 E RC DAILY PRN NO BM - IF BISACODYL INEFFECTI (Reported) Ondansetron HCl 4 MG TABLET 1 TAB G TUBE Q8H PRN N/V (Reported) Ranitidine HCl 15 MG/ML SYRUP 10 ML G TUBE BID GI (Reported) Simvastatin (Zocor*) 10 MG TABLET 1 TAB G TUBE DAILY CHOLESTEROL (Reported) Current Medications: Current Medications Sig/Gil Start time Last Medication Dose Route Stop Time Status Admin Atorvastatin Calcium 5 MG 1700 01/15 1700 AC PO Baclofen 10 MG TID 01/15 09 AC 01/15 PO 1252 Bisacodyl 10 MG DAILY PRN 01/15 0845 AC NM Cholecalciferol 1,000 IU DAILY 01/15 09 AC 01/15 PO 1252 Dextrose/Sodium 1,000 ML Q13H 01/15 0945 AC 01/15 Chloride IV 1035 Dextrose/Water 1,000 ML CONTINOUS INFUSION 01/15 0815 DC IV 01/16 0414 Docusate Sodium 100 MG BID 01/15 09 AC 01/15 PO 1252 Escitalopram Oxalate 5 MG DAILY 01/15 09 AC 01/15 PO 1252 Fentanyl Citrate 25 MCG Q3D 01/15 0845 DC TOP Lactobacillus 1 CAP DAILY 01/15 900 AC 01/15 Acidophilus PO 1252 Magnesium Hydroxide 30 ML DAILY PRN 01/15 0845 AC PO Pantoprazole Sodium 40 MG DAILY 01/15 0900 AC 01/15 IV 0750 Pantoprazole Sodium 0 .STK-MED ONE 01/15 0720 DC IV Sodium Chloride 1,000 ML ONCE ONE 01/15 0530 DC 01/15 IV 01/15 1209 0608 Past History Travel History Traveled to [place] past 21 day No Medical History Neurological: CVA, 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 ASP PNA Gastrointestinal: constipation, GERD, peptic ulcer disease, upper GI bleed, C. Difficile DYSPHAGIA GTUBE Hepatic: NONE Renal: nephrolithiasis, UTI Musculoskeletal: gout, MUSCLE SPASMS Psychiatric: depression, schizophrenia Endocrine: DIABETES VIT D DEFICIENCY Blood Disorders: NONE Cancer(s): NONE TUBE ROLLER/Reproductive: NONE Surgical History Surgical History: hernia repair-inguinal (8 years prior to admission), GASTOJEJUNOSTOMY status post IVC filter Family History Relations & Conditions If Any: FATHER (CVA, type 2 DM, Colon Ca). MOTHER (Type 2 DM). Grand father (CVA). Psychosocial History Who Do You Live With? self Services at Home: from [facility] Primary Language: Upper Sorbian Functional Ability ADLs Needs Assist: dressing, eating, toileting, bathing. Ambulation: non-ambulatory IADLs Needs Assist: shopping, housework, finances, food prep, telephone, transportation, medication admin. Review of Systems Review of Systems: A full 12 point review of systems was not obtainable secondary to his clinical condition. Exam & Diagnostic Data Vital Signs and I&O Vital Signs Date Time Temp Pulse Resp B/P B/P Pulse O2 O2 Flow FiO2 Mean Ox Delivery Rate 01/15 1308 99.4 01/15 1257 99.0 92 18 118/69 95 01/15 1215 98.8 88 20 114/73 94 01/15 1114 86 111/61 01/15 1026 99.2 100 18 112/66 90 Trach Mask 01/15 0945 94 Trach Mask 40% 01/15 0928 99.0 115 22 108/81 92 Trach Mask 01/15 0839 99.2 112 20 128/82 93 Trach Mask 01/15 0730 99.3 115 18 135/92 93 Trach Mask 40% 01/15 0700 96.8 112 18 132/76 98 Room Air 01/15 0654 92 Trach Mask 40% 01/15 0532 94 Trach Mask 40% 01/15 0527 93 Trach Mask 40% 01/15 0524 96.4 115 24 145/98 96 Trach Mask 40% Intake & Output 01/15 1600 01/15 0400 01/14 1600 01/14 0400 01/13 1600 01/13 0400 Intake Total Output Total Balance Number 1 Bowel Movements Patient 235 lb Weight Results Pertinent Lab Results: Laboratory Tests 01/15 01/15 1314 0957 Hematology CBC w Diff NO MAN DIFF REQ WBC (4.8 - 10.8 /CUMM) 9.6 RBC (4.70 - 6.10 /CUMM) 4.86 Hgb (14.0 - 18.0 G/DL) 15.0 Hct (42 - 52 %) 44.5 MCV (80.0 - 94.0 FL) 91.6 MCH (27.0 - 31.0 PG) 30.8 MCHC (33.0 - 37.0 G/DL) 33.7 RDW (11.5 - 14.5 %) 14.5 Plt Count (130 - 400 /CUMM) 187 MPV (7.4 - 10.4 FL) 10.6 H Gran % (42.2 - 75.2 %) 77.5 H Lymphocytes % (20.5 - 51.1 %) 12.1 L Monocytes % (1.7 - 9.3 %) 9.5 H Eosinophils % (0 - 5 %) 0.2 Basophils % (0.0 - 2.0 %) 0.7 Absolute Granulocytes (1.4 - 6.5 /CUMM) 7.4 H Absolute Lymphocytes (1.2 - 3.4 /CUMM) 1.2 Absolute Monocytes (0.10 - 0.60 /CUMM) 0.9 H Absolute Eosinophils (0.0 - 0.7 /CUMM) 0 Absolute Basophils (0.0 - 0.2 /CUMM) 0.1 Urines Urinalysis LIGHT H Urine Color (YEL,AMB,STR) YEL Urine Clarity (CLEAR) CLEAR Urine pH (5.0 - 8.0) 7.0 Ur Specific [place] (1.001 - 1.035) 1.015 Urine Protein (NEG,<30 MG/DL) TRACE H Urine Ketones (NEG) NEG Urine Nitrite (NEG) NEG Urine Bilirubin (NEG) NEG Urine Urobilinogen (0.1 - 1.0 EU/dl) 0.2 Ur Leukocyte Esterase (NEG) SMALL H Ur Microscopic SEDIMENT EXAMINED Urine RBC (0 - 5 /HPF) RARE Urine WBC (0 - 2 /HPF) 10-15 H Ur Epithelial Cells (NONE,FEW) RARE Urine Bacteria (NEG/NONE) FEW H Urine Hemoglobin (NEG) TRACE-INTACT H Urine Glucose (N MG/DL) NEG 01/15 0538 Chemistry Sodium (137 - 145 mmol/L) 146 H Potassium (3.5 - 5.1 mmol/L) 4.3 Chloride (98 - 107 mmol/L) 102 Carbon Dioxide (22 - 30 mmol/L) 31 H Anion Gap (5 - 16) 13 BUN (9 - 20 mg/dL) 18 Creatinine (0.7 - 1.2 mg/dL) 0.5 L Estimated GFR (>60 ml/min) > 60 BUN/Creatinine Ratio (7 - 25 %) 36.0 H Glucose (65 - 99 mg/dL) 177 H Calcium (8.4 - 10.2 mg/dL) 9.7 Iron (49 - 181 ug/dL) 54 TIBC (261 - 462 ug/dL) 348 Ferritin (17.9 - 464 ng/mL) 38.3 Total Bilirubin (0.2 - 1.3 mg/dL) 0.9 AST (17 - 59 U/L) 21 ALT (21 - 72 U/L) 37 Alkaline Phosphatase (< 127 U/L) 92 Total Protein (6.3 - 8.2 g/dL) 8.1 Albumin (3.5 - 5.0 g/dL) 3.9 Globulin (1.9 - 4.2 gm/dL) 4.2 Albumin/Globulin Ratio (1.1 - 2.2 %) 0.9 L Vitamin B12 (239 - 931 pg/mL) 810 Folate (2.76 - 20.0 ng/mL) 16.1 Hematology CBC w Diff NO MAN DIFF REQ WBC (4.8 - 10.8 /CUMM) 15.4 H RBC (4.70 - 6.10 /CUMM) 5.42 Hgb (14.0 - 18.0 G/DL) 16.2 Hct (42 - 52 %) 49.4 MCV (80.0 - 94.0 FL) 91.3 MCH (27.0 - 31.0 PG) 29.9 MCHC (33.0 - 37.0 G/DL) 32.8 L RDW (11.5 - 14.5 %) 14.8 H Plt Count (130 - 400 /CUMM) 228 MPV (7.4 - 10.4 FL) 10.6 H Gran % (42.2 - 75.2 %) 91.8 H Lymphocytes % (20.5 - 51.1 %) 3.7 L Monocytes % (1.7 - 9.3 %) 4.4 Eosinophils % (0 - 5 %) 0.1 Basophils % (0.0 - 2.0 %) 0 Absolute Granulocytes (1.4 - 6.5 /CUMM) 14.1 H Absolute Lymphocytes (1.2 - 3.4 /CUMM) 0.6 L Absolute Monocytes (0.10 - 0.60 /CUMM) 0.7 H Absolute Eosinophils (0.0 - 0.7 /CUMM) 0 Absolute Basophils (0.0 - 0.2 /CUMM) 0 Imaging/Other Studies: Endoscopy Procedure Medical History: unchanged Mental Status: confused Candidate for Sedation? Yes Procedure Date: 11/19/15 Procedure Type: EGD Bait Packer: Sharan Bethea ASA Classification: IV Indications: Luanne Bethea ASA Classification: IV Indications: N/V and anemia Instrument: diagnostic gastroscope Patient's Tolerance: good Complications: none Procedure: PROCEDURE: Upper endoscopy with hemostasis KENNEL AIDE: Dr. Sharan Bethea ASA: Class 4 INDICATIONS: Upper GI bleed SEDATION: As per the anesthesiologist. PATIENT TOLERANCE: Good. COMPLICATIONS: None. EXTENT REACHED: D3 PROCEDURE: After getting written informed consent the patient was placed in the left lateral decubitus position with pulse oximetry, cardiac monitoring, and supplemental oxygen given. A bite block was inserted and IV sedation was given until the desired effect was achieved. A high-definition upper Olympus endoscope was then inserted into the mouth and advanced to D3 FINDINGS: Esophagus: Normal 5cm Hiatal hernia. appearing Z-line at 40 cm from the incisors. Stomach: There was no blood in the stomach. The entry of the J tube was visible and appeared healthy. The J tube advanced beyond the pylorus. The mucosa of the body of the stomach and antrum was healthy. D1 was healthy. At the junction of D2 and D3, on the concave side a large clot was adherent to the wall. There was no active bleeding. The J tube passed ajacent to it. 8cc of eipnepherin was injected into 5 sites around the proximal side of the clot. As the clot was at the limit of the scope, it was not pulled off for closer examination of the underlying mucosa. There was no active bleeding. IMPRESSION: Large clot on the junction of D2 and D3, likley overlaying an ulcer. Assessment/Plan Assessment/Recommendations: Assessment: Mr. 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 He is also normotensive, his BUN to creatinine ratio is not elevated to suggest active upper GI bleeding and his hemoglobin is 16. He does have a history of peptic ulcer disease with a bleeding ulcer noted on endoscopy in October 2015 which was felt to be secondary to his J-tube, but as he is currently without evidence of overt GI bleeding I do not feel that an upper endoscopy needs to be pursued at this time. Recommendations: 1. Follow daily CBCs and notify GI for any signs of overt GI bleeding. 2. Would restart tube feeds as tolerated. 3. Would change him back to his ranitidine dose that he was getting in the nursing facility and stop the IV Protonix 4. Would avoid NSAIDs. Would ask that GI be reconsult did for any new issues that may arise on this hospitalization or any overt GI bleeding may develop while he is an inpatient.. Problem List: 1. Gastroesophageal reflux disease Copies To: Danny Olvera MD Consult Acknowledgment - Thank you for your consult request.
[2018-01-15 17:17] VITALS: BP 126/74
[2018-01-15 22:35] VITALS: BP 94/00
[2018-01-16 07:13] VITALS: BP 86/58
--- NOTE | 2018-01-16 07:30 | PN- Housestaff ---
Subjective Follow-up For: Coffee-ground emesis Tele-Events Since Last Visit: Normal sinus rhythm Subjective: Seen and examined. Resting comfortably. A phasic but communicates with his eyes for yes he turns his eyes upwards and for no he turns his eye downward. Reports feeling fine Review of Systems Constitutional: Reports: see HPI. Objective Last 24 Hrs of Vital Signs/I&O Vital Signs Date Time Temp Pulse Resp B/P B/P Pulse O2 O2 Flow FiO2 Mean Ox Delivery Rate 01/16 0916 95 Trach Mask 35% 01/16 0800 92 Trach Mask 35% 01/16 0713 98.2 80 22 86/58 95 Trach Mask 01/16 0040 97 Trach Mask 35% 01/16 0000 97 Trach Mask 35% 01/15 2235 98.0 76 24 94/00 96 Trach Mask 01/15 2015 95 Trach Mask 35% 01/15 1749 95 Trach Mask 35% 01/15 1717 98.3 89 22 126/74 97 Trach Mask 35% 01/15 1635 98 Trach Mask 40% 01/15 1632 99.1 85 18 114/72 96 Trach Mask 35% 01/15 1426 99.0 90 20 112/70 94 Trach Mask Intake & Output 01/16 1600 01/16 0800 01/16 0000 Intake Total 405 100 Output Total Balance 405 100 Intake, IV 100 Intake, Oral 0 Intake, Tube 405 Feeding Number 1 1 Bowel Movements Patient 194 lb Weight Weight Bed scale Measurement Method Physical Exam General Appearance: Alert Cardiovascular: Normal S1, Normal S2 Lungs: ant [place]ilton clear Abdomen: Normal Bowel Sounds Current Medications: Current Medications Sig/Gil Start time Last Medication Dose Route Stop Time Status Admin Albuterol Sulfate 3 ML BID 01/15 2100 AC 01/16 INH 0857 Atorvastatin Calcium 5 MG 1700 01/15 1700 AC 01/15 PO 2000 Baclofen 10 MG TID 01/15 09 AC 01/16 PO 1413 Bisacodyl 10 MG DAILY PRN 01/15 0845 AC NJ Cholecalciferol 1,000 IU DAILY 01/15 09 AC 01/16 PO 0855 Dextrose/Sodium 1,000 ML Q13H 01/15 0945 DC 01/15 Chloride IV 1035 Docusate Sodium 100 MG BID 01/15 0900 AC 01/16 PO 0855 Escitalopram Oxalate 5 MG DAILY 01/15 09 AC 01/16 PO 0854 Famotidine 20 MG BID 01/15 2100 AC 01/16 PO 0855 Lactobacillus 1 CAP DAILY 01/15 0900 AC 01/16 Acidophilus PO 0855 Magnesium Hydroxide 30 ML DAILY PRN 01/15 0845 AC PO Pantoprazole Sodium 40 MG DAILY 01/15 0900 DC 01/15 IV 0750 Last 24 Hrs of Lab/Rashard Results Last 24 Hrs of Labs/Mics: Laboratory Tests 01/16/18 0636: Anion Gap 8, Estimated GFR > 60, BUN/Creatinine Ratio 28.0 H, CBC w Diff NO MAN DIFF REQ, RBC 4.29 L, MCV 91.6, MCH 30.8, MCHC 33.6, RDW 14.9 H, MPV 11.4 H, Gran % 69.5, Lymphocytes % 19.7 L, Monocytes % 8.9, Eosinophils % 1.6, Basophils % 0.3, Absolute Granulocytes 5.5, Absolute Lymphocytes 1.5, Absolute Monocytes 0.7 H, Absolute Eosinophils 0.1, Absolute Basophils 0 Assessment/Plan Assessment: The patient is currently being treated and evaluated for following conditions Coffee ground emesis Differential: Upper GI bleed (erosions/ breakthrough bleeding from PUD/ectatic gastric vessels). Patient is in upright position lately after recent similar episode on 12/21/17. abdomen is distended. On pepcid 10ml daily last dose yesterday. Not on PPI possibly due to C.diff in the past. Other consideration is tracheal erosion from suctioning. Unsure about the last change in trach given recent change in USP. Although not hemodynamically not significant the reason for recurrent bleeding needs to be sorted out. -He has been evaluated by GI w who do not believe there is any need to pursue endoscopy at this time given he is hemodynamically stable and his BUN/creatinine as normal. -We have discontinued IV PPI and started him on home dose of ranitidine -We will maintain aspiration precautions -We will do CBCs and BP daily -His H/H is 13/39. There has been no episode of coffee-ground emesis since yesterday night and today morning. He received 2 L of fluid also lines are down can be dilutional however needs to be monitored for any significant drop. -If any active bleeding GI services have to be contacted Aspiration pneumonitis white count of 14 on presentation. afebrile. CXR did show mild haziness but not convincing for pneumonia on personal review. At baseline oxygen requirement. After hydration patient's white count is within normal limits. His oxygen requirements have not changed. He remained afebrile overnight. Chest x-ray repeated today was negative for any significant interval change. His blood cultures are negative respiratory cultures is growing gram-negative rods his positive sputum culture likely represents colonization with him being afebrile now and with normal white count and I believe he should be monitored off antibiotics for now. -Monitor for fever and increased oxygen requirements, patient is off antibiotics for now -Follow-up blood cultures and sputum cultures for final results patient has gone gone Proteus and Pseudomonas in the past. Again it is likely colonization -Tube feeds have been restarted even with the J-tube patient's incidence of aspiration is not going to be reduced -We will continue monitoring CBCs for any leukocytosis #Erythematous scaby lesions on bilateral legs Unclear for now. possibly difficult to do ALPS Continue home medicaitons including simvastatin, baclofen, bowel regimen. If H/H remained stable we will start patient on DVT prophylaxis Full code goals of care need to be addressed Problem List: 1. Aspiration pneumonia Pain Ratin Pain Location: na Pain Goal: Pain 4 or less Pain Plan: prn Tomorrow's Labs & Rationales: cbc bep
[2018-01-16 08:11] LABS: ABSOLUTE BASOPHIL COUNT 0 /CUMM (0.0-0.2); ABSOLUTE MONOCYTE COUNT 0.7 /CUMM (0.10-0.60); RBC DISTRIBUTION WIDTH 14.9 % (11.5-14.5)
[2018-01-16 08:57] LABS: ABSOLUTE EOSINOPHIL COUNT 0.1 /CUMM (0.0-0.7); ABSOLUTE GRANULOCYTE CT 5.5 /CUMM (1.4-6.5); ABSOLUTE LYMPH COUNT 1.5 /CUMM (1.2-3.4); BASOPHIL % 0.3 % (0.0-2.0); EOSINOPHIL % 1.6 % (0-5); GRANULOCYTE % 69.5 % (42.2-75.2); MEAN CORPUSCULAR HGB 30.8 PG (27.0-31.0); MEAN CORPUSCULAR HGB CONC 33.6 G/DL (33.0-37.0); MEAN CORPUSCULAR VOLUME 91.6 FL (80.0-94.0); MEAN PLATELET VOLUME 11.4 FL (7.4-10.4); PLATELET COUNT 175 /CUMM (130-400); RED BLOOD CELL CT 4.29 /CUMM (4.70-6.10); WHITE BLOOD CELL COUNT 7.9 /CUMM (4.8-10.8)
[2018-01-16 09:14] LABS: HEMATOCRIT 39.3 % (42-52)
--- NOTE | 2018-01-16 10:09 | RADIOLOGY REPORT ---
EXAMINATION: XR PORTABLE CHEST CLINICAL INFORMATION: Follow-up aspiration pneumonia. Coffee ground emesis from mouth and trachea. COMPARISON: Chest radiography, most recent 01/15/2018. TECHNIQUE: Portable frontal view of the chest was obtained. FINDINGS: Low lung volumes. There is mild persistent bibasilar opacification, which could represent atelectasis. No new lobar consolidation. Bronchovascular markings are unchanged. Tracheostomy tube. Mediastinal contours are unchanged. No acute osseous abnormality. Partially visualized percutaneous enteric tube. IMPRESSION: Low lung volumes with mild bibasilar opacification, favor atelectasis over other subtle consolidation. No significant interval change compared to recent chest radiography.
--- NOTE | 2018-01-16 11:25 | PN- Att Addend ---
Attending Addendum Attending Brief Note Appreciate GI input sent recommendations and findings of the endoscopy, following CBCs closely and treatment as per GI. Vital signs are stable no fever. No new changes on physical examination. CBCs stable. Intake & Output 01/16 1600 01/16 0400 01/15 1600 01/15 0400 01/14 1600 01/14 0400 Intake Total 405 100 Output Total Balance 405 100 Intake, IV 100 Intake, Oral 0 Intake, Tube 405 Feeding Number 1 1 1 Bowel Movements Patient 194 lb 235 lb Weight Weight Bed scale Measurement Method Current Medications Sig/Gil Start time Last Medication Dose Route Stop Time Status Admin Albuterol Sulfate 3 ML BID 01/15 2100 AC 01/16 INH 0857 Atorvastatin Calcium 5 MG 1700 01/15 1700 AC 01/15 PO 2001 Baclofen 10 MG TID 01/15 09 AC 01/16 PO 0854 Bisacodyl 10 MG DAILY PRN 01/15 0845 AC MS Cholecalciferol 1,000 IU DAILY 01/15 0900 AC 01/16 PO 0855 Dextrose/Sodium 1,000 ML Q13H 01/15 0945 DC 01/15 Chloride IV 1035 Docusate Sodium 100 MG BID 01/15 0900 AC 01/16 PO 0855 Escitalopram Oxalate 5 MG DAILY 01/15 0900 AC 01/16 PO 0854 Famotidine 20 MG BID 01/15 2100 AC 01/16 PO 0855 Lactobacillus 1 CAP DAILY 01/15 0900 AC 01/16 Acidophilus PO 0855 Magnesium Hydroxide 30 ML DAILY PRN 01/15 0845 AC PO Pantoprazole Sodium 40 MG DAILY 01/15 0900 DC 01/15 IV 0750 Laboratory Tests 01/16/18 0636: Anion Gap 8, Estimated GFR > 60, BUN/Creatinine Ratio 28.0 H, CBC w Diff NO MAN DIFF REQ, RBC 4.29 L, MCV 91.6, MCH 30.8, MCHC 33.6, RDW 14.9 H, MPV 11.4 H, Gran % 69.5, Lymphocytes % 19.7 L, Monocytes % 8.9, Eosinophils % 1.6, Basophils % 0.3, Absolute Granulocytes 5.5, Absolute Lymphocytes 1.5, Absolute Monocytes 0.7 H, Absolute Eosinophils 0.1, Absolute Basophils 0 01/15/18 1314: CBC w Diff NO MAN DIFF REQ, RBC 4.86, MCV 91.6, MCH 30.8, MCHC 33.7, RDW 14.5, MPV 10.6 H, Gran % 77.5 H, Lymphocytes % 12.1 L, Monocytes % 9.5 H, Eosinophils % 0.2, Basophils % 0.7, Absolute Granulocytes 7.4 H, Absolute Lymphocytes 1.2, Absolute Monocytes 0.9 H, Absolute Eosinophils 0, Absolute Basophils 0.1 01/15/18 0957: Urinalysis LIGHT H, Urine Color YEL, Urine Clarity CLEAR, Urine pH 7.0, Ur Specific [place] 1.015, Urine Protein TRACE H, Urine Ketones NEG, Urine Nitrite NEG, Urine Bilirubin NEG, Urine Urobilinogen 0.2, Ur Leukocyte Esterase SMALL H , Ur Microscopic SEDIMENT EXAMINED, Urine RBC RARE, Urine WBC 10-15 H, Ur Epithelial Cells RARE, Urine Bacteria FEW H, Urine Hemoglobin TRACE-INTACT H, Urine Glucose NEG 01/15/18 0952: PT Cancelled, INR Cancelled, APTT Cancelled 01/15/18 0538: Anion Gap 13, Estimated GFR > 60, BUN/Creatinine Ratio 36.0 H, Glucose 177 H, Calcium 9.7, Iron 54, TIBC 348, Ferritin 38.3, Total Bilirubin 0.9, AST 21, ALT 37, Alkaline Phosphatase 92, Total Protein 8.1, Albumin 3.9, Globulin 4.2, Albumin/Globulin Ratio 0.9 L, Vitamin B12 810, Folate 16.1, CBC w Diff NO MAN DIFF REQ, RBC 5.42, MCV 91.3, MCH 29.9, MCHC 32.8 L, RDW 14.8 H, MPV 10.6 H, Gran % 91.8 H, Lymphocytes % 3.7 L, Monocytes % 4.4, Eosinophils % 0.1, Basophils % 0, Absolute Granulocytes 14.1 H, Absolute Lymphocytes 0.6 L, Absolute Monocytes 0.7 H, Absolute Eosinophils 0, Absolute Basophils 0 Microbiology 01/15 1340 LOWER RESP: Respiratory Culture - RES GRAM NEGATIVE RODS 01/15 1340 LOWER RESP: Gram Stain - RES 01/15 0748 BLOOD: Blood Culture - RECD 01/15 0658 BLOOD: Blood Culture - CAN Cancelled: SPEIMEN NEVER RECEIVED. REORDER IF NEEDED Vital Signs Date Time Temp Pulse Resp B/P B/P Pulse O2 O2 Flow FiO2 Mean Ox Delivery Rate 01/16 0916 95 Trach Mask 35% 01/16 0713 98.2 80 22 86/58 95 Trach Mask 01/16 0040 97 Trach Mask 35% 01/16 0000 97 Trach Mask 35% 01/15 2235 98.0 76 24 94/00 96 Trach Mask 01/15 2015 95 Trach Mask 35% 01/15 1749 95 Trach Mask 35% 01/15 1717 98.3 89 22 126/74 97 Trach Mask 35% 01/15 1635 98 Trach Mask 40% 01/15 1632 99.1 85 18 114/72 96 Trach Mask 35% 01/15 1426 99.0 90 20 112/70 94 Trach Mask 01/15 1350 96 Trach Mask 40% 01/15 1340 Trach Mask 40% 01/15 1308 99.4 01/15 1257 99.0 92 18 118/69 95 01/15 1215 98.8 88 20 114/73 94
[2018-01-16 14:25] VITALS: BP 96/66
[2018-01-16 22:24] VITALS: BP 128/78
[2018-01-17 06:54] VITALS: BP 120/78
[2018-01-17 07:45] LABS: ABSOLUTE BASOPHIL COUNT 0 /CUMM (0.0-0.2); ABSOLUTE EOSINOPHIL COUNT 0.2 /CUMM (0.0-0.7); ABSOLUTE GRANULOCYTE CT 4.9 /CUMM (1.4-6.5); ABSOLUTE LYMPH COUNT 1.4 /CUMM (1.2-3.4); ABSOLUTE MONOCYTE COUNT 0.8 /CUMM (0.10-0.60); BASOPHIL % 0.4 % (0.0-2.0); EOSINOPHIL % 2.6 % (0-5); GRANULOCYTE % 67.5 % (42.2-75.2); HEMATOCRIT 38.9 % (42-52); MEAN CORPUSCULAR HGB 30.8 PG (27.0-31.0); MEAN CORPUSCULAR HGB CONC 33.5 G/DL (33.0-37.0); MEAN CORPUSCULAR VOLUME 91.7 FL (80.0-94.0); MEAN PLATELET VOLUME 10.8 FL (7.4-10.4); PLATELET COUNT 170 /CUMM (130-400); RBC DISTRIBUTION WIDTH 14.6 % (11.5-14.5); RED BLOOD CELL CT 4.24 /CUMM (4.70-6.10); WHITE BLOOD CELL COUNT 7.3 /CUMM (4.8-10.8)
--- NOTE | 2018-01-17 07:55 | PN- Housestaff ---
Subjective Follow-up For: Coffee-ground emesis Tele-Events Since Last Visit: Normal sinus rhythm Subjective: Seen and examined. Resting comfortably. Continues to be aphasic which is his baseline. H&H remain stable. He will be discharged today. Review of Systems Constitutional: Reports: see HPI. Objective Last 24 Hrs of Vital Signs/I&O Vital Signs Date Time Temp Pulse Resp B/P B/P Pulse O2 O2 Flow FiO2 Mean Ox Delivery Rate 01/17 0942 94 Trach Mask 35% 01/17 0800 95 Trach Mask 35% 01/17 0654 97.9 98 22 120/78 94 Trach Mask 01/17 0000 Trach Mask 01/16 2230 92 Trach Mask 35% 01/16 2224 98.5 78 23 128/78 94 01/16 1840 93 Trach Mask 35% 01/16 1625 94 Trach Mask 35% 01/16 1600 Trach Mask 01/16 1425 98.9 76 22 96/66 94 Trach Mask Intake & Output 01/17 1600 01/17 0800 01/17 0000 Intake Total 600 640 Output Total Balance 600 640 Intake, Tube 600 440 Feeding Intake, Tube 200 Irrigant Number 2 Bowel Movements Patient 194 lb Weight Physical Exam General Appearance: Alert HEENT: tRACK MASK Cardiovascular: Normal S1, Normal S2 Lungs: Clear to Auscultation, ANT FEILDS Abdomen: Soft, j TUBE Current Medications: Current Medications Sig/Gil Start time Last Medication Dose Route Stop Time Status Admin Albuterol Sulfate 3 ML BID 01/15 2100 AC 01/17 INH 0942 Atorvastatin Calcium 5 MG 1700 01/15 1700 AC 01/16 PO 1628 Baclofen 10 MG TID 01/15 900 AC 01/17 PO 0858 Bisacodyl 10 MG DAILY PRN 01/15 0845 AC [place] Cholecalciferol 1,000 IU DAILY 01/15 900 AC 01/17 PO 0858 Docusate Sodium 100 MG BID 01/15 09 AC 01/17 PO 0859 Escitalopram Oxalate 5 MG DAILY 01/15 09 AC 01/17 PO 0859 Famotidine 20 MG BID 01/15 2100 AC 01/17 PO 0859 Lactobacillus 1 CAP DAILY 01/15 900 AC 01/17 Acidophilus PO 0858 Magnesium Hydroxide 30 ML DAILY PRN 01/15 0845 AC PO Last 24 Hrs of Lab/Rashard Results Last 24 Hrs of Labs/Mics: Laboratory Tests 01/17/18 0631: Anion Gap 8, Estimated GFR > 60, BUN/Creatinine Ratio 26.0 H, CBC w Diff NO MAN DIFF REQ, RBC 4.24 L, MCV 91.7, MCH 30.8, MCHC 33.5, RDW 14.6 H, MPV 10.8 H, Gran % 67.5, Lymphocytes % 18.8 L, Monocytes % 10.7 H, Eosinophils % 2.6, Basophils % 0.4, Absolute Granulocytes 4.9, Absolute Lymphocytes 1.4, Absolute Monocytes 0.8 H, Absolute Eosinophils 0.2, Absolute Basophils 0 Assessment/Plan Assessment: The patient is currently being treated and evaluated for following conditions Coffee ground emesis Differential: Upper GI bleed (erosions/ breakthrough bleeding from PUD/ectatic gastric vessels). Patient is in upright position lately after recent similar episode on 12/21/17. abdomen is distended. On pepcid 10ml daily last dose yesterday. Not on PPI possibly due to C.diff in the past. Other consideration is tracheal erosion from suctioning. Unsure about the last change in trach given recent change in [facility]. Although not hemodynamically not significant the reason for recurrent bleeding needs to be sorted out. -He has been evaluated by GI w who do not believe there is any need to pursue endoscopy at this time given he is hemodynamically stable and his BUN/creatinine as normal. -We have discontinued IV PPI and started him on home dose of ranitidine -We will maintain aspiration precautions - He received 2 L of fluid also lines are down can be dilutional however needs to be monitored for any significant drop. -His H/H is 13/38.9. There has been no episode of coffee-ground emesis since yesterday night and today morning. His H&H remained stable so is BUN and creatinine -If any active bleeding GI services have to be contacted Aspiration pneumonitis white count of 14 on presentation. afebrile. CXR did show mild haziness but not convincing for pneumonia on personal review. At baseline oxygen requirement. After hydration patient's white count is within normal limits. His oxygen requirements have not changed. He remained afebrile overnight. Chest x-ray repeated today was negative for any significant interval change. His blood cultures are negative respiratory cultures is growing gram-negative rods his positive sputum culture likely represents colonization with him being afebrile now and with normal white count and I believe he should be monitored off antibiotics for now. -He remained afebrile without any increased oxygen requirements. His white count is normal -Follow-up blood cultures and sputum cultures for final results patient hasgrown Proteus and Pseudomonas in the past. Again it is likely colonization -Tube feeds have been restarted even with the J-tube patient's incidence of aspiration is not going to be reduced -Monitor off antibiotics #Erythematous scaby lesions on bilateral legs Unclear for now. possibly difficult to do ALPS Continue home medicaitons including simvastatin, baclofen, bowel regimen. Stable to be discharged home today. Full code goals of care need to be addressed Problem List: 1. Full code status Pain Ratin Pain Location: na Pain Goal: Pain 4 or less Pain Plan: prn Tomorrow's Labs & Rationales: none cbc
--- NOTE | 2018-01-17 09:17 | Discharge Summary ---
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 Patient had similar presentation on 12/21/17 came to ER, recommended to raise the head end of bed. He had a history of GI bleed and PUD in the past. VS at presentation - afebrile, tachycadic 115, BP stable, on baseline 40% Fio2 without increased requirement. Physical exam did show distended abdomen, normal heart and lung exam. erythematous scaby lesions on the lower extremities. Labs did show signs of dehydration with H&H of 16/49, white count of 15. Na 146, BUN/Cr 18/0.5. Imaging shows hazyness in the lungs without definitive pneumonia signs. Given the reported emesis from mouth and tracheostomy and an elevated white count, patient was admitted to Telemetry for close monitoring. GI consult was obtained and their assesment was that the patient had scant emesis and was hemodynamically stable without any signficant H/H drop. Giveb that there was no gross hematemesis, melena, or any bright blood per rectum, no endoscopic intervention was deemed necesary, and the plan was to obtain repeated serial CBCs to monitor for hemoglobin/hematocrit. Patient tube feeds via J-tube was also continued during admission and was started on Ranitidine for GI PPX. There was initial concern of aspiration given the elevated white count, however ABX were held since patient was afebrile and a repeat CBC next day showed improved white count. No further episode of hematemesis was observed during this admission. No changes from his baseline was noted either. Patient was stable on day of discharge and was sent to SNF. Allergies: Coded Allergies: scopolamine (Mild, HIVES 12/26/16) NSAIDS (Non-Steroidal Anti-Inflamma (PER W-10 12/26/16) adhesive (HIVES - EKG STICKERS, RED DOT [place] STICKERS 12/26/16) aspirin (PER W-10 06/01/17) clopidogrel (From PLAVIX) (PER W-12/26/16) Uncoded Allergies: EKG AND RED DOT LEADS (Intermediate, RASH 09/26/16) Pertinent Lab Results: Laboratory Tests 01/17/18 0631: Anion Gap 8, Estimated GFR > 60, BUN/Creatinine Ratio 26.0 H, CBC w Diff NO MAN DIFF REQ, RBC 4.24 L, MCV 91.7, MCH 30.8, MCHC 33.5, RDW 14.6 H, MPV 10.8 H, Gran % 67.5, Lymphocytes % 18.8 L, Monocytes % 10.7 H, Eosinophils % 2.6, Basophils % 0.4, Absolute Granulocytes 4.9, Absolute Lymphocytes 1.4, Absolute Monocytes 0.8 H, Absolute Eosinophils 0.2, Absolute Basophils 0 01/16/18 0636: Anion Gap 8, Estimated GFR > 60, BUN/Creatinine Ratio 28.0 H, CBC w Diff NO MAN DIFF REQ, RBC 4.29 L, MCV 91.6, MCH 30.8, MCHC 33.6, RDW 14.9 H, MPV 11.4 H, Gran % 69.5, Lymphocytes % 19.7 L, Monocytes % 8.9, Eosinophils % 1.6, Basophils % 0.3, Absolute Granulocytes 5.5, Absolute Lymphocytes 1.5, Absolute Monocytes 0.7 H, Absolute Eosinophils 0.1, Absolute Basophils 0 01/15/18 1314: CBC w Diff NO MAN DIFF REQ, RBC 4.86, MCV 91.6, MCH 30.8, MCHC 33.7, RDW 14.5, MPV 10.6 H, Gran % 77.5 H, Lymphocytes % 12.1 L, Monocytes % 9.5 H, Eosinophils % 0.2, Basophils % 0.7, Absolute Granulocytes 7.4 H, Absolute Lymphocytes 1.2, Absolute Monocytes 0.9 H, Absolute Eosinophils 0, Absolute Basophils 0.1 01/15/18 0957: Urinalysis LIGHT H, Urine Color YEL, Urine Clarity CLEAR, Urine pH 7.0, Ur Specific [place] 1.015, Urine Protein TRACE H, Urine Ketones NEG, Urine Nitrite NEG, Urine Bilirubin NEG, Urine Urobilinogen 0.2, Ur Leukocyte Esterase SMALL H , Ur Microscopic SEDIMENT EXAMINED, Urine RBC RARE, Urine WBC 10-15 H, Ur Epithelial Cells RARE, Urine Bacteria FEW H, Urine Hemoglobin TRACE-INTACT H, Urine Glucose NEG 01/15/18 0952: PT Cancelled, INR Cancelled, APTT Cancelled 01/15/18 0538: Anion Gap 13, Estimated GFR > 60, BUN/Creatinine Ratio 36.0 H, Glucose 177 H, Calcium 9.7, Iron 54, TIBC 348, Ferritin 38.3, Total Bilirubin 0.9, AST 21, ALT 37, Alkaline Phosphatase 92, Total Protein 8.1, Albumin 3.9, Globulin 4.2, Albumin/Globulin Ratio 0.9 L, Vitamin B12 810, Folate 16.1, CBC w Diff NO MAN DIFF REQ, RBC 5.42, MCV 91.3, MCH 29.9, MCHC 32.8 L, RDW 14.8 H, MPV 10.6 H, Gran % 91.8 H, Lymphocytes % 3.7 L, Monocytes % 4.4, Eosinophils % 0.1, Basophils % 0, Absolute Granulocytes 14.1 H, Absolute Lymphocytes 0.6 L, Absolute Monocytes 0.7 H, Absolute Eosinophils 0, Absolute Basophils 0 Microbiology 01/15 1340 LOWER RESP: Respiratory Culture - RES GRAM NEGATIVE RODS 01/15 1340 LOWER RESP: Gram Stain - RES 01/15 0748 BLOOD: Blood Culture - RES 01/15 0658 BLOOD: Blood Culture - CAN Cancelled: SPEIMEN NEVER RECEIVED. REORDER IF NEEDED SERVICE DATE: 01/15/18 EXAM TYPE: RAD - XRY-PORTABLE CHEST XRAY EXAMINATION: CHEST 1 VIEW CLINICAL INFORMATION: Congestion. COMPARISON: December 21, 2017. TECHNIQUE: An AP view of the chest is provided. The examination is limited as the lung apices are excluded from view. FINDINGS: The cardiac silhouette is stable. As stated above, the exam is quite limited. Lung volumes are decreased. There is mild bibasilar atelectasis. There are no demonstrable pleural effusions. A G-tube is in place. The osseous structures are stable. IMPRESSION: Limited exam as stated above. Bibasilar atelectasis in the setting of low lung volumes. DICTATED BY: Giovanny Alejo MD Disposition Summary Disposition Principal Diagnosis: Hematamesis Additional Diagnosis: Leukocytosis Discharge Disposition: SNF Discharge Instructions General Discharge Information Code Status: Full Code Patient's Diet: Tube feeds Patient's Activity: As tolerated Follow-Up Instructions/Appts: F/u with PCP within 1 week Please seek medical attention if any new signs of bleeding is noted Medications at Discharge Discharge Medications: Continue taking these medications: Cholecalciferol (Vitamin D3) 1,000 UNIT TABLET 1 Tablet G TUBE DAILY Comments: Last Taken: 10/10/17 Time:11:00 am Ranitidine HCl (Ranitidine HCl) 15 MG/ML SYRUP 10 Milliliters G TUBE TWICE DAILY Comments: NOT GIVEN IN HOSPITAL Simvastatin (Zocor*) 10 MG TABLET 1 Tablet G TUBE DAILY Comments: Last Taken: 10/07/17 Time: 5:00 PM Baclofen (Baclofen) 10 MG TABLET 1 Tablet G TUBE THREE TIMES DAILY Comments: Last Taken: 10/10/17 Time: 11:00 am Escitalopram Oxalate (Escitalopram Oxalate) 5 MG TABLET 1 Tablet G TUBE DAILY Comments: Last Taken: 10/10/17 Time: 11:00 am Ondansetron HCl (Ondansetron HCl) 4 MG TABLET 1 Tablet G TUBE Q8H as needed for N/V Comments: NOT GIVEN IN HOSPITAL Lactobacillus Acidophilus (Acidophilus) 1 EACH CAPSULE 1 Capsule G TUBE DAILY Comments: Last Taken: 10/10 Time: 11:00 am Albuterol Sulfate (Albuterol Sulfate) 2.5 MG/3 ML (0.083 %) VIAL.NEB 1 Vial Inhale Solution TWICE DAILY Comments: Last Taken: 10/10/17 Time: 0830 Acetaminophen (Acetaminophen) 325 MG TABLET 2 Tablet J TUBE Q4H as needed for PAIN/TEMP/>101 Comments: NOT GIVEN IN HOSPITAL Acetaminophen (Acephen) 650 MG SUPP.RECT 1 SUPPOSITORY RECTALLY Q4H as needed for PAIN/TEMP>101 Comments: NOT GIVEN IN HOSP Bisacodyl (Bisacodyl) 10 MG SUPP.RECT 1 Suppository RECTAL DAILY as needed for NO BM - IF MOM INEFFECTIVE Comments: NOT GIVEN IN HOSPITAL Na Phos,M-B/Na Phos,Di-Ba (Fleet Enema) 19 GRAM-7 GRAM/118 ML ENEMA 1 Enema RECTAL DAILY as needed for NO BM - IF BISACODYL INEFFECTI Ipratropium/Albuterol Sulfate (Iprat-Albut 0.5-3(2.5) MG/3 Ml) 0.5 MG-3 MG (2.5 MG BASE)/3 ML AMPUL.NEB 1 VIAL Inhale Solution via Nebulizer Q4H as needed for DYSPNEA Comments: NOT GIVEN IN HOSPITAL Magnesium Hydroxide (Milk Of Magnesia) 400 MG/5 ML ORAL.SUSP 30 Milliliters J TUBE DAILY as needed for NO BM IN 3 DAYS Comments: NOT GIVEN IN HOSPITAL Docusate Sodium (Docusate Sodium) 100 MG TABLET 1 Tablet G TUBE TWICE DAILY Comments: NOT GIVEN IN HOSP Copies To: Wade SOTELO,Danny
--- NOTE | 2018-01-17 12:00 | Patient Discharge Instructions ---
Discharge Instructions General Discharge Information You were seen/treated for: Coffee-ground emesis Special Instructions: Please follow-up with your primary care doctor within 1 week of discharge Please follow-up with gastroenterology within 1 month of discharge If active GI bleeding seek prompt medical attention Diet Recommended Diet: Tube feeds Activity Activity Self Limited: Yes Acute Coronary Syndrome Inclusion Criteria At DC or during hospital stay patient has or had the following: ACS DIAGNOSIS No Discharge Core Measures Meds if any: Prescribed or Continued at Discharge Meds if any: NOT Prescribed or Continued at Discharge Congestive Heart Failure Inclusion Criteria At DC or during hospital stay patient has or had the following: CHF DIAGNOSIS No Discharge Core Measures Meds if any: Prescribed or Continued at Discharge Meds if any: NOT Prescribed or Continued at Discharge Cerebrovascular accident Inclusion Criteria At DC or during hospital stay patient has or had the following: CVA/TIA Diagnosis No Discharge Core Measures Meds if any: Prescribed or Continued at Discharge Meds if any: NOT Prescribed or Continued at Discharge Venous thromboembolism Inclusion Criteria VTE Diagnosis No VTE Type NONE VTE Confirmed by (Test) NONE Discharge Core Measures - Per Current guidelines, there needs to be overlap - treatment for the first 5 days of Warfarin therapy. - If discharged on Warfarin prior to 5 days of - overlap therapy, the patient will need to be - assessed for post discharge needs including - *Post discharge parental anticoagulation - *Warfarin and/or parental anticoagulation education - *Follow up date to check INR post discharge At least 5 days overlap therapy as Inpatient No Meds if any: Prescribed or Continued at Discharge Note: Overlap Therapy is Warfarin and Anticoagulant Meds if any: NOT Prescribed or Continued at Discharge
[2018-01-17 14:39] VITALS: BP 116/66
--- NOTE | 2018-01-17 15:23 | PN- Att Addend ---
Attending Addendum Attending Brief Note No new issues. No apparent bleeding. Labs are stable. Vital signs are stable no fever no major changes on physical. Would return to skilled nursing today I would follow the patient once he gets there. Will follow up with CBC, and continue his treatments. See the W 10 , and CMR. Intake & Output 01/17 1600 01/17 0400 01/16 1600 01/16 0400 01/15 1600 01/15 0400 Intake Total 1400 640 925 100 Output Total Balance 1400 640 925 100 Intake, IV 100 Intake, Oral 0 Intake, Tube 1125 440 725 Feeding Intake, Tube 275 200 200 Irrigant Number 2 1 1 1 Bowel Movements Patient 194 lb 194 lb 194 lb 235 lb Weight Weight Bed scale Measurement Method Current Medications Sig/Gil Start time Last Medication Dose Route Stop Time Status Admin Albuterol Sulfate 3 ML BID 01/15 2100 AC 01/17 INH 0942 Atorvastatin Calcium 5 MG 1700 01/15 1700 AC 01/16 PO 1628 Baclofen 10 MG TID 01/15 09 AC 01/17 PO 1418 Bisacodyl 10 MG DAILY PRN 01/15 0845 AC [place] Cholecalciferol 1,000 IU DAILY 01/15 0900 AC 01/17 PO 0858 Docusate Sodium 100 MG BID 01/15 0900 AC 01/17 PO 0859 Escitalopram Oxalate 5 MG DAILY 01/15 0900 AC 01/17 PO 0859 Famotidine 20 MG BID 01/15 2100 AC 01/17 PO 0859 Lactobacillus 1 CAP DAILY 01/15 0900 AC 01/17 Acidophilus PO 0858 Magnesium Hydroxide 30 ML DAILY PRN 01/15 0845 AC PO Laboratory Tests 01/17/18 0631: Anion Gap 8, Estimated GFR > 60, BUN/Creatinine Ratio 26.0 H, CBC w Diff NO MAN DIFF REQ, RBC 4.24 L, MCV 91.7, MCH 30.8, MCHC 33.5, RDW 14.6 H, MPV 10.8 H, Gran % 67.5, Lymphocytes % 18.8 L, Monocytes % 10.7 H, Eosinophils % 2.6, Basophils % 0.4, Absolute Granulocytes 4.9, Absolute Lymphocytes 1.4, Absolute Monocytes 0.8 H, Absolute Eosinophils 0.2, Absolute Basophils 0 01/16/18 0636: Anion Gap 8, Estimated GFR > 60, BUN/Creatinine Ratio 28.0 H, CBC w Diff NO MAN DIFF REQ, RBC 4.29 L, MCV 91.6, MCH 30.8, MCHC 33.6, RDW 14.9 H, MPV 11.4 H, Gran % 69.5, Lymphocytes % 19.7 L, Monocytes % 8.9, Eosinophils % 1.6, Basophils % 0.3, Absolute Granulocytes 5.5, Absolute Lymphocytes 1.5, Absolute Monocytes 0.7 H, Absolute Eosinophils 0.1, Absolute Basophils 0 01/15/18 1314: CBC w Diff NO MAN DIFF REQ, RBC 4.86, MCV 91.6, MCH 30.8, MCHC 33.7, RDW 14.5, MPV 10.6 H, Gran % 77.5 H, Lymphocytes % 12.1 L, Monocytes % 9.5 H, Eosinophils % 0.2, Basophils % 0.7, Absolute Granulocytes 7.4 H, Absolute Lymphocytes 1.2, Absolute Monocytes 0.9 H, Absolute Eosinophils 0, Absolute Basophils 0.1 01/15/18 0957: Urinalysis LIGHT H, Urine Color YEL, Urine Clarity CLEAR, Urine pH 7.0, Ur Specific [place] 1.015, Urine Protein TRACE H, Urine Ketones NEG, Urine Nitrite NEG, Urine Bilirubin NEG, Urine Urobilinogen 0.2, Ur Leukocyte Esterase SMALL H , Ur Microscopic SEDIMENT EXAMINED, Urine RBC RARE, Urine WBC 10-15 H, Ur Epithelial Cells RARE, Urine Bacteria FEW H, Urine Hemoglobin TRACE-INTACT H, Urine Glucose NEG 01/15/18 0952: PT Cancelled, INR Cancelled, APTT Cancelled 01/15/18 0538: Anion Gap 13, Estimated GFR > 60, BUN/Creatinine Ratio 36.0 H, Glucose 177 H, Calcium 9.7, Iron 54, TIBC 348, Ferritin 38.3, Total Bilirubin 0.9, AST 21, ALT 37, Alkaline Phosphatase 92, Total Protein 8.1, Albumin 3.9, Globulin 4.2, Albumin/Globulin Ratio 0.9 L, Vitamin B12 810, Folate 16.1, CBC w Diff NO MAN DIFF REQ, RBC 5.42, MCV 91.3, MCH 29.9, MCHC 32.8 L, RDW 14.8 H, MPV 10.6 H, Gran % 91.8 H, Lymphocytes % 3.7 L, Monocytes % 4.4, Eosinophils % 0.1, Basophils % 0, Absolute Granulocytes 14.1 H, Absolute Lymphocytes 0.6 L, Absolute Monocytes 0.7 H, Absolute Eosinophils 0, Absolute Basophils 0 Microbiology 01/15 1340 LOWER RESP: Respiratory Culture - RES PROTEUS MIRABILIS PSEUDOMONAS AERUGINOSA PROVIDENCIA GRAM NEGATIVE RODS 01/15 1340 LOWER RESP: Gram Stain - RES 01/15 0748 BLOOD: Blood Culture - RES 01/15 0658 BLOOD: Blood Culture - CAN Cancelled: SPEIMEN NEVER RECEIVED. REORDER IF NEEDED Microbiology 01/15 134 LOWER RESP: Respiratory Culture - RES PROTEUS MIRABILIS PSEUDOMONAS AERUGINOSA PROVIDENCIA GRAM NEGATIVE RODS 01/16 1340 LOWER RESP: Gram Stain - RES 01/15 0748 BLOOD: Blood Culture - RES 01/15 658 BLOOD: Blood Culture - CAN Cancelled: SPEIMEN NEVER RECEIVED. REORDER IF NEEDED Vital Signs Date Time Temp Pulse Resp B/P B/P Pulse O2 O2 Flow FiO2 Mean Ox Delivery Rate 01/17 1439 98.5 93 22 116/66 94 Trach Mask 35% 01/17 0942 94 Trach Mask 35% 01/17 0800 95 Trach Mask 35% 01/17 0654 97.9 98 22 120/78 94 Trach Mask 01/17 0000 Trach Mask 01/16 2230 92 Trach Mask 35% 01/16 2224 98.5 78 23 128/78 94 01/16 1840 93 Trach Mask 35% 01/16 1625 94 Trach Mask 35% 01/16 1600 Trach Mask
[2018-01-17 15:27] VITALS: BP 116/66
== END 2018-01-17 20:03 | DRG 391 ==
LOC: ERH 05:16 → 1NO 07:51 → ERHI 07:51 → ENRESERV 14:38 → ENTRNSPT 16:24 → EDTRNSPT 16:37 → EDTRNSPTSTS 16:37 → 1NO 16:46 → CMPTRNSPT 16:59 → 1NO 01-17 20:03
PROVIDERS: Emergency Medicine; Internal Medicine
DX: K21.9 Gastro-esophageal reflux disease without esophagitis (principal); G83.5 Locked-in state; G82.50 Quadriplegia, unspecified; I50.32 Chronic diastolic (congestive) heart failure; I69.365 Other paralytic syndrome following cerebral infarction, bilateral; Z93.0 Tracheostomy status; I11.0 Hypertensive heart disease with heart failure; F32.9 Major depressive disorder, single episode, unspecified; M10.9 Gout, unspecified; I25.2 Old myocardial infarction; Z88.6 Allergy status to analgesic agent; Z88.8 Allergy status to other drugs, medicaments and biological substances; E78.5 Hyperlipidemia, unspecified; E55.9 Vitamin D deficiency, unspecified; K59.09 Other constipation; E86.0 Dehydration; R31.9 Hematuria, unspecified
CPT/HCPCS: 1NP; 36592; 71045; 81001; 82436; 87040; 87070; 93005; 93010; 96374; J7042

== ENCOUNTER 2018-02-07 05:22 | Emergency (ER) | payer OTHER, MEDICARE ==
[~2018-02-07 05:22] MED LIST changes: +CEPHALEXIN500 M3 G TUBE
--- NOTE | 2018-02-07 05:35 | ED GENERAL ADULT ---
History of Present Illness General Chief Complaint: General Adult Stated Complaint: BIBA LOW O2 Source: old records, EMS Exam Limitations: unable to give history, clinical condition, physical impairment Vital Signs & Intake/Output Vital Signs & Intake/Output Vital Signs Date Time Temp Pulse Resp B/P B/P Pulse O2 O2 Flow FiO2 Mean Ox Delivery Rate 02/07 08 99.0 90 18 136/90 92 02/07 0713 104 24 119/85 93 Trach Mask 02/07 0545 93 Trach Mask 40% 02/07 0542 98.9 102 20 115/70 92 Venti Mask 50% 02/07 0535 Trach Mask 4.0L Allergies Coded Allergies: scopolamine (Mild, HIVES 12/26/16) NSAIDS (Non-Steroidal Anti-Inflamma (PER 12/26/16) adhesive (HIVES - EKG STICKERS, RED DOT [place] STICKERS 12/26/16) aspirin (PER 12/26/16) clopidogrel (From PLAVIX) (PER 12/26/16) Uncoded Allergies: EKG AND RED DOT LEADS (Intermediate, RASH 09/26/16) Reconcile Medications Acetaminophen 325 MG TABLET 2 TAB J TUBE Q4H PRN PAIN/TEMP/>101 (Reported) Acetaminophen (Acephen) 650 MG SUPP.RECT 1 SUPP OR Q4H PRN PAIN/TEMP>101 ( Reported) Albuterol Sulfate 2.5 MG/3 ML (0.083 %) VIAL.NEB 1 Vial INH/MONICO BID RESP. ( Reported) Baclofen 10 MG TABLET 1 TAB G TUBE TID SPASMS (Reported) Bisacodyl 10 MG SUPP.RECT 1 SUP RC DAILY PRN NO BM - IF MOM INEFFECTIVE ( Reported) Cephalexin 500 MG CAPSULE 1 CAP G TUBE BID ANTIBIOTIC, INFECTION (Reported) Cholecalciferol (Vitamin D3) 1,000 UNIT TABLET 1 TAB G TUBE DAILY SUPPLEMENT (Reported) Docusate Sodium 100 MG TABLET 1 TAB G TUBE BID STOOL SOFTENER (Reported) Escitalopram Oxalate 5 MG TABLET 1 TAB G TUBE DAILY DEPRESSION (Reported) Ipratropium/Albuterol Sulfate (Iprat-Albut 0.5-3(2.5) MG/3 Ml) 0.5 MG-3 MG (2.5 MG BASE)/3 ML AMPUL.NEB 1 VIAL NEB Q4H PRN DYSPNEA (Reported) Lactobacillus Acidophilus (Acidophilus) 1 EACH CAPSULE 1 CAP G TUBE DAILY PROBIOTIC (Reported) Magnesium Hydroxide (Milk Of Magnesia) 400 MG/5 ML ORAL.SUSP 30 ML J TUBE DAILY PRN NO BM IN 3 DAYS (Reported) Na Phos,M-B/Na Phos,Di-Ba (Fleet Enema) 19 GRAM-7 GRAM/118 ML ENEMA 1 E RC DAILY PRN NO BM - IF BISACODYL INEFFECTI (Reported) Ondansetron HCl 4 MG TABLET 1 TAB G TUBE Q8H PRN N/V (Reported) Ranitidine HCl 15 MG/ML SYRUP 10 ML G TUBE BID GI (Reported) Simvastatin (Zocor*) 10 MG TABLET 1 TAB G TUBE 1700 GI (Reported) Triage Nurses Notes Reviewed? 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 Patient was seen in the ED yesterday for similar reason and possible tracheostomy dislodgment where he was evaluated and discharged back to his ECF. Per EMS report patient was found to be "gurgling" with possible aspiration this morning by the F staff with "low oxygenation". Patient is unable to give subjective complaints due to his "locked in syndrome". EMS also reports coffee ground emesis. (Praful Ge DO) Past History Travel History Traveled to [place] past 21 day No Medical History Any Pertinent Medical History? 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 ASP PNA Gastrointestinal: constipation, GERD, peptic ulcer disease, upper GI bleed, C. 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 MOTHER (Type 2 DM). Grand father (CVA). Hx Contributory? No (Praful Ge DO) Review of Systems Review of Systems Constitutional: Reports: no symptoms. EENTM: Reports: no symptoms. Respiratory: Reports: see HPI. Cardiovascular: Reports: no symptoms. GI: Reports: vomiting. Genitourinary: Reports: no symptoms. Musculoskeletal: Reports: no symptoms. Skin: Reports: no symptoms. Neurological/Psychological: Reports: no symptoms. Hematologic/Endocrine: Reports: no symptoms. Immunologic/Allergic: Reports: no symptoms. (Praful Ge DO) Physical Exam Physical Exam General Appearance: awake, mild distress Head: atraumatic, normal appearance Eyes: Bilateral: normal appearance, PERRL, EOMI. Ears, Nose, Throat: normal ENT inspection Neck: tracheostomy in place with secretion of purlulent material Respiratory: accessory muscle use, rhonchi Cardiovascular: regular rate/rhythm, edema Gastrointestinal: soft, non-tender, no organomegaly, Normal appearing PEG tube Extremities: normal inspection, normal range of motion, no edema Neurologic/Psych: awake, Nonverbal at baseline Skin: diaphoresis Core Measures ACS in differential dx? No CVA/TIA Diagnosis: No Sepsis Present: No Sepsis Focused Exam Completed? No (Praful Ge DO) Progress Differential Diagnoses I considered the following diagnoses in my evaluation of the patient: pneumonia, bronchitis, respiratory failure, sepsis, pulmonary embolism Plan of Care: Orders Procedure Date/time Status BLOOD CULTURE 02/07 0556 Active COMPREHENSIVE METABOLIC PANEL 02/07 0556 Complete CBC WITHOUT DIFFERENTIAL 02/07 0556 Complete Laboratory Tests 02/07/18 0615: Anion Gap 13, Estimated GFR > 60, BUN/Creatinine Ratio 33.3 H, Glucose 171 H, Calcium 9.4, Total Bilirubin 0.9, AST 21, ALT 28, Alkaline Phosphatase 90, Total Protein 7.8, Albumin 4.0, Globulin 3.8, Albumin/Globulin Ratio 1.1, CBC w Diff MAN DIFF ORDERED, RBC 5.20, MCV 90.5, MCH 30.3, MCHC 33.5, RDW 14.5, MPV 11.2 H , Gran % 87.3 H, Lymphocytes % 6.7 L, Monocytes % 5.5, Eosinophils % 0.4, Basophils % 0.1, Absolute Granulocytes 8.9 H, Absolute Lymphocytes 0.7 L, Absolute Monocytes 0.6, Absolute Eosinophils 0, Absolute Basophils 0, Platelet Estimate ADEQUATE, Polychromasia 1+ Microbiology 02/07 630 BLOOD: Blood Culture - RECD 02/07 615 BLOOD: Blood Culture - RECD Initial ED EKG: PENDING (Praful Ge DO) Differential Diagnoses I considered the following diagnoses in my evaluation of the patient: Diagnostic Imaging: Discussed w/RAD: Radiology Read. CXR Impression: PATIENT: SUNDAY ESPINAL PRESENT AGE: 57 PATIENT ACCOUNT NO: [id number] : 60 LOCATION: [facility] ORDERING PHYSICIAN: Praful Ge DO SERVICE DATE: 02/07/18 EXAM TYPE: RAD - XRY- PORTABLE CHEST XRAY EXAMINATION: XR PORTABLE CHEST CLINICAL INFORMATION: Shortness of breath; question aspiration pneumonia. COMPARISON: Prior radiographs, most recently 01/16/2018. TECHNIQUE: Portable frontal view of the chest was obtained. FINDINGS: Again, there are markedly low lung volumes. There is mild atelectasis versus infiltrate at the right base. The left lung field appears relatively clear. Evaluation of the upper lung hamilton, particularly the left, is limited due to the overlapping head. The cardiac contour is stable. A tracheostomy tube is unchanged in position. Gastrojejunostomy tube again noted. There is a thoracic dextroscoliosis. Chilaiditi sign is noted (bowel caudal to the right hemidiaphragm). IMPRESSION: Again, there are low lung volumes. There is right base linear probable atelectasis. DICTATED BY: Octavio Hayden MD DATE/ TIME DICTATED:02/07/18709 [employer] SPECIALIST:BRITTANY DATE/TIME TRANSCRIBED: 02/07/18709 CONFIDENTIAL, DO NOT COPY WITHOUT APPROPRIATE AUTHORIZATION. < Electronically signed in Other Vendor System> SIGNED BY: Octavio Hayden MD 02/07/18716 Comments: 02/07/2018 8:22:39 AM patient signed out to me by Dr. Ge at shift twisting frame changer. per pts , resp therapist suctioned pt with sig improvement in O2 sats. cxr unremarkable. pt stable for return to ecf. (Praful Antonio MD) Departure Departure Departure Forms: Customer Survey General Discharge Information Comments The patient was signed out to Dr. Antonio at 7 AM. (Praful Ge DO) Departure Disposition: HOME OR SELF CARE Condition: Stable Clinical Impression Primary Impression: Vomiting Qualifiers: Vomiting type: unspecified Vomiting Intractability: non-intractable Nausea presence: unspecified Qualified Code: R11.10 - Vomiting, unspecified Secondary Impressions: Hypoxia Referrals: Hetal Peterson APRN (PCP/Family) (Praful Antonio MD) Critical Care Note Critical Care Note Critical Care Time: 30-74 min (Praful Ge DO) ED Attending Observation Initial Observation Note: I have seen and personally examined SUNDAY ESPINAL on 02/11/18 at 1910. I agree with the current emergency department documentation. The disposition (admission or discharge) is uncertain at this time, he needs a period of observation for the following reason(s): The ED Nurse caring for this patient has been personally informed as to what the patient is being observed for. (Praful Antonio MD)
[2018-02-07 07:10] LABS: ABSOLUTE BASOPHIL COUNT 0 /CUMM (0.0-0.2); ABSOLUTE EOSINOPHIL COUNT 0 /CUMM (0.0-0.7); ABSOLUTE GRANULOCYTE CT 8.9 /CUMM (1.4-6.5); ABSOLUTE LYMPH COUNT 0.7 /CUMM (1.2-3.4); ABSOLUTE MONOCYTE COUNT 0.6 /CUMM (0.10-0.60); BASOPHIL % 0.1 % (0.0-2.0); EOSINOPHIL % 0.4 % (0-5); GRANULOCYTE % 87.3 % (42.2-75.2); MEAN CORPUSCULAR HGB 30.3 PG (27.0-31.0); MEAN CORPUSCULAR HGB CONC 33.5 G/DL (33.0-37.0); MEAN CORPUSCULAR VOLUME 90.5 FL (80.0-94.0); MEAN PLATELET VOLUME 11.2 FL (7.4-10.4); PLATELET COUNT 242 /CUMM (130-400); RBC DISTRIBUTION WIDTH 14.5 % (11.5-14.5); WHITE BLOOD CELL COUNT 10.2 /CUMM (4.8-10.8)
--- NOTE | 2018-02-07 07:17 | RADIOLOGY REPORT ---
EXAMINATION: XR PORTABLE CHEST CLINICAL INFORMATION: Shortness of breath; question aspiration pneumonia. COMPARISON: Prior radiographs, most recently 01/16/2018. TECHNIQUE: Portable frontal view of the chest was obtained. FINDINGS: Again, there are markedly low lung volumes. There is mild atelectasis versus infiltrate at the right base. The left lung field appears relatively clear. Evaluation of the upper lung hamilton, particularly the left, is limited due to the overlapping head. The cardiac contour is stable. A tracheostomy tube is unchanged in position. Gastrojejunostomy tube again noted. There is a thoracic dextroscoliosis. Chilaiditi sign is noted (bowel caudal to the right hemidiaphragm). IMPRESSION: Again, there are low lung volumes. There is right base linear probable atelectasis.
[2018-02-07 08:06] VITALS: BP 136/90
== END 2018-02-07 09:25 ==
LOC: ERH 05:22
PROVIDERS: Emergency Medicine
DX: R11.10 Vomiting, unspecified (principal); R09.02 Hypoxemia
CPT/HCPCS: 1342; 71045; 87040

== ENCOUNTER 2018-03-05 06:02 | Inpatient (IN) | payer OTHER, MEDICARE ==
[~2018-03-05] VITALS: Ht 175.3 cm; Wt 89.8 kg
--- NOTE | 2018-03-05 06:31 | ED GI/GU/ABDOMINAL COMPLAINT ---
History of Present Illness General Chief Complaint: General Adult Stated Complaint: "BIBA FOOD TUBE BLOCKAGE;?GI BLEED" Source: old records, EMS, [facility] Exam Limitations: clinical condition, physical impairment Vital Signs & Intake/Output Vital Signs & Intake/Output Vital Signs Date Time Temp Pulse Resp B/P B/P Pulse O2 O2 Flow FiO2 Mean Ox Delivery Rate 03/05 1011 99.5 113 22 130/83 93 Trach Mask 35% 03/05 0716 100.1 111 22 117/82 90 Venti Mask 10L 03/05 621 90 Trach Mask 75% 03/05 617 100.3 123 22 136/78 90 Trach Mask 75% Allergies Coded Allergies: scopolamine (Mild, HIVES 12/26/16) NSAIDS (Non-Steroidal Anti-Inflamma (PER 12/26/16) adhesive (HIVES - EKG STICKERS, RED DOT [place] STICKERS 12/26/16) aspirin (PER 12/26/16) clopidogrel (From PLAVIX) (PER 12/26/16) Uncoded Allergies: EKG AND RED DOT LEADS (Intermediate, RASH 09/26/16) Reconcile Medications Acetaminophen 325 MG TABLET 2 TAB J TUBE Q4H PRN PAIN/TEMP/>101 (Reported) Acetaminophen (Acephen) 650 MG SUPP.RECT 1 SUPP NM Q4H PRN PAIN/TEMP>101 ( Reported) Albuterol Sulfate 2.5 MG/3 ML (0.083 %) VIAL.NEB 1 Vial INH/MONICO BID RESP. ( Reported) Baclofen 10 MG TABLET 1 TAB G TUBE TID SPASMS (Reported) Bisacodyl 10 MG SUPP.RECT 1 SUP RC DAILY PRN NO BM - IF MOM INEFFECTIVE ( Reported) Cephalexin 500 MG CAPSULE 1 CAP G TUBE BID ANTIBIOTIC, INFECTION (Reported) Cholecalciferol (Vitamin D3) 1,000 UNIT TABLET 1 TAB G TUBE DAILY SUPPLEMENT (Reported) Docusate Sodium 100 MG TABLET 1 TAB G TUBE BID STOOL SOFTENER (Reported) Escitalopram Oxalate 5 MG TABLET 1 TAB G TUBE DAILY DEPRESSION (Reported) Ipratropium/Albuterol Sulfate (Iprat-Albut 0.5-3(2.5) MG/3 Ml) 0.5 MG-3 MG (2.5 MG BASE)/3 ML AMPUL.NEB 1 VIAL NEB Q4H PRN DYSPNEA (Reported) Lactobacillus Acidophilus (Acidophilus) 1 EACH CAPSULE 1 CAP G TUBE DAILY PROBIOTIC (Reported) Magnesium Hydroxide (Milk Of Magnesia) 400 MG/5 ML ORAL.SUSP 30 ML J TUBE DAILY PRN NO BM IN 3 DAYS (Reported) Na Phos,M-B/Na Phos,Di-Ba (Fleet Enema) 19 GRAM-7 GRAM/118 ML ENEMA 1 E RC DAILY PRN NO BM - IF BISACODYL INEFFECTI (Reported) Ondansetron HCl 4 MG TABLET 1 TAB G TUBE Q8H PRN N/V (Reported) Ranitidine HCl 15 MG/ML SYRUP 10 ML G TUBE BID GI (Reported) Simvastatin (Zocor*) 10 MG TABLET 1 TAB G TUBE 1700 GI (Reported) Triage Note: BIBA FROM ECF WITH C/O VOMTING X 2 RED IN COLOR. PT BASELINE NON VERBAL AND TRACH, PT SPO2 HIGH 80'S LOW 90'S. PT CHANGEGD AND REPOSITIONED. DR BROWN IN ROOM. Triage Nurses Notes Reviewed? yes Unable To Obtain Hx Due To: patient unresponsiveness Onset: 3 days Duration: day(s):, continues in ED Timing: recent history Location: epigastric Radiation: no radiation Prior Abdominal Problems: similar symptoms Past Sexual History: Unobtainable at this time HPI: 3 days prior to admission G J-tube was obstructed. He presented to the emergency department with one of the 2 ports cleared. He was directed to return to interventional radiology for replacement of a new tube. Prior to admission he was reported to vomit red brown liquid with oxygen desaturation. His sister reports the tube was unobstructed yesterday. There is no reported fever diarrhea chest pain cough headache dysuria rash. (Eddie SOTELO,[facility]) Past History Travel History Traveled to [place] past 21 day No Medical History Any Pertinent Medical History? 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 ASP PNA Gastrointestinal: constipation, GERD, peptic ulcer disease, upper GI bleed, C. 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 MOTHER (Type 2 DM). Grand father (CVA). Hx Contributory? No (Garrett Brown MD) Review of Systems Review of Systems Constitutional: Reports: no symptoms. EENTM: Reports: no symptoms. Respiratory: Reports: no symptoms. Cardiovascular: Reports: no symptoms. GI: Reports: see HPI, vomiting. Genitourinary: Reports: no symptoms. Musculoskeletal: Reports: no symptoms. Skin: Reports: no symptoms. Neurological/Psychological: Reports: no symptoms. Hematologic/Endocrine: Reports: no symptoms. Immunologic/Allergic: Reports: no symptoms. All Other Systems: Reviewed and Negative (Garrett Brown MD) Physical Exam Physical Exam General Appearance: well developed/nourished, awake, mild distress Head: atraumatic, normal appearance Eyes: Bilateral: normal appearance, PERRL. Ears, Nose, Throat, Mouth: hearing grossly normal, moist mucous membrane Neck: muscle spasm Respiratory: chest non-tender, crackles, rhonchi Cardiovascular: regular rate/rhythm, normal peripheral pulses, norml femoral pulses equa Peripheral Pulses: 4+ carotid (R), 4+ carotid (L) Gastrointestinal: normal bowel sounds, soft, non-tender, no organomegaly Rectal: heme negative stool Male Genitals: normal genitalia Back: normal inspection Extremities: limited range of motion, foot drop bilaterally Neurologic/Psych: awake Skin: normal color, warm/dry Core Measures ACS in differential dx? No Sepsis Present: No Sepsis Focused Exam Completed? No (Garrett Brown MD) Progress Differential Diagnosis: gastritis, pneumonia, GI bleed Plan of Care: Orders Procedure Date/time Status LACTIC ACID 03/05 1300 Active LACTIC ACID 03/05 1000 Active Add-on Test (ER Only) 03/05 0937 Active CULTURE,URINE 03/05 0932 Active BLOOD CULTURE 03/05 0932 Active URINALYSIS 03/05 0730 Complete PROTHROMBIN TIME 03/05 0625 Complete COMPREHENSIVE METABOLIC PANEL 03/05 06 Complete CBC WITHOUT DIFFERENTIAL 03/05 625 Complete Current Medications Sig/Gil Start time Last Medication Dose Stop Time Status Admin Ampicillin 1,000 MG ONCE ONE 03/05 945 CAN (Omnipen) 03/05 103 Sodium Chloride 1,000 ML ONCE ONE 03/05 945 AC (Normal Saline 0.9%) 03/05 1624 Laboratory Tests 03/05/18 1001: Lactic Acid Pending 03/05/18 0747: Urinalysis LIGHT H, Urine Color YEL, Urine Clarity CLEAR, Urine pH 6.0, Ur Specific Gates 1.020, Urine Protein TRACE H, Urine Ketones 15 H, Urine Nitrite NEG, Urine Bilirubin NEG, Urine Urobilinogen 0.2, Ur Leukocyte Esterase NEG, Ur Microscopic SEDIMENT EXAMINED, Urine RBC 1-3, Urine WBC RARE, Ur Epithelial Cells FEW, Urine Bacteria RARE H, Urine Mucus MANY H, Urine Hemoglobin NEG, Urine Glucose NEG 03/05/18 0700: Anion Gap 9, Estimated GFR > 60, BUN/Creatinine Ratio 34.0 H, Glucose 148 H, Calcium 9.5, Total Bilirubin 1.5 H, AST 24, ALT 30, Alkaline Phosphatase 97, Total Protein 8.1, Albumin 4.1, Globulin 4.0, Albumin/Globulin Ratio 1.0 L, PT 12.0, INR 1.10, CBC w Diff MAN DIFF ORDERED, RBC 5.46, MCV 90.1, MCH 29.6, MCHC 32.9 L, RDW 14.4, MPV 10.7 H, Gran % 92.0 H, Lymphocytes % 4.9 L, Monocytes % 3.0, Eosinophils % 0.1, Basophils % 0, Absolute Granulocytes 12.4 H, Absolute Lymphocytes 0.7 L, Absolute Monocytes 0.4, Absolute Eosinophils 0, Absolute Basophils 0, Platelet Estimate VERIFIED BY SMEAR, Normocytic RBCs VERIFIED, Normochromic RBCs VERIFIED Microbiology 03/05 100 BLOOD: Blood Culture - RECD 03/05 100 BLOOD: Blood Culture - RECD 03/05 932 URINE ROUT: Urine Culture - ORD Initial ED EKG: none Hand-Off Endorsed To: Praful Antonio MD Endorsed Time: 0700 Pending: labs, Xray (Garrett Brown MD) Diagnostic Imaging: Viewed by Me: Radiology Read. Discussed w/RAD: Radiology Read. CXR Impression: PATIENT: MARJORIE ESPINAL PRESENT AGE: 57 PATIENT ACCOUNT NO: [id number] : 60 LOCATION: [facility] ORDERING PHYSICIAN: Garrett Brown MD SERVICE DATE: 03/05/18 EXAM TYPE: RAD - XRY-PORTABLE CHEST XRAY EXAMINATION: XR PORTABLE CHEST CLINICAL INFORMATION: Nausea and vomiting. Hypoxia. Rales. COMPARISON: 02/07/2018 TECHNIQUE: Portable frontal view of the chest was obtained. FINDINGS: Tracheostomy tube in place. Lung volumes are low. The left upper lung is not well evaluated due to patient positioning and overlying soft tissue. Streaky right basilar opacity. No pleural effusion. No large pneumothorax. The cardiomediastinal silhouette is unchanged. IMPRESSION : Limited evaluation due to patient positioning. Hypoexpanded lungs with streaky right basilar opacity favoring atelectasis, although pneumonia or aspiration are possible. DICTATED BY: Nuha SOTELO,Rudy DATE/TIME DICTATED:03/05/18649 VIDEOTAPE SALES REPRESENTATIVE:BRITTANY DATE/TIME TRANSCRIBED:03/05/18649 CONFIDENTIAL, DO NOT COPY WITHOUT APPROPRIATE AUTHORIZATION. <Electronically signed in Other Vendor System> SIGNED BY: Nuha SOTELO,Rudy 03/05/18 0655 Comments: 03/05/2018 7:17:40 AM patient signed out to me by Dr. brown at shift overnight associate. Patient has a low-grade fever and elevated white blood cell count, I have ordered a urinalysis to rule out urinary tract infection. 03/05/2018 10:28:58 AM Marjorie remains clinically stable with an oxygen saturation 96% on trach mask, humidified. I've explained to his family that the cause for his elevated white blood cell count and low-grade fever is unclear at this point. He will be admitted to follow through with blood culture results urine culture results and further testing/treatment as indicated. (Marisela SOTELO,Praful Maldonado) Departure Departure Condition: Stable Referrals: Danny Olvera MD (PCP/Family) Departure Forms: Customer Survey General Discharge Information (Garrett Brown MD) Departure Disposition: STILL A PATIENT Clinical Impression Primary Impression: Vomiting Qualifiers: Vomiting type: unspecified Vomiting Intractability: non-intractable Nausea presence: unspecified Qualified Code: R11.10 - Vomiting, unspecified Secondary Impressions: Febrile illness Admission Note Spoke With: Danny Olvera MD Documentation of Exam: Documentation of any treatments & extenuating circumstances including Concerns Regarding Discharge (functional status, medication knowledge or non-compliance, living conditions, etc.) that warrant an admission rather than observation: Patient presents with a low-grade fever and his emergency Department evaluation reveals an elevated white blood cell count. His chest x-ray is difficult to interpret, apparently more consistent with atelectasis but unable to rule out infiltrate. Patient's presentation is challenging given his history of "locked in syndrome" and his inability to effectively communicate his symptoms. Given this, and the strong suggestion of an underlying infectious process (elevated white count and low-grade fever), I feel it prudent to hospitalize this patient for clinical monitoring, serial vital signs determinations, repeat white blood cell count and follow through of culture results with modification of treatment accordingly. I feel it appropriate that the patient be treated in a more aggressive manner with IV antibiotics to prevent secondary severe sepsis. If the patient's fever or elevated white blood cell count persists then infectious disease consultation should be considered. Part of this patient's presentation was also based on vomiting prior to arrival. The patient's vomiting persists then GI consultation should be considered along with investigation of the underlying cause for the patient's vomiting including gastritis and peptic ulcer disease or upper GI bleeding. Given this patient's medical comorbidities his treatment will likely be prolonged and complicated. I feel this patient will require a multiple day hospitalization. (Marisela SOTELO,Praful Maldonado) Critical Care Note Critical Care Note Critical Care Time: 30-74 min (Praful Antonio MD)
--- NOTE | 2018-03-05 06:55 | RADIOLOGY REPORT ---
EXAMINATION: XR PORTABLE CHEST CLINICAL INFORMATION: Nausea and vomiting. Hypoxia. Rales. COMPARISON: 02/07/2018 TECHNIQUE: Portable frontal view of the chest was obtained. FINDINGS: Tracheostomy tube in place. Lung volumes are low. The left upper lung is not well evaluated due to patient positioning and overlying soft tissue. Streaky right basilar opacity. No pleural effusion. No large pneumothorax. The cardiomediastinal silhouette is unchanged. IMPRESSION: Limited evaluation due to patient positioning. Hypoexpanded lungs with streaky right basilar opacity favoring atelectasis, although pneumonia or aspiration are possible.
[2018-03-05 07:10] LABS: ABSOLUTE BASOPHIL COUNT 0 /CUMM (0.0-0.2); ABSOLUTE EOSINOPHIL COUNT 0 /CUMM (0.0-0.7); ABSOLUTE GRANULOCYTE CT 12.4 /CUMM (1.4-6.5); ABSOLUTE LYMPH COUNT 0.7 /CUMM (1.2-3.4); ABSOLUTE MONOCYTE COUNT 0.4 /CUMM (0.10-0.60); BASOPHIL % 0 % (0.0-2.0); EOSINOPHIL % 0.1 % (0-5); HEMATOCRIT 49.1 % (42-52); MEAN CORPUSCULAR HGB 29.6 PG (27.0-31.0); MEAN CORPUSCULAR HGB CONC 32.9 G/DL (33.0-37.0); MEAN CORPUSCULAR VOLUME 90.1 FL (80.0-94.0); MEAN PLATELET VOLUME 10.7 FL (7.4-10.4); PLATELET COUNT 232 /CUMM (130-400); RBC DISTRIBUTION WIDTH 14.4 % (11.5-14.5); RED BLOOD CELL CT 5.46 /CUMM (4.70-6.10); WHITE BLOOD CELL COUNT 13.5 /CUMM (4.8-10.8)
--- NOTE | 2018-03-05 11:19 | History & Physical ---
General Information and HPI MD Statement: I have seen and personally examined SUNDAY ESPINAL III and documented this H& P. 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 difficile infection, diabetes, gout, depression, history of [place], history of DVT status post filter placement, MRSA infection in the past and only able to communicate with his eyes that is brought in from [facility] for upper GI bleed , increased oxygen requirements. Most of the history is obtained from his daughter and sister and the W 10 reports from the facility as the patient cannot communicate. Apparently the patient was at his baseline status until today when he was found to have vomited coffee ground emesis. He was also found to have an increased oxygen requirement. Patient normally has a tracheostomy with baseline humidified oxygen requirement. The patient has lived at [facility] since the end of November and before this, lived at [facility] which has recently closed. He was found today to have blood pressure 118/78, pulse 112, respiratory rate 28, temperature 98.5 at the facility. His pulse ox showed 86-88% saturation on 10 L of oxygen humidified via trach after suction. Before suction his O2 sat was 80% . On physical exam at the facility, his lungs were found to be congested. Patient has recently been noted to have lost about 9 pounds as reported by Yomi Slaughter to our supercharger repair supervisor. Apparently 3 days ago his GJ tube was obstructed and he presented to the ED with one of the 2 ports cleared. He was directed to return to interventional radiology for replacement of a new tube. As of yesterday, according to the sister, the tube was unobstructed. There were no reports of fever, chills, headache, dysuria, chest pain, cough, diarrhea, constipation. Patient had a gastrostomy tube which was replaced by GJ tube due to aspiration years ago which was clogged and dislodged by IR in september 2017. He also found to have right bronchial stenosis resulting in multiple postobstructive pneumonias in the past, grew resistant bugs. He was on broad sprectrum antibiotics in the past. Similar episode on January 15 and december 21 of this year. He reportedly had significant secretions via trach during the course of antibiotics previously. His trach is usually suctioned every shift. Allergies/Medications Allergies: Coded Allergies: scopolamine (Mild, HIVES 12/26/16) NSAIDS (Non-Steroidal Anti-Inflamma (PER W-12/26/16) adhesive (HIVES - EKG STICKERS, RED DOT [facility] [place] STICKERS 12/26/16) aspirin (PER 12/26/16) clopidogrel (From PLAVIX) (PER 12/26/16) Uncoded Allergies: EKG AND RED DOT LEADS (Intermediate, RASH 09/26/16) Home Med list Acetaminophen 325 MG TABLET 2 TAB J TUBE Q4H PRN PAIN/TEMP/>101 (Reported) Acetaminophen (Acephen) 650 MG SUPP.RECT 1 SUPP OK Q4H PRN PAIN/TEMP>101 ( Reported) Albuterol Sulfate 2.5 MG/3 ML (0.083 %) VIAL.NEB 1 Vial INH/MONICO BID RESP. ( Reported) Baclofen 10 MG TABLET 1 TAB G TUBE TID SPASMS (Reported) Bisacodyl 10 MG SUPP.RECT 1 SUP RC DAILY PRN NO BM - IF MOM INEFFECTIVE ( Reported) Cephalexin 500 MG CAPSULE 1 CAP G TUBE BID ANTIBIOTIC, INFECTION (Reported) Cholecalciferol (Vitamin D3) 1,000 UNIT TABLET 1 TAB G TUBE DAILY SUPPLEMENT (Reported) Docusate Sodium 100 MG TABLET 1 TAB G TUBE BID STOOL SOFTENER (Reported) Escitalopram Oxalate 5 MG TABLET 1 TAB G TUBE DAILY DEPRESSION (Reported) Ipratropium/Albuterol Sulfate (Iprat-Albut 0.5-3(2.5) MG/3 Ml) 0.5 MG-3 MG (2.5 MG BASE)/3 ML AMPUL.NEB 1 VIAL NEB Q4H PRN DYSPNEA (Reported) Lactobacillus Acidophilus (Acidophilus) 1 EACH CAPSULE 1 CAP G TUBE DAILY PROBIOTIC (Reported) Magnesium Hydroxide (Milk Of Magnesia) 400 MG/5 ML ORAL.SUSP 30 ML J TUBE DAILY PRN NO BM IN 3 DAYS (Reported) Na Phos,M-B/Na Phos,Di-Ba (Fleet Enema) 19 GRAM-7 GRAM/118 ML ENEMA 1 E RC DAILY PRN NO BM - IF BISACODYL INEFFECTI (Reported) Ondansetron HCl 4 MG TABLET 1 TAB G TUBE Q8H PRN N/V (Reported) Ranitidine HCl 15 MG/ML SYRUP 10 ML G TUBE BID GI (Reported) Simvastatin (Zocor*) 10 MG TABLET 1 TAB G TUBE 1700 GI (Reported) Compliance With Home Meds: GOOD Past History Travel History Traveled to [place] past 21 day No Medical History Neurological: CVA, 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 ASP PNA Gastrointestinal: constipation, GERD, peptic ulcer disease, upper GI bleed, C. Difficile DYSPHAGIA GTUBE Hepatic: NONE Renal: nephrolithiasis, UTI Musculoskeletal: gout, MUSCLE SPASMS Psychiatric: depression, schizophrenia Endocrine: DIABETES VIT D DEFICIENCY Blood Disorders: NONE Cancer(s): NONE CABIN OUTFITTER/Reproductive: NONE History of MRSA: Yes History of VRE: No History of CDIFF: No Surgical History Surgical History: hernia repair-inguinal (8 years prior to admission), GASTOJEJUNOSTOMY status post IVC filter Past Family/Social History Family History Relations & Conditions if any Family history was reviewed; no changes noted. Psychosocial History Where do you live? Extended Care Facility Who Do You Live With? self Services at Home: from [facility] Primary Language: Burmese Functional Ability ADLs Needs Assist: dressing, eating, toileting, bathing. Ambulation: non-ambulatory IADLs Needs Assist: shopping, housework, finances, food prep, telephone, transportation, medication admin. Sexual History Past Sexual History Unobtainable at this time Review of Systems Review of Systems Constitutional: Reports: unexplained weight loss. Cardiovascular: Reports: no symptoms. Respiratory: Reports: no symptoms. GI: Reports: see HPI, vomiting. Exam & Diagnostic Data Last 24 Hrs of Vital Signs/I&O Vital Signs Date Time Temp Pulse Resp B/P B/P Pulse O2 O2 Flow FiO2 Mean Ox Delivery Rate 03/05 1419 Trach Mask 40% 03/05 1358 98.3 91 18 118/70 96 Trach Mask 03/05 1346 99 Nasal 5.0L Cannula 03/05 1156 99.2 95 20 108/77 93 Trach Mask 35% 03/05 1011 99.5 113 22 130/83 93 Trach Mask 35% 03/05 0716 100.1 111 22 117/82 90 Venti Mask 10L 03/05 0621 90 Trach Mask 75% 03/05 0617 100.3 123 22 136/78 90 Trach Mask 75% Intake & Output 03/05 1600 03/05 0800 03/05 0000 Intake Total Output Total Balance Patient 181 lb 220 lb Weight Weight Bed scale Estimated Measurement Method Physical Exam General Appearance Alert, Cooperative, No Acute Distress Skin patient has lower extremity petechiae on the front of his shins, reportedly has had workup but no cause found. Skin Temp/Moisture Exam: Warm/Dry Sepsis Skin Exam (color): Normal for Ethnicity HEENT Atraumatic, PERRLA, EOMI, Mucous Membr. moist/pink Neck Supple, No JVD Cardiovascular Regular Rate, Normal S1, Normal S2 Lungs Clear to Auscultation, Normal Air Movement Abdomen Normal Bowel Sounds, Soft, No Tenderness Neurological Normal Speech Extremities No Clubbing, No Cyanosis, No Edema Vascular Normal Pulses, Pulses Symmetrical Last 24 Hrs of Labs/Rashard: Laboratory Tests 03/05/18 1300: Lactic Acid Cancelled 03/05/18 1001: Lactic Acid 1.1 03/05/18 0747: Urinalysis LIGHT H, Urine Color YEL, Urine Clarity CLEAR, Urine pH 6.0, Ur Specific [place] 1.020, Urine Protein TRACE H, Urine Ketones 15 H, Urine Nitrite NEG, Urine Bilirubin NEG, Urine Urobilinogen 0.2, Ur Leukocyte Esterase NEG, Ur Microscopic SEDIMENT EXAMINED, Urine RBC 1-3, Urine WBC RARE, Ur Epithelial Cells FEW, Urine Bacteria RARE H, Urine Mucus MANY H, Urine Hemoglobin NEG, Urine Glucose NEG 03/05/18 0700: Anion Gap 9, Estimated GFR > 60, BUN/Creatinine Ratio 34.0 H, Glucose 148 H, Calcium 9.5, Total Bilirubin 1.5 H, AST 24, ALT 30, Alkaline Phosphatase 97, Total Protein 8.1, Albumin 4.1, Globulin 4.0, Albumin/Globulin Ratio 1.0 L, PT 12.0, INR 1.10, CBC w Diff MAN DIFF ORDERED, RBC 5.46, MCV 90.1, MCH 29.6, MCHC 32.9 L, RDW 14.4, MPV 10.7 H, Gran % 92.0 H, Lymphocytes % 4.9 L, Monocytes % 3.0, Eosinophils % 0.1, Basophils % 0, Absolute Granulocytes 12.4 H, Absolute Lymphocytes 0.7 L, Absolute Monocytes 0.4, Absolute Eosinophils 0, Absolute Basophils 0, Platelet Estimate VERIFIED BY SMEAR, Normocytic RBCs VERIFIED, Normochromic RBCs VERIFIED Microbiology 03/05 1344 LOWER RESP: Respiratory Culture - COLB 03/05 134 LOWER RESP: Gram Stain - COLB 03/05 1005 BLOOD: Blood Culture - RECD 03/05 1001 BLOOD: Blood Culture - RECD 03/05 0932 URINE ROUT: Urine Culture - CAN Cancelled: Cancelled via OE: ADD ON 03/05 747 URINE ROUT: Urine Culture - RECD Assessment/Plan Assessment: Patient is a 57-year-old man [place] [facility] resident with 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 difficile infection, diabetes, gout, depression, history of [place], history of DVT status post filter placement, MRSA infection in the past and only able to communicate with his eyes that is brought in from [facility] for upper GI bleed , increased oxygen requirements. The patient has been here before for upper GI bleed and has been evaluated by Dr. Watson in the past. He has been here as well for aspiration pneumonia. In the ED, blood pressure is found to be 130/83, respiratory rate 22, pulse 113, temperature 100.3 on Ventimask 10 L humidified oxygen, satting 90%. WBC count was found to be 13.5, lactic acid normal, creatinine 0.5, total bilirubin 1.5, other LFTs normal, UA no evidence of infection. Chest x-ray showed hyperexpanded lungs with streaky right basilar opacity favoring atelectasis although pneumonia or aspiration are possible. In the ED, cultures were taken and patient was given 1 dose of Fortaz and Unasyn. He is also given 1 L of saline. Assessment Fever and increased white count with tachycardia i.e. sepsis most likely caused by pneumonia secondary to aspiration with hematemesis, previously worked up Tube feeds Locked-in syndrome Plan Admit patient to general medical floors for evaluation and treatment Nutritional consult and began tube feeds this evening Trend WBC count and fever curve Start patient on fluids normal saline at a rate of 75 mL per hour Start patient on Unasyn 3 g every 6 hours CBC and BEP tomorrow Continue other home medications TRC nebs Follow cultures Patient is full code Tube feeds DVT prophylaxis with Lovenox. As Ranked By This Provider Problem List: 1. Aspiration pneumonia Core Measures/Misc (04/13) Acute Coronary Syndrome ACS Diagnosis: No Congestive Heart Failure Congestive Heart Failure Diagnosis No Cerebrovascular Accident CVA/TIA Diagnosis: No VTE (View Protocol) VTE Risk Factors Immobility No Mechanical VTE Prophylaxis d/t Physical Contraindication No VTE Pharm Prophylaxis d/t NA PharmProphylax ordered Sepsis (View protocol) Sepsis Present: No If YES complete Sepsis Event Note If YES complete Sepsis Event Note
--- NOTE | 2018-03-05 12:20 | Admission Certification ---
Admission Certification Certification Statement - As attending physician, I certify that at the time of - admission, based on clinical presentation, severity of - symptoms, need for further diagnostic testing and - therapeutic interventions, and risk of adverse outcomes - without in-hospital treatment, in my clinical assessment, - this patient requires an acute hospital stay for a minimum - of two nights or longer. I have also considered psychsocial - factors such as support system, advanced age, financial - issues, cognitive issues, and failed out-patient treatments, - past re-admission history, safety of patient, and lack of - compliance as applicable. Specific rationale supporting this admission is: Vomiting, leukocytosis and probable aspiration pneumonia
--- NOTE | 2018-03-05 12:23 | PN- Att Addend ---
Attending Addendum Attending Brief Note 57-year-old white male with many comorbidities, resident of the [facility]. Again had an episode of vomiting with a little blood in it which he has had before and has had GI workup for it. Was sent to the emergency room, in no respiratory distress but high white count and possible aspiration pneumonia. Patient will be admitted will be kept without the nutrition for the day and reassess nutrition by the industrial maintenance instructor. After the cultures we will start IV antibiotics and TRC. Monitor the labs and x-ray. Current Medications Sig/Gil Start time Last Medication Dose Route Stop Time Status Admin Ampicillin 0 .STK-MED ONE 03/05 1017 DC .ROUTE Ampicillin 1,000 MG ONCE ONE 03/05 0945 CAN IV 03/05 1030 Ampicillin 1,000 MG ONCE ONE 03/05 945 DC 03/05 Sodium Chloride 100 ML IV 03/05 1014 1037 Ceftazidime 0 .STK-MED ONE 03/05 1017 DC .ROUTE Ceftazidime 1,000 MG ONCE ONE 03/05 0945 DC 03/05 IV 03/05 0946 1030 Sodium Chloride 1,000 ML ONCE ONE 03/05 0945 AC / IV 03/05 1624 1030 Microbiology Date/Time Procedure - Status Source Growth 03/05 1005 Blood Culture - RECD BLOOD 03/05 100 Blood Culture - RECD BLOOD 03/05 932 Urine Culture - CAN URINE ROUT Cancelled: Cancelled via OE: ADD ON 03/05 747 Urine Culture - RECD URINE ROUT Vital Signs Date Time Temp Pulse Resp B/P B/P Pulse O2 O2 Flow FiO2 Mean Ox Delivery Rate 03/05 1156 99.2 95 20 108/77 93 Trach Mask 35% 03/05 1011 99.5 113 22 130/83 93 Trach Mask 35% 03/05 0716 100.1 111 22 117/82 90 Venti Mask 10L 03/05 0621 90 Trach Mask 75% 03/05 0617 100.3 123 22 136/78 90 Trach Mask 75%
[2018-03-05 13:58] VITALS: BP 118/70
[2018-03-05 22:47] VITALS: BP 106/75
--- NOTE | 2018-03-06 00:30 | Discharge Summary ---
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 difficile infection, diabetes, gout, depression, history of [place], history of DVT status post filter placement, MRSA infection in the past and only able to communicate with his eyes that is brought in from [facility] for upper GI bleed , increased oxygen requirements. The patient has been here before for upper GI bleed and has been evaluated by Dr. Watson in the past. He has been here as well for aspiration pneumonia. In the ED, blood pressure is found to be 130/83, respiratory rate 22, pulse 113, temperature 100.3 on Ventimask 10 L humidified oxygen, satting 90%. WBC count was found to be 13.5, lactic acid normal, creatinine 0.5, total bilirubin 1.5, other LFTs normal, UA no evidence of infection. Chest x-ray showed hyperexpanded lungs with streaky right basilar opacity favoring atelectasis although pneumonia or aspiration are possible. In the ED, cultures were taken and patient was given 1 dose of Fortaz and Unasyn. He is also given 1 L of saline. Assessment Fever and increased white count with tachycardia i.e. 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 difficile infection, diabetes, gout, depression, history of [place], history of DVT status post filter placement, MRSA infection in the past and only able to communicate with his eyes that is brought in from [facility] for upper GI bleed , increased oxygen requirements. The patient has been here before for upper GI bleed and has been evaluated by Dr. Watson in the past. He has been here as well for aspiration pneumonia. In the ED, blood pressure is found to be 130/83, respiratory rate 22, pulse 113, temperature 100.3 on Ventimask 10 L humidified oxygen, satting 90%. WBC count was found to be 13.5, lactic acid normal, creatinine 0.5, total bilirubin 1.5, other LFTs normal, UA no evidence of infection. Chest x-ray showed hyperexpanded lungs with streaky right basilar opacity favoring atelectasis although pneumonia or aspiration are possible. In the ED, cultures were taken and patient was given 1 dose of Fortaz and Unasyn. He is also given 1 L of saline. Assessment Fever and increased white count with tachycardia i.e. sepsis most likely caused by pneumonia secondary to aspiration with hematemesis, previously worked up Tube feeds - G-tube clogged Locked-in syndrome Hospital course - Admitted patient to general medical floors for evaluation and treatment. - Tube feeds were started Glucerna 1.2, water flush 175 every 4 hours with continuous progression of tube feeding for the first 8 hours, 20, second 8 hours , 40, third 8 hours, 55 with a goal rate of 75 mils per hour and bolus progression of tube feedings to be 75 mils per hour for 21 hours with a hold from 1 AM to 4 AM. During the patient's time here he's G-tube was found to be clogged. We attempted to unclog with Rolan and would not did not work we sent the patient to IR for evaluation and treatment. They stated that the J-tube was unclog in that he is to use this for medication and feeds as there is less risk of aspiration with the J-tube. The patient received medications and tube feeds through J-tube with no issues. Plan is to continue feeds through J-tube only until further notice. -Hemoglobin found to be 12.5 on admission down from his baseline of around 16. On the final day of his stay, hemoglobin was found to be 13.3. -Patient was admitted with a mild fever and tachycardia. We started the patient on Unasyn for presumed aspiration. It had been found that one vial of his blood culture grew coagulase-negative staph which was determined to be contaminant by infectious disease. We ultimately discontinued Unasyn and followed off antibiotics. - No workup for patient's hematemesis as it had been worked up thoroughly in the past by Dr. Watson, letterpress setter. Patient was last seen by Dr. Watson on January 15 of this year for the exact same complaints the patient does have a history of peptic ulcer disease with a bleeding ulcer noted on endoscopy in October 2015 which was felt to be secondary to his G/J tube. He remains without evidence of overt GI bleeding and similar to last time, an upper endoscopy will not be pursued at this time. We continued him on IV Protonix. - Patient retained 1.5 L on bladder scan 03/08. Inserted liang catheter due to urinary retention. -Continued other home medications -Patient is full code -DVT prophylaxis with Lovenox. Allergies: Coded Allergies: scopolamine (Mild, HIVES 12/26/16) NSAIDS (Non-Steroidal Anti-Inflamma (PER W-12/26/16) adhesive (HIVES - EKG STICKERS, RED DOT YOMBA SHOSHONE STICKERS 12/26/16) aspirin (PER W-12/26/16) clopidogrel (From PLAVIX) (PER W-12/26/16) Uncoded Allergies: EKG AND RED DOT LEADS (Intermediate, RASH 09/26/16) Disposition Summary Disposition Principal Diagnosis: aspiration pneumonia Additional Diagnosis: hematemesis Discharge Disposition: SNF Discharge Instructions General Discharge Information Code Status: Full Code Patient's Diet: tube feeds glucerna 1.2 Patient's Activity: as tolerated Follow-Up Instructions/Appts: please follow up with pcp in one week Medications at Discharge Discharge Medications: Stop taking the following medications: Cephalexin (Cephalexin) 500 MG CAPSULE G TUBE TWICE DAILY Continue taking these medications: Cholecalciferol (Vitamin D3) 1,000 UNIT TABLET 1 Tablet G TUBE DAILY Comments: Last Taken: 01/17/18 Time: 08:58 Ranitidine HCl (Ranitidine HCl) 15 MG/ML SYRUP 10 Milliliters G TUBE TWICE DAILY Comments: NOT GIVEN IN HOSPITAL Simvastatin (Zocor*) 10 MG TABLET 1 Tablet G TUBE 5 PM Comments: LIPITOR GIVEN IN HOSPITAL Last Taken: 01/16/18 Time: 16:28 Baclofen (Baclofen) 10 MG TABLET 1 Tablet G TUBE THREE TIMES DAILY Comments: Last Taken: 01/17/18 Time: 14:18 Escitalopram Oxalate (Escitalopram Oxalate) 5 MG TABLET 1 Tablet G TUBE DAILY Comments: Last Taken: 01/17/18 Time: 08:58 Ondansetron HCl (Ondansetron HCl) 4 MG TABLET 1 Tablet G TUBE Q8H as needed for N/V Comments: NOT GIVEN IN HOSPITAL Lactobacillus Acidophilus (Acidophilus) 1 EACH CAPSULE 1 Capsule G TUBE DAILY Comments: Last Taken: 01/17/18 Time: 08:58 Albuterol Sulfate (Albuterol Sulfate) 2.5 MG/3 ML (0.083 %) VIAL.NEB 1 Vial Inhale Solution TWICE DAILY Comments: Last Taken: 01/17/18 Time: 09:42 Acetaminophen (Acetaminophen) 325 MG TABLET 2 Tablet J TUBE Q4H as needed for PAIN/TEMP/>101 Comments: NOT GIVEN IN HOSPITAL Acetaminophen (Acephen) 650 MG SUPP.RECT 1 SUPPOSITORY RECTALLY Q4H as needed for PAIN/TEMP>101 Comments: NOT GIVEN IN HOSP Bisacodyl (Bisacodyl) 10 MG SUPP.RECT 1 Suppository RECTAL DAILY as needed for NO BM - IF MOM INEFFECTIVE Comments: NOT GIVEN IN HOSPITAL Na Phos,M-B/Na Phos,Di-Ba (Fleet Enema) 19 GRAM-7 GRAM/118 ML ENEMA 1 Enema RECTAL DAILY as needed for NO BM - IF BISACODYL INEFFECTI Comments: NOT GIVEN IN HOSPITAL Ipratropium/Albuterol Sulfate (Iprat-Albut 0.5-3(2.5) MG/3 Ml) 0.5 MG-3 MG (2.5 MG BASE)/3 ML AMPUL.NEB 1 VIAL Inhale Solution via Nebulizer Q4H as needed for DYSPNEA Comments: NOT GIVEN IN HOSPITAL Magnesium Hydroxide (Milk Of Magnesia) 400 MG/5 ML ORAL.SUSP 30 Milliliters J TUBE DAILY as needed for NO BM IN 3 DAYS Comments: NOT GIVEN IN HOSPITAL Docusate Sodium (Docusate Sodium) 100 MG TABLET 1 Tablet G TUBE TWICE DAILY Comments: Last Taken: 01/17/18 Time: 08:58 Copies To: Wade SOTELO,Danny
--- NOTE | 2018-03-06 00:37 | Patient Discharge Instructions ---
Discharge Instructions General Discharge Information You were seen/treated for: aspiration pneumonia hematemesis Special Instructions: please follow up with pcp in one week Diet Continue normal diet: Yes Recommended Diet: tube feeds Additional DIET Information: see tube feed information in w10 Activity Full Activity/No Limits: Yes Acute Coronary Syndrome Inclusion Criteria At DC or during hospital stay patient has or had the following: ACS DIAGNOSIS No Discharge Core Measures Meds if any: Prescribed or Continued at Discharge Meds if any: NOT Prescribed or Continued at Discharge Congestive Heart Failure Inclusion Criteria At DC or during hospital stay patient has or had the following: CHF DIAGNOSIS No Discharge Core Measures Meds if any: Prescribed or Continued at Discharge Meds if any: NOT Prescribed or Continued at Discharge Cerebrovascular accident Inclusion Criteria At DC or during hospital stay patient has or had the following: CVA/TIA Diagnosis No Discharge Core Measures Meds if any: Prescribed or Continued at Discharge Meds if any: NOT Prescribed or Continued at Discharge Venous thromboembolism Inclusion Criteria VTE Diagnosis No VTE Type NONE VTE Confirmed by (Test) NONE Discharge Core Measures - Per Current guidelines, there needs to be overlap - treatment for the first 5 days of Warfarin therapy. - If discharged on Warfarin prior to 5 days of - overlap therapy, the patient will need to be - assessed for post discharge needs including - *Post discharge parental anticoagulation - *Warfarin and/or parental anticoagulation education - *Follow up date to check INR post discharge At least 5 days overlap therapy as Inpatient No Meds if any: Prescribed or Continued at Discharge Note: Overlap Therapy is Warfarin and Anticoagulant Meds if any: NOT Prescribed or Continued at Discharge
--- NOTE | 2018-03-06 03:43 | Event Note ---
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 On IV unasyn currently. A/R: Given the potential for MRSA, will have to broaden ABX coverage. Gave one dose of Vancomycin, will follow up with day team. Guero Swanson #[id number]
[2018-03-06 06:02] VITALS: BP 110/70
--- NOTE | 2018-03-06 08:08 | PN- Housestaff ---
Subjective Follow-up For: Aspiration pneumonia Feeding tube issues Subjective: Patient seen and examined. His vitals are stable. The patient is on tube feeds but it is noted today that his feeding tube has become clogged. Coke was attempted to no avail. The patient blinks and looks up when asked if he is doing okay which according to his sister means yes. The patient continues to saturate 98% on trach mask 40% which is his baseline. The patient was found to have 1 tube of gram-positive cocci in clusters on blood culture. He was given a dose of vancomycin overnight. Review of Systems Constitutional: Reports: no symptoms. Cardiovascular: Reports: no symptoms. Respiratory: Reports: no symptoms. Gastrointestinal: Reports: no symptoms. Neurological/Psychological: Reports: see HPI. Objective Last 24 Hrs of Vital Signs/I&O Vital Signs Date Time Temp Pulse Resp B/P B/P Pulse O2 O2 Flow FiO2 Mean Ox Delivery Rate 03/06 0856 94 Trach Mask 40% 03/06 0800 95 Room Air 40% 03/06 0602 97.1 66 18 110/70 98 Trach Mask 03/06 0000 Trach Mask 03/05 2247 97.5 75 20 106/75 98 Trach Mask / 2210 93 Trach Mask 40% 08/ 1858 92 Trach Mask 40% / 1615 92 Trach Mask 40% /09 1600 Trach Mask 40% /09 1419 Trach Mask 40% /09 1358 98.3 91 18 118/70 96 Trach Mask Intake & Output 03/06 1600 10 0800 08/ 0000 Intake Total 935 640 Output Total Balance 935 640 Intake, IV 600 600 Intake, Oral 0 Intake, 40 TPN/PPN Intake, Tube 160 Feeding Intake, Tube 175 Irrigant Number 0 Bowel Movements Patient 198 lb Weight Physical Exam General Appearance: Alert, Cooperative, No Acute Distress Skin: pt continues to have lower ext petechiae that have been apparently worked up Skin Temp/Moisture Exam: Warm/Dry Sepsis Skin Exam (color): Normal for Ethnicity HEENT: Atraumatic, PERRLA, EOMI, Mucous Membr. moist/pink Cardiovascular: Regular Rate, Normal S1, Normal S2 Lungs: Clear to Auscultation, Normal Air Movement Abdomen: Normal Bowel Sounds, Soft, No Tenderness Extremities: No Clubbing, No Cyanosis, Normal Pulses Vascular: Normal Pulses, Pulses Symmetrical Current Medications: Current Medications Sig/Gil Start time Last Medication Dose Route Stop Time Status Admin Acetaminophen 650 MG Q4H PRN 03/05 1345 AC PO Albuterol Sulfate 3 ML BID 03/05 1423 DC INH Albuterol Sulfate 3 ML BID 03/05 1333 AC 03/06 INH 0844 Ampicillin Sodium/ 3,000 MG Q6 03/05 1800 AC 03/06 Sulbactam Sodium IV 1102 Sodium Chloride 100 ML Atorvastatin Calcium 10 MG DAILY 03/06 0900 AC 03/06 PO 0958 Atorvastatin Calcium 10 MG DAILY 03/05 1338 DC 03/05 PO 1628 Baclofen 10 MG TID 03/05 1400 AC 03/06 PO 1300 Cholecalciferol 1,000 IU DAILY 03/05 1334 AC 03/06 PO 0959 Docusate Sodium 100 MG BID 03/05 2100 AC 03/06 PO 0959 Docusate Sodium 100 MG BID 03/05 1335 DC PO Enoxaparin Sodium 40 MG DAILY 03/05 1313 AC 03/06 SC 0959 Escitalopram Oxalate 5 MG DAILY 03/05 1335 AC 03/06 PO 0959 Famotidine 20 MG DAILY 03/05 1337 AC 03/06 PO 0959 Lactobacillus 1 CAP BID 03/05 1336 AC 03/06 Acidophilus PO 0959 Magnesium Hydroxide 30 ML DAILY PRN 03/05 1345 AC PO Potassium Chloride 40 MEQ ONCE ONE 03/06 1030 DC 03/06 PO 03/06 1031 1101 Sodium Chloride 1,000 ML Q13H 03/05 1630 AC 03/06 IV 0550 Sodium Chloride 1,000 ML ONCE ONE 03/05 0945 DC 03/05 IV 03/05 1624 1030 Vancomycin HCl 1,500 MG Q12H 03/07 0900 AC Sodium Chloride 250 ML IV Vancomycin HCl 1,000 MG ONCE ONE 03/06 0345 DC 03/06 Sodium Chloride 250 ML IV 03/06 0444 0446 Last 24 Hrs of Lab/Rashard Results Last 24 Hrs of Labs/Mics: Laboratory Tests 03/06/18 0728: Anion Gap 6, Estimated GFR > 60, BUN/Creatinine Ratio 30.0 H, CBC w Diff NO MAN DIFF REQ, RBC 4.17 L, MCV 89.9, MCH 30.1, MCHC 33.5, RDW 14.5, MPV 10.6 H, Gran % 60.8, Lymphocytes % 26.9, Monocytes % 10.6 H, Eosinophils % 1.3, Basophils % 0.4, Absolute Granulocytes 4.0, Absolute Lymphocytes 1.8, Absolute Monocytes 0.7 H, Absolute Eosinophils 0.1, Absolute Basophils 0 Assessment/Plan Assessment: Patient is a 57-year-old man [facility] resident with 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 difficile infection, diabetes, gout, depression, history of NM, history of DVT status post filter placement, MRSA infection in the past and only able to communicate with his eyes that is brought in from [facility] for upper GI bleed , increased oxygen requirements. The patient has been here before for upper GI bleed and has been evaluated by Dr. Watson in the past. He has been here as well for aspiration pneumonia. In the ED, blood pressure is found to be 130/83, respiratory rate 22, pulse 113, temperature 100.3 on Ventimask 10 L humidified oxygen, satting 90%. WBC count was found to be 13.5, lactic acid normal, creatinine 0.5, total bilirubin 1.5, other LFTs normal, UA no evidence of infection. Chest x-ray showed hyperexpanded lungs with streaky right basilar opacity favoring atelectasis although pneumonia or aspiration are possible. In the ED, cultures were taken and patient was given 1 dose of Fortaz and Unasyn. He is also given 1 L of saline. Assessment Fever and increased white count with tachycardia i.e. sepsis most likely caused by pneumonia secondary to aspiration with hematemesis, previously worked up Tube feeds -feeding tube clogged Locked-in syndrome Plan Admit patient to general medical floors for evaluation and treatment Tube feeds have been started Glucerna 1.2, rates and goals entered. However this morning the feeding tube became clogged. Apparently it has been a few months since he had his feeding tube replaced. We attempted to unclog it with Rolan but now have contacted interventional radiology for replacement of the feeding tube. WBC count has fallen today and we will continue to trend Hemoglobin has also fallen today from 16.2-12.5. We will continue to observe. Potassium fell from 4.1-3.4, we repleted with Karin through his GJ tube Patient is on normal saline at a rate of 75 cc/h. We will continue until his feeding tube is replaced. Continue patient on Unasyn. He was given 1 dose of vancomycin early this morning for gram-positive cocci in clusters growing in 1 blood culture. We have consulted infectious disease on guidance for antibiotics but will continue Unasyn for now. No workup for patient's hematemesis as it had been worked up thoroughly in the past by Dr. Watson. Patient was last seen by Dr. Watson on January 15 of this year for the exact same complaints the patient does have a history of peptic ulcer disease with a bleeding ulcer noted on endoscopy in October 2015 which was felt to be secondary to his J-tube. He remains without evidence of overt GI bleeding and similar to last time, an upper endoscopy will not be pursued at this time. We will continue him on IV Protonix at the moment. CBC and BEP tomorrow Continue other home medications TRC nebs Patient is full code Tube feeds DVT prophylaxis with Lovenox. Problem List: 1. Feeding tube blocked 2. Aspiration pneumonitis 3. Aspiration pneumonia Pain Ratin Pain Location: na Pain Goal: Remain pain free Pain Plan: na Tomorrow's Labs & Rationales: na
[2018-03-06 08:28] LABS: ABSOLUTE BASOPHIL COUNT 0 /CUMM (0.0-0.2); ABSOLUTE EOSINOPHIL COUNT 0.1 /CUMM (0.0-0.7); ABSOLUTE LYMPH COUNT 1.8 /CUMM (1.2-3.4); ABSOLUTE MONOCYTE COUNT 0.7 /CUMM (0.10-0.60); BASOPHIL % 0.4 % (0.0-2.0); EOSINOPHIL % 1.3 % (0-5); GRANULOCYTE % 60.8 % (42.2-75.2); MEAN CORPUSCULAR HGB 30.1 PG (27.0-31.0); MEAN CORPUSCULAR HGB CONC 33.5 G/DL (33.0-37.0); MEAN CORPUSCULAR VOLUME 89.9 FL (80.0-94.0); MEAN PLATELET VOLUME 10.6 FL (7.4-10.4); PLATELET COUNT 172 /CUMM (130-400); RBC DISTRIBUTION WIDTH 14.5 % (11.5-14.5); RED BLOOD CELL CT 4.17 /CUMM (4.70-6.10)
[2018-03-06 09:01] LABS: HEMATOCRIT 37.5 % (42-52); WHITE BLOOD CELL COUNT 6.6 /CUMM (4.8-10.8)
--- NOTE | 2018-03-06 11:22 | PN- Att Addend ---
Attending Addendum Attending Brief Note Got a call from the lab stating that the patient had one positive blood culture with gram-positive Cocci. Patient is febrile. White count is within normal limits. Antibiotics will be adjusted and the patient will have an infectious disease consultation to make sure that the antibiotic PICC by the resident is the proper one. Intake & Output 03/06 1600 03/06 0400 03/05 1600 03/05 0400 03/04 1600 03/04 0400 Intake Total 935 640 Output Total Balance 935 640 Intake, IV 600 600 Intake, Oral 0 Intake, 40 TPN/PPN Intake, Tube 160 Feeding Intake, Tube 175 Irrigant Number 0 Bowel Movements Patient 198 lb 181 lb Weight Weight Bed scale Measurement Method Current Medications Sig/Gil Start time Last Medication Dose Route Stop Time Status Admin Acetaminophen 650 MG Q4H PRN 03/05 1345 AC PO Albuterol Sulfate 3 ML BID 03/05 1423 DC INH Albuterol Sulfate 3 ML BID 03/05 1333 AC 03/06 INH 0844 Ampicillin Sodium/ 3,000 MG Q6 03/05 1800 AC 03/06 Sulbactam Sodium IV 1102 Sodium Chloride 100 ML Atorvastatin Calcium 10 MG DAILY 03/06 0900 AC 03/06 PO 0958 Atorvastatin Calcium 10 MG DAILY 03/05 1338 DC 03/05 PO 1628 Baclofen 10 MG TID 03/05 1400 AC 03/06 PO 0959 Cholecalciferol 1,000 IU DAILY 03/05 1334 AC 03/06 PO 0959 Docusate Sodium 100 MG BID 03/05 2100 AC 03/06 PO 0959 Docusate Sodium 100 MG BID 03/05 1335 DC PO Enoxaparin Sodium 40 MG DAILY 03/05 1313 AC 03/06 SC 0959 Escitalopram Oxalate 5 MG DAILY 03/05 1335 AC 03/06 PO 0959 Famotidine 20 MG DAILY 03/05 1337 AC 03/06 PO 0959 Ipratropium [place] 2.5 ML ONCE ONE 03/05 1345 DC INH 03/05 1346 Lactobacillus 1 CAP BID 03/05 1336 AC 03/06 Acidophilus PO 0959 Magnesium Hydroxide 30 ML DAILY PRN 03/05 1345 AC PO Potassium Chloride 40 MEQ ONCE ONE 03/06 1030 DC 03/06 PO 03/06 1031 1101 Sodium Chloride 1,000 ML Q13H 03/05 1630 AC 03/06 IV 0550 Sodium Chloride 1,000 ML ONCE ONE 03/05 0945 DC 03/05 IV 03/05 1624 1030 Vancomycin HCl 1,500 MG Q12H 03/07 900 AC Sodium Chloride 250 ML IV Vancomycin HCl 1,000 MG ONCE ONE 03/06 0345 DC 03/06 Sodium Chloride 250 ML IV 03/06 0444 0446 Laboratory Tests 03/06/18 0728: Anion Gap 6, Estimated GFR > 60, BUN/Creatinine Ratio 30.0 H, CBC w Diff NO MAN DIFF REQ, RBC 4.17 L, MCV 89.9, MCH 30.1, MCHC 33.5, RDW 14.5, MPV 10.6 H, Gran % 60.8, Lymphocytes % 26.9, Monocytes % 10.6 H, Eosinophils % 1.3, Basophils % 0.4, Absolute Granulocytes 4.0, Absolute Lymphocytes 1.8, Absolute Monocytes 0.7 H, Absolute Eosinophils 0.1, Absolute Basophils 0 03/05/18 1300: Lactic Acid Cancelled 03/05/18 1001: Lactic Acid 1.1 03/05/18 0747: Urinalysis LIGHT H, Urine Color YEL, Urine Clarity CLEAR, Urine pH 6.0, Ur Specific [place] 1.020, Urine Protein TRACE H, Urine Ketones 15 H, Urine Nitrite NEG, Urine Bilirubin NEG, Urine Urobilinogen 0.2, Ur Leukocyte Esterase NEG, Ur Microscopic SEDIMENT EXAMINED, Urine RBC 1-3, Urine WBC RARE, Ur Epithelial Cells FEW, Urine Bacteria RARE H, Urine Mucus MANY H, Urine Hemoglobin NEG, Urine Glucose NEG 03/05/18 0700: Anion Gap 9, Estimated GFR > 60, BUN/Creatinine Ratio 34.0 H, Glucose 148 H, Calcium 9.5, Total Bilirubin 1.5 H, AST 24, ALT 30, Alkaline Phosphatase 97, Total Protein 8.1, Albumin 4.1, Globulin 4.0, Albumin/Globulin Ratio 1.0 L, PT 12.0, INR 1.10, CBC w Diff MAN DIFF ORDERED, RBC 5.46, MCV 90.1, MCH 29.6, MCHC 32.9 L, RDW 14.4, MPV 10.7 H, Gran % 92.0 H, Lymphocytes % 4.9 L, Monocytes % 3.0, Eosinophils % 0.1, Basophils % 0, Absolute Granulocytes 12.4 H, Absolute Lymphocytes 0.7 L, Absolute Monocytes 0.4, Absolute Eosinophils 0, Absolute Basophils 0, Platelet Estimate VERIFIED BY SMEAR, Normocytic RBCs VERIFIED, Normochromic RBCs VERIFIED Microbiology 03/05 1344 LOWER RESP: Respiratory Culture - COLB 03/05 134 LOWER RESP: Gram Stain - COLB 03/05 1005 BLOOD: Blood Culture - RES GRAM POSITIVE COCCI 03/05 100 BLOOD: Blood Culture - RECD 03/05 932 URINE ROUT: Urine Culture - CAN Cancelled: Cancelled via OE: ADD ON 03/05 747 URINE ROUT: Urine Culture - RES Microbiology 03/05 1344 LOWER RESP: Respiratory Culture - COLB 03/05 1344 LOWER RESP: Gram Stain - COLB 03/05 100 BLOOD: Blood Culture - RES GRAM POSITIVE COCCI 03/05 100 BLOOD: Blood Culture - RECD 03/05 932 URINE ROUT: Urine Culture - CAN Cancelled: Cancelled via OE: ADD ON 03/05 747 URINE ROUT: Urine Culture - RES Vital Signs Date Time Temp Pulse Resp B/P B/P Pulse O2 O2 Flow FiO2 Mean Ox Delivery Rate 03/06 0856 94 Trach Mask 40% 03/06 0602 97.1 66 18 110/70 98 Trach Mask 03/06 0000 Trach Mask 03/05 2247 97.5 75 20 106/75 98 Trach Mask 03/05 2210 93 Trach Mask 40% 03/05 1858 92 Trach Mask 40% 03/05 1615 92 Trach Mask 40% 03/05 1600 Trach Mask 40% 03/05 1419 Trach Mask 40% 03/05 1358 98.3 91 18 118/70 96 Trach Mask 03/05 1346 99 Nasal 5.0L Cannula 03/05 1156 99.2 95 20 108/77 93 Trach Mask 35%
--- NOTE | 2018-03-06 13:42 | Cons- Infect Disease ---
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 On admission he was febrile to 100.3, with an O2 sat in the high 80s and low 90s. His PEG tube was flushed with no residual. Laboratory data revealed a white blood cell count of 13.5, BUN/creatinine 17 and 0.5, bilirubin 1.5, INR 1.10. Urinalysis 1-3 RBC/rare WBCs. Chest x-ray revealed a streaky right basilar opacity. He was given Ampicillin and Ceftazidime initially and was then placed on Unasyn. He appears to have defervesced and white blood cell count has normalized. This morning 1 blood culture was reported positive for gram-positive cocci in clusters and he was given 1 dose of Vancomycin. His G- tube was noted to be clotted this morning and he is scheduled for IR intervention. Allergies/Medications Allergies: Coded Allergies: scopolamine (Mild, HIVES 12/26/16) NSAIDS (Non-Steroidal Anti-Inflamma (PER W-12/26/16) adhesive (HIVES - EKG STICKERS, RED DOT [place] STICKERS 12/26/16) aspirin (PER W-12/26/16) clopidogrel (From PLAVIX) (PER 12/26/16) Uncoded Allergies: EKG AND RED DOT LEADS (Intermediate, RASH 09/26/16) Home Med List: Acetaminophen 325 MG TABLET 2 TAB J TUBE Q4H PRN PAIN/TEMP/>101 (Reported) Acetaminophen (Acephen) 650 MG SUPP.RECT 1 SUPP NH Q4H PRN PAIN/TEMP>101 ( Reported) Albuterol Sulfate 2.5 MG/3 ML (0.083 %) VIAL.NEB 1 Vial INH/MONICO BID RESP. ( Reported) Baclofen 10 MG TABLET 1 TAB G TUBE TID SPASMS (Reported) Bisacodyl 10 MG SUPP.RECT 1 SUP RC DAILY PRN NO BM - IF MOM INEFFECTIVE ( Reported) Cephalexin 500 MG CAPSULE 1 CAP G TUBE BID ANTIBIOTIC, INFECTION (Reported) Cholecalciferol (Vitamin D3) 1,000 UNIT TABLET 1 TAB G TUBE DAILY SUPPLEMENT (Reported) Docusate Sodium 100 MG TABLET 1 TAB G TUBE BID STOOL SOFTENER (Reported) Escitalopram Oxalate 5 MG TABLET 1 TAB G TUBE DAILY DEPRESSION (Reported) Ipratropium/Albuterol Sulfate (Iprat-Albut 0.5-3(2.5) MG/3 Ml) 0.5 MG-3 MG (2.5 MG BASE)/3 ML AMPUL.NEB 1 VIAL NEB Q4H PRN DYSPNEA (Reported) Lactobacillus Acidophilus (Acidophilus) 1 EACH CAPSULE 1 CAP G TUBE DAILY PROBIOTIC (Reported) Magnesium Hydroxide (Milk Of Magnesia) 400 MG/5 ML ORAL.SUSP 30 ML J TUBE DAILY PRN NO BM IN 3 DAYS (Reported) Na Phos,M-B/Na Phos,Di-Ba (Fleet Enema) 19 GRAM-7 GRAM/118 ML ENEMA 1 E RC DAILY PRN NO BM - IF BISACODYL INEFFECTI (Reported) Ondansetron HCl 4 MG TABLET 1 TAB G TUBE Q8H PRN N/V (Reported) Ranitidine HCl 15 MG/ML SYRUP 10 ML G TUBE BID GI (Reported) Simvastatin (Zocor*) 10 MG TABLET 1 TAB G TUBE 1700 GI (Reported) Past History Travel History Traveled to [place] past 21 day No Medical History Blood Transfusion Hx: No Neurological: CVA, 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 ASP PNA Gastrointestinal: constipation, GERD, peptic ulcer disease, upper GI bleed, C. 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 MOTHER (Type 2 DM). Grand father (CVA). Psychosocial History Where Do You Live? Extended Care Facility Who Do You Live With? self Services at Home: from [facility] Primary Language: Sami Smoking Status: Former Smoker Functional Ability ADLs Needs Assist: dressing, eating, toileting, bathing. Ambulation: non-ambulatory IADLs Needs Assist: shopping, housework, finances, food prep, telephone, transportation, medication admin. Review of Systems Comments Unobtainable Exam & Diagnostic Data Last 24 Hrs of Vital Signs/I&O Vital Signs Date Time Temp Pulse Resp B/P B/P Pulse O2 O2 Flow FiO2 Mean Ox Delivery Rate 03/06 0856 94 Trach Mask 40% 03/06 0800 95 Room Air 40% 03/06 0602 97.1 66 18 110/70 98 Trach Mask 03/06 0000 Trach Mask 03/05 2247 97.5 75 20 106/75 98 Trach Mask 03/05 2210 93 Trach Mask 40% 03/05 1858 92 Trach Mask 40% 03/05 1615 92 Trach Mask 40% 03/05 1600 Trach Mask 40% 03/05 1419 Trach Mask 40% 03/05 1358 98.3 91 18 118/70 96 Trach Mask 03/05 1346 99 Nasal 5.0L Cannula Intake & Output 03/06 1600 03/06 0800 08 0000 Intake Total 935 640 Output Total Balance 935 640 Intake, IV 600 600 Intake, Oral 0 Intake, 40 TPN/PPN Intake, Tube 160 Feeding Intake, Tube 175 Irrigant Number 0 Bowel Movements Patient 198 lb Weight Physical Exam Other Physical Findings: He is awake and alert in no acute distress. T-max 100.3. Skin reveals lower extremity excoriated lesions. HEENT exam is negative. Neck is supple with no adenopathy; trach mask in place. Lungs scattered rhonchi. Heart regular rhythm with no murmur. Abdomen is soft, nontender with positive bowel sounds; feeding tube in place with no inflammation at the site. Back no CVA tenderness. Extremities no cyanosis, clubbing or edema. Neuro quadriplegia. Last 24 Hours of Lab Results: Laboratory Tests 03/06 0728 Chemistry Sodium (137 - 145 mmol/L) 136 L Potassium (3.5 - 5.1 mmol/L) 3.4 L Chloride (98 - 107 mmol/L) 101 Carbon Dioxide (22 - 30 mmol/L) 29 Anion Gap (5 - 16) 6 BUN (9 - 20 mg/dL) 15 Creatinine (0.7 - 1.2 mg/dL) 0.5 L Estimated GFR (>60 ml/min) > 60 BUN/Creatinine Ratio (7 - 25 %) 30.0 H Hematology CBC w Diff NO MAN DIFF REQ WBC (4.8 - 10.8 /CUMM) 6.6 RBC (4.70 - 6.10 /CUMM) 4.17 L Hgb (14.0 - 18.0 G/DL) 12.5 L Hct (42 - 52 %) 37.5 L MCV (80.0 - 94.0 FL) 89.9 MCH (27.0 - 31.0 PG) 30.1 MCHC (33.0 - 37.0 G/DL) 33.5 RDW (11.5 - 14.5 %) 14.5 Plt Count (130 - 400 /CUMM) 172 MPV (7.4 - 10.4 FL) 10.6 H Gran % (42.2 - 75.2 %) 60.8 Lymphocytes % (20.5 - 51.1 %) 26.9 Monocytes % (1.7 - 9.3 %) 10.6 H Eosinophils % (0 - 5 %) 1.3 Basophils % (0.0 - 2.0 %) 0.4 Absolute Granulocytes (1.4 - 6.5 /CUMM) 4.0 Absolute Lymphocytes (1.2 - 3.4 /CUMM) 1.8 Absolute Monocytes (0.10 - 0.60 /CUMM) 0.7 H Absolute Eosinophils (0.0 - 0.7 /CUMM) 0.1 Absolute Basophils (0.0 - 0.2 /CUMM) 0 Last 24 Hours of Rashard Results: Blood cultures [place] 9 1 bottle positive for gram-positive cocci in clusters Urine culture March 05 negative Diagnostic Data Recent Imaging Findings: Chest x-ray March 05 reveals a streaky right basilar opacity Assessment/Plan Assessment/Plan Impression: This is a 57-year-old man, long term resident, with quadriplegia status post a brainstem infarct over 10 years prior to admission, resulting in a 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 The significance of the positive blood culture is unclear. It may represent a contaminant, for example coag negative Staph, but it is reasonable to continue him on antibiotics pending the identification of the organism. He has little evidence for pneumonia, with a stable respiratory status and with his chest x- ray revealing a streaky opacity more suggestive of atelectasis. His labs on admission do reflect dehydration and suspect that his leukocytosis represents hemoconcentration. The significance of the vomiting of red material (? hematemesis) is unclear and this may warrant further evaluation. Suggestion: 1. Await IR intervention for his feeding tube 2. Further evaluation for possible hematemesis per Medicine 3. Follow-up final blood culture 4. Continue Unasyn pending above Consult Acknowledgment - Thank you for your consult request.
[2018-03-06 14:15] VITALS: BP 100/60
[2018-03-06 22:05] VITALS: BP 110/60
[2018-03-07 06:19] VITALS: BP 118/72
--- NOTE | 2018-03-07 08:26 | PN- Housestaff ---
Subjective Follow-up For: Aspiration pneumonia Subjective: Patient seen and examined. His vitals are stable. The patient is on tube feeds getting through J-tube with no issues. G-tube was clogged, assessed by interventional radiologist. Does not want to use G-tube any more given aspiration. Plan is to continue feeds through J-tube The patient blinks and looks up when asked if he is doing okay which according to his sister means yes. The patient continues to saturate 98% on trach mask 40 % which is his baseline. The patient was found to have 1 tube of gram-positive cocci in clusters on blood culture. Review of Systems Constitutional: Reports: see HPI. Objective Last 24 Hrs of Vital Signs/I&O Vital Signs Date Time Temp Pulse Resp B/P B/P Pulse O2 O2 Flow FiO2 Mean Ox Delivery Rate 03/07 0858 98 Trach Mask 40% 03/07 08 Trach Mask 8L 03/07 0619 98.1 67 20 118/72 96 Trach Mask 03/07 0000 Trach Mask 8L 03/06 2205 97.9 66 22 110/60 96 03/06 1415 98.2 82 20 100/60 97 Trach Mask Intake & Output 03/07 1600 03/07 0803/07 0000 Intake Total 1180 260 Output Total Balance 1180 260 Intake, IV 600 Intake, Tube 400 260 Feeding Intake, Tube 180 Irrigant Number 0 Bowel Movements Physical Exam General Appearance: Alert, Oriented X3, Cooperative, No Acute Distress Other Physical Findings: HEENT: Atraumatic, PERRLA, EOMI, Mucous Membr. moist/pink Cardiovascular: Regular Rate, Normal S1, Normal S2 Lungs: Clear to Auscultation, Normal Air Movement Abdomen: Normal Bowel Sounds, Soft, No Tenderness Extremities: No Clubbing, No Cyanosis, Normal Pulses Vascular: Normal Pulses, Pulses Symmetrical Current Medications: Current Medications Sig/Gil Start time Last Medication Dose Route Stop Time Status Admin Acetaminophen 650 MG Q4H PRN 03/05 1345 AC 03/07 PO 0022 Albuterol Sulfate 3 ML BID 03/05 1333 AC 03/07 INH 0859 Ampicillin Sodium/ 3,000 MG Q6 03/05 1800 AC 03/07 Sulbactam Sodium IV 0540 Sodium Chloride 100 ML Atorvastatin Calcium 10 MG DAILY 03/06 09 AC 03/07 PO 0848 Baclofen 10 MG TID 03/05 1400 AC 03/07 PO 0848 Cholecalciferol 1,000 IU DAILY 03/05 1334 AC 03/07 PO 0848 Docusate Sodium 100 MG BID 03/05 2100 AC 03/07 PO 0848 Enoxaparin Sodium 40 MG DAILY 03/05 1313 AC 03/07 SC 0849 Escitalopram Oxalate 5 MG DAILY 03/05 1335 AC 03/07 PO 0848 Famotidine 20 MG DAILY 03/05 1337 AC 03/07 PO 0848 Lactobacillus 1 CAP BID 03/05 1336 AC 03/07 Acidophilus PO 0848 Magnesium Hydroxide 30 ML DAILY PRN 03/05 1345 AC PO Pantoprazole Sodium 40 MG DAILY 03/06 1403 AC 03/07 IV 0850 Pregabalin 0 .STK-MED ONE 03/06 1415 DC PO Sodium Chloride 1,000 ML Q13H 03/05 1630 AC 03/07 IV 0353 Vancomycin HCl 1,500 MG Q12H 03/07 0900 CAN Sodium Chloride 250 ML IV Last 24 Hrs of Lab/Rashard Results Last 24 Hrs of Labs/Mics: Laboratory Tests 03/07/18 0855: Anion Gap 5, Estimated GFR > 60, BUN/Creatinine Ratio 20.0, CBC w Diff NO MAN DIFF REQ, RBC 4.41 L, MCV 90.2, MCH 30.1, MCHC 33.3, RDW 14.5, MPV 10.5 H, Gran % 61.0, Lymphocytes % 27.4, Monocytes % 9.4 H, Eosinophils % 1.7, Basophils % 0.5, Absolute Granulocytes 3.8, Absolute Lymphocytes 1.7, Absolute Monocytes 0.6, Absolute Eosinophils 0.1, Absolute Basophils 0 Assessment/Plan Assessment: Patient is a 57-year-old man assisted resident with 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 difficile infection, diabetes, gout, depression, history of [place], history of DVT status post filter placement, MRSA infection in the past and only able to communicate with his eyes that is brought in from [facility] for upper GI bleed , increased oxygen requirements. The patient has been here before for upper GI bleed and has been evaluated by Dr. Watson in the past. He has been here as well for aspiration pneumonia. In the ED, blood pressure is found to be 130/83, respiratory rate 22, pulse 113, temperature 100.3 on Ventimask 10 L humidified oxygen, satting 90%. WBC count was found to be 13.5, lactic acid normal, creatinine 0.5, total bilirubin 1.5, other LFTs normal, UA no evidence of infection. Chest x-ray showed hyperexpanded lungs with streaky right basilar opacity favoring atelectasis although pneumonia or aspiration are possible. In the ED, cultures were taken and patient was given 1 dose of Fortaz and Unasyn. He is also given 1 L of saline. Assessment Fever and increased white count with tachycardia i.e. sepsis most likely caused by pneumonia secondary to aspiration with hematemesis, previously worked up Tube feeds though J tube Plan - Admited patient to general medical floors for evaluation and treatment. - Tube feeds have been started Glucerna 1.2, rates and goals entered. The patient is on tube feeds getting through J-tube with no issues. G-tube was clogged, assessed by interventional radiologist. Does not want to use G-tube any more given aspiration. Plan is to continue feeds through J-tube -Hemoglobin has also fallen today from 16.2-12.5. We will continue to observe. -Continue patient on Unasyn. He was given 1 dose of vancomycin for gram- positive cocci in clusters growing in 1 blood culture. We have consulted infectious disease on guidance for antibiotics but will continue Unasyn for now. - No workup for patient's hematemesis as it had been worked up thoroughly in the past by Dr. Watson. Patient was last seen by Dr. Watson on January 15 of this year for the exact same complaints the patient does have a history of peptic ulcer disease with a bleeding ulcer noted on endoscopy in October 2015 which was felt to be secondary to his J-tube. He remains without evidence of overt GI bleeding and similar to last time, an upper endoscopy will not be pursued at this time. We will continue him on IV Protonix at the moment. Continue other home medications Patient is full code Tube feeds DVT prophylaxis with Lovenox. Problem List: 1. Aspiration pneumonia Pain Ratin Pain Location: n/a Pain Goal: Remain pain free Pain Plan: tylinol Tomorrow's Labs & Rationales: none
[2018-03-07 09:52] LABS: ABSOLUTE BASOPHIL COUNT 0 /CUMM (0.0-0.2); ABSOLUTE EOSINOPHIL COUNT 0.1 /CUMM (0.0-0.7); ABSOLUTE GRANULOCYTE CT 3.8 /CUMM (1.4-6.5); ABSOLUTE LYMPH COUNT 1.7 /CUMM (1.2-3.4); ABSOLUTE MONOCYTE COUNT 0.6 /CUMM (0.10-0.60); BASOPHIL % 0.5 % (0.0-2.0); EOSINOPHIL % 1.7 % (0-5); HEMATOCRIT 39.8 % (42-52); MEAN CORPUSCULAR HGB 30.1 PG (27.0-31.0); MEAN CORPUSCULAR HGB CONC 33.3 G/DL (33.0-37.0); MEAN CORPUSCULAR VOLUME 90.2 FL (80.0-94.0); MEAN PLATELET VOLUME 10.5 FL (7.4-10.4); PLATELET COUNT 179 /CUMM (130-400); RBC DISTRIBUTION WIDTH 14.5 % (11.5-14.5); RED BLOOD CELL CT 4.41 /CUMM (4.70-6.10); WHITE BLOOD CELL COUNT 6.2 /CUMM (4.8-10.8)
--- NOTE | 2018-03-07 15:21 | PN- Att Addend ---
Attending Addendum Attending Brief Note Patient laying comfortably in bed. Feeding issues addressed by resident. Vital signs are stable no fever. No new changes on physical examination. White count today is 6200. Continue present treatment and observation. Intake & Output 03/07 1600 03/07 0400 03/06 1600 03/06 0400 03/05 1600 03/05 0400 Intake Total 2230 260 1740 640 Output Total Balance 2230 260 1740 640 Intake, IV 1125 1125 600 Intake, Oral 0 Intake, 40 TPN/PPN Intake, Tube 925 260 440 Feeding Intake, Tube 180 175 Irrigant Number 0 2 0 Bowel Movements Patient 198 lb 181 lb Weight Weight Bed scale Measurement Method Current Medications Sig/Gil Start time Last Medication Dose Route Stop Time Status Admin Acetaminophen 650 MG Q4H PRN 03/05 1345 AC 03/07 PO 0022 Albuterol Sulfate 3 ML BID 03/05 1333 AC 03/07 INH 0859 Ampicillin Sodium/ 3,000 MG Q6 03/05 1800 AC 03/07 Sulbactam Sodium IV 1227 Sodium Chloride 100 ML Atorvastatin Calcium 10 MG DAILY 03/06 0900 AC 03/07 PO 0848 Baclofen 10 MG TID 03/05 1400 AC 03/07 PO 1412 Cholecalciferol 1,000 IU DAILY 03/05 1334 AC 03/07 PO 0848 Docusate Sodium 100 MG BID 03/05 2100 AC 03/07 PO 0848 Enoxaparin Sodium 40 MG DAILY 03/05 1313 AC 03/07 SC 0849 Escitalopram Oxalate 5 MG DAILY 03/05 1335 AC 03/07 PO 0848 Famotidine 20 MG DAILY 03/05 1337 AC 03/07 PO 0848 Lactobacillus 1 CAP BID 03/05 1336 AC 03/07 Acidophilus PO 0848 Magnesium Hydroxide 30 ML DAILY PRN 03/05 1345 AC PO Pantoprazole Sodium 40 MG DAILY 03/06 1403 AC 03/07 IV 0850 Sodium Chloride 1,000 ML Q13H 03/05 1630 AC 03/07 IV 0353 Laboratory Tests 03/07/18 0855: Anion Gap 5, Estimated GFR > 60, BUN/Creatinine Ratio 20.0, CBC w Diff NO MAN DIFF REQ, RBC 4.41 L, MCV 90.2, MCH 30.1, MCHC 33.3, RDW 14.5, MPV 10.5 H, Gran % 61.0, Lymphocytes % 27.4, Monocytes % 9.4 H, Eosinophils % 1.7, Basophils % 0.5, Absolute Granulocytes 3.8, Absolute Lymphocytes 1.7, Absolute Monocytes 0.6, Absolute Eosinophils 0.1, Absolute Basophils 0 03/06/18 0728: Anion Gap 6, Estimated GFR > 60, BUN/Creatinine Ratio 30.0 H, CBC w Diff NO MAN DIFF REQ, RBC 4.17 L, MCV 89.9, MCH 30.1, MCHC 33.5, RDW 14.5, MPV 10.6 H, Gran % 60.8, Lymphocytes % 26.9, Monocytes % 10.6 H, Eosinophils % 1.3, Basophils % 0.4, Absolute Granulocytes 4.0, Absolute Lymphocytes 1.8, Absolute Monocytes 0.7 H, Absolute Eosinophils 0.1, Absolute Basophils 0 03/05/18 1300: Lactic Acid Cancelled 03/05/18 1001: Lactic Acid 1.1 03/05/18 0747: Urinalysis LIGHT H, Urine Color YEL, Urine Clarity CLEAR, Urine pH 6.0, Ur Specific [place] 1.020, Urine Protein TRACE H, Urine Ketones 15 H, Urine Nitrite NEG, Urine Bilirubin NEG, Urine Urobilinogen 0.2, Ur Leukocyte Esterase NEG, Ur Microscopic SEDIMENT EXAMINED, Urine RBC 1-3, Urine WBC RARE, Ur Epithelial Cells FEW, Urine Bacteria RARE H, Urine Mucus MANY H, Urine Hemoglobin NEG, Urine Glucose NEG 03/05/18 0700: Anion Gap 9, Estimated GFR > 60, BUN/Creatinine Ratio 34.0 H, Glucose 148 H, Calcium 9.5, Total Bilirubin 1.5 H, AST 24, ALT 30, Alkaline Phosphatase 97, Total Protein 8.1, Albumin 4.1, Globulin 4.0, Albumin/Globulin Ratio 1.0 L, PT 12.0, INR 1.10, CBC w Diff MAN DIFF ORDERED, RBC 5.46, MCV 90.1, MCH 29.6, MCHC 32.9 L, RDW 14.4, MPV 10.7 H, Gran % 92.0 H, Lymphocytes % 4.9 L, Monocytes % 3.0, Eosinophils % 0.1, Basophils % 0, Absolute Granulocytes 12.4 H, Absolute Lymphocytes 0.7 L, Absolute Monocytes 0.4, Absolute Eosinophils 0, Absolute Basophils 0, Platelet Estimate VERIFIED BY SMEAR, Normocytic RBCs VERIFIED, Normochromic RBCs VERIFIED Microbiology 03/05 1344 LOWER RESP: Respiratory Culture - CAN Cancelled: NO SAMPLE COLLECTED 03/05 1344 LOWER RESP: Gram Stain - CAN Cancelled: NO SAMPLE COLLECTED 03/05 100 BLOOD: Blood Culture - COMP STAPH COAGULASE NEGATIVE STAPH COAG NEGATIVE - STRAIN 2 03/05 100 BLOOD: Blood Culture - RES 03/05 932 URINE ROUT: Urine Culture - CAN Cancelled: Cancelled via OE: ADD ON 03/05 747 URINE ROUT: Urine Culture - COMP Microbiology 03/05 1344 LOWER RESP: Respiratory Culture - CAN Cancelled: NO SAMPLE COLLECTED 03/05 1344 LOWER RESP: Gram Stain - CAN Cancelled: NO SAMPLE COLLECTED 03/05 100 BLOOD: Blood Culture - COMP STAPH COAGULASE NEGATIVE STAPH COAG NEGATIVE - STRAIN 2 03/05 100 BLOOD: Blood Culture - RES 03/05 932 URINE ROUT: Urine Culture - CAN Cancelled: Cancelled via OE: ADD ON 03/05 747 URINE ROUT: Urine Culture - COMP Vital Signs Date Time Temp Pulse Resp B/P B/P Pulse O2 O2 Flow FiO2 Mean Ox Delivery Rate 03/07 0858 98 Trach Mask 40% 03/07 08 Trach Mask 40% 03/07 06 98.1 67 20 118/72 96 Trach Mask 03/07 0000 Trach Mask 8L 03/06 2205 97.9 66 22 110/60 96
[2018-03-07 15:35] VITALS: BP 100/60
[2018-03-07 22:15] VITALS: BP 132/80
[2018-03-08 07:22] VITALS: BP 144/88
--- NOTE | 2018-03-08 08:49 | PN- Infect Dx ---
Subjective Subjective: Afebrile. He reports pain but is unable to localize where and, upon questioning , still unable to identify a specific area. Objective Last 24 Hrs of Vital Signs/I&O Vital Signs Date Time Temp Pulse Resp B/P B/P Pulse O2 O2 Flow FiO2 Mean Ox Delivery Rate 03/08 0838 94 Trach Mask 35% 03/08 0722 98.9 90 22 144/88 95 03/07 2215 98.6 106 18 132/80 94 Trach Mask 03/07 2211 93 Trach Mask 35% 03/07 1915 94 Trach Mask 35% 03/07 1705 98 Trach Mask 40% 03/07 1600 97 Trach Mask 35% 03/07 1535 97.0 80 20 100/60 98 03/07 0858 98 Trach Mask 40% Intake & Output 03/08 1600 03/08 0800 03/08 0000 Intake Total 1450 1550 Output Total Balance 1450 1550 Intake, IV 725 600 Intake, Oral 0 Intake, 600 TPN/PPN Intake, Tube 375 Feeding Intake, Tube 350 350 Irrigant Number 0 2 Bowel Movements Physical Exam Other Physical Findings: He appears somewhat uncomfortable but in no acute distress Lungs bilateral rhonchi Heart regular rhythm with no murmur Abdomen is mildly distended, nontender with positive bowel sounds; gastrojejunostomy tube in place, with no inflammation Extremities 1+ edema all extremities Results Last 24 Hours of Lab Results: Laboratory Tests 03/07 0855 Chemistry Sodium (137 - 145 mmol/L) 138 Potassium (3.5 - 5.1 mmol/L) 3.6 Chloride (98 - 107 mmol/L) 105 Carbon Dioxide (22 - 30 mmol/L) 28 Anion Gap (5 - 16) 5 BUN (9 - 20 mg/dL) 8 L Creatinine (0.7 - 1.2 mg/dL) 0.4 L Estimated GFR (>60 ml/min) > 60 BUN/Creatinine Ratio (7 - 25 %) 20.0 Hematology CBC w Diff NO MAN DIFF REQ WBC (4.8 - 10.8 /CUMM) 6.2 RBC (4.70 - 6.10 /CUMM) 4.41 L Hgb (14.0 - 18.0 G/DL) 13.3 L Hct (42 - 52 %) 39.8 L MCV (80.0 - 94.0 FL) 90.2 MCH (27.0 - 31.0 PG) 30.1 MCHC (33.0 - 37.0 G/DL) 33.3 RDW (11.5 - 14.5 %) 14.5 Plt Count (130 - 400 /CUMM) 179 MPV (7.4 - 10.4 FL) 10.5 H Gran % (42.2 - 75.2 %) 61.0 Lymphocytes % (20.5 - 51.1 %) 27.4 Monocytes % (1.7 - 9.3 %) 9.4 H Eosinophils % (0 - 5 %) 1.7 Basophils % (0.0 - 2.0 %) 0.5 Absolute Granulocytes (1.4 - 6.5 /CUMM) 3.8 Absolute Lymphocytes (1.2 - 3.4 /CUMM) 1.7 Absolute Monocytes (0.10 - 0.60 /CUMM) 0.6 Absolute Eosinophils (0.0 - 0.7 /CUMM) 0.1 Absolute Basophils (0.0 - 0.2 /CUMM) 0 Last 24 Hours of Rashard Results: Blood cultures March 05 1 bottle positive for 2 types of coag negative Staph Urine culture March 05 negative Assessment/Plan ID Impression: Stable overall, with temperatures and white blood cell count remaining normal, on Unasyn, Day 3 of treatment for possible aspiration, though his respiratory status appears stable and his chest x-ray was more suggestive of atelectasis than pneumonia. The positive blood culture for coag negative Staph presumably represents a contaminant and does not require treatment. Suggestion: 1. Discontinue Unasyn and follow off antibiotics
--- NOTE | 2018-03-08 12:55 | PN- Housestaff ---
Subjective Follow-up For: Aspiration pneumonia Subjective: Patient seen and examined. No acute events overnight. His vitals are stable, afebrile. The patient is on tube feeds. Continue feeds through J-tube. The patient blinks and looks up when asked if he is doing okay which according to his sister means yes. Patient will be continued to be followed on the medical team. Review of Systems Constitutional: Reports: see HPI. Objective Last 24 Hrs of Vital Signs/I&O Vital Signs Date Time Temp Pulse Resp B/P B/P Pulse O2 O2 Flow FiO2 Mean Ox Delivery Rate 03/08 1900 93 Trach Mask 35% 03/08 1630 92 Trach Mask 35% 03/08 1541 97.0 102 24 140/80 95 03/08 1430 94 Trach Mask 35% 03/08 1146 94 Trach Mask 35% 03/08 0838 94 Trach Mask 35% 03/08 0800 94 Trach Mask 35% 03/08 0722 98.9 90 22 144/88 95 08 0000 94 Trach Mask 35% 03/07 2215 98.6 106 18 132/80 94 Trach Mask 03/07 2211 93 Trach Mask 35% Intake & Output 03/08 1600 12 0800 03/08 0000 Intake Total 600 1450 1550 Output Total Balance 600 1450 1550 Intake, IV 725 600 Intake, Oral 0 0 Intake, 600 TPN/PPN Intake, Tube 600 375 Feeding Intake, Tube 350 350 Irrigant Number 1 0 2 Bowel Movements Physical Exam General Appearance: Alert (locked in syndrome) HEENT: Atraumatic Neck: Supple, No JVD Cardiovascular: Regular Rate, Normal S1, Normal S2 Lungs: Normal Air Movement Abdomen: Soft, No Tenderness Extremities: Normal Pulses Assessment/Plan Assessment: Patient is a 57-year-old man long-term resident with 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 difficile infection, diabetes, gout, depression, history of [place], history of DVT status post filter placement, MRSA infection in the past and only able to communicate with his eyes that is brought in from [facility] for upper GI bleed , increased oxygen requirements. The patient has been here before for upper GI bleed and has been evaluated by Dr. Watson in the past. He has been here as well for aspiration pneumonia. In the ED, blood pressure is found to be 130/83, respiratory rate 22, pulse 113, temperature 100.3 on Ventimask 10 L humidified oxygen, satting 90%. WBC count was found to be 13.5, lactic acid normal, creatinine 0.5, total bilirubin 1.5, other LFTs normal, UA no evidence of infection. Chest x-ray showed hyperexpanded lungs with streaky right basilar opacity favoring atelectasis although pneumonia or aspiration are possible. In the ED, cultures were taken and patient was given 1 dose of Fortaz and Unasyn. He is also given 1 L of saline. Assessment Fever and increased white count with tachycardia i.e. sepsis most likely caused by pneumonia secondary to aspiration with hematemesis, previously worked up Tube feeds though J tube Plan - Admited patient to general medical floors for evaluation and treatment. - Tube feeds have been started Glucerna 1.2, rates and goals entered. The patient is on tube feeds getting through J-tube with no issues. G-tube was clogged, assessed by interventional radiologist. Does not want to use G-tube any more given aspiration. Plan is to continue feeds through J-tube. -Hemoglobin 13.3 03/07. We will continue to observe. -Discontinued Unasyn. He was given 1 dose of vancomycin for gram-positive cocci in clusters growing in 1 blood culture. We have consulted infectious disease on guidance for antibiotics and at the moment will follow off ABx. per ID recommendation. - No workup for patient's hematemesis as it had been worked up thoroughly in the past by Dr. Watson. Patient was last seen by Dr. Watson on January 15 of this year for the exact same complaints the patient does have a history of peptic ulcer disease with a bleeding ulcer noted on endoscopy in October 2015 which was felt to be secondary to his J-tube. He remains without evidence of overt GI bleeding and similar to last time, an upper endoscopy will not be pursued at this time. We will continue him on IV Protonix at the moment. - Discontinued IV fluids 03/08 - Patient retained 1.5 L on bladder scan 03/08. Inserted liang catheter due to urinary retention Continue other home medications Patient is full code Tube feeds 75 ml/hr DVT prophylaxis with Lovenox. Problem List: 1. Aspiration pneumonia Pain Ratin Pain Location: na Pain Goal: Remain pain free Pain Plan: na Tomorrow's Labs & Rationales: na
--- NOTE | 2018-03-08 14:00 | PN- Att Addend ---
Attending Addendum Attending Brief Note Patient comfortably in bed he looks a little brighter. Per nursing looks maybe a little bit more edematous from all the IV fluids as it is he also gets flushings through the J-tube. His vital signs are stable no fever. No other changes. Will stop the IV fluids continue the flushings through the feeding tube. Check with infectious diseases regarding antibiotic coverage. If stable probably start disposition plans tomorrow to return to [facility]. Intake & Output 03/08 1600 03/08 0400 03/07 1600 03/07 0400 03/06 1600 03/06 0400 Intake Total 1450 1550 2580 260 1740 640 Output Total Balance 1450 1550 2580 260 1740 640 Intake, IV 449 761 2129 1125 600 Intake, Oral 0 0 Intake, 600 40 TPN/PPN Intake, Tube 375 925 260 440 Feeding Intake, Tube 350 350 530 175 Irrigant Number 1 2 1 2 0 Bowel Movements Patient 198 lb Weight Current Medications Sig/Gil Start time Last Medication Dose Route Stop Time Status Admin Acetaminophen 650 MG Q4H PRN 03/05 1345 AC 03/07 PO 0022 Albuterol Sulfate 3 ML BID 03/05 1333 AC 03/08 INH 0822 Ampicillin Sodium/ 3,000 MG Q6 03/05 1800 DC 03/08 Sulbactam Sodium IV 0625 Sodium Chloride 100 ML Atorvastatin Calcium 10 MG DAILY 03/06 0900 AC 03/08 PO 0852 Baclofen 10 MG TID 03/05 1400 AC 03/08 PO 0852 Cholecalciferol 1,000 IU DAILY 03/05 1334 AC 03/08 PO 0852 Docusate Sodium 100 MG BID 03/05 2100 AC 03/08 PO 0852 Enoxaparin Sodium 40 MG DAILY 03/05 1313 AC 03/08 SC 0852 Escitalopram Oxalate 5 MG DAILY 03/05 1335 AC 03/08 PO 0852 Famotidine 20 MG DAILY 03/05 1337 AC 03/08 PO 0852 Lactobacillus 1 CAP BID 03/05 1336 AC 03/08 Acidophilus PO 0852 Magnesium Hydroxide 30 ML DAILY PRN 03/05 1345 AC PO Oxycodone/ 0 .STK-MED ONE 03/08 0915 DC Acetaminophen PO Pantoprazole Sodium 40 MG DAILY 03/06 1403 AC 03/08 IV 0852 Sodium Chloride 1,000 ML Q13H 03/05 1630 AC 03/08 IV 0853 Laboratory Tests 03/07/18 0855: Anion Gap 5, Estimated GFR > 60, BUN/Creatinine Ratio 20.0, CBC w Diff NO MAN DIFF REQ, RBC 4.41 L, MCV 90.2, MCH 30.1, MCHC 33.3, RDW 14.5, MPV 10.5 H, Gran % 61.0, Lymphocytes % 27.4, Monocytes % 9.4 H, Eosinophils % 1.7, Basophils % 0.5, Absolute Granulocytes 3.8, Absolute Lymphocytes 1.7, Absolute Monocytes 0.6, Absolute Eosinophils 0.1, Absolute Basophils 0 03/06/18 0728: Anion Gap 6, Estimated GFR > 60, BUN/Creatinine Ratio 30.0 H, CBC w Diff NO MAN DIFF REQ, RBC 4.17 L, MCV 89.9, MCH 30.1, MCHC 33.5, RDW 14.5, MPV 10.6 H, Gran % 60.8, Lymphocytes % 26.9, Monocytes % 10.6 H, Eosinophils % 1.3, Basophils % 0.4, Absolute Granulocytes 4.0, Absolute Lymphocytes 1.8, Absolute Monocytes 0.7 H, Absolute Eosinophils 0.1, Absolute Basophils 0 Vital Signs Date Time Temp Pulse Resp B/P B/P Pulse O2 O2 Flow FiO2 Mean Ox Delivery Rate 03/08 1146 94 Trach Mask 35% 03/08 0838 94 Trach Mask 35% 03/08 0800 94 Trach Mask 35% 03/08 0722 98.9 90 22 144/88 95 03/08 0000 94 Trach Mask 35% 03/07 2215 98.6 106 18 132/80 94 Trach Mask 03/07 2211 93 Trach Mask 35% 03/07 1915 94 Trach Mask 35% 03/07 1705 98 Trach Mask 40% 03/07 1600 97 Trach Mask 35% 03/07 1535 97.0 80 20 100/60 98
[2018-03-08 15:41] VITALS: BP 140/80
[2018-03-08 22:35] VITALS: BP 102/64
[2018-03-09 06:28] VITALS: BP 130/72
--- NOTE | 2018-03-09 07:36 | PN- Housestaff ---
Subjective Follow-up For: Fever and increased white count with tachycardia i.e. sepsis most likely caused by pneumonia secondary to aspiration with hematemesis, previously worked up Tube feeds Locked-in syndrome Subjective: Patient seen and examined. His vital signs are stable overnight and he is on his baseline 35-40% trach mask saturating at 97%. The patient is currently off antibiotics. As the patient has locked-in syndrome we are not able to assess any complaints. The patient is afebrile. He has been tolerating tube feeds through the J-tube as the G-tube became clogged. Review of Systems Constitutional: Reports: no symptoms. Neurological/Psychological: Reports: see HPI. Objective Last 24 Hrs of Vital Signs/I&O Vital Signs Date Time Temp Pulse Resp B/P B/P Pulse O2 O2 Flow FiO2 Mean Ox Delivery Rate 03/09 0940 95 Trach Mask 35% 03/09 0800 94 Trach Mask 35% 03/09 0628 97.7 78 22 130/72 97 03/09 0000 93 Trach Mask 35% 03/08 2235 99.3 95 22 102/64 93 Trach Mask 03/08 2225 93 Trach Mask 35% 03/08 1900 93 Trach Mask 35% 03/08 1630 92 Trach Mask 35% 03/08 1541 97.0 102 24 140/80 95 03/08 1430 94 Trach Mask 35% Intake & Output 03/09 1600 03/09 0800 03/09 0000 Intake Total 550 1010 Output Total 325 500 Balance 225 510 Intake, Tube 550 600 Feeding Intake, Tube 410 Irrigant Output, Stool 0 Output, Urine 325 500 Physical Exam General Appearance: Alert, Cooperative, No Acute Distress Skin: No Rashes Skin Temp/Moisture Exam: Warm/Dry Neck: Supple, No JVD Cardiovascular: Regular Rate, Normal S1, Normal S2, No Murmurs Lungs: Clear to Auscultation, Normal Air Movement Abdomen: Normal Bowel Sounds, Soft Extremities: No Clubbing, No Cyanosis, No Edema Vascular: Normal Pulses Current Medications: Current Medications Sig/Gil Start time Last Medication Dose Route Stop Time Status Admin Acetaminophen 650 MG Q4H PRN 03/05 1345 AC 03/07 PO 0022 Albuterol Sulfate 3 ML BID 03/05 1333 AC 03/09 INH 0939 Atorvastatin Calcium 10 MG DAILY 03/06 0900 AC 03/09 PO 0816 Baclofen 10 MG TID 03/05 1400 AC 03/09 PO 1404 Cholecalciferol 1,000 IU DAILY 03/05 1334 AC 03/09 PO 0816 Docusate Sodium 100 MG BID 03/05 2100 AC 03/09 PO 0816 Enoxaparin Sodium 40 MG DAILY 03/05 1313 AC 03/09 SC 0823 Escitalopram Oxalate 5 MG DAILY 03/05 1335 AC 03/09 PO 0816 Famotidine 20 MG DAILY 03/05 1337 AC 03/09 PO 0817 Lactobacillus 1 CAP BID 03/05 1336 AC 03/09 Acidophilus PO 0816 Magnesium Hydroxide 30 ML DAILY PRN 03/05 1345 AC PO Pantoprazole Sodium 40 MG DAILY 03/06 1403 AC 03/09 IV 0816 Patient Medication 1 ED ONE ONE 03/09 915 OR Teaching ED 03/09 09 Last 24 Hrs of Lab/Rashard Results Last 24 Hrs of Labs/Mics: Laboratory Tests 03/08/18 1553: Urinalysis LIGHT H, Urine Color BLDY H, Urine Clarity HAZY H, Urine pH 6.0, Ur Specific [place] 1.020, Urine Protein TRACE H, Urine Ketones TRACE H, Urine Nitrite NEG, Urine Bilirubin NEG, Urine Urobilinogen 0.2, Ur Leukocyte Esterase TRACE H, Ur Microscopic SEDIMENT EXAMINED, Urine RBC >75 H, Urine WBC 3-5 H, Ur Epithelial Cells RARE, Urine Hemoglobin LARGE H, Urine Glucose NEG Microbiology 03/08 1830 URINE ROUT: Urine Culture - RES Assessment/Plan Assessment: Patient is a 57-year-old man senior care resident with 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 difficile infection, diabetes, gout, depression, history of NV, history of DVT status post filter placement, MRSA infection in the past and only able to communicate with his eyes that is brought in from [facility] for upper GI bleed , increased oxygen requirements. The patient has been here before for upper GI bleed and has been evaluated by Dr. Watson in the past. He has been here as well for aspiration pneumonia. In the ED, blood pressure is found to be 130/83, respiratory rate 22, pulse 113, temperature 100.3 on Ventimask 10 L humidified oxygen, satting 90%. WBC count was found to be 13.5, lactic acid normal, creatinine 0.5, total bilirubin 1.5, other LFTs normal, UA no evidence of infection. Chest x-ray showed hyperexpanded lungs with streaky right basilar opacity favoring atelectasis although pneumonia or aspiration are possible. In the ED, cultures were taken and patient was given 1 dose of Fortaz and Unasyn. He is also given 1 L of saline. Assessment Fever and increased white count with tachycardia i.e. sepsis most likely caused by pneumonia secondary to aspiration with hematemesis, previously worked up Tube feeds through J tube Locked-in syndrome Plan - Admited patient to general medical floors for evaluation and treatment. - Tube feeds have been started Glucerna 1.2, rates and goals entered. The patient is on tube feeds getting through J-tube with no issues. G-tube was clogged, assessed by interventional radiologist. Does not want to use G-tube any more given aspiration. Plan is to continue feeds through J-tube only until replacement of tube which he is due for with IR (special tube is required to be ordered). -Hemoglobin 13.3 03/07 up from 12.5. We will continue to observe. -Discontinued Unasyn. He was given 1 dose of vancomycin for gram-positive cocci in clusters growing in 1 blood culture. We have consulted infectious disease on guidance for antibiotics and at the moment will follow off ABx. per ID recommendation. - No workup for patient's hematemesis as it had been worked up thoroughly in the past by Dr. Watson. Patient was last seen by Dr. Watson on January 15 of this year for the exact same complaints the patient does have a history of peptic ulcer disease with a bleeding ulcer noted on endoscopy in October 2015 which was felt to be secondary to his J-tube. He remains without evidence of overt GI bleeding and similar to last time, an upper endoscopy will not be pursued at this time. We will continue him on IV Protonix at the moment. - Discontinued IV fluids 03/08 - Patient retained 1.5 L on bladder scan 03/08. Inserted liang catheter due to urinary retention Continue other home medications Patient is full code Tube feeds at goal rate 75 ml/hr DVT prophylaxis with Lovenox. Problem List: 1. Febrile illness 2. Aspiration pneumonia Pain Ratin Pain Location: na Pain Goal: Remain pain free Pain Plan: na Tomorrow's Labs & Rationales: na
--- NOTE | 2018-03-09 10:37 | PN- Att Addend ---
Attending Addendum Attending Brief Note No low issues. Vital signs are stable no fever. No major changes in physical. We will check with infectious diseases. If okay we will start disposition plans to return the patient to the residential and assess whether antibiotics that he go with. Intake & Output 03/09 1600 03/09 0400 03/08 1600 03/08 0400 03/07 1600 03/07 0400 Intake Total 550 1010 2050 1550 2580 260 Output Total 325 500 Balance 231 355 1693 1550 2580 260 Intake, IV 919 451 2602 Intake, Oral 0 Intake, 600 TPN/PPN Intake, Tube 550 600 975 925 260 Feeding Intake, Tube 410 350 350 530 Irrigant Number 1 2 1 Bowel Movements Output, Stool 0 Output, Urine 325 500 Current Medications Sig/Gil Start time Last Medication Dose Route Stop Time Status Admin Acetaminophen 650 MG Q4H PRN 03/05 1345 AC 03/07 PO 0022 Albuterol Sulfate 3 ML BID 03/05 1333 AC 03/09 INH 0939 Ampicillin Sodium/ 3,000 MG Q6 03/05 1800 DC 03/08 Sulbactam Sodium IV 0625 Sodium Chloride 100 ML Atorvastatin Calcium 10 MG DAILY 03/06 0900 AC 03/09 PO 0816 Baclofen 10 MG TID 03/05 1400 AC 03/09 PO 0816 Cholecalciferol 1,000 IU DAILY 03/05 1334 AC 03/09 PO 0816 Docusate Sodium 100 MG BID 03/05 2100 AC 03/09 PO 0816 Enoxaparin Sodium 40 MG DAILY 03/05 1313 AC 03/09 SC 0823 Escitalopram Oxalate 5 MG DAILY 03/05 1335 AC 03/09 PO 0816 Famotidine 20 MG DAILY 03/05 1337 AC 03/09 PO 0817 Lactobacillus 1 CAP BID 03/05 1336 AC 03/09 Acidophilus PO 0816 Magnesium Hydroxide 30 ML DAILY PRN 03/05 1345 AC PO Pantoprazole Sodium 40 MG DAILY 03/06 1403 AC 03/09 IV 0816 Patient Medication 1 ED ONE ONE 03/09 0915 DC Teaching ED 03/09 0916 Sodium Chloride 1,000 ML Q13H 03/05 1630 DC 03/08 IV 0853 Laboratory Tests 03/08/18 1553: Urinalysis LIGHT H, Urine Color BLDY H, Urine Clarity HAZY H, Urine pH 6.0, Ur Specific [place] 1.020, Urine Protein TRACE H, Urine Ketones TRACE H, Urine Nitrite NEG, Urine Bilirubin NEG, Urine Urobilinogen 0.2, Ur Leukocyte Esterase TRACE H, Ur Microscopic SEDIMENT EXAMINED, Urine RBC >75 H, Urine WBC 3-5 H, Ur Epithelial Cells RARE, Urine Hemoglobin LARGE H, Urine Glucose NEG 03/07/18 0855: Anion Gap 5, Estimated GFR > 60, BUN/Creatinine Ratio 20.0, CBC w Diff NO MAN DIFF REQ, RBC 4.41 L, MCV 90.2, MCH 30.1, MCHC 33.3, RDW 14.5, MPV 10.5 H, Gran % 61.0, Lymphocytes % 27.4, Monocytes % 9.4 H, Eosinophils % 1.7, Basophils % 0.5, Absolute Granulocytes 3.8, Absolute Lymphocytes 1.7, Absolute Monocytes 0.6, Absolute Eosinophils 0.1, Absolute Basophils 0 Microbiology 03/08 1830 URINE ROUT: Urine Culture - RES Microbiology 03/08 1830 URINE ROUT: Urine Culture - RES Vital Signs Date Time Temp Pulse Resp B/P B/P Pulse O2 O2 Flow FiO2 Mean Ox Delivery Rate 03/09 0940 95 Trach Mask 35% 03/09 0628 97.7 78 22 130/72 97 03/09 0000 93 Trach Mask 35% 03/08 2235 99.3 95 22 102/64 93 Trach Mask 03/08 2225 93 Trach Mask 35% 03/08 1900 93 Trach Mask 35% 03/08 1630 92 Trach Mask 35% 03/08 1541 97.0 102 24 140/80 95 03/08 1430 94 Trach Mask 35% 03/08 1146 94 Trach Mask 35%
[2018-03-09 14:52] VITALS: BP 98/62
[2018-03-09 15:42] VITALS: BP 98/62
== END 2018-03-09 17:15 | DRG 177 ==
LOC: ERH 06:02 → ERHI 10:38 → 2NA 10:38 → ENRESERV 11:37 → ENTRNSPT 12:21 → EDTRNSPTSTS 12:45 → CMPTRNSPT 12:45 → EDTRNSPT 12:45 → 2NA 12:49 → ENPENDDIS 03-09 14:43 → 2NA 03-09 17:15
PROVIDERS: Emergency Medicine; Student in an Organized Health Care Education/Training Program
DX: J69.0 Pneumonitis due to inhalation of food and vomit (principal); G83.5 Locked-in state; G82.50 Quadriplegia, unspecified; I50.32 Chronic diastolic (congestive) heart failure; K92.0 Hematemesis; E78.5 Hyperlipidemia, unspecified; Z99.81 Dependence on supplemental oxygen; I69.865 Other paralytic syndrome following other cerebrovascular disease, bilateral; Z93.0 Tracheostomy status; K27.7 Chronic peptic ulcer, site unspecified, without hemorrhage or perforation; I25.2 Old myocardial infarction; F32.9 Major depressive disorder, single episode, unspecified; Z86.718 Personal history of other venous thrombosis and embolism; Z95.9 Presence of cardiac and vascular implant and graft, unspecified; Z88.6 Allergy status to analgesic agent; Z88.8 Allergy status to other drugs, medicaments and biological substances; M10.9 Gout, unspecified; K94.29 Other complications of gastrostomy; B95.7 Other staphylococcus as the cause of diseases classified elsewhere
CPT/HCPCS: 2NAP; 36592; 71045; 81001; 82436; 87040; 87070; 87086; 87147; 96374; 96375; J0290; J0713; J1650; J3370; J7040

== ENCOUNTER 2018-03-24 05:15 | Inpatient (IN) | payer OTHER, MEDICARE ==
[~2018-03-24] VITALS: Ht 175.3 cm; Wt 85.7 kg
--- NOTE | 2018-03-24 05:20 | ED GENERAL ADULT ---
History of Present Illness General Chief Complaint: Nausea, Vomiting, Diarrhea Stated Complaint: VOMITING Source: old records, EMS, W10 Exam Limitations: LOCKED IN SYNDROME Vital Signs & Intake/Output Vital Signs & Intake/Output Vital Signs Date Time Temp Pulse Resp B/P B/P Pulse O2 O2 Flow FiO2 Mean Ox Delivery Rate 03/24 0646 95 Trach Mask 40% 03/24 521 98.5 135 17 141/81 89 Room Air Allergies Coded Allergies: scopolamine (Mild, HIVES 12/26/16) NSAIDS (Non-Steroidal Anti-Inflamma (PER 12/26/16) adhesive (HIVES - EKG STICKERS, RED DOT OSAGE STICKERS 12/26/16) aspirin (PER 12/26/16) clopidogrel (From PLAVIX) (PER 12/26/16) Uncoded Allergies: EKG AND RED DOT LEADS (Intermediate, RASH 09/26/16) Reconcile Medications Acetaminophen (Acephen) 650 MG SUPP.RECT 1 SUPP LA Q4H PRN PAIN/TEMP>101 ( Reported) Acetaminophen 325 MG TABLET 2 TAB J TUBE Q4H PRN PAIN/TEMP/>101 (Reported) Albuterol Sulfate 2.5 MG/3 ML (0.083 %) VIAL.NEB 1 Vial INH/MONICO BID RESP. ( Reported) Baclofen 10 MG TABLET 1 TAB G TUBE TID SPASMS (Reported) Bisacodyl 10 MG SUPP.RECT 1 SUP RC DAILY PRN NO BM - IF MOM INEFFECTIVE ( Reported) Cholecalciferol (Vitamin D3) 1,000 UNIT TABLET 1 TAB G TUBE DAILY SUPPLEMENT (Reported) Docusate Sodium 100 MG TABLET 1 TAB G TUBE BID STOOL SOFTENER (Reported) Escitalopram Oxalate 5 MG TABLET 1 TAB G TUBE DAILY DEPRESSION (Reported) Ipratropium/Albuterol Sulfate (Iprat-Albut 0.5-3(2.5) MG/3 Ml) 0.5 MG-3 MG (2.5 MG BASE)/3 ML AMPUL.NEB 1 VIAL NEB Q4H PRN DYSPNEA (Reported) Lactobacillus Acidophilus (Acidophilus) 1 EACH CAPSULE 1 CAP G TUBE DAILY PROBIOTIC (Reported) Magnesium Hydroxide (Milk Of Magnesia) 400 MG/5 ML ORAL.SUSP 30 ML J TUBE DAILY PRN NO BM IN 3 DAYS (Reported) Na Phos,M-B/Na Phos,Di-Ba (Fleet Enema) 19 GRAM-7 GRAM/118 ML ENEMA 1 E RC DAILY PRN NO BM - IF BISACODYL INEFFECTI (Reported) Ondansetron HCl 4 MG TABLET 1 TAB G TUBE Q8H PRN N/V (Reported) Ranitidine HCl 15 MG/ML SYRUP 10 ML G TUBE BID GI (Reported) Simvastatin (Zocor*) 10 MG TABLET 1 TAB G TUBE 1700 GI (Reported) Triage Nurses Notes Reviewed? yes HPI: Patient brought in for evaluation of vomiting and questionable aspiration pneumonia. Patient has a tracheostomy secondary to locked-in syndrome. Patient began vomiting coffee ground emesis tonight and someone thought this came out of his trach. 911 was contacted. Patient was found hypoxic with a saturation of 82%. Patient was suctioned and his oxygen level came up to 93%. Patient brought in for evaluation. Past History Travel History Traveled to [place] past 21 day No Medical History Any Pertinent Medical History? 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 ASP PNA Gastrointestinal: constipation, GERD, peptic ulcer disease, upper GI bleed, C. Difficile DYSPHAGIA GTUBE Hepatic: NONE Renal: nephrolithiasis, UTI Musculoskeletal: gout, MUSCLE SPASMS Psychiatric: depression, schizophrenia Endocrine: DIABETES VIT D DEFICIENCY Blood Disorders: NONE Cancer(s): NONE [employer] SPECIALIST/Reproductive: NONE History of MRSA: No History of VRE: Yes History of CDIFF: No Surgical History Surgical History: hernia repair-inguinal (8 years prior to admission), GASTOJEJUNOSTOMY status post IVC filter Psychosocial History Who do you live with 0 Services at [facility] from [facility] What is your primary language Moroccan Family History Family History, If Any: FATHER (CVA, type 2 DM, Colon Ca). MOTHER (Type 2 DM). Grand father (CVA). Hx Contributory? No Review of Systems Review of Systems Constitutional: Reports: see HPI. Physical Exam Physical Exam General Appearance: awake Head: atraumatic Eyes: Bilateral: PERRL. Ears, Nose, Throat: normal pharynx Neck: normal inspection, TRACHEOSTOMY IN PLACE WITH EVIDENCE OF COFFEE-GROUND MATERIAL AROUND IT. Respiratory: rhonchi Cardiovascular: regular rate/rhythm, normal peripheral pulses Gastrointestinal: normal bowel sounds, soft Extremities: pedal edema Core Measures ACS in differential dx? No CVA/TIA Diagnosis: No Sepsis Present: No Sepsis Focused Exam Completed? No Progress Differential Diagnoses I considered the following diagnoses in my evaluation of the patient: [ Aspiration pneumonia, upper GI bleed, electrolyte abnormality, sepsis,] Plan of Care: Orders Procedure Date/time Status Nothing by Mouth 03/24 B Active LACTIC ACID 03/24 819 Active Patient Data 03/24 645 Active ED Holding Orders 03/24 641 Active Admit to inpatient 03/24 641 Active Vital Signs 03/24 641 Active Code Status 03/24 641 Active TYPE & SCREEN (NOT X-MATCH) 03/24 520 Complete Telemetry/Dental Hygiene Professor 03/24 519 Active CULTURE,URINE 03/24 519 Active BLOOD CULTURE 03/24 519 Active URINALYSIS 03/24 519 Active TROPONIN LEVEL 03/24 519 Complete LACTIC ACID 03/24 519 Complete COMPREHENSIVE METABOLIC PANEL 03/24 519 Complete CBC WITHOUT DIFFERENTIAL 03/24 519 Complete EKG 03/24 519 Active Current Medications Sig/Gil Start time Last Medication Dose Stop Time Status Admin Ampicillin Sodium/ 3,000 MG ONCE ONE 03/24 645 AC 03/24 Sulbactam Sodium 03/24 0714 0643 (Unasyn) Sodium Chloride 100 ML (Normal Saline 0.9%) Sodium Chloride 1,000 ML BOLUS ONE 03/24 630 AC 03/24 (Normal Saline 0.9%) 03/24 0729 0643 Laboratory Tests 03/24/18 0535: Anion Gap 8, Estimated GFR > 60, BUN/Creatinine Ratio 48.3 H, Glucose 200 H, Lactic Acid 1.7, Calcium 9.6, Total Bilirubin 0.7, AST 22, ALT 35, Alkaline Phosphatase 88, Troponin I < 0.01, Total Protein 7.7, Albumin 4.1, Globulin 3.6, Albumin/Globulin Ratio 1.1, CBC w Diff MAN DIFF ORDERED, RBC 5.02, MCV 89.5, MCH 29.5, MCHC 33.0, RDW 15.3 H, MPV 10.2, Gran % 89.5 H, Lymphocytes % 5.2 L, Monocytes % 5.1, Eosinophils % 0, Basophils % 0.2, Absolute Granulocytes 16.3 H , Segmented Neutrophils 91 H, Absolute Lymphocytes 0.9 L, Lymphocytes 4 L, Monocytes 5, Absolute Monocytes 0.9 H, Absolute Eosinophils 0, Absolute Basophils 0, Platelet Estimate ADEQUATE, Polychromasia 1+, Ovalocytes FEW, Stomatocytes FEW, Fld Total RBCs Counted 100 Microbiology 03/24 535 BLOOD: Blood Culture - RECD 03/24 520 BLOOD: Blood Culture - RECD 03/24 519 URINE ROUT: Urine Culture - ORD Diagnostic Imaging: Viewed by Me: Radiology Read. Discussed w/RAD: Radiology Read. Initial ED EKG: S TACH AT 129, NSSTT CHANGES, NO CHANGE FROM PRIOR Prior EKG: unchanged Departure Departure Disposition: STILL A PATIENT Condition: Stable Clinical Impression Primary Impression: Aspiration pneumonia Referrals: Danny Olvera MD (PCP/Family) Departure Forms: Customer Survey General Discharge Information Admission Note Spoke With: Danny Olvera MD Documentation of Exam: Documentation of any treatments & extenuating circumstances including Concerns Regarding Discharge (functional status, medication knowledge or non-compliance, living conditions, etc.) that warrant an admission rather than observation: [IV antibiotics, ID consultation, pulmonary consultation, follow-up cultures, IV fluids] Critical Care Note Critical Care Note Critical Care Time: non-applicable
[2018-03-24 05:49] LABS: ABSOLUTE BASOPHIL COUNT 0 /CUMM (0.0-0.2); ABSOLUTE EOSINOPHIL COUNT 0 /CUMM (0.0-0.7); ABSOLUTE GRANULOCYTE CT 16.3 /CUMM (1.4-6.5); ABSOLUTE LYMPH COUNT 0.9 /CUMM (1.2-3.4); ABSOLUTE MONOCYTE COUNT 0.9 /CUMM (0.10-0.60); BASOPHIL % 0.2 % (0.0-2.0); EOSINOPHIL % 0 % (0-5); GRANULOCYTE % 89.5 % (42.2-75.2); HEMATOCRIT 44.9 % (42-52); MEAN CORPUSCULAR HGB 29.5 PG (27.0-31.0); MEAN CORPUSCULAR VOLUME 89.5 FL (80.0-94.0); MEAN PLATELET VOLUME 10.2 FL (7.4-10.4); PLATELET COUNT 314 /CUMM (130-400); RBC DISTRIBUTION WIDTH 15.3 % (11.5-14.5); RED BLOOD CELL CT 5.02 /CUMM (4.70-6.10); WHITE BLOOD CELL COUNT 18.2 /CUMM (4.8-10.8)
--- NOTE | 2018-03-24 06:33 | RADIOLOGY REPORT ---
EXAMINATION: XR PORTABLE CHEST CLINICAL INFORMATION: Vomiting, shortness of breath, cough COMPARISON: 03/05/2018 TECHNIQUE: Portable frontal view of the chest was obtained. FINDINGS: Tracheostomy tube is present. The lungs are hypoinflated. There our regions of bibasilar airspace opacity. The mid to upper lungs appear well aerated. No pneumothorax is seen. No definite pleural effusion. The cardiomediastinal silhouette is not well evaluated though appears grossly stable in the setting of low lung volumes. No acute osseous findings are seen. IMPRESSION: Low lung volumes with regions of bibasilar opacity, which may reflect atelectasis in this setting though consolidation such as from pneumonia or aspiration cannot be excluded.
[2018-03-24 08:00] VITALS: BP 128/72
--- NOTE | 2018-03-24 08:48 | History & Physical ---
General Information and HPI MD Statement: I have seen and personally examined SUNDAY ISABEL III and documented this H& P. The patient is a 57 year old M who presented with a patient stated chief complaint of NAUSEA,VOMITING,DIARRHEA[]. Source of Information: W10 Exam Limitations: physical impairment History of Present Illness: Mr. 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 Isabel himself is unable to provide any history, he has a tracheostomy tube in place, only responds with movement of eyes, indicating yes and no. Most of the history was obtained from [facility] as well as the W 10 It was noted that the patient had coffee-ground/black secretions from his mouth and trach this morning at the facility, usually he is on humidified mask with 40 % FiO2 he has had similar episodes in the past.As per the W 10, he was observed to have vomited back/brown liquid like vomitus and he was given Zofran however he continued to vomit. Chest x-ray done on 03/24 was positive for pneumonia and his oxygen saturation was 91% on 10 L of nasal cannula at the nursing facility his vitals as noted on the W 10 with a blood pressure 136/94, heart rate of 124, respiration of 26, temperature of 99 and oxygen saturation of 91% on 10 L. His CODE STATUS per W 10 was full code. The x-ray from 03/24 from [facility] showed mild patchy density in the left lower lobe compatible with pneumonia, this basilar infiltrate was deemed to be new,h was prescribed Levaquin 750 mg IV every 24 hourly for total of 7 days per w10, not sure if he took any, however due to continued vomiting and worsening hypoxia he was transferred to [facility]. Allergies/Medications Allergies: Coded Allergies: scopolamine (Mild, HIVES 12/26/16) NSAIDS (Non-Steroidal Anti-Inflamma (PER W-10 06/01/17) adhesive (HIVES - EKG STICKERS, RED DOT ANIAK STICKERS 12/26/16) aspirin (PER 12/26/16) clopidogrel (From PLAVIX) (PER 12/26/16) Uncoded Allergies: EKG AND RED DOT LEADS (Intermediate, RASH 09/26/16) Home Med list Acetaminophen (Acephen) 650 MG SUPP.RECT 1 SUPP TN Q4H PRN PAIN/TEMP>101 ( Reported) Acetaminophen 325 MG TABLET 2 TAB J TUBE Q4H PRN PAIN/TEMP/>101 (Reported) Albuterol Sulfate 2.5 MG/3 ML (0.083 %) VIAL.NEB 1 Vial INH/MONICO BID RESP. ( Reported) Baclofen 10 MG TABLET 1 TAB G TUBE TID SPASMS (Reported) Bisacodyl 10 MG SUPP.RECT 1 SUP RC DAILY PRN NO BM - IF MOM INEFFECTIVE ( Reported) Cholecalciferol (Vitamin D3) 1,000 UNIT TABLET 1 TAB G TUBE DAILY SUPPLEMENT (Reported) Docusate Sodium 100 MG TABLET 1 TAB G TUBE BID STOOL SOFTENER (Reported) Escitalopram Oxalate 5 MG TABLET 1 TAB G TUBE DAILY DEPRESSION (Reported) Ipratropium/Albuterol Sulfate (Iprat-Albut 0.5-3(2.5) MG/3 Ml) 0.5 MG-3 MG (2.5 MG BASE)/3 ML AMPUL.NEB 1 VIAL NEB Q4H PRN DYSPNEA (Reported) Lactobacillus Acidophilus (Acidophilus) 1 EACH CAPSULE 1 CAP G TUBE DAILY PROBIOTIC (Reported) Magnesium Hydroxide (Milk Of Magnesia) 400 MG/5 ML ORAL.SUSP 30 ML J TUBE DAILY PRN NO BM IN 3 DAYS (Reported) Na Phos,M-B/Na Phos,Di-Ba (Fleet Enema) 19 GRAM-7 GRAM/118 ML ENEMA 1 E RC DAILY PRN NO BM - IF BISACODYL INEFFECTI (Reported) Ondansetron HCl 4 MG TABLET 1 TAB G TUBE Q8H PRN N/V (Reported) Ranitidine HCl 15 MG/ML SYRUP 10 ML G TUBE BID GI (Reported) Simvastatin (Zocor*) 10 MG TABLET 1 TAB G TUBE 1700 GI (Reported) Compliance With Home Meds: FAIR Past History Travel History Traveled to [place] past 21 day No Medical History Neurological: CVA, 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 ASP PNA Gastrointestinal: constipation, GERD, peptic ulcer disease, upper GI bleed, C. Difficile DYSPHAGIA GTUBE Hepatic: NONE Renal: nephrolithiasis, UTI Musculoskeletal: gout, MUSCLE SPASMS Psychiatric: depression, schizophrenia Endocrine: DIABETES VIT D DEFICIENCY Blood Disorders: NONE Cancer(s): NONE BIT TRIPOLER/Reproductive: NONE History of MRSA: No History of VRE: Yes History of CDIFF: No Surgical History Surgical History: hernia repair-inguinal (8 years prior to admission), GASTOJEJUNOSTOMY status post IVC filter Past Family/Social History Family History Relations & Conditions if any FATHER (CVA, type 2 DM, Colon Ca). MOTHER (Type 2 DM). Grand father (CVA). Psychosocial History Who Do You Live With? self Services at Home: from [facility] Primary Language: Mohawk Functional Ability ADLs Needs Assist: dressing, eating, toileting, bathing. Ambulation: non-ambulatory IADLs Needs Assist: shopping, housework, finances, food prep, telephone, transportation, medication admin. Review of Systems Review of Systems Constitutional: Reports: malaise, weakness. Denies: diaphoresis, fever. Cardiovascular: Reports: see HPI. Respiratory: Reports: cough, sputum production. Denies: hemoptysis, orthopnea, short of breath, stridor, wheezing. GI: Reports: no symptoms. Musculoskeletal: Reports: no symptoms. Exam & Diagnostic Data Last 24 Hrs of Vital Signs/I&O Vital Signs Date Time Temp Pulse Resp B/P B/P Pulse O2 O2 Flow FiO2 Mean Ox Delivery Rate 03/24 0646 95 Trach Mask 40% 03/24 0521 98.5 135 17 141/81 89 Room Air Intake & Output 03/24 1600 03/24 0800 03/24 0000 Intake Total 0 Output Total Balance 0 Intake, Oral 0 Physical Exam General Appearance opens eye, sweating, redness of eye noted, currently on 6 litres through trach Skin b/l red maculopapular rash noted b/l below knee HEENT Atraumatic, PERRLA Neck No JVD Cardiovascular Normal S1, Normal S2 Lungs difficult to hear, gurgling sound + Abdomen Normal Bowel Sounds, Soft, No Tenderness Neurological quadriplegia Extremities No Clubbing, No Cyanosis, No Edema, Normal Pulses Vascular Normal Pulses Last 24 Hrs of Labs/Rashard: Laboratory Tests 03/24/18829: Urine Color Pending, Urine Clarity Pending, Urine pH Pending, Ur Specific [place] Pending, Urine Protein Pending, Urine Ketones Pending, Urine Nitrite Pending, Urine Bilirubin Pending, Urine Urobilinogen Pending, Ur Leukocyte Esterase Pending, Ur Microscopic Pending, Urine Hemoglobin Pending, Urine Glucose Pending 03/24/18818: Lactic Acid Cancelled 03/24/18534: Anion Gap 8, Estimated GFR > 60, BUN/Creatinine Ratio 48.3 H, Glucose 200 H, Lactic Acid 1.7, Calcium 9.6, Total Bilirubin 0.7, AST 22, ALT 35, Alkaline Phosphatase 88, Troponin I < 0.01, Total Protein 7.7, Albumin 4.1, Globulin 3.6, Albumin/Globulin Ratio 1.1, CBC w Diff MAN DIFF ORDERED, RBC 5.02, MCV 89.5, MCH 29.5, MCHC 33.0, RDW 15.3 H, MPV 10.2, Gran % 89.5 H, Lymphocytes % 5.2 L, Monocytes % 5.1, Eosinophils % 0, Basophils % 0.2, Absolute Granulocytes 16.3 H , Segmented Neutrophils 91 H, Absolute Lymphocytes 0.9 L, Lymphocytes 4 L, Monocytes 5, Absolute Monocytes 0.9 H, Absolute Eosinophils 0, Absolute Basophils 0, Platelet Estimate ADEQUATE, Polychromasia 1+, Ovalocytes FEW, Stomatocytes FEW, Fld Total RBCs Counted 100 Microbiology 03/24 830 URINE ROUT: Urine Culture - RECD 03/24 535 BLOOD: Blood Culture - RECD 03/24 520 BLOOD: Blood Culture - RECD Diagnostic Data EKG Results Normal sinus rhythm, sinus tachycardia at the rate of 129, left axis deviation present on the previous EKG electrical alternans noted on the EKG, however this is also noted on mostly leads in previous EKG dome more pronounced in the current EKG, QTC of 434, no acute ST-T wave changes. CXR Results SERVICE DATE: 03/24/18 EXAM TYPE: RAD - XRY-PORTABLE CHEST XRAY EXAMINATION: XR PORTABLE CHEST CLINICAL INFORMATION: Vomiting, shortness of breath, cough COMPARISON: 03/05/2018 TECHNIQUE: Portable frontal view of the chest was obtained. FINDINGS: Tracheostomy tube is present. The lungs are hypoinflated. There our regions of bibasilar airspace opacity. The mid to upper lungs appear well aerated. No pneumothorax is seen. No definite pleural effusion. The cardiomediastinal silhouette is not well evaluated though appears grossly stable in the setting of low lung volumes. No acute osseous findings are seen. IMPRESSION: Low lung volumes with regions of bibasilar opacity, which may reflect atelectasis in this setting though consolidation such as from pneumonia or aspiration cannot be excluded. Assessment/Plan Assessment: In summary Mr. 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 Vitals at the emergency department with a temperature of 98.5, pulse of 135, respiration of 20/min, blood pressure 141/81, he was saturating initially 89% on room air then he was put on Ventimask where his saturation improved to 95, while on 40% tracheal mask. Lab yee he was found to have a white count of 18.2, H/H of 14.8/44.9, platelet of 314, 91 segmented neutrophils, no bands. Sodium of 143, potassium 4.3, BUN/creatinine 29/0.6, glucose of 200. Initial lactic acid was found to be -1.7, repeat lactic acid was not done in the emergency room. Liver function tests within normal limit, initial set of troponin negative. Chest x-ray showed hypoinflated lungs, bibasilar airspace opacity, which may reflect atelectasis in the setting of consolidation possibly from pneumonia versus aspiration. As per history and physical, nursing staff at the nursing facility did notice some secretions coming out from his tracheostomy, which was more than normal. We will admit the patient to general medicine floor for treatment of following problems. Problem #1 leukocytosis with consolidation on chest x-ray, with a history of vomiting and and possible aspiration. He does not have any fever, however the leukocytosis and evidence of consolidation on chest x-ray done both in the nursing facility as well as at [facility], tachycardia, tachypnea, he meets the criteria for SIRS, possible source of sepsis seems to be the pneumonia possibly aspiration. He is afebrile currently however he was noted to have low-grade temperature while at the nursing facility. He does not meet the criteria for severe sepsis, lactic acid is normal. * Continue to monitor vitals, intake and output, continue total respiratory care with suctions every 4 as needed as is done for him at the nursing facility. * He received 1 dose of IV Unasyn while in the urgency department, continue IV Unasyn for possible aspiration pneumonia. * Cultures, urine cultures were sent, also send lower respiratory cultures, continue to follow cultures. * Continue humidified oxygen, tracheal care with sterile water and peroxide, continue to monitor saturations and titrate to maintain saturations above 92%. * He is a Daniella lift, assist 2, has Foleys. * We will give him IV fluids up to a total of 2 bags for now. * please continue his home medications for the J tube Full code Lovenox for DVT prophylaxis pain pathway N.p.o. for now. As Ranked By This Provider Problem List: 1. Aspiration pneumonia Core Measures/Misc (04/13) Acute Coronary Syndrome ACS Diagnosis: No Congestive Heart Failure Congestive Heart Failure Diagnosis No Cerebrovascular Accident CVA/TIA Diagnosis: No VTE (View Protocol) VTE Risk Factors No risk factors No Mechanical VTE Prophylaxis d/t Other No VTE Pharm Prophylaxis d/t Other Sepsis (View protocol) Sepsis Present: No If YES complete Sepsis Event Note If YES complete Sepsis Event Note Resident Review Statement Resident Statement: admitted by resident
--- NOTE | 2018-03-24 09:58 | Admission Certification ---
Admission Certification Certification Statement - As attending physician, I certify that at the time of - admission, based on clinical presentation, severity of - symptoms, need for further diagnostic testing and - therapeutic interventions, and risk of adverse outcomes - without in-hospital treatment, in my clinical assessment, - this patient requires an acute hospital stay for a minimum - of two nights or longer. I have also considered psychsocial - factors such as support system, advanced age, financial - issues, cognitive issues, and failed out-patient treatments, - past re-admission history, safety of patient, and lack of - compliance as applicable. Specific rationale supporting this admission is: Vomiting and recurrent aspiration pneumonia
--- NOTE | 2018-03-24 10:00 | PN- Att Addend ---
Attending Addendum Attending Brief Note 57-year-old resident of [facility] again vomited last evening and had some little coffee-ground material and comes to the emergency room with symptoms of aspiration pneumonia, patient will be admitted aspiration precautions and start antibiotic therapy IV. Also TRC.. Current Medications Sig/Gil Start time Last Medication Dose Route Stop Time Status Admin Acetaminophen 650 MG Q6P PRN 03/24 0830 AC PO Acetaminophen 1,000 MG Q6P PRN 03/24 0830 AC IV Ampicillin Sodium/ 3,000 MG ONCE ONE 03/24 0645 DC 03/24 Sulbactam Sodium IV 03/24 0714 0643 Sodium Chloride 100 ML Ampicillin Sodium/ 0 .STK-MED ONE 03/24 0641 DC Sulbactam Sodium .ROUTE Atorvastatin Calcium 10 MG 1700 03/24 1700 AC PO Baclofen 10 MG TID 03/25 0900 AC PO Docusate Sodium 100 MG BID 03/24 2100 AC PO Enoxaparin Sodium 40 MG DAILY 03/24 0900 AC 03/24 SC 0901 Enoxaparin Sodium 0 .STK-MED ONE 03/24 0859 DC SC Escitalopram Oxalate 5 MG DAILY 03/25 0900 AC PO Ondansetron HCl 4 MG ONCE PRN 03/24 0945 AC PO 03/24 1800 Ondansetron HCl 4 MG ONCE ONE 03/24 0545 DC 03/24 IV 03/24 0546 0554 Ondansetron HCl 0 .STK-MED ONE 03/24 0543 DC .ROUTE Oxycodone HCl 10 MG Q6P PRN 03/24 0830 AC PO Pantoprazole Sodium 40 MG ONCE ONE 03/24 0545 DC 03/24 IV 03/24 0546 0554 Pantoprazole Sodium 0 .STK-MED ONE 03/24 0543 DC IV Sodium Chloride 1,000 ML BOLUS ONE 03/24 0945 AC 03/24 IV 03/24 2304 0954 Sodium Chloride 1,000 ML BOLUS ONE 03/24 0630 DC 03/24 IV 03/24 0729 0643 Laboratory Tests 03/24/1830: Urinalysis LIGHT H, Urine Color YEL, Urine Clarity HAZY H, Urine pH 6.0, Ur Specific Alex[place] >= 1.030, Urine Protein 30 H, Urine Ketones NEG, Urine Nitrite NEG, Urine Bilirubin NEG, Urine Urobilinogen 0.2, Ur Leukocyte Esterase TRACE H , Ur Microscopic SEDIMENT EXAMINED, Urine RBC 5-10 H, Urine WBC 25-50 H, Ur Epithelial Cells RARE, Urine Bacteria MOD H, Urine Mucus MANY H, Urine Hemoglobin MOD H, Urine Glucose NEG 03/24/18 0819: Lactic Acid Cancelled 03/24/18 0535: Anion Gap 8, Estimated GFR > 60, BUN/Creatinine Ratio 48.3 H, Glucose 200 H, Lactic Acid 1.7, Calcium 9.6, Total Bilirubin 0.7, AST 22, ALT 35, Alkaline Phosphatase 88, Troponin I < 0.01, Total Protein 7.7, Albumin 4.1, Globulin 3.6, Albumin/Globulin Ratio 1.1, CBC w Diff MAN DIFF ORDERED, RBC 5.02, MCV 89.5, MCH 29.5, MCHC 33.0, RDW 15.3 H, MPV 10.2, Gran % 89.5 H, Lymphocytes % 5.2 L, Monocytes % 5.1, Eosinophils % 0, Basophils % 0.2, Absolute Granulocytes 16.3 H , Segmented Neutrophils 91 H, Absolute Lymphocytes 0.9 L, Lymphocytes 4 L, Monocytes 5, Absolute Monocytes 0.9 H, Absolute Eosinophils 0, Absolute Basophils 0, Platelet Estimate ADEQUATE, Polychromasia 1+, Ovalocytes FEW, Stomatocytes FEW, Fld Total RBCs Counted 100 Vital Signs Date Time Temp Pulse Resp B/P B/P Pulse O2 O2 Flow FiO2 Mean Ox Delivery Rate 03/24 0904 98.5 112 20 128/72 93 Venti Mask 40% 03/24 0646 95 Trach Mask 40% 03/24 05 98.5 135 17 141/81 89 Room Air
[2018-03-24 22:22] VITALS: BP 112/60
[2018-03-25 07:01] VITALS: BP 116/64
[2018-03-25 08:23] LABS: ABSOLUTE BASOPHIL COUNT 0.1 /CUMM (0.0-0.2); ABSOLUTE EOSINOPHIL COUNT 0.1 /CUMM (0.0-0.7); ABSOLUTE GRANULOCYTE CT 9.5 /CUMM (1.4-6.5); ABSOLUTE LYMPH COUNT 1.4 /CUMM (1.2-3.4); ABSOLUTE MONOCYTE COUNT 0.8 /CUMM (0.10-0.60); BASOPHIL % 0.5 % (0.0-2.0); EOSINOPHIL % 0.6 % (0-5); GRANULOCYTE % 79.8 % (42.2-75.2); MEAN CORPUSCULAR HGB CONC 33.7 G/DL (33.0-37.0); MEAN CORPUSCULAR VOLUME 89.2 FL (80.0-94.0); MEAN PLATELET VOLUME 10.1 FL (7.4-10.4); PLATELET COUNT 244 /CUMM (130-400); RED BLOOD CELL CT 4.03 /CUMM (4.70-6.10); WHITE BLOOD CELL COUNT 11.9 /CUMM (4.8-10.8)
--- NOTE | 2018-03-25 12:58 | Cons- Endocrinology ---
General Information and HPI Consulting Request Date of Consult: 03/25/18 Requested By: medical team Reason for Consult: management of diabetes Source of Information: old records Exam Limitations: unable to give history History of Present Illness: Mr. Isabel is a 57-year-old shelter resident with quadriplegia status post brainstem infarct, status post tracheostomy with 40% oxygen requirement via trach mask (right bronchial stenosis) and status post J-tube placement for feeding and medication, diastolic heart failure, previous multiple admissions for aspiration pneumonia, diabetes, gout, depression, history of KS, MRSA and C 'diff infection, was admitted for aspiration pneumonia again. Currently he is receiving NS at 50 ml/hour. Blood work done in ER showed glucose level of 200. FSGs haven't been done since he was admitted. Allergies/Medications Allergies: Coded Allergies: scopolamine (Mild, HIVES 12/26/16) NSAIDS (Non-Steroidal Anti-Inflamma (PER W-12/26/16) adhesive (HIVES - EKG STICKERS, RED DOT AKHIOK STICKERS 12/26/16) aspirin (PER 12/26/16) clopidogrel (From PLAVIX) (PER 12/26/16) Uncoded Allergies: EKG AND RED DOT LEADS (Intermediate, RASH 09/26/16) Home Med List: Acetaminophen (Acephen) 650 MG SUPP.RECT 1 SUPP NC Q4H PRN PAIN/TEMP>101 ( Reported) Acetaminophen 325 MG TABLET 2 TAB J TUBE Q4H PRN PAIN/TEMP/>101 (Reported) Albuterol Sulfate 2.5 MG/3 ML (0.083 %) VIAL.NEB 1 Vial INH/MONICO BID RESP. ( Reported) Baclofen 10 MG TABLET 1 TAB G TUBE TID SPASMS (Reported) Bisacodyl 10 MG SUPP.RECT 1 SUP RC DAILY PRN NO BM - IF MOM INEFFECTIVE ( Reported) Cholecalciferol (Vitamin D3) 1,000 UNIT TABLET 1 TAB G TUBE DAILY SUPPLEMENT (Reported) Docusate Sodium 100 MG TABLET 1 TAB G TUBE BID STOOL SOFTENER (Reported) Escitalopram Oxalate 5 MG TABLET 1 TAB G TUBE DAILY DEPRESSION (Reported) Ipratropium/Albuterol Sulfate (Iprat-Albut 0.5-3(2.5) MG/3 Ml) 0.5 MG-3 MG (2.5 MG BASE)/3 ML AMPUL.NEB 1 VIAL NEB Q4H PRN DYSPNEA (Reported) Lactobacillus Acidophilus (Acidophilus) 1 EACH CAPSULE 1 CAP G TUBE DAILY PROBIOTIC (Reported) Magnesium Hydroxide (Milk Of Magnesia) 400 MG/5 ML ORAL.SUSP 30 ML J TUBE DAILY PRN NO BM IN 3 DAYS (Reported) Na Phos,M-B/Na Phos,Di-Ba (Fleet Enema) 19 GRAM-7 GRAM/118 ML ENEMA 1 E RC DAILY PRN NO BM - IF BISACODYL INEFFECTI (Reported) Ondansetron HCl 4 MG TABLET 1 TAB G TUBE Q8H PRN N/V (Reported) Ranitidine HCl 15 MG/ML SYRUP 10 ML G TUBE BID GI (Reported) Simvastatin (Zocor*) 10 MG TABLET 1 TAB G TUBE 1700 GI (Reported) Review of Systems Review of Systems Constitutional: Reports: see HPI (patient unable to provide info). Past History Travel History Traveled to [place] past 21 day No Medical History Neurological: CVA, 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 ASP PNA Gastrointestinal: constipation, GERD, peptic ulcer disease, upper GI bleed, C. 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 MOTHER (Type 2 DM). Grand father (CVA). Psychosocial History Where Do You Live? Long-Term Facility Who Do You Live With? self Services at Home: from [facility] Primary Language: Sami Smoking Status: Unknown If Ever Smoked Functional Ability ADLs Needs Assist: dressing, eating, toileting, bathing. Ambulation: non-ambulatory IADLs Needs Assist: shopping, housework, finances, food prep, telephone, transportation, medication admin. Exam & Diagnostic Data Last 24 Hrs of Vital Signs/I&O Vital Signs Date Time Temp Pulse Resp B/P B/P Pulse O2 O2 Flow FiO2 Mean Ox Delivery Rate 03/25 0852 92 Trach Mask 50% 08/29 0701 98.6 106 16 116/64 92 Room Air 03/25 0000 93 Trach Mask 40% 03/24 2222 99.2 112 18 112/60 93 Room Air 03/24 1410 97.4 104 20 135/84 95 Venti Mask 8L Intake & Output 03/25 1600 03/25 0800 03/25 0000 Intake Total 700 Output Total 150 200 Balance 550 -200 Intake, IV 700 Intake, Oral 0 Number 0 1 Bowel Movements Output, Urine 150 200 Patient 176 lb 177 lb Weight Weight Bed scale Measurement Method Physical Exam General Appearance: lethargic, nonverbal Respiratory: coarse breath sound Cardiovascular: regular rate/rhythm Gastrointestinal: distention Extremities: swelling (trace) Labs/Rashard Results: Laboratory Tests 03/25 0800 Chemistry Sodium (137 - 145 mmol/L) 145 Potassium (3.5 - 5.1 mmol/L) 3.8 Chloride (98 - 107 mmol/L) 110 H Carbon Dioxide (22 - 30 mmol/L) 31 H Anion Gap (5 - 16) 5 BUN (9 - 20 mg/dL) 22 H Creatinine (0.7 - 1.2 mg/dL) 0.5 L Estimated GFR (>60 ml/min) > 60 BUN/Creatinine Ratio (7 - 25 %) 44.0 H Hemoglobin A1c (4.2 - 5.8 %) 5.2 Hematology CBC w Diff NO MAN DIFF REQ WBC (4.8 - 10.8 /CUMM) 11.9 H RBC (4.70 - 6.10 /CUMM) 4.03 L Hgb (14.0 - 18.0 G/DL) 12.1 L Hct (42 - 52 %) 36.0 L MCV (80.0 - 94.0 FL) 89.2 MCH (27.0 - 31.0 PG) 30.0 MCHC (33.0 - 37.0 G/DL) 33.7 RDW (11.5 - 14.5 %) 15.0 H Plt Count (130 - 400 /CUMM) 244 MPV (7.4 - 10.4 FL) 10.1 Gran % (42.2 - 75.2 %) 79.8 H Lymphocytes % (20.5 - 51.1 %) 12.2 L Monocytes % (1.7 - 9.3 %) 6.9 Eosinophils % (0 - 5 %) 0.6 Basophils % (0.0 - 2.0 %) 0.5 Absolute Granulocytes (1.4 - 6.5 /CUMM) 9.5 H Absolute Lymphocytes (1.2 - 3.4 /CUMM) 1.4 Absolute Monocytes (0.10 - 0.60 /CUMM) 0.8 H Absolute Eosinophils (0.0 - 0.7 /CUMM) 0.1 Absolute Basophils (0.0 - 0.2 /CUMM) 0.1 Assessment/Plan Assessment/Plan Mr. Isabel is a 57-year-old shelter resident with quadriplegia status post brainstem infarct, status post tracheostomy, was on J-tube feeding. He has had hx of diabetes with glucose level of 200 in ER. He was admiited for aspiration pneumonia. The feeding has been held. He is receiving NS at 50 ml/hour. Repeat HbA1c was 5.2%. Plan: 1. check FSG every 6 hours; 2. regular insulin coverage every 6 hours: FSG < 200, no coverage; 200-250, 2 units; 251-300, 3 units; 301-350, 4 units; 351-400, 5 units; > 400, 6 units. 3. monitor FSGs. will follow. Consult Acknowledgment - Thank you for your consult request.
--- NOTE | 2018-03-25 13:45 | PN- Housestaff ---
Subjective Follow-up For: Aspiration pneumonia, Subjective: Patient seen and examined at bedside. He is just responding by his eyes movement. Patient is concerned about catheter and feeding tube. Will discuss with attending about removal of catheter and feeding tube. Review of Systems Constitutional: Reports: see HPI. Objective Last 24 Hrs of Vital Signs/I&O Vital Signs Date Time Temp Pulse Resp B/P B/P Pulse O2 O2 Flow FiO2 Mean Ox Delivery Rate 03/25 1930 94 Trach Mask 35% 03/25 1634 97 Trach Mask 40% 03/25 1542 98.9 95 16 110/70 95 Trach Mask 03/25 1432 Trach Mask 40% 03/25 0852 92 Trach Mask 50% 03/25 0701 98.6 106 16 116/64 92 Room Air 03/25 0000 93 Trach Mask 40% 03/24 2222 99.2 112 18 112/60 93 Room Air Intake & Output 03/25 1600 03/25 0800 03/25 0000 Intake Total 700 Output Total 300 150 200 Balance -300 550 -200 Intake, IV 700 Intake, Oral 0 Number 0 1 Bowel Movements Output, Urine 300 150 200 Patient 176 lb 177 lb Weight Weight Bed scale Measurement Method Physical Exam General Appearance: Alert, Oriented X3, Mild Distress HEENT: Atraumatic, PERRLA, Mucous Membr. 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 At the time of presentation to emergency department vitals are following; Vitals: Vitals at the emergency department with a temperature of 98.5, pulse of 135, respiration of 20/min, blood pressure 141/81, he was saturating initially 89% on room air then he was put on Ventimask where his saturation improved to 95, while on 40% tracheal mask. Labs: yee he was found to have a white count of 18.2, H/H of 14.8/44.9, platelet of 314, 91 segmented neutrophils, no bands. Sodium of 143, potassium 4.3, BUN/creatinine 29/0.6, glucose of 200. Initial lactic acid was found to be -1.7, repeat lactic acid was not done in the emergency room. Liver function tests within normal limit, initial set of troponin negative. Chest x-ray showed hypoinflated lungs, bibasilar airspace opacity, which may reflect atelectasis in the setting of consolidation possibly from pneumonia versus aspiration. As per history and physical, nursing staff at the nursing facility did notice some secretions coming out from his tracheostomy, which was more than normal. 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 Full code status 2. Aspiration pneumonia 3. Pneumonia 4. PEG (percutaneous endoscopic gastrostomy) adjustment/replacement/removal Pain Ratin Pain Location: Cannot assess pain Pain Goal: Remain pain free Pain Plan: Pain management pathway Tomorrow's Labs & Rationales: CBC
--- NOTE | 2018-03-25 15:20 | PN- Att Addend ---
Attending Addendum Attending Brief Note Patient comfortable in bed. Vital signs are stable no fever. Still sounds a little congested. TRC will continue. We will continue the antibiotics IV, follow-up chest x-ray White count down to 11,900.. Intake & Output 03/25 1600 03/25 0400 03/24 1600 03/24 0400 03/23 1600 03/23 0400 Intake Total 700 600 Output Total 150 200 300 Balance 550 -200 300 Intake, IV 700 600 Intake, Oral 0 0 Number 0 1 Bowel Movements Output, Urine 150 200 300 Patient 176 lb Weight Weight Bed scale Measurement Method Current Medications Sig/Gil Start time Last Medication Dose Route Stop Time Status Admin Acetaminophen 650 MG Q6P PRN 03/24 08 AC PO Acetaminophen 1,000 MG Q6P PRN 03/24 08 AC IV Albuterol Sulfate 3 ML BID 03/25 2100 AC INH Ampicillin Sodium/ 0 .STK-MED ONE 03/24 1945 DC Sulbactam Sodium .ROUTE Ampicillin Sodium/ 3,000 MG Q6 03/24 1819 AC 03/25 Sulbactam Sodium IV 1210 Sodium Chloride 100 ML Atorvastatin Calcium 10 MG 1700 03/24 1700 AC 03/24 PO 1801 Baclofen 10 MG TID 03/25 0900 AC 03/25 PO 1516 Docusate Sodium 100 MG BID 03/25 0400 AC 03/25 PO 0913 Docusate Sodium 100 MG BID 03/24 2100 DC PO Enoxaparin Sodium 40 MG DAILY 03/24 0900 AC 03/25 SC 0913 Escitalopram Oxalate 5 MG DAILY 03/25 0900 AC 03/25 PO 0913 Insulin Human Regular 0 Q6 03/25 1200 AC SC Ondansetron HCl 4 MG ONCE PRN 03/24 0945 DC PO 03/24 1800 Oxycodone HCl 10 MG Q6P PRN 03/24 0830 AC PO Sodium Chloride 1,000 ML Q20H 03/25 0545 AC 03/25 IV 0610 Sodium Chloride 1,000 ML BOLUS ONE 03/24 945 DC 03/24 IV 03/24 2304 0954 Laboratory Tests 03/25/18 08: Anion Gap 5, Estimated GFR > 60, BUN/Creatinine Ratio 44.0 H, Hemoglobin A1c 5.2, CBC w Diff NO MAN DIFF REQ, RBC 4.03 L, MCV 89.2, MCH 30.0, MCHC 33.7, RDW 15.0 H, MPV 10.1, Gran % 79.8 H, Lymphocytes % 12.2 L, Monocytes % 6.9, Eosinophils % 0.6, Basophils % 0.5, Absolute Granulocytes 9.5 H, Absolute Lymphocytes 1.4, Absolute Monocytes 0.8 H, Absolute Eosinophils 0.1, Absolute Basophils 0.1 03/24/18829: Urinalysis LIGHT H, Urine Color YEL, Urine Clarity HAZY H, Urine pH 6.0, Ur Specific [place] >= 1.030, Urine Protein 30 H, Urine Ketones NEG, Urine Nitrite NEG, Urine Bilirubin NEG, Urine Urobilinogen 0.2, Ur Leukocyte Esterase TRACE H , Ur Microscopic SEDIMENT EXAMINED, Urine RBC 5-10 H, Urine WBC 25-50 H, Ur Epithelial Cells RARE, Urine Bacteria MOD H, Urine Mucus MANY H, Urine Hemoglobin MOD H, Urine Glucose NEG 03/24/18 08: Lactic Acid Cancelled 03/24/18534: Anion Gap 8, Estimated GFR > 60, BUN/Creatinine Ratio 48.3 H, Glucose 200 H, Lactic Acid 1.7, Calcium 9.6, Total Bilirubin 0.7, AST 22, ALT 35, Alkaline Phosphatase 88, Troponin I < 0.01, Total Protein 7.7, Albumin 4.1, Globulin 3.6, Albumin/Globulin Ratio 1.1, CBC w Diff MAN DIFF ORDERED, RBC 5.02, MCV 89.5, MCH 29.5, MCHC 33.0, RDW 15.3 H, MPV 10.2, Gran % 89.5 H, Lymphocytes % 5.2 L, Monocytes % 5.1, Eosinophils % 0, Basophils % 0.2, Absolute Granulocytes 16.3 H , Segmented Neutrophils 91 H, Absolute Lymphocytes 0.9 L, Lymphocytes 4 L, Monocytes 5, Absolute Monocytes 0.9 H, Absolute Eosinophils 0, Absolute Basophils 0, Platelet Estimate ADEQUATE, Polychromasia 1+, Ovalocytes FEW, Stomatocytes FEW, Fld Total RBCs Counted 100 Microbiology 03/24 939 LOWER RESP: Respiratory Culture - CAN Cancelled: SPECIMEN NOT RECEIVED IN LABORATORY 03/24 939 LOWER RESP: Gram Stain - CAN Cancelled: SPECIMEN NOT RECEIVED IN LABORATORY 03/24 830 URINE ROUT: Urine Culture - RES GRAM NEGATIVE RODS 03/24 535 BLOOD: Blood Culture - RES 03/24 520 BLOOD: Blood Culture - RES Microbiology 03/24 939 LOWER RESP: Respiratory Culture - CAN Cancelled: SPECIMEN NOT RECEIVED IN LABORATORY 03/24 939 LOWER RESP: Gram Stain - CAN Cancelled: SPECIMEN NOT RECEIVED IN LABORATORY 03/24 830 URINE ROUT: Urine Culture - RES GRAM NEGATIVE RODS 03/24 535 BLOOD: Blood Culture - RES 03/24 520 BLOOD: Blood Culture - RES Vital Signs Date Time Temp Pulse Resp B/P B/P Pulse O2 O2 Flow FiO2 Mean Ox Delivery Rate 03/25 1432 Trach Mask 40% 03/25 0852 92 Trach Mask 50% 03/25 0701 98.6 106 16 116/64 92 Room Air 03/25 0000 93 Trach Mask 40% 03/24 2222 99.2 112 18 112/60 93 Room Air Check with pipe coverer to start the feedings.
[2018-03-25 15:42] VITALS: BP 110/70
[2018-03-25 22:39] VITALS: BP 100/60
--- NOTE | 2018-03-26 06:48 | PN- Housestaff ---
Subjective Follow-up For: Aspiration pneumonia, urinary tract infection Subjective: Patient seen and examined at bedside. He was responding but his eyes movement. Review of system was not possible to elicit. He was awake. His sister was concerned about the urinary catheter, stomach tube feeding. Review of Systems Constitutional: Reports: see HPI. Objective Last 24 Hrs of Vital Signs/I&O Vital Signs Date Time Temp Pulse Resp B/P B/P Pulse O2 O2 Flow FiO2 Mean Ox Delivery Rate 03/26 1645 94 Trach Mask 35% 03/26 1546 98.0 98 20 120/80 94 03/26 0910 93 Trach Mask 35% 03/26 0800 Trach Mask 35% 03/26 0653 98.0 89 20 122/80 99 Trach Mask 03/26 0000 Trach Mask 35% 03/25 2259 93 Trach Mask 35% 03/25 2239 98.5 106 20 100/60 94 Trach Mask 03/25 1930 94 Trach Mask 35% Intake & Output 03/26 1600 03/26 0800 03/26 0000 Intake Total 450 600 300 Output Total 200 300 Balance 450 400 0 Intake, IV 450 600 200 Intake, Oral 0 Intake, Tube 100 Irrigant Output, Urine 200 300 Patient 184 lb Weight Physical Exam General Appearance: Alert Cardiovascular: Regular Rate, Normal S1, Normal S2, No Murmurs Lungs: bilatral coarse crepts Abdomen: Normal Bowel Sounds, Soft, No Tenderness, No Hepatospenomegaly Assessment/Plan Assessment: 57-year-old gentleman came from [facility] with past medical history of 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 At the time of presentation to emergency department vitals are following; Vitals: Vitals at the emergency department with a temperature of 98.5, pulse of 135, respiration of 20/min, blood pressure 141/81, he was saturating initially 89% on room air then he was put on Ventimask where his saturation improved to 95, while on 40% tracheal mask. Labs: yee he was found to have a white count of 18.2, H/H of 14.8/44.9, platelet of 314, 91 segmented neutrophils, no bands. Sodium of 143, potassium 4.3, BUN/creatinine 29/0.6, glucose of 200. Initial lactic acid was found to be -1.7, repeat lactic acid was not done in the emergency room. Liver function tests within normal limit, initial set of troponin negative. Chest x-ray showed hypoinflated lungs, bibasilar airspace opacity, which may reflect atelectasis in the setting of consolidation possibly from pneumonia versus aspiration. As per history and physical, nursing staff at the nursing facility did notice some secretions coming out from his tracheostomy, which was more than normal. 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 *Urinary tract infection culture positive for Pseudomonas *Urinary tract infection culture positive for Pseudomonas: -Patient having Sandy's catheter since many days -Urinalysis shows urine positive for bacteria, -Culture showed Pseudomonas -ID on board -We will follow ID recommendation -We will remove the catheter as per ID recommendation PEG tube feeding: -Talk to our IR department -There is no need of new feeding tube -DietRITION consultation appreciated -We will start feeding by feeding tube today *Aspiration pneumonia: Patient history of vomiting, -bedridden, -history of stroke, -endotracheal tube, -And chest x-ray finding a new infiltrate - leukocytosis -Tachycardia -tachypnea -all are in favor of aspiration pneumonia *Patient will be admitted to want *Gastroenterology consult if needed *TRC nebulizer order placed *Suctioning every 4 hour *Antibiotic Unasyn will be continue *Culture will be followed *IV hydration *Medication will be continued *Full code *GI DVT prophylaxis Problem List: 1. Aspiration pneumonia 2. Gout 3. LOCKED-IN SYNDROME 4. s/p PEG 5. Pneumonia Pain Ratin Pain Location: , Pain Goal: Remain pain free Pain Plan: . Tomorrow's Labs & Rationales: CBC
[2018-03-26 06:53] VITALS: BP 122/80
--- NOTE | 2018-03-26 08:24 | PN- Diabetes ---
Assessment/Plan Diabetes Assessment: Mr. Isabel is a 57-year-old [facility] resident with quadriplegia status post brainstem infarct, status post tracheostomy, was on J-tube feeding. He has had hx of diabetes with glucose level of 200 in ER. He was admiited for aspiration pneumonia. The feeding has been held. He is receiving NS at 50 ml/hour. Repeat HbA1c was 5.2%. Currently patient is on regular insulin coverage every 6 hours: FSG < 200, no coverage; 200-250, 2 units; 251-300, 3 units; 301-350, 4 units; 351-400, 5 units; > 400, 6 units. His FSGs were 140, 113, 90 and 79. Plan: continue the current RISS coverage for now will follow. Subjective Subjective: Patient is not able to provide information. Objective Last 24 Hrs of Vital Signs/I&O Vital Signs Date Time Temp Pulse Resp B/P B/P Pulse O2 O2 Flow FiO2 Mean Ox Delivery Rate 03/26 0653 98.0 89 20 122/80 99 Trach Mask 03/26 0000 Trach Mask 35% 03/25 2259 93 Trach Mask 35% 03/25 2239 98.5 106 20 100/60 94 Trach Mask 03/25 1930 94 Trach Mask 35% 03/25 1634 97 Trach Mask 40% 03/25 1600 93 Trach Mask 35% 03/25 1542 98.9 95 16 110/70 95 Trach Mask 03/25 1432 Trach Mask 40% 03/25 0852 92 Trach Mask 50% Intake & Output 03/26 1600 03/26 0800 03/26 0000 Intake Total 600 300 Output Total 200 300 Balance 400 0 Intake, IV 600 200 Intake, Oral 0 Intake, Tube 100 Irrigant Output, Urine 200 300 Patient 184 lb Weight
--- NOTE | 2018-03-26 10:30 | PN- Att Addend ---
Attending Addendum Attending Brief Note Patient comfortable in bed. Vital signs are stable no fever. No major changes on physical examination. White count today 11,900. Blood cultures are negative so far. A urine culture showed 50,000 colonies of gram-negative rods identification to follow. Patient on IV Unasyn for at least a day or 2 more. Also will ask GI to what to do with the nonfunctioning feeding tube and the feedings and frequency and amount the patient will need. Intake & Output 03/26 1600 03/26 0400 03/25 1600 03/25 0400 03/24 1600 03/24 040 Intake Total 122 938 8557 600 Output Total 200 300 750 200 300 Balance 400 0 300 -200 300 Intake, IV 403 059 4151 600 Intake, Oral 0 0 0 Intake, Tube 100 Irrigant Number 0 1 Bowel Movements Output, Urine 200 300 750 200 300 Patient 184 lb 176 lb Weight Weight Bed scale Measurement Method Current Medications Sig/Gil Start time Last Medication Dose Route Stop Time Status Admin Acetaminophen 650 MG Q6P PRN 03/24 830 AC PO Acetaminophen 1,000 MG Q6P PRN 03/24 830 AC IV Albuterol Sulfate 3 ML BID 03/25 2100 AC 03/26 INH 0852 Ampicillin Sodium/ 3,000 MG Q6 03/24 1819 AC 03/26 Sulbactam Sodium IV 0528 Sodium Chloride 100 ML Atorvastatin Calcium 10 MG 1700 03/24 1700 AC 03/25 PO 1833 Baclofen 10 MG TID 03/25 09 AC 03/26 PO 1012 Docusate Sodium 100 MG BID 03/25 0400 AC 03/26 PO 1012 Enoxaparin Sodium 40 MG DAILY 03/24 09 AC 03/26 SC 1012 Escitalopram Oxalate 5 MG DAILY 03/25 09 AC 03/26 PO 1012 Insulin Human Regular 0 Q6 03/25 1200 AC SC Oxycodone HCl 10 MG Q6P PRN 03/24 08 AC PO Sodium Chloride 1,000 ML Q20H 03/25 0545 AC 03/26 IV 0529 Laboratory Tests 03/25/18 08: Anion Gap 5, Estimated GFR > 60, BUN/Creatinine Ratio 44.0 H, Hemoglobin A1c 5.2, CBC w Diff NO MAN DIFF REQ, RBC 4.03 L, MCV 89.2, MCH 30.0, MCHC 33.7, RDW 15.0 H, MPV 10.1, Gran % 79.8 H, Lymphocytes % 12.2 L, Monocytes % 6.9, Eosinophils % 0.6, Basophils % 0.5, Absolute Granulocytes 9.5 H, Absolute Lymphocytes 1.4, Absolute Monocytes 0.8 H, Absolute Eosinophils 0.1, Absolute Basophils 0.1 03/24/18829: Urinalysis LIGHT H, Urine Color YEL, Urine Clarity HAZY H, Urine pH 6.0, Ur Specific [place] >= 1.030, Urine Protein 30 H, Urine Ketones NEG, Urine Nitrite NEG, Urine Bilirubin NEG, Urine Urobilinogen 0.2, Ur Leukocyte Esterase TRACE H , Ur Microscopic SEDIMENT EXAMINED, Urine RBC 5-10 H, Urine WBC 25-50 H, Ur Epithelial Cells RARE, Urine Bacteria MOD H, Urine Mucus MANY H, Urine Hemoglobin MOD H, Urine Glucose NEG 03/24/18818: Lactic Acid Cancelled 03/24/18534: Anion Gap 8, Estimated GFR > 60, BUN/Creatinine Ratio 48.3 H, Glucose 200 H, Lactic Acid 1.7, Calcium 9.6, Total Bilirubin 0.7, AST 22, ALT 35, Alkaline Phosphatase 88, Troponin I < 0.01, Total Protein 7.7, Albumin 4.1, Globulin 3.6, Albumin/Globulin Ratio 1.1, CBC w Diff MAN DIFF ORDERED, RBC 5.02, MCV 89.5, MCH 29.5, MCHC 33.0, RDW 15.3 H, MPV 10.2, Gran % 89.5 H, Lymphocytes % 5.2 L, Monocytes % 5.1, Eosinophils % 0, Basophils % 0.2, Absolute Granulocytes 16.3 H , Segmented Neutrophils 91 H, Absolute Lymphocytes 0.9 L, Lymphocytes 4 L, Monocytes 5, Absolute Monocytes 0.9 H, Absolute Eosinophils 0, Absolute Basophils 0, Platelet Estimate ADEQUATE, Polychromasia 1+, Ovalocytes FEW, Stomatocytes FEW, Fld Total RBCs Counted 100 Microbiology 03/24 939 LOWER RESP: Respiratory Culture - CAN Cancelled: SPECIMEN NOT RECEIVED IN LABORATORY 03/24 939 LOWER RESP: Gram Stain - CAN Cancelled: SPECIMEN NOT RECEIVED IN LABORATORY 03/24 830 URINE ROUT: Urine Culture - RES GRAM NEGATIVE RODS 03/24 535 BLOOD: Blood Culture - RES 08/28 0520 BLOOD: Blood Culture - RES Microbiology 03/24 939 LOWER RESP: Respiratory Culture - CAN Cancelled: SPECIMEN NOT RECEIVED IN LABORATORY 03/24 939 LOWER RESP: Gram Stain - CAN Cancelled: SPECIMEN NOT RECEIVED IN LABORATORY 03/24 830 URINE ROUT: Urine Culture - RES GRAM NEGATIVE RODS 03/24 535 BLOOD: Blood Culture - RES 03/24 520 BLOOD: Blood Culture - RES Vital Signs Date Time Temp Pulse Resp B/P B/P Pulse O2 O2 Flow FiO2 Mean Ox Delivery Rate 03/26 0910 93 Trach Mask 35% 03/26 0653 98.0 89 20 122/80 99 Trach Mask 03/26 0000 Trach Mask 35% 03/25 2259 93 Trach Mask 35% 03/25 2239 98.5 106 20 100/60 94 Trach Mask 03/25 1930 94 Trach Mask 35% 03/25 1634 97 Trach Mask 40% 03/25 1600 93 Trach Mask 35% 03/25 1542 98.9 95 16 110/70 95 Trach Mask 03/25 1432 Trach Mask 40%
[2018-03-26 15:46] VITALS: BP 120/80
--- NOTE | 2018-03-26 16:21 | Cons- Infect Disease ---
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 Most of the history was obtained from [facility] as well as the [facility] It was noted that the patient had coffee-ground/black secretions from his mouth and trach the morning of admission at the facility. As per the [facility], he had n/v refractory to symptomatic therapy (Zofran); vomited back/brown liquid. Chest x- ray done on 03/24 revealed pneumonia and his oxygen saturation was 91% on 10 L of nasal cannula before the admission. UC + ps. aeruginosa; chronic indwelling Sandy cath; per nursing FC not changed on admission. Patient lethargic. Suctioned earlier for clear sputum. Allergies/Medications Allergies: Coded Allergies: scopolamine (Mild, HIVES 12/26/16) NSAIDS (Non-Steroidal Anti-Inflamma (PER -12/26/16) adhesive (HIVES - EKG STICKERS, RED DOT ILIAMNA STICKERS 12/26/16) aspirin (PER W-12/26/16) clopidogrel (From PLAVIX) (PER -12/26/16) Uncoded Allergies: EKG AND RED DOT LEADS (Intermediate, RASH 09/26/16) Home Med List: Acetaminophen (Acephen) 650 MG SUPP.RECT 1 SUPP NH Q4H PRN PAIN/TEMP>101 ( Reported) Acetaminophen 325 MG TABLET 2 TAB J TUBE Q4H PRN PAIN/TEMP/>101 (Reported) Albuterol Sulfate 2.5 MG/3 ML (0.083 %) VIAL.NEB 1 Vial INH/MONICO BID RESP. ( Reported) Baclofen 10 MG TABLET 1 TAB G TUBE TID SPASMS (Reported) Bisacodyl 10 MG SUPP.RECT 1 SUP RC DAILY PRN NO BM - IF MOM INEFFECTIVE ( Reported) Cholecalciferol (Vitamin D3) 1,000 UNIT TABLET 1 TAB G TUBE DAILY SUPPLEMENT (Reported) Docusate Sodium 100 MG TABLET 1 TAB G TUBE BID STOOL SOFTENER (Reported) Escitalopram Oxalate 5 MG TABLET 1 TAB G TUBE DAILY DEPRESSION (Reported) Ipratropium/Albuterol Sulfate (Iprat-Albut 0.5-3(2.5) MG/3 Ml) 0.5 MG-3 MG (2.5 MG BASE)/3 ML AMPUL.NEB 1 VIAL NEB Q4H PRN DYSPNEA (Reported) Lactobacillus Acidophilus (Acidophilus) 1 EACH CAPSULE 1 CAP G TUBE DAILY PROBIOTIC (Reported) Magnesium Hydroxide (Milk Of Magnesia) 400 MG/5 ML ORAL.SUSP 30 ML J TUBE DAILY PRN NO BM IN 3 DAYS (Reported) Na Phos,M-B/Na Phos,Di-Ba (Fleet Enema) 19 GRAM-7 GRAM/118 ML ENEMA 1 E RC DAILY PRN NO BM - IF BISACODYL INEFFECTI (Reported) Ondansetron HCl 4 MG TABLET 1 TAB G TUBE Q8H PRN N/V (Reported) Ranitidine HCl 15 MG/ML SYRUP 10 ML G TUBE BID GI (Reported) Simvastatin (Zocor*) 10 MG TABLET 1 TAB G TUBE 1700 GI (Reported) Current Medications: Current Medications Sig/Gil Start time Last Medication Dose Route Stop Time Status Admin Acetaminophen 650 MG Q6P PRN 03/24 830 AC PO Acetaminophen 1,000 MG Q6P PRN 03/24 0830 AC IV Albuterol Sulfate 3 ML BID 03/25 2100 AC 03/26 INH 0852 Ampicillin Sodium/ 3,000 MG Q6 03/24 1819 AC 03/26 Sulbactam Sodium IV 1321 Sodium Chloride 100 ML Atorvastatin Calcium 10 MG 1700 03/24 1700 AC 03/25 PO 1833 Baclofen 10 MG TID 03/25 0900 AC 03/26 PO 1321 Docusate Sodium 100 MG BID 03/25 0400 AC 03/26 PO 1012 Enoxaparin Sodium 40 MG DAILY 03/24 0900 AC 03/26 SC 1012 Escitalopram Oxalate 5 MG DAILY 03/25 0900 AC 03/26 PO 1012 Insulin Human Regular 0 Q6 03/25 1200 AC SC Oxycodone HCl 10 MG Q6P PRN 03/24 0830 AC PO Patient Medication 1 ED ONE ONE 03/26 1530 DC Teaching ED 03/26 1531 Sodium Chloride 1,000 ML Q20H 03/25 0545 AC 03/26 IV 0529 Past History Travel History Traveled to [place] past 21 day No Medical History Neurological: CVA, 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 ASP PNA Gastrointestinal: constipation, GERD, peptic ulcer disease, upper GI bleed, C. Difficile DYSPHAGIA GTUBE Hepatic: NONE Renal: nephrolithiasis, UTI Musculoskeletal: gout, MUSCLE SPASMS Psychiatric: depression, schizophrenia Endocrine: DIABETES VIT D DEFICIENCY Blood Disorders: NONE Cancer(s): NONE CAREER AND GUIDANCE COUNSELOR/Reproductive: NONE History of MRSA: No History of VRE: Yes History of CDIFF: No Isolation History: Contact Surgical History Surgical History: hernia repair-inguinal (8 years prior to admission), GASTOJEJUNOSTOMY status post IVC filter Family History Relations & Conditions If Any: FATHER (CVA, type 2 DM, Colon Ca). MOTHER (Type 2 DM). Grand father (CVA). Psychosocial History Where Do You Live? [facility] Who Do You Live With? self Services at Home: from [facility] Primary Language: Cambodian Smoking Status: Unknown If Ever Smoked Functional Ability ADLs Needs Assist: dressing, eating, toileting, bathing. Ambulation: non-ambulatory IADLs Needs Assist: shopping, housework, finances, food prep, telephone, transportation, medication admin. Review of Systems Comments 12 points reviewed as noted, otherwise negative. Exam & Diagnostic Data Last 24 Hrs of Vital Signs/I&O Vital Signs Date Time Temp Pulse Resp B/P B/P Pulse O2 O2 Flow FiO2 Mean Ox Delivery Rate 03/26 1546 98.0 98 20 120/80 94 03/26 0910 93 Trach Mask 35% 03/26 0800 Trach Mask 35% 03/26 0653 98.0 89 20 122/80 99 Trach Mask 03/26 0000 Trach Mask 35% 03/259 93 Trach Mask 35% 03/259 98.5 106 20 100/60 94 Trach Mask 03/25 1930 94 Trach Mask 35% 03/25 1634 97 Trach Mask 40% Intake & Output 03/26 1600 03/26 0800 03/26 0000 Intake Total 600 300 Output Total 200 300 Balance 400 0 Intake, IV 600 200 Intake, Oral 0 Intake, Tube 100 Irrigant Output, Urine 200 300 Patient 184 lb Weight Physical Exam Other Physical Findings: General Appearance chronically ill Skin warm and dry HEENT Atraumatic, PERRLA Neck No JVD, Trach Cardiovascular Normal S1, Normal S2 Lungs BS present, diminished bases Abdomen Normal Bowel Sounds, Soft, No Tenderness G tube in placr Neurological quadriplegia Extremities No Clubbing, No Cyanosis, No Edema, Normal Pulses Vascular Normal Pulses Last 24 Hours of Lab Results: reviewed WBC 03/25 trending down from 18K previous day; a Ht drop of 8 points also noted. Last 24 Hours of Rashard Results: SPEC #: [id number] GRACIELA: 03/24/18 STATUS: COMP RECD: 03/24/[address]: Dilia SOTELO,Srinivasan King SOURCE: URINE ROUT ENTR: 03/24/[address]: Wade SOTELO, Danny SPDESC: URINE STRA ORDERED: URINE CULTURE Procedure Result > URINE CULTURE Final 03/26/18 Approx. 50,000 colonies per ml of: PSEUDOMONAS AERUGINOSA 1. PSEUDOMONAS AERUGINOSA RX AB ------ -- CEFTAZIDIME S CIPROFLOXACIN S GENTAMICIN S MEROPENEM S Note: Infectious Diseases Society of [place] Guidelines state that asymptomatic bacteriuria is not associated with any increase in morbidity or mortality in most patients and therefore treatment is usually not indicated unless patients are less than five years old, or about to undergo urological procedures. Diagnostic Data Recent Imaging Findings: CXR IMPRESSION: Low lung volumes with regions of bibasilar opacity, which may reflect atelectasis in this setting though consolidation such as from pneumonia or aspiration cannot be excluded. DICTATED BY: Vladimir Taveras MD DATE/TIME DICTATED:03/24/18627 GINNING OPERATOR:BRITTANY DATE/TIME TRANSCRIBED:03/24/18627 CONFIDENTIAL, DO NOT COPY WITHOUT APPROPRIATE AUTHORIZATION. 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 Aspiration pneumonia Severe leukocytosis; WBC trending down Chronic indwelling Sandy cath d/t neurogenic bladder; UC + Ps. aeruginosa 50K CFU; likely colonization Suggestion: 1. Continue iv Unasyn for now; if fever, hypotension, lethargy change to iv Zosyn empirically; sputum cx. 2. Cont to monitor CBC; guaiac stools. 3. Change Sandy cath and then repeat UA/UC. Consult Acknowledgment - Thank you for your consult request.
[2018-03-26 22:29] VITALS: BP 116/70
--- NOTE | 2018-03-27 06:10 | Patient Discharge Instructions ---
Discharge Instructions General Discharge Information You were seen/treated for: Aspiration pneumonia, UTI Watch for these problems: If Patient having have fever, shortness of breath, altered mental status, vomitting please conatct seek medical attention Special Instructions: Follow up with priamry care physicain with in one week, In case of medical attention please follow up with priamry care physicain Please keep clean hygene of PEG tube please keep bed head elevated at 45 degree to avoid aspiration Please beconscious about overfeeding patient that increase chance of aspiration Diet Additional DIET Information: Diabetic CC2 diet Acute Coronary Syndrome Inclusion Criteria At DC or during hospital stay patient has or had the following: ACS DIAGNOSIS No Discharge Core Measures Meds if any: Prescribed or Continued at Discharge Meds if any: NOT Prescribed or Continued at Discharge Congestive Heart Failure Inclusion Criteria At DC or during hospital stay patient has or had the following: Discharge Core Measures Meds if any: Prescribed or Continued at Discharge Meds if any: NOT Prescribed or Continued at Discharge Cerebrovascular accident Inclusion Criteria At DC or during hospital stay patient has or had the following: CVA/TIA Diagnosis No Discharge Core Measures Meds if any: Prescribed or Continued at Discharge Meds if any: NOT Prescribed or Continued at Discharge Venous thromboembolism Inclusion Criteria VTE Diagnosis No VTE Type NONE VTE Confirmed by (Test) NONE Discharge Core Measures - Per Current guidelines, there needs to be overlap - treatment for the first 5 days of Warfarin therapy. - If discharged on Warfarin prior to 5 days of - overlap therapy, the patient will need to be - assessed for post discharge needs including - *Post discharge parental anticoagulation - *Warfarin and/or parental anticoagulation education - *Follow up date to check INR post discharge At least 5 days overlap therapy as Inpatient No Meds if any: Prescribed or Continued at Discharge Note: Overlap Therapy is Warfarin and Anticoagulant Meds if any: NOT Prescribed or Continued at Discharge
[2018-03-27 06:50] VITALS: BP 100/60
--- NOTE | 2018-03-27 07:01 | PN- Housestaff ---
Subjective Follow-up For: Aspiration pneumonia, UTI Review of Systems Constitutional: Reports: see HPI. Objective Last 24 Hrs of Vital Signs/I&O Vital Signs Date Time Temp Pulse Resp B/P B/P Pulse O2 O2 Flow FiO2 Mean Ox Delivery Rate 03/27 1509 96.9 73 18 106/60 98 03/27 0916 98 Trach Mask 35% 03/27 0650 97.2 79 20 100/60 94 03/27 0307 93 Trach Mask 35% 03/27 0000 Trach Mask 35% 03/26 2229 98.8 84 20 116/70 93 Trach Mask 03/26 2200 93 Trach Mask 35% 03/26 1935 93 Trach Mask 35% Intake & Output 03/27 1600 03/27 0800 03/27 0000 Intake Total 830 460 Output Total 1000 300 Balance -170 160 Intake, IV 400 200 Intake, Tube 190 60 Feeding Intake, Tube 240 200 Irrigant Output, Urine 1000 300 Physical Exam General Appearance: Alert, Cooperative, No Acute Distress Lungs: Bilateral coarse crepts, mildly decrease air entery Abdomen: Normal Bowel Sounds, Soft, No Tenderness, No Hepatospenomegaly Assessment/Plan Assessment: 57-year-old gentleman came from [facility] with past medical history of quadriplegia status post brainstem infarct resulting in lock in syndrome(11 years back), status post tracheostomy with 40% oxygen requirement via trach mask, and status post J-tube placement for feeding and medication, diastolic heart failure, previous multiple admissions for aspiration pneumonia, diabetes, gout, depression, history of [place], MRSA infection in the past, Clostridium difficile infection the past Reason to emergency department with a complaint of black colour vomiting. At the time of presentation to emergency department vitals are following; Vitals: Vitals at the emergency department with a temperature of 98.5, pulse of 135, respiration of 20/min, blood pressure 141/81, he was saturating initially 89% on room air then he was put on Ventimask where his saturation improved to 95, while on 40% tracheal mask. Labs: yee he was found to have a white count of 18.2, H/H of 14.8/44.9, platelet of 314, 91 segmented neutrophils, no bands. Sodium of 143, potassium 4.3, BUN/creatinine 29/0.6, glucose of 200. Initial lactic acid was found to be -1.7, repeat lactic acid was not done in the emergency room. Liver function tests within normal limit, initial set of troponin negative. Chest x-ray showed hypoinflated lungs, bibasilar airspace opacity, which may reflect atelectasis in the setting of consolidation possibly from pneumonia versus aspiration. As per history and physical, nursing staff at the nursing facility did notice some secretions coming out from his tracheostomy, which was more than normal. 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 *Urinary tract infection culture positive for Pseudomonas *Urinary tract infection culture positive for Pseudomonas: -Patient having Sandy's catheter since many days -Urinalysis shows urine positive for bacteria, -Culture showed Pseudomonas -ID on board -ID recommended to continue same antibiotic -We will remove the catheter as per ID recommendation and to place another catheter as per patient desire *Aspiration pneumonia: Patient history of vomiting, -bedridden, -history of stroke, -endotracheal tube, -And chest x-ray finding a new infiltrate - leukocytosis -Tachycardia -tachypnea -all are in favor of aspiration pneumonia *Patient will be admitted to want *Gastroenterology consult if needed *TRC nebulizer order placed *Suctioning every 4 hour *Antibiotic Unasyn will be continue *IV hydration *Medication will be continued *Full code *GI DVT prophylaxis Problem List: 1. Aspiration pneumonia 2. Gout 3. LOCKED-IN SYNDROME 4. s/p PEG 5. Full code status 6. Aspiration pneumonia 7. Leucocytosis Pain Ratin Pain Location: Cannot be elicited Pain Goal: Remain pain free Pain Plan: Pain management pathway Tomorrow's Labs & Rationales: cbc
[2018-03-27 09:40] LABS: ABSOLUTE BASOPHIL COUNT 0 /CUMM (0.0-0.2); ABSOLUTE EOSINOPHIL COUNT 0.1 /CUMM (0.0-0.7); ABSOLUTE GRANULOCYTE CT 4.8 /CUMM (1.4-6.5); ABSOLUTE LYMPH COUNT 1.3 /CUMM (1.2-3.4); ABSOLUTE MONOCYTE COUNT 0.5 /CUMM (0.10-0.60); BASOPHIL % 0.5 % (0.0-2.0); EOSINOPHIL % 1.6 % (0-5); GRANULOCYTE % 70.9 % (42.2-75.2); MEAN CORPUSCULAR HGB 29.3 PG (27.0-31.0); MEAN CORPUSCULAR VOLUME 88.8 FL (80.0-94.0); MEAN PLATELET VOLUME 10.5 FL (7.4-10.4); PLATELET COUNT 211 /CUMM (130-400); RBC DISTRIBUTION WIDTH 15.2 % (11.5-14.5); RED BLOOD CELL CT 3.27 /CUMM (4.70-6.10); WHITE BLOOD CELL COUNT 6.8 /CUMM (4.8-10.8)
[2018-03-27 09:55] LABS: HEMATOCRIT 29.1 % (42-52)
--- NOTE | 2018-03-27 12:07 | PN- Infect Dx ---
Subjective Subjective: No fever; appears fatigued; not opening eyes to voice. Suctioned last night for considerable amount of respiratory secretions. Review of Systems Comments: 12 points reviewed as noted, otherwise negative. Objective Last 24 Hrs of Vital Signs/I&O Vital Signs Date Time Temp Pulse Resp B/P B/P Pulse O2 O2 Flow FiO2 Mean Ox Delivery Rate 03/27 0916 98 Trach Mask 35% 03/27 0650 97.2 79 20 100/60 94 03/27 0307 93 Trach Mask 35% 03/27 0000 Trach Mask 35% 03/26 2229 98.8 84 20 116/70 93 Trach Mask 03/26 2200 93 Trach Mask 35% 03/26 1935 93 Trach Mask 35% 03/26 1645 94 Trach Mask 35% 03/26 1546 98.0 98 20 120/80 94 Intake & Output 03/27 1600 03/27 0800 03/27 0000 Intake Total 830 460 Output Total 1000 300 Balance -170 160 Intake, IV 400 200 Intake, Tube 190 60 Feeding Intake, Tube 240 200 Irrigant Output, Urine 1000 300 Physical Exam Other Physical Findings: General Appearance chronically ill Skin warm and dry HEENT Atraumatic, PERRLA Neck No JVD, Trach Cardiovascular Normal S1, Normal S2 Lungs BS present, diminished bases, no wheezing Abdomen Normal Bowel Sounds, Soft, No Tenderness G tube in place; Sandy patent; urine concentrated. Neurological quadriplegia Extremities No Clubbing, No Cyanosis, No Edema, Normal Pulses Vascular Normal Pulses Results Last 24 Hours of Lab Results: Laboratory Tests 03/27 0825 Hematology CBC w Diff NO MAN DIFF REQ WBC (4.8 - 10.8 /CUMM) 6.8 RBC (4.70 - 6.10 /CUMM) 3.27 L Hgb (14.0 - 18.0 G/DL) 9.6 L Hct (42 - 52 %) 29.1 L MCV (80.0 - 94.0 FL) 88.8 MCH (27.0 - 31.0 PG) 29.3 MCHC (33.0 - 37.0 G/DL) 33.0 RDW (11.5 - 14.5 %) 15.2 H Plt Count (130 - 400 /CUMM) 211 MPV (7.4 - 10.4 FL) 10.5 H Gran % (42.2 - 75.2 %) 70.9 Lymphocytes % (20.5 - 51.1 %) 19.2 L Monocytes % (1.7 - 9.3 %) 7.8 Eosinophils % (0 - 5 %) 1.6 Basophils % (0.0 - 2.0 %) 0.5 Absolute Granulocytes (1.4 - 6.5 /CUMM) 4.8 Absolute Lymphocytes (1.2 - 3.4 /CUMM) 1.3 Absolute Monocytes (0.10 - 0.60 /CUMM) 0.5 Absolute Eosinophils (0.0 - 0.7 /CUMM) 0.1 Absolute Basophils (0.0 - 0.2 /CUMM) 0 Last 24 Hours of Rashard Results: SPEC #: [id number] GRACIELA: 03/24/18 STATUS: COMP RECD: 03/24/[address]: Dilia SOTELO,Srinivasan King SOURCE: URINE ROUT ENTR: 03/24/[address]: Wade SOTELO, Danny SPDESC: URINE STRA ORDERED: URINE CULTURE Procedure Result > URINE CULTURE Final 03/26/18 Approx. 50,000 colonies per ml of: PSEUDOMONAS AERUGINOSA 1. PSEUDOMONAS AERUGINOSA RX AB ------ -- CEFTAZIDIME S CIPROFLOXACIN S GENTAMICIN S MEROPENEM S Note: Infectious Diseases Society of [place] Guidelines state that asymptomatic bacteriuria is not associated with any increase in morbidity or mortality in most patients and therefore treatment is usually not indicated unless patients are less than five years old, or about to undergo urological procedures. 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 Aspiration pneumonia Severe leukocytosis; WBC wnl w/ current abx regimen Chronic indwelling Sandy cath d/t neurogenic bladder; UC + Ps. aeruginosa 50K CFU; likely colonization Suggestion: 1. Continue iv Unasyn for now; if fever, hypotension, lethargy change to iv Zosyn empirically; sputum cx. 2. Cont to monitor CBC; guaiac stools. 3. Change Sandy cath and then repeat UA/UC. Suggestion: 1. Continue iv Unasyn started 03/24 (D#4); if fever, hypotension, lethargy please call; obtain sputum cx. Once ready for discharge oral Augmentin in order to complete total 7 d d therapy. 2. Pulm toilet. 3. Repeat UA/UC today.
--- NOTE | 2018-03-27 13:12 | PN- Att Addend ---
Attending Addendum Attending Brief Note Suctioning a lot of secretions. Vital signs are stable no fever. No other major changes on physical. White count is 6800 Patient was seen by infectious diseases and recommendations appreciated, will continue IV antibiotics for now. Intake & Output 03/27 1600 03/27 0400 03/26 1600 03/26 0400 03/25 1600 03/25 0400 Intake Total 660 461 1806 300 1050 Output Total 1000 300 200 300 750 200 Balance -170 160 850 0 300 -200 Intake, IV 011 423 5065 200 1050 Intake, Oral 0 0 Intake, Tube 190 60 Feeding Intake, Tube 240 200 100 Irrigant Number 0 1 Bowel Movements Output, Urine 1000 300 200 300 750 200 Patient 184 lb 176 lb Weight Weight Bed scale Measurement Method Current Medications Sig/Gil Start time Last Medication Dose Route Stop Time Status Admin Acetaminophen 650 MG Q6P PRN 03/24 0830 AC PO Acetaminophen 1,000 MG Q6P PRN 03/24 0830 AC IV Albuterol Sulfate 3 ML BID 03/25 2100 AC 03/27 INH 0901 Ampicillin Sodium/ 3,000 MG Q6 03/24 1819 AC 03/27 Sulbactam Sodium IV 1119 Sodium Chloride 100 ML Atorvastatin Calcium 10 MG 1700 03/24 1700 AC 03/26 PO 1751 Baclofen 10 MG TID 03/25 0900 AC 03/27 PO 0829 Docusate Sodium 100 MG BID 03/25 0400 AC 03/27 PO 0829 Enoxaparin Sodium 40 MG DAILY 03/24 0900 AC 03/27 SC 0829 Escitalopram Oxalate 5 MG DAILY 03/25 0900 AC 03/27 PO 0829 Insulin Human Regular 0 Q6 03/25 1200 AC SC Oxycodone HCl 10 MG Q6P PRN 03/24 0830 AC PO Patient Medication 1 ED ONE ONE 03/26 1530 DC 03/26 Teaching ED 03/26 1531 1830 Sodium Chloride 1,000 ML Q20H 03/25 0545 AC 03/27 IV 0553 Laboratory Tests 03/27/18 0825: CBC w Diff NO MAN DIFF REQ, RBC 3.27 L, MCV 88.8, MCH 29.3, MCHC 33.0, RDW 15.2 H, MPV 10.5 H, Gran % 70.9, Lymphocytes % 19.2 L, Monocytes % 7.8, Eosinophils % 1.6, Basophils % 0.5, Absolute Granulocytes 4.8, Absolute Lymphocytes 1.3, Absolute Monocytes 0.5, Absolute Eosinophils 0.1, Absolute Basophils 0 03/26/18 0600: CBC w Diff Cancelled, WBC Cancelled, RBC Cancelled, Hgb Cancelled, Hct Cancelled , MCV Cancelled, MCH Cancelled, MCHC Cancelled, RDW Cancelled, Plt Count Cancelled, MPV Cancelled 03/25/18 0800: Anion Gap 5, Estimated GFR > 60, BUN/Creatinine Ratio 44.0 H, Hemoglobin A1c 5.2, CBC w Diff NO MAN DIFF REQ, RBC 4.03 L, MCV 89.2, MCH 30.0, MCHC 33.7, RDW 15.0 H, MPV 10.1, Gran % 79.8 H, Lymphocytes % 12.2 L, Monocytes % 6.9, Eosinophils % 0.6, Basophils % 0.5, Absolute Granulocytes 9.5 H, Absolute Lymphocytes 1.4, Absolute Monocytes 0.8 H, Absolute Eosinophils 0.1, Absolute Basophils 0.1 Microbiology 03/27 807 URINE ROUT: Urine Culture - ORD 03/27 600 LOWER RESP: Respiratory Culture - COLB 03/27 600 LOWER RESP: Gram Stain - COLB Microbiology 03/27 807 URINE ROUT: Urine Culture - ORD 03/27 600 LOWER RESP: Respiratory Culture - COLB 03/27 600 LOWER RESP: Gram Stain - COLB Vital Signs Date Time Temp Pulse Resp B/P B/P Pulse O2 O2 Flow FiO2 Mean Ox Delivery Rate 03/27 0916 98 Trach Mask 35% 03/27 0650 97.2 79 20 100/60 94 03/27 0307 93 Trach Mask 35% 03/27 0000 Trach Mask 35% 03/26 2229 98.8 84 20 116/70 93 Trach Mask 03/26 2200 93 Trach Mask 35% 03/26 1935 93 Trach Mask 35% 03/26 1645 94 Trach Mask 35% 03/26 1546 98.0 98 20 120/80 94
[2018-03-27 15:09] VITALS: BP 106/60
[2018-03-27 21:15] VITALS: BP 136/68
[2018-03-28 06:47] VITALS: BP 142/70
--- NOTE | 2018-03-28 08:38 | PN- Housestaff ---
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 She observed that he has left shoulder pain this morning. Will be given his PRN IV tylenol with oxycode he is receiving and reassess. Otherwise, patient is stable and being followed by ID. He is afebrile, TF at 75 cc/hr. This morning small mason secretions suctioned and sputum cultures obtained as previous day was not sent. Review of Systems Constitutional: Denies: see HPI. Objective Last 24 Hrs of Vital Signs/I&O Vital Signs Date Time Temp Pulse Resp B/P B/P Pulse O2 O2 Flow FiO2 Mean Ox Delivery Rate 03/28 829 94 Trach Mask 40% 03/28 08 97 Trach Mask 9L 03/28 0647 98.2 82 20 142/70 94 Trach Mask 03/28 0000 98 Trach Mask 50% 03/27 2115 97.0 73 20 136/68 98 Trach Mask 03/27 1858 95 Trach Mask 40% 03/27 1509 96.9 73 18 106/60 98 Intake & Output 03/28 1600 03/28 0800 03/28 0000 Intake Total 1390 1240 Output Total 325 300 Balance 1065 940 Intake, IV 550 400 Intake, Oral 0 Intake, Tube 600 840 Feeding Intake, Tube 240 Irrigant Number 0 Bowel Movements Output, Urine 325 300 Patient 186 lb Weight Weight Bed scale Measurement Method Physical Exam General Appearance: Chronic Ill Neck: Supple, No JVD Cardiovascular: Normal S1, Normal S2 Lungs: Clear to Auscultation, Normal Air Movement Abdomen: G tube in place Neurological: Quadraplegia Reproductive (MALE) Liang in place Current Medications: Current Medications Sig/Gil Start time Last Medication Dose Route Stop Time Status Admin Acetaminophen 650 MG Q6P PRN 03/24 830 AC PO Acetaminophen 1,000 MG Q6P PRN 03/24 0830 AC 03/28 IV 1227 Albuterol Sulfate 3 ML BID 03/25 2100 AC 03/28 INH 0809 Ampicillin Sodium/ 3,000 MG Q6 03/24 1819 AC 03/28 Sulbactam Sodium IV 1227 Sodium Chloride 100 ML Atorvastatin Calcium 10 MG 1700 03/24 1700 AC 03/27 PO 1802 Baclofen 10 MG TID 03/25 09 AC 03/28 PO 0931 Docusate Sodium 100 MG BID 03/25 0400 AC 03/28 PO 0932 Enoxaparin Sodium 40 MG DAILY 03/24 09 AC 03/28 SC 0932 Escitalopram Oxalate 5 MG DAILY 03/25 09 AC 03/28 PO 0931 Insulin Human Regular 0 Q6 03/25 1200 AC SC Oxycodone HCl 10 MG Q6P PRN 03/24 0830 AC 03/28 PO 0934 Sodium Chloride 1,000 ML Q20H 03/25 0545 03/28 IV 0553 Last 24 Hrs of Lab/Rashard Results Last 24 Hrs of Labs/Mics: Laboratory Tests 03/28/18 0750: CBC w Diff NO MAN DIFF REQ, RBC 3.54 L, MCV 89.3, MCH 29.8, MCHC 33.4, RDW 14.8 H, MPV 10.2, Gran % 80.5 H, Lymphocytes % 10.7 L, Monocytes % 6.2, Eosinophils % 2.2, Basophils % 0.4, Absolute Granulocytes 7.4 H, Absolute Lymphocytes 1.0 L, Absolute Monocytes 0.6, Absolute Eosinophils 0.2, Absolute Basophils 0 03/27/18 2350: Urine Color YEL, Urine Clarity CLDY H, Urine pH 6.0, Ur Specific [place] >= 1.030, Urine Protein 100 H, Urine Ketones NEG, Urine Nitrite NEG, Urine Bilirubin NEG, Urine Urobilinogen 0.2, Ur Leukocyte Esterase NEG, Ur Microscopic SEDIMENT EXAMINED, Urine RBC 25-50 H, Urine WBC 1-3 H, Ur Epithelial Cells RARE, Urine Mucus FEW, Urine Hemoglobin LARGE H, Urine Glucose NEG Microbiology 03/28 1207 LOWER RESP: Respiratory Culture - COLB 03/28 120 LOWER RESP: Gram Stain - COLB 03/27 235 URINE ROUT: Urine Culture - RECD 03/27 170 URINE ROUT: Urine Culture - CAN Cancelled: Cancelled via OE: Error Assessment/Plan Assessment: 57-year-old gentleman came from [facility] with past medical history of 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 03/28: Patient currently on Unasyn for treatment of aspiration pneumonia. Tube feeding has been restarted. Chronic liang catheter that has grown pseudomonas with ID on board stating possible contaminant. If worsening symptoms can begin zosyn. Currently on Unasyn Day 5. 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 *Urinary tract infection culture positive for Pseudomonas Urinary tract infection culture positive for Pseudomonas: * Chronic Liang's catheter for neurogenic bladder * Urinalysis shows urine positive for bacteria * Culture showed Pseudomonas; likely colonization; repeat UA without significant pyuria * ID on board-ID recommended to continue same antibiotic * We will remove the catheter as per ID recommendation and to place another catheter as per patient desire Aspiration pneumonia: Patient history of vomiting, bedridden, history of stroke, endotracheal tube and chest x-ray finding a new infiltrate all are in favor of aspiration pneumonia. Sputum cultures collected today. * TRC neb * Suctioning every 4 hour * Antibiotic Unasyn will be continued Day 12/01 (started 03/24) * IV hydration * Follow up sputuim culture results taken this morning; * Once ready for discahrge - oral Augmentin in order to complete a total 10 day therapy * Pulmnonary toilet Full code GI DVT prophylaxis Problem List: 1. Aspiration pneumonia 2. Liang catheter problem 3. Pseudomonas urinary tract infection Pain Ratin Pain Location: no pain Pain Goal: Pain 4 or less Pain Plan: as per pain pathway Tomorrow's Labs & Rationales: cbc bep
[2018-03-28 09:02] LABS: ABSOLUTE BASOPHIL COUNT 0 /CUMM (0.0-0.2); ABSOLUTE EOSINOPHIL COUNT 0.2 /CUMM (0.0-0.7); ABSOLUTE GRANULOCYTE CT 7.4 /CUMM (1.4-6.5); ABSOLUTE MONOCYTE COUNT 0.6 /CUMM (0.10-0.60); BASOPHIL % 0.4 % (0.0-2.0); EOSINOPHIL % 2.2 % (0-5); GRANULOCYTE % 80.5 % (42.2-75.2); HEMATOCRIT 31.6 % (42-52); MEAN CORPUSCULAR HGB 29.8 PG (27.0-31.0); MEAN CORPUSCULAR HGB CONC 33.4 G/DL (33.0-37.0); MEAN CORPUSCULAR VOLUME 89.3 FL (80.0-94.0); MEAN PLATELET VOLUME 10.2 FL (7.4-10.4); PLATELET COUNT 235 /CUMM (130-400); RBC DISTRIBUTION WIDTH 14.8 % (11.5-14.5); RED BLOOD CELL CT 3.54 /CUMM (4.70-6.10); WHITE BLOOD CELL COUNT 9.2 /CUMM (4.8-10.8)
--- NOTE | 2018-03-28 11:58 | PN- Diabetes ---
Assessment/Plan Diabetes Assessment: Mr. Isabel is a 57-[facility]-old [facility] resident with quadriplegia status post brainstem infarct, status post tracheostomy, was on J-tube feeding. He has had hx of diabetes with glucose level of 200 in ER. He was admiited for aspiration pneumonia. Repeat HbA1c was 5.2%. Currently patient is on regular insulin coverage every 6 hours: FSG < 200, no coverage; 200-250, 2 units; 251-300, 3 units; 301-350, 4 units; 351-400, 5 units; > 400, 6 units. Currently he is on Glucerna at 75 ml/hour. His FSGs were 112, 103, 114, 118 and 128. Plan: continue the current RISS coverage for now will follow. Plan: see above. Subjective Subjective: He is nonverbal. Objective Last 24 Hrs of Vital Signs/I&O Vital Signs Date Time Temp Pulse Resp B/P B/P Pulse O2 O2 Flow FiO2 Mean Ox Delivery Rate 03/28 829 94 Trach Mask 40% 03/28 0647 98.2 82 20 142/70 94 Trach Mask 03/28 0000 98 Trach Mask 50% 03/27 2115 97.0 73 20 136/68 98 Trach Mask 03/27 1858 95 Trach Mask 40% 03/27 1509 96.9 73 18 106/60 98 Intake & Output 03/28 1600 03/28 0800 03/28 0000 Intake Total 1390 1240 Output Total 325 300 Balance 1065 940 Intake, IV 550 400 Intake, Oral 0 Intake, Tube 600 840 Feeding Intake, Tube 240 Irrigant Number 0 Bowel Movements Output, Urine 325 300 Patient 186 lb Weight Weight Bed scale Measurement Method Findings Pertinent Lab/Rashard Results: Laboratory Tests 03/28 03/27 0750 2350 Hematology CBC w Diff NO MAN DIFF REQ WBC (4.8 - 10.8 /CUMM) 9.2 RBC (4.70 - 6.10 /CUMM) 3.54 L Hgb (14.0 - 18.0 G/DL) 10.6 L Hct (42 - 52 %) 31.6 L MCV (80.0 - 94.0 FL) 89.3 MCH (27.0 - 31.0 PG) 29.8 MCHC (33.0 - 37.0 G/DL) 33.4 RDW (11.5 - 14.5 %) 14.8 H Plt Count (130 - 400 /CUMM) 235 MPV (7.4 - 10.4 FL) 10.2 Gran % (42.2 - 75.2 %) 80.5 H Lymphocytes % (20.5 - 51.1 %) 10.7 L Monocytes % (1.7 - 9.3 %) 6.2 Eosinophils % (0 - 5 %) 2.2 Basophils % (0.0 - 2.0 %) 0.4 Absolute Granulocytes (1.4 - 6.5 /CUMM) 7.4 H Absolute Lymphocytes (1.2 - 3.4 /CUMM) 1.0 L Absolute Monocytes (0.10 - 0.60 /CUMM) 0.6 Absolute Eosinophils (0.0 - 0.7 /CUMM) 0.2 Absolute Basophils (0.0 - 0.2 /CUMM) 0 Urines Urine Color (YEL,AMB,STR) YEL Urine Clarity (CLEAR) CLDY H Urine pH (5.0 - 8.0) 6.0 Ur Specific [place] (1.001 - 1.035) >= 1.030 Urine Protein (NEG,<30 MG/DL) 100 H Urine Ketones (NEG) NEG Urine Nitrite (NEG) NEG Urine Bilirubin (NEG) NEG Urine Urobilinogen (0.1 - 1.0 EU/dl) 0.2 Ur Leukocyte Esterase (NEG) NEG Ur Microscopic SEDIMENT EXAMINED Urine RBC (0 - 5 /HPF) 25-50 H Urine WBC (0 - 2 /HPF) 1-3 H Ur Epithelial Cells (NONE,FEW) RARE Urine Mucus (FEW,NONE) FEW Urine Hemoglobin (NEG) LARGE H Urine Glucose (N MG/DL) NEG
--- NOTE | 2018-03-28 12:49 | PN- Infect Dx ---
Subjective Subjective: No fever; appears comfortable; TF at 75 cc/hr. Suctioned small amount mason secretions. Sputum cx obtained previous day was not sent; respiratory tx in process of collecting a new sputum cx specimen. Review of Systems Comments: 12 points reviewed as noted, otherwise negative. Objective Last 24 Hrs of Vital Signs/I&O Vital Signs Date Time Temp Pulse Resp B/P B/P Pulse O2 O2 Flow FiO2 Mean Ox Delivery Rate 03/28 829 94 Trach Mask 40% 03/28 0647 98.2 82 20 142/70 94 Trach Mask 03/28 0000 98 Trach Mask 50% 03/27 2115 97.0 73 20 136/68 98 Trach Mask 03/27 1858 95 Trach Mask 40% 03/27 1509 96.9 73 18 106/60 98 Intake & Output 03/28 1600 03/28 0800 03/28 0000 Intake Total 1390 1240 Output Total 325 300 Balance 1065 940 Intake, IV 550 400 Intake, Oral 0 Intake, Tube 600 840 Feeding Intake, Tube 240 Irrigant Number 0 Bowel Movements Output, Urine 325 300 Patient 186 lb Weight Weight Bed scale Measurement Method Physical Exam Other Physical Findings: General Appearance chronically ill Skin warm and dry HEENT Atraumatic, PERRLA Neck No JVD, Trach Cardiovascular Normal S1, Normal S2 Lungs BS present, diminished bases, no wheezing Abdomen Normal Bowel Sounds, Soft, No Tenderness G tube in place; Sandy patent; urine clear. Neurological quadriplegia Extremities No Clubbing, No Cyanosis, No Edema, Normal Pulses Vascular Normal Pulses Results Last 24 Hours of Lab Results: Laboratory Tests 03/28 03/27 0750 2350 Hematology CBC w Diff NO MAN DIFF REQ WBC (4.8 - 10.8 /CUMM) 9.2 RBC (4.70 - 6.10 /CUMM) 3.54 L Hgb (14.0 - 18.0 G/DL) 10.6 L Hct (42 - 52 %) 31.6 L MCV (80.0 - 94.0 FL) 89.3 MCH (27.0 - 31.0 PG) 29.8 MCHC (33.0 - 37.0 G/DL) 33.4 RDW (11.5 - 14.5 %) 14.8 H Plt Count (130 - 400 /CUMM) 235 MPV (7.4 - 10.4 FL) 10.2 Gran % (42.2 - 75.2 %) 80.5 H Lymphocytes % (20.5 - 51.1 %) 10.7 L Monocytes % (1.7 - 9.3 %) 6.2 Eosinophils % (0 - 5 %) 2.2 Basophils % (0.0 - 2.0 %) 0.4 Absolute Granulocytes (1.4 - 6.5 /CUMM) 7.4 H Absolute Lymphocytes (1.2 - 3.4 /CUMM) 1.0 L Absolute Monocytes (0.10 - 0.60 /CUMM) 0.6 Absolute Eosinophils (0.0 - 0.7 /CUMM) 0.2 Absolute Basophils (0.0 - 0.2 /CUMM) 0 Urines Urine Color (YEL,AMB,STR) YEL Urine Clarity (CLEAR) CLDY H Urine pH (5.0 - 8.0) 6.0 Ur Specific [place] (1.001 - 1.035) >= 1.030 Urine Protein (NEG,<30 MG/DL) 100 H Urine Ketones (NEG) NEG Urine Nitrite (NEG) NEG Urine Bilirubin (NEG) NEG Urine Urobilinogen (0.1 - 1.0 EU/dl) 0.2 Ur Leukocyte Esterase (NEG) NEG Ur Microscopic SEDIMENT EXAMINED Urine RBC (0 - 5 /HPF) 25-50 H Urine WBC (0 - 2 /HPF) 1-3 H Ur Epithelial Cells (NONE,FEW) RARE Urine Mucus (FEW,NONE) FEW Urine Hemoglobin (NEG) LARGE H Urine Glucose (N MG/DL) NEG Last 24 Hours of Rashard Results: SPEC #: [id number] GRACIELA: 03/27/18 STATUS: RECD RECD: 03/28/[address]: Anson SOTELO,Miriam Hannah SOURCE: URINE ROUT ENTR: 03/27/[address]: Elder Abraham MD SPDESC: URINE Danny Babin MD ORDERED: URINE CULTURE Procedure Result URINE CULTURE PENDING Recent Imaging Studies: IMPRESSION: Low lung volumes with regions of bibasilar opacity, which may reflect atelectasis in this setting though consolidation such as from pneumonia or aspiration cannot be excluded. 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 Aspiration pneumonia Severe leukocytosis/resolved Chronic indwelling Sandy cath d/t neurogenic bladder; UC + Ps. aeruginosa 50K CFU; likely colonization; repeat UA w/o significant pyuria Suggestion: 1. Continue iv Unasyn started 03/24 (D#5/7); if fever, hypotension, lethargy please call; f/u sputum cx results. Once ready for discharge oral Augmentin in order to complete total 10 d therapy. 2. Pulm toilet. 3. Supportive care per team
[2018-03-28 15:01] VITALS: BP 128/72
--- NOTE | 2018-03-28 16:17 | PN- Att Addend ---
Attending Addendum Attending Brief Note Patient comfortably in bed. Maybe less secretions function today. Vital signs are stable no fever. No other changes on physical. White count 9200. Feedings restarted. Appreciate infectious diseases input and recommendations will continue the IV Unasyn. And reassess in the morning if stable maybe start disposition plans Intake & Output 03/28 0400 03/27 1600 03/27 0400 03/26 1600 03/26 0400 Intake Total 1390 1240 2120 460 1050 300 Output Total 936 451 6820 300 200 300 Balance 840 865 920 160 850 0 Intake, IV 550 400 747 211 4649 200 Intake, Oral 0 0 Intake, Other 240 Intake, 750 TPN/PPN Intake, Tube 600 840 190 60 Feeding Intake, Tube 240 240 200 100 Irrigant Number 0 Bowel Movements Output, Urine 326 444 8749 300 200 300 Patient 186 lb 188 lb 184 lb Weight Weight Bed scale Bed scale Measurement Method Current Medications Sig/Gil Start time Last Medication Dose Route Stop Time Status Admin Acetaminophen 650 MG Q6P PRN 03/24 830 AC PO Acetaminophen 1,000 MG Q6P PRN 03/24 08 AC 03/28 IV 1227 Albuterol Sulfate 3 ML BID 03/25 2100 AC 03/28 INH 0809 Ampicillin Sodium/ 3,000 MG Q6 03/24 1819 AC 03/28 Sulbactam Sodium IV 1227 Sodium Chloride 100 ML Atorvastatin Calcium 10 MG 1700 03/24 1700 AC 03/27 PO 1802 Baclofen 10 MG TID 03/25 09 AC 03/28 PO 1532 Docusate Sodium 100 MG BID 03/25 0400 AC 03/28 PO 0932 Enoxaparin Sodium 40 MG DAILY 03/24 09 AC 03/28 SC 0932 Escitalopram Oxalate 5 MG DAILY 03/25 09 AC 03/28 PO 0931 Insulin Human Regular 0 Q6 03/25 1200 AC SC Oxycodone HCl 10 MG Q6P PRN 03/24 830 AC 03/28 PO 0934 Sodium Chloride 1,000 ML Q20H 03/25 0545 AC 03/28 IV 0553 Laboratory Tests 03/28/18 0750: CBC w Diff NO MAN DIFF REQ, RBC 3.54 L, MCV 89.3, MCH 29.8, MCHC 33.4, RDW 14.8 H, MPV 10.2, Gran % 80.5 H, Lymphocytes % 10.7 L, Monocytes % 6.2, Eosinophils % 2.2, Basophils % 0.4, Absolute Granulocytes 7.4 H, Absolute Lymphocytes 1.0 L, Absolute Monocytes 0.6, Absolute Eosinophils 0.2, Absolute Basophils 0 03/27/18 2350: Urine Color YEL, Urine Clarity CLDY H, Urine pH 6.0, Ur Specific [place] >= 1.030, Urine Protein 100 H, Urine Ketones NEG, Urine Nitrite NEG, Urine Bilirubin NEG, Urine Urobilinogen 0.2, Ur Leukocyte Esterase NEG, Ur Microscopic SEDIMENT EXAMINED, Urine RBC 25-50 H, Urine WBC 1-3 H, Ur Epithelial Cells RARE, Urine Mucus FEW, Urine Hemoglobin LARGE H, Urine Glucose NEG 03/27/18 0825: CBC w Diff NO MAN DIFF REQ, RBC 3.27 L, MCV 88.8, MCH 29.3, MCHC 33.0, RDW 15.2 H, MPV 10.5 H, Gran % 70.9, Lymphocytes % 19.2 L, Monocytes % 7.8, Eosinophils % 1.6, Basophils % 0.5, Absolute Granulocytes 4.8, Absolute Lymphocytes 1.3, Absolute Monocytes 0.5, Absolute Eosinophils 0.1, Absolute Basophils 0 03/26/18 0600: CBC w Diff Cancelled, WBC Cancelled, RBC Cancelled, Hgb Cancelled, Hct Cancelled , MCV Cancelled, MCH Cancelled, MCHC Cancelled, RDW Cancelled, Plt Count Cancelled, MPV Cancelled Microbiology 03/28 1207 LOWER RESP: Respiratory Culture - RES 03/28 1207 LOWER RESP: Gram Stain - RES 03/27 2350 URINE ROUT: Urine Culture - RECD 03/27 1700 URINE ROUT: Urine Culture - CAN Cancelled: Cancelled via OE: Error Microbiology 03/28 1207 LOWER RESP: Respiratory Culture - RES 03/28 1207 LOWER RESP: Gram Stain - RES 03/27 2350 URINE ROUT: Urine Culture - RECD 03/27 1700 URINE ROUT: Urine Culture - CAN Cancelled: Cancelled via OE: Error Vital Signs Date Time Temp Pulse Resp B/P B/P Pulse O2 O2 Flow FiO2 Mean Ox Delivery Rate 03/28 1501 98.0 71 20 128/72 98 Trach Mask 03/28 08 94 Trach Mask 40% 03/28 0800 97 Trach Mask 9L 03/28 0647 98.2 82 20 142/70 94 Trach Mask 03/28 0000 98 Trach Mask 50% 03/27 2115 97.0 73 20 136/68 98 Trach Mask 03/27 1858 95 Trach Mask 40%
[2018-03-28 20:30] VITALS: BP 104/60
[2018-03-29 07:12] VITALS: BP 112/62
--- NOTE | 2018-03-29 07:40 | PN- Housestaff ---
Subjective Follow-up For: Aspiration pneumonia, UTI Subjective: Patient seen and examined at bedside. She is complaining of pain in the left shoulder. He also having red spot on left chest as well as right shoulder. Review of system cannot be elicited. But the nurse told me he having no diarrhea, constipation, fevers, chills. Review of Systems Constitutional: Reports: see HPI. Objective Last 24 Hrs of Vital Signs/I&O Vital Signs Date Time Temp Pulse Resp B/P B/P Pulse O2 O2 Flow FiO2 Mean Ox Delivery Rate 03/29 1210 97 Trach Mask 35% 03/29 0822 97 Trach Mask 35% 03/29 0800 97 Trach Mask 35% 03/29 0712 97.4 68 20 112/62 93 03/29 0634 92 Trach Mask 35% 03/29 0057 97 Trach Mask 35% 03/29 0000 95 Trach Mask 35% 03/28 2040 95 Trach Mask 35% 03/28 2030 97.8 72 20 104/60 95 Trach Mask 03/28 1600 98 Trach Mask 35% 03/28 1501 98.0 71 20 128/72 98 Trach Mask Intake & Output 03/29 1600 03/29 0800 09 0000 Intake Total 1390 1240 Output Total 950 300 Balance 440 940 Intake, IV 550 400 Intake, Oral 0 0 Intake, Tube 600 600 Feeding Intake, Tube 240 240 Irrigant Number 0 Bowel Movements Output, Urine 950 300 Patient 185 lb Weight Weight Bed scale Measurement Method Physical Exam General Appearance: Alert, No Acute Distress Cardiovascular: Regular Rate, Normal S1, Normal S2 Lungs: Bilateral inspiratory coarse crepts Abdomen: Normal Bowel Sounds, Soft, No Tenderness Extremities: No Clubbing, No Cyanosis, No Edema Assessment/Plan Assessment: 57-year-old gentleman came from [facility] with past medical history of 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 At the time of presentation to emergency department vitals are following; Vitals: Vitals at the emergency department with a temperature of 98.5, pulse of 135, respiration of 20/min, blood pressure 141/81, he was saturating initially 89% on room air then he was put on Ventimask where his saturation improved to 95, while on 40% tracheal mask. Labs: yee he was found to have a white count of 18.2, H/H of 14.8/44.9, platelet of 314, 91 segmented neutrophils, no bands. Sodium of 143, potassium 4.3, BUN/creatinine 29/0.6, glucose of 200. Initial lactic acid was found to be -1.7, repeat lactic acid was not done in the emergency room. Liver function tests within normal limit, initial set of troponin negative. Chest x-ray showed hypoinflated lungs, bibasilar airspace opacity, which may reflect atelectasis in the setting of consolidation possibly from pneumonia versus aspiration. As per history and physical, nursing staff at the nursing facility did notice some secretions coming out from his tracheostomy, which was more than normal. 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 *Urinary tract infection culture positive for Pseudomonas *Urinary tract infection culture positive for Pseudomonas: -Patient having Sandy's catheter since many days -Urinalysis shows urine positive for bacteria, -Culture showed Pseudomonas -ID on board -ID recommended to continue same antibiotic Unasyn -Catheter changed/renewed *Aspiration pneumonia: Patient history of vomiting, -bedridden, -history of stroke, -endotracheal tube, -And chest x-ray finding a new infiltrate - leukocytosis -Tachycardia -tachypnea -all are in favor of aspiration pneumonia *Patient will be admitted to want *Gastroenterology consult if needed *TR nebulizer order placed *Suctioning every 4 hour *Antibiotic Unasyn will be continue *IV hydration *Medication will be continued *Full code *GI DVT prophylaxis Problem List: 1. Aspiration pneumonia 2. LOCKED-IN SYNDROME 3. s/p PEG 4. Full code status 5. Urinary tract infection Pain Ratin Pain Location: Left shoulder Pain Goal: Remain pain free Pain Plan: And management pathway Tomorrow's Labs & Rationales: cbc
[2018-03-29 10:14] LABS: ABSOLUTE BASOPHIL COUNT 0 /CUMM (0.0-0.2); ABSOLUTE EOSINOPHIL COUNT 0.2 /CUMM (0.0-0.7); ABSOLUTE GRANULOCYTE CT 4.7 /CUMM (1.4-6.5); ABSOLUTE LYMPH COUNT 1.1 /CUMM (1.2-3.4); ABSOLUTE MONOCYTE COUNT 0.5 /CUMM (0.10-0.60); BASOPHIL % 0.4 % (0.0-2.0); EOSINOPHIL % 3.4 % (0-5); GRANULOCYTE % 72.6 % (42.2-75.2); HEMATOCRIT 29.7 % (42-52); MEAN CORPUSCULAR HGB 29.2 PG (27.0-31.0); MEAN CORPUSCULAR VOLUME 88.3 FL (80.0-94.0); MEAN PLATELET VOLUME 10.2 FL (7.4-10.4); PLATELET COUNT 212 /CUMM (130-400); RBC DISTRIBUTION WIDTH 14.6 % (11.5-14.5); RED BLOOD CELL CT 3.36 /CUMM (4.70-6.10); WHITE BLOOD CELL COUNT 6.4 /CUMM (4.8-10.8)
--- NOTE | 2018-03-29 10:36 | PN- Infect Dx ---
Subjective Subjective: No fever; no new events. Review of Systems Comments: 12 points reviewed as noted, otherwise neg. Objective Last 24 Hrs of Vital Signs/I&O Vital Signs Date Time Temp Pulse Resp B/P B/P Pulse O2 O2 Flow FiO2 Mean Ox Delivery Rate 03/29 0822 97 Trach Mask 35% 03/29 0712 97.4 68 20 112/62 93 03/29 0634 92 Trach Mask 35% 03/29 0057 97 Trach Mask 35% 03/29 0000 95 Trach Mask 35% 03/28 2040 95 Trach Mask 35% 03/28 2030 97.8 72 20 104/60 95 Trach Mask 03/28 1600 98 Trach Mask 35% 03/28 1501 98.0 71 20 128/72 98 Trach Mask Intake & Output 03/29 1600 03/29 0800 03/29 0000 Intake Total 1390 1240 Output Total 950 300 Balance 440 940 Intake, IV 550 400 Intake, Oral 0 0 Intake, Tube 600 600 Feeding Intake, Tube 240 240 Irrigant Number 0 Bowel Movements Output, Urine 950 300 Patient 184 lb Weight Weight Bed scale Measurement Method Physical Exam Other Physical Findings: General Appearance chronically ill Skin warm and dry HEENT Atraumatic, PERRLA Neck No JVD, Trach in place Cardiovascular Normal S1, Normal S2 Lungs BS present, few b/l rhonchi, diminished BS bases, no wheezing Abdomen Normal Bowel Sounds, Soft, No Tenderness G tube in place; Sandy patent; urine clear. Neurological quadriplegia Extremities No Clubbing, No Cyanosis, No Edema, Normal Pulses Vascular Normal Pulses Results Last 24 Hours of Lab Results: Laboratory Tests 03/29 0945 Hematology CBC w Diff NO MAN DIFF REQ WBC (4.8 - 10.8 /CUMM) 6.4 RBC (4.70 - 6.10 /CUMM) 3.36 L Hgb (14.0 - 18.0 G/DL) 9.8 L Hct (42 - 52 %) 29.7 L MCV (80.0 - 94.0 FL) 88.3 MCH (27.0 - 31.0 PG) 29.2 MCHC (33.0 - 37.0 G/DL) 33.0 RDW (11.5 - 14.5 %) 14.6 H Plt Count (130 - 400 /CUMM) 212 MPV (7.4 - 10.4 FL) 10.2 Gran % (42.2 - 75.2 %) 72.6 Lymphocytes % (20.5 - 51.1 %) 16.4 L Monocytes % (1.7 - 9.3 %) 7.2 Eosinophils % (0 - 5 %) 3.4 Basophils % (0.0 - 2.0 %) 0.4 Absolute Granulocytes (1.4 - 6.5 /CUMM) 4.7 Absolute Lymphocytes (1.2 - 3.4 /CUMM) 1.1 L Absolute Monocytes (0.10 - 0.60 /CUMM) 0.5 Absolute Eosinophils (0.0 - 0.7 /CUMM) 0.2 Absolute Basophils (0.0 - 0.2 /CUMM) 0 Last 24 Hours of Rashard Results: SPEC #: [id number] GRACIELA: 03/28/18 STATUS: RES RECD: 03/28/[address]: Arias Rivas MD, Joshua SOURCE: LOWER RESP ENTR: 03/27/18-[address]: Jarad SOTELO,Elder SPDESC: SPUTUM Danny Olvera MD ORDERED: LOWER RESPIRATO Procedure Result > GRAM STAIN Final 03/28/18 WHITE BLOOD CELLS MODERATE SQUAMOUS CELLS RARE GRAM POSITIVE COCCI RARE GRAM NEGATIVE RODS FEW LOWER RESPIRATORY CULTURE - PENDING Recent Imaging Studies: reviewed Assessment/Plan ID Impression: 57[facility] 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 Aspiration pneumonia; sputum cx from 03/28 + GPC and few GNR Severe leukocytosis/resolved Chronic indwelling Sandy cath d/t neurogenic bladder; UC + Ps. aeruginosa 50K CFU; likely colonization; repeat UA w/o significant pyuria Suggestion: 1. Continue iv Unasyn started 03/24 (D#6) pending final sputum cx results. 2. Pulm toilet. 3. Supportive care per team
--- NOTE | 2018-03-29 13:17 | PN- Att Addend ---
Attending Addendum Attending Brief Note Patient laying in bed comfortably, sister at the bedside. Nurse showed me some irritated area with a little exudate on the left earlobe will treat topically. No other changes vital signs are stable no fever. White count 6400 today. Appreciate infectious diseases input and recommendations. Continue IV antibiotic today and reassess in the morning. Feedings are going in , Intake & Output 03/29 1600 03/29 0400 03/28 1600 03/28 0400 03/27 1600 03/27 0400 Intake Total 1390 1240 2390 1240 2120 460 Output Total 950 300 341 681 5100 300 Balance 872 552 6069 865 920 160 Intake, IV 550 400 750 400 700 200 Intake, Oral 0 0 0 Intake, Other 240 Intake, 750 TPN/PPN Intake, Tube 416 955 3537 840 190 60 Feeding Intake, Tube 240 240 240 240 200 Irrigant Number 0 0 Bowel Movements Output, Urine 950 300 143 281 1848 300 Patient 185 lb 186 lb 188 lb Weight Weight Bed scale Bed scale Bed scale Measurement Method Current Medications Sig/Gil Start time Last Medication Dose Route Stop Time Status Admin Acetaminophen 650 MG Q6P PRN 03/24 830 AC PO Acetaminophen 1,000 MG Q6P PRN 03/24 0830 AC 03/28 IV 1227 Albuterol Sulfate 3 ML BID 03/25 2100 AC 03/29 INH 0816 Ampicillin Sodium/ 3,000 MG Q6 03/24 1819 AC 03/29 Sulbactam Sodium IV 1250 Sodium Chloride 100 ML Atorvastatin Calcium 10 MG 1700 03/24 1700 AC 03/28 PO 1802 Baclofen 10 MG TID 03/25 09 AC 03/29 PO 0949 Docusate Sodium 100 MG BID 03/25 0400 AC 03/29 PO 0949 Enoxaparin Sodium 40 MG DAILY 03/24 09 AC 03/29 SC 0949 Escitalopram Oxalate 5 MG DAILY 03/25 09 AC 03/29 PO 0949 Insulin Human Regular 0 Q6 03/25 1200 AC SC Oxycodone HCl 10 MG Q6P PRN 03/24 0830 AC 03/29 PO 0950 Sodium Chloride 1,000 ML Q20H 03/25 0545 AC 03/29 IV 0951 Laboratory Tests 03/29/18 0945: CBC w Diff NO MAN DIFF REQ, RBC 3.36 L, MCV 88.3, MCH 29.2, MCHC 33.0, RDW 14.6 H, MPV 10.2, Gran % 72.6, Lymphocytes % 16.4 L, Monocytes % 7.2, Eosinophils % 3.4, Basophils % 0.4, Absolute Granulocytes 4.7, Absolute Lymphocytes 1.1 L, Absolute Monocytes 0.5, Absolute Eosinophils 0.2, Absolute Basophils 0 03/28/18 0750: CBC w Diff NO MAN DIFF REQ, RBC 3.54 L, MCV 89.3, MCH 29.8, MCHC 33.4, RDW 14.8 H, MPV 10.2, Gran % 80.5 H, Lymphocytes % 10.7 L, Monocytes % 6.2, Eosinophils % 2.2, Basophils % 0.4, Absolute Granulocytes 7.4 H, Absolute Lymphocytes 1.0 L, Absolute Monocytes 0.6, Absolute Eosinophils 0.2, Absolute Basophils 0 03/27/18 2350: Urine Color YEL, Urine Clarity CLDY H, Urine pH 6.0, Ur Specific [place] >= 1.030, Urine Protein 100 H, Urine Ketones NEG, Urine Nitrite NEG, Urine Bilirubin NEG, Urine Urobilinogen 0.2, Ur Leukocyte Esterase NEG, Ur Microscopic SEDIMENT EXAMINED, Urine RBC 25-50 H, Urine WBC 1-3 H, Ur Epithelial Cells RARE, Urine Mucus FEW, Urine Hemoglobin LARGE H, Urine Glucose NEG 03/27/18 0825: CBC w Diff NO MAN DIFF REQ, RBC 3.27 L, MCV 88.8, MCH 29.3, MCHC 33.0, RDW 15.2 H, MPV 10.5 H, Gran % 70.9, Lymphocytes % 19.2 L, Monocytes % 7.8, Eosinophils % 1.6, Basophils % 0.5, Absolute Granulocytes 4.8, Absolute Lymphocytes 1.3, Absolute Monocytes 0.5, Absolute Eosinophils 0.1, Absolute Basophils 0 Microbiology 03/28 1207 LOWER RESP: Respiratory Culture - RES GRAM NEGATIVE RODS 03/28 1207 LOWER RESP: Gram Stain - RES 03/27 2350 URINE ROUT: Urine Culture - RES 03/27 170 URINE ROUT: Urine Culture - CAN Cancelled: Cancelled via OE: Error Microbiology 03/28 1207 LOWER RESP: Respiratory Culture - RES GRAM NEGATIVE RODS 03/28 1207 LOWER RESP: Gram Stain - RES 08/31 2350 URINE ROUT: Urine Culture - RES 03/27 170 URINE ROUT: Urine Culture - CAN Cancelled: Cancelled via OE: Error Vital Signs Date Time Temp Pulse Resp B/P B/P Pulse O2 O2 Flow FiO2 Mean Ox Delivery Rate 03/29 1210 97 Trach Mask 35% 03/29 0822 97 Trach Mask 35% 03/29 0800 97 Trach Mask 35% 03/29 0712 97.4 68 20 112/62 93 03/29 0634 92 Trach Mask 35% 03/29 0057 97 Trach Mask 35% 03/29 0000 95 Trach Mask 35% 03/28 2040 95 Trach Mask 35% 03/28 2030 97.8 72 20 104/60 95 Trach Mask 03/28 1600 98 Trach Mask 35% 03/28 1501 98.0 71 20 128/72 98 Trach Mask
[2018-03-29 13:43] VITALS: BP 100/70
--- NOTE | 2018-03-29 15:40 | RADIOLOGY REPORT ---
EXAMINATION: XR SHOULDER, LEFT CLINICAL INFORMATION: Frozen shoulder. Pain in left shoulder. COMPARISON: None TECHNIQUE: 2 views of the left shoulder. FINDINGS: Evaluation is limited due to difficulties with patient positioning on these portable films. Diffuse osteopenia. No definite acute fracture or dislocation. Humeral head remains located within the glenoid. Acromioclavicular joint is intact. Included left ribs are intact. IMPRESSION: Significantly limited exam. Osteopenia noted. No definite acute fracture or dislocation.
[2018-03-29 22:22] VITALS: BP 110/78
[2018-03-30 05:50] VITALS: BP 100/60
--- NOTE | 2018-03-30 09:26 | PN- Housestaff ---
Subjective Follow-up For: UTI, aspiration pneumonia Subjective: Patient seen and examined at bedside. Nurse told me that feeding tube block. He started on IV fluids. Will call IR tomorrow to open clogged tube. According to the nurse he having no fever, chills, diarrhea, constipation Review of Systems Constitutional: Reports: see HPI. Objective Last 24 Hrs of Vital Signs/I&O Vital Signs Date Time Temp Pulse Resp B/P B/P Pulse O2 O2 Flow FiO2 Mean Ox Delivery Rate 03/30 0903 95 Trach Mask 35% 03/30 0800 97 Trach Mask 35% 03/30 0550 97.4 67 22 100/60 97 Trach Mask 03/30 0256 99 Trach Mask 35% 03/30 0000 97 Trach Mask 35% 03/29 2222 97.9 80 20 110/78 97 03/29 1844 Trach Mask 35% 03/29 1600 96 Trach Mask 35% Intake & Output 03/30 1600 03/30 0800 03/30 0000 Intake Total 400 400 Output Total 800 1200 Balance -400 -800 Intake, IV 400 400 Intake, Oral 0 Number 1 Bowel Movements Output, Urine 800 1200 Patient 189 lb Weight Physical Exam General Appearance: Alert, No Acute Distress Cardiovascular: Normal S1, Normal S2 Lungs: BILATERAL COARSE CREPTS Abdomen: Normal Bowel Sounds, Soft, No Tenderness Assessment/Plan Assessment: 57-year-old gentleman came from [facility] with past medical history of 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 At the time of presentation to emergency department vitals are following; Vitals: Vitals at the emergency department with a temperature of 98.5, pulse of 135, respiration of 20/min, blood pressure 141/81, he was saturating initially 89% on room air then he was put on Ventimask where his saturation improved to 95, while on 40% tracheal mask. Labs: yee he was found to have a white count of 18.2, H/H of 14.8/44.9, platelet of 314, 91 segmented neutrophils, no bands. Sodium of 143, potassium 4.3, BUN/creatinine 29/0.6, glucose of 200. Initial lactic acid was found to be -1.7, repeat lactic acid was not done in the emergency room. Liver function tests within normal limit, initial set of troponin negative. Chest x-ray showed hypoinflated lungs, bibasilar airspace opacity, which may reflect atelectasis in the setting of consolidation possibly from pneumonia versus aspiration. As per history and physical, nursing staff at the nursing facility did notice some secretions coming out from his tracheostomy, which was more than normal. 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 *Urinary tract infection culture positive for Pseudomonas *Urinary tract infection culture positive for Pseudomonas: -Patient having Sandy's catheter since many days -Urinalysis shows urine positive for bacteria, -Culture showed Pseudomonas -ID on board -ID recommended discontinue Unasyn, CT chest without contrast -Start ciprofloxacin and there was pneumonia -Catheter changed/renewed *Aspiration pneumonia: Patient history of vomiting, -bedridden, -history of stroke, -endotracheal tube, -And chest x-ray finding a new infiltrate - leukocytosis -Tachycardia -tachypnea *Patient PEG tube clogged *Will cut a year tomorrow to fix IT -all are in favor of aspiration pneumonia *Patient will be admitted to want *Gastroenterology consult if needed *TRC nebulizer order placed *Suctioning every 4 hour *Antibiotic Unasyn will be continue *IV hydration *Medication will be continued *Full code *GI DVT prophylaxis Problem List: Problem List: 1. Gout 2. s/p PEG 3. Urinary tract infection 4. UTI (urinary tract infection) 5. Complaint associated with gastric tube 6. Aspiration pneumonia 7. Full code status Pain Ratin Pain Location: No pain Pain Goal: Remain pain free Pain Plan: Pain management. Tomorrow's Labs & Rationales: CBC,BEP
--- NOTE | 2018-03-30 11:36 | PN- Infect Dx ---
Subjective Subjective: No fever; TF on hold; G tube clogged. Patient comfortable; drooling saliva Review of Systems Comments: 12 points reviewed as noted, otherwise negative. Objective Last 24 Hrs of Vital Signs/I&O Vital Signs Date Time Temp Pulse Resp B/P B/P Pulse O2 O2 Flow FiO2 Mean Ox Delivery Rate 03/30 0903 95 Trach Mask 35% 03/30 0800 97 Trach Mask 35% 03/30 0550 97.4 67 22 100/60 97 Trach Mask 03/30 0256 99 Trach Mask 35% 03/30 0000 97 Trach Mask 35% 03/29 2222 97.9 80 20 110/78 97 03/29 1844 Trach Mask 35% 03/29 1600 96 Trach Mask 35% 03/29 1343 97.0 72 18 100/70 96 Trach Mask 03/29 1210 97 Trach Mask 35% Intake & Output 03/30 1600 03/30 0800 03/30 0000 Intake Total 400 400 Output Total 800 1200 Balance -400 -800 Intake, IV 400 400 Intake, Oral 0 Number 1 Bowel Movements Output, Urine 800 1200 Patient 189 lb Weight Physical Exam Other Physical Findings: General Appearance chronically ill Skin warm and dry HEENT Atraumatic, PERRLA Neck No JVD, Trach in place Cardiovascular Normal S1, Normal S2 Lungs BS present, increased b/l rhonchi, diminished BS bases, no wheezing Abdomen Normal Bowel Sounds, Soft, No Tenderness G tube in place; Sandy patent; urine clear. Neurological quadriplegia Extremities No Clubbing, No Cyanosis, No Edema, Normal Pulses Vascular Normal Pulses Results Last 24 Hours of Lab Results: Laboratory Tests 03/30 0600 Hematology CBC w Diff Cancelled WBC Cancelled RBC Cancelled Hgb Cancelled Hct Cancelled MCV Cancelled MCH Cancelled MCHC Cancelled RDW Cancelled Plt Count Cancelled MPV Cancelled Last 24 Hours of Rashard Results: Patient : SUNDAY ESPINAL III Acct: [id number] DR: Wade SOTELO, Danny Birthdate: [birth year] Age/Sex: 57/M Unit: [id number] Loc: 2NA [id number]- [id number] Status : ADM IN SPEC #: [id number] GRACIELA: 03/28/18120 STATUS: RES RECD: 03/28/[address] SOURCE: LOWER RESP ENTR: 03/27/18-[address]: Jarad SOTELO,Elder SPDESC: SPUTUM Danny Olvera MD ORDERED: LOWER RESPIRATO Procedure Result > GRAM STAIN Final 03/28/18-1444 WHITE BLOOD CELLS MODERATE SQUAMOUS CELLS RARE GRAM POSITIVE COCCI RARE GRAM NEGATIVE RODS FEW > LOWER RESPIRATORY CULTURE Preliminary 03/30/18-1059 SCANT Mixed compa after 2 days WITH: Moderate growth of: PSEUDOMONAS AERUGINOSA Light growth of: GRAM NEGATIVE RODS Identification and sensitivities to follow GRAM NEGATIVE RODS Identification and sensitivities to follow 1. 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 Aspiration pneumonia; sputum cx from 03/28 + GPC and few GNR; while on Unsyn sputum cx growing Ps. aeruginosa (S Cipro) Severe leukocytosis/resolved Chronic indwelling Sandy cath d/t neurogenic bladder; UC + Ps. aeruginosa 50K CFU; likely colonization; repeat UA w/o significant pyuria Suggestion: 1. D/C iv Unasyn (D #7); would obtain CT chest w/o contrast; if findings suggestive of pneumonia start Ceftazidime 1 gm q 8 h; and once ready for discharge Cipro 500 mg po bid (in order to complete total 14 d therapy). 2. Pulm toilet ATC. CBC, BMP in am. 3. Supportive care per team.
--- NOTE | 2018-03-30 13:33 | PN- Att Addend ---
Attending Addendum Attending Brief Note Patient comes in bed. Vital signs are stable no fever. Patient had complained of some shoulder pain had x-rays yesterday showed no fractures. Also having trouble again with the feeding tube seems to be clogged and having difficulty unclogging it. Will need to have IR checked the tube and either unclotted or replace it. Intake & Output 03/30 1600 03/30 0400 03/29 1600 03/29 0400 03/28 1600 03/28 0400 Intake Total 176 170 4336 1240 2390 1240 Output Total 800 1200 1800 300 550 375 Balance -400 -800 097 137 0095 865 Intake, IV 400 400 950 400 750 400 Intake, Oral 0 0 0 0 Intake, Tube 6115 020 2413 840 Feeding Intake, Tube 300 240 240 Irrigant Number 1 0 0 Bowel Movements Output, Urine 800 1200 1800 300 550 375 Patient 189 lb 185 lb 186 lb Weight Weight Bed scale Bed scale Measurement Method Current Medications Sig/Gil Start time Last Medication Dose Route Stop Time Status Admin Acetaminophen 650 MG Q6P PRN 03/24 830 AC PO Acetaminophen 1,000 MG Q6P PRN 03/24 08 AC 03/30 IV 0021 Albuterol Sulfate 3 ML BID 03/25 2100 AC 03/30 INH 0842 Ampicillin Sodium/ 3,000 MG Q6 03/24 1819 DC 03/30 Sulbactam Sodium IV 1228 Sodium Chloride 100 ML Atorvastatin Calcium 10 MG 1700 03/24 1700 AC 03/29 PO 1755 Baclofen 10 MG TID 03/25 09 AC 03/29 PO 2016 Dextrose/Sodium 1,000 ML Q13H 03/30 1130 AC 03/30 Chloride IV 1228 Docusate Sodium 100 MG BID 03/25 0400 AC 03/29 PO 2016 Enoxaparin Sodium 40 MG DAILY 03/24 09 AC 03/30 SC 0913 Escitalopram Oxalate 5 MG DAILY 03/25 09 AC 03/29 PO 0949 Insulin Human Regular 0 Q6 03/25 1200 AC SC Oxycodone HCl 10 MG Q6P PRN 03/24 08 AC 03/29 PO 2016 Sodium Chloride 1,000 ML Q20H 03/25 0545 DC 03/30 IV 0453 Laboratory Tests 03/30/18 0600: CBC w Diff Cancelled, WBC Cancelled, RBC Cancelled, Hgb Cancelled, Hct Cancelled , MCV Cancelled, MCH Cancelled, MCHC Cancelled, RDW Cancelled, Plt Count Cancelled, MPV Cancelled 03/29/18 0945: CBC w Diff NO MAN DIFF REQ, RBC 3.36 L, MCV 88.3, MCH 29.2, MCHC 33.0, RDW 14.6 H, MPV 10.2, Gran % 72.6, Lymphocytes % 16.4 L, Monocytes % 7.2, Eosinophils % 3.4, Basophils % 0.4, Absolute Granulocytes 4.7, Absolute Lymphocytes 1.1 L, Absolute Monocytes 0.5, Absolute Eosinophils 0.2, Absolute Basophils 0 03/28/18 0750: CBC w Diff NO MAN DIFF REQ, RBC 3.54 L, MCV 89.3, MCH 29.8, MCHC 33.4, RDW 14.8 H, MPV 10.2, Gran % 80.5 H, Lymphocytes % 10.7 L, Monocytes % 6.2, Eosinophils % 2.2, Basophils % 0.4, Absolute Granulocytes 7.4 H, Absolute Lymphocytes 1.0 L, Absolute Monocytes 0.6, Absolute Eosinophils 0.2, Absolute Basophils 0 03/27/180: Urine Color YEL, Urine Clarity CLDY H, Urine pH 6.0, Ur Specific [place] >= 1.030, Urine Protein 100 H, Urine Ketones NEG, Urine Nitrite NEG, Urine Bilirubin NEG, Urine Urobilinogen 0.2, Ur Leukocyte Esterase NEG, Ur Microscopic SEDIMENT EXAMINED, Urine RBC 25-50 H, Urine WBC 1-3 H, Ur Epithelial Cells RARE, Urine Mucus FEW, Urine Hemoglobin LARGE H, Urine Glucose NEG Microbiology 03/28 1207 LOWER RESP: Respiratory Culture - RES PSEUDOMONAS AERUGINOSA GRAM NEGATIVE RODS 03/28 1207 LOWER RESP: Gram Stain - RES 03/27 2350 URINE ROUT: Urine Culture - COMP 03/27 170 URINE ROUT: Urine Culture - CAN Cancelled: Cancelled via OE: Error Microbiology 03/28 1207 LOWER RESP: Respiratory Culture - RES PSEUDOMONAS AERUGINOSA GRAM NEGATIVE RODS 03/28 1207 LOWER RESP: Gram Stain - RES 03/27 2350 URINE ROUT: Urine Culture - COMP 03/27 170 URINE ROUT: Urine Culture - CAN Cancelled: Cancelled via OE: Error Vital Signs Date Time Temp Pulse Resp B/P B/P Pulse O2 O2 Flow FiO2 Mean Ox Delivery Rate 03/30 0903 95 Trach Mask 35% 03/30 0800 97 Trach Mask 35% 03/30 0550 97.4 67 22 100/60 97 Trach Mask 03/30 0256 99 Trach Mask 35% 03/30 0000 97 Trach Mask 35% 03/29 2222 97.9 80 20 110/78 97 03/29 1844 Trach Mask 35% 03/29 1600 96 Trach Mask 35% 03/29 1343 97.0 72 18 100/70 96 Trach Mask
[2018-03-30 14:55] VITALS: BP 105/63
--- NOTE | 2018-03-30 15:53 | CT SCAN REPORT ---
EXAMINATION: CT CHEST WITHOUT CONTRAST CLINICAL INFORMATION: Sepsis, gram-negative rods in blood. COMPARISON: Chest x-ray 03/24/2018 TECHNIQUE: Multidetector volumetric CT imaging of the chest was done. Axial MIP volume rendering provided. Sagittal and coronal reformatted images were obtained. DLP: 515 mGy-cm FINDINGS: LUNGS: Tracheostomy tube approximately 4 cm above the carol. There is adjacent right basilar consolidations with air bronchograms located within the right lower and right middle lobes. Right upper lung appears clear. There is minimal left lower lobe posterior/dependent atelectasis. Otherwise, the left lung appears clear. The airways appear patent to the subsegmental level. MEDIASTINUM: Heart size is normal. No pericardial effusion. No significant coronary artery calcification. No pathologically enlarged mass and lymph nodes. PLEURA: There is no pleural effusion. No pleural mass or thickening. AXILLA: No lymphadenopathy. UPPER ABDOMEN: Feeding tube is partially visualized. Upper abdomen is otherwise unremarkable. OSSEOUS STRUCTURES: Unremarkable. IMPRESSION: Right lower and middle consolidations which could be seen in the setting of aspiration.
[2018-03-30 20:30] VITALS: BP 102/58
[2018-03-31 06:42] VITALS: BP 100/68
--- NOTE | 2018-03-31 06:51 | PN- Housestaff ---
Subjective Follow-up For: Aspiration pneumonia, UTI, Subjective: Patient seen and examined at bedside. He is nonverbal. According to the nurse she endorsed that he having no fever, chills, diarrhea, constipation. Review of Systems Constitutional: Reports: see HPI. Objective Last 24 Hrs of Vital Signs/I&O Vital Signs Date Time Temp Pulse Resp B/P B/P Pulse O2 O2 Flow FiO2 Mean Ox Delivery Rate 03/31 1532 97.9 78 20 105/60 95 Trach Mask 03/31 0912 91 Trach Mask 35% 03/31 0800 Trach Mask 35% 03/31 0642 98.0 76 20 100/68 96 03/31 0000 Trach Mask 35% 03/307 95 Nasal 35% Cannula 03/30 2030 97.9 67 20 102/58 99 Trach Mask Intake & Output 03/31 1600 03/31 0803/31 0000 Intake Total 600 300 Output Total 1700 350 975 Balance -1700 250 -675 Intake, IV 600 300 Intake, Oral 0 Output, Urine 1700 350 975 Physical Exam General Appearance: Alert, No Acute Distress Cardiovascular: Normal S1, Normal S2 Lungs: Clear to Auscultation, Normal Air Movement, bilateral crepts, more promanant on right side Abdomen: Normal Bowel Sounds, Soft, No Tenderness, No Hepatospenomegaly, No Masses Assessment/Plan Assessment: 57-year-old gentleman came from [facility] with past medical history of 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 At the time of presentation to emergency department vitals are following; Vitals: Vitals at the emergency department with a temperature of 98.5, pulse of 135, respiration of 20/min, blood pressure 141/81, he was saturating initially 89% on room air then he was put on Ventimask where his saturation improved to 95, while on 40% tracheal mask. Labs: yee he was found to have a white count of 18.2, H/H of 14.8/44.9, platelet of 314, 91 segmented neutrophils, no bands. Sodium of 143, potassium 4.3, BUN/creatinine 29/0.6, glucose of 200. Initial lactic acid was found to be -1.7, repeat lactic acid was not done in the emergency room. Liver function tests within normal limit, initial set of troponin negative. Chest x-ray showed hypoinflated lungs, bibasilar airspace opacity, which may reflect atelectasis in the setting of consolidation possibly from pneumonia versus aspiration. As per history and physical, nursing staff at the nursing facility did notice some secretions coming out from his tracheostomy, which was more than normal. 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 *Urinary tract infection culture positive for Pseudomonas *Feeding tube blocked *Urinary tract infection culture positive for Pseudomonas: -Patient having Sandy's catheter since many days -Urinalysis shows urine positive for bacteria, -Culture showed Pseudomonas -ID on board -Recommended CT chest -CT chest showed right lung consolidation -ID recommended ceftazidime 1000 mg every 8 hours and will discharge on ciprofloxacin 500 mg -Catheter changed/renewed *Aspiration pneumonia: Patient history of vomiting, -bedridden, -history of stroke, -endotracheal tube, -CT chest showed right lung consolidation *Patient PEG tube clogged -IR contacted -PEG tube is opened now -Resume feeding -all are in favour of aspiration pneumonia *Discharge planned tomorrow *TRC nebulizer order placed *Suctioning every 4 hour *IV hydration *Medication will be continued *Full code *GI DVT prophylaxis Problem List: 1. LOCKED-IN SYNDROME 2. s/p PEG 3. Aspiration pneumonia 4. Full code status 5. Urinary tract infection 6. UTI (urinary tract infection) 7. Feeding tube blocked 8. Tracheostomy in place Pain Ratin Pain Location: No pain Pain Goal: Remain pain free Pain Plan: Pain management pathway Tomorrow's Labs & Rationales: cbc
--- NOTE | 2018-03-31 08:19 | PN- Infect Dx ---
Subjective Subjective: No fever. ineffective cough. Review of Systems Comments: 12 points reviewed as noted, otherwise negative. Objective Last 24 Hrs of Vital Signs/I&O Vital Signs Date Time Temp Pulse Resp B/P B/P Pulse O2 O2 Flow FiO2 Mean Ox Delivery Rate 03/31 0642 98.0 76 20 100/68 96 03/31 0000 Trach Mask 35% 03/30 2127 95 Nasal 35% Cannula 03/30 2030 97.9 67 20 102/58 99 Trach Mask 03/30 1455 97.8 65 21 105/63 97 Trach Mask 03/30 0903 95 Trach Mask 35% Intake & Output 03/31 1600 03/31 0800 03/31 0000 Intake Total 600 300 Output Total 350 975 Balance 250 -675 Intake, IV 600 300 Intake, Oral 0 Output, Urine 350 975 Physical Exam Other Physical Findings: General Appearance chronically ill Skin warm and dry HEENT Atraumatic, PERRLA Neck No JVD, Trach in place Cardiovascular Normal S1, Normal S2 Lungs BS present, b/l rhonchi, diminished BS bases, no wheezing Abdomen Normal Bowel Sounds, Soft, No Tenderness G tube in place; Sandy patent; urine clear. Neurological quadriplegia Extremities No Clubbing, No Cyanosis, No Edema, Normal Pulses Vascular Normal Pulses Results Last 24 Hours of Lab Results: n/a Last 24 Hours of Rashard Results: SPEC #: [id number] GRACIELA: 03/28/18 STATUS: RES RECD: 03/28/[address]: Arias Rivas MD, Joshua SOURCE: LOWER RESP ENTR: 03/27/[address]: Elder Abraham MD SPDESC: SPUTUM Danny Olvera MD ORDERED: LOWER RESPIRATO Procedure Result > GRAM STAIN Final 03/28/18 WHITE BLOOD CELLS MODERATE SQUAMOUS CELLS RARE GRAM POSITIVE COCCI RARE GRAM NEGATIVE RODS FEW > LOWER RESPIRATORY CULTURE Preliminary 03/30/18 SCANT Mixed compa after 2 days WITH: Moderate growth of: PSEUDOMONAS AERUGINOSA Light growth of: GRAM NEGATIVE RODS Identification and sensitivities to follow GRAM NEGATIVE RODS Identification and sensitivities to follow 1. PSEUDOMONAS AERUGINOSA RX AB ------ -- CEFTAZIDIME S CIPROFLOXACIN S GENTAMICIN S MEROPENEM S Recent Imaging Studies: IMPRESSION: Right lower and middle consolidations which could be seen in the setting of aspiration. 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 Aspiration pneumonia; sputum cx from 03/28 + GPC and few GNR; while on Unsyn sputum cx growing Ps. aeruginosa (S Cipro/Ceftaz); and another GNR to be identified Leukocytosis/resolved Chronic indwelling Sandy cath d/t neurogenic bladder; UC + Ps. aeruginosa 50K CFU; likely colonization; repeat UA w/o significant pyuria Suggestion: 1. As CT chest + RML asp pna Ceftazidime 1 gm q 8 h; and once ready for discharge Cipro 500 mg po bid (in order to complete total 14 d therapy). 2. Pulm toilet ATC. CBC, BMP in am. 3. Supportive care per team.
--- NOTE | 2018-03-31 09:55 | PN- Att Addend ---
Attending Addendum Attending Brief Note Still having some difficulty with feeding tube to have IR assess today. Vital signs stable no fever no other changes, CT results noted. to Follow ID recommendations, start diasposition plans after tube issues are resolved. Intake & Output 03/31 1600 03/31 0400 03/30 1600 03/30 0400 03/29 1600 03/29 0400 Intake Total 600 300 497 959 3948 1240 Output Total 499 855 7015 1200 1800 300 Balance 250 -675 -575 -800 450 940 Intake, IV 600 300 900 400 950 400 Intake, Oral 0 0 0 0 Intake, Tube 75 1000 600 Feeding Intake, Tube 300 240 Irrigant Number 1 0 Bowel Movements Output, Urine 767 699 0851 1200 1800 300 Patient 189 lb 185 lb Weight Weight Bed scale Measurement Method Current Medications Sig/Gil Start time Last Medication Dose Route Stop Time Status Admin Acetaminophen 650 MG Q6P PRN 03/24 830 AC PO Acetaminophen 1,000 MG Q6P PRN 03/24 0830 AC 03/30 IV 0021 Albuterol Sulfate 3 ML BID 03/25 2100 AC 03/31 INH 0903 Ampicillin Sodium/ 3,000 MG Q6 03/24 1819 DC 03/30 Sulbactam Sodium IV 1228 Sodium Chloride 100 ML Atorvastatin Calcium 10 MG 1700 03/24 1700 AC 03/29 PO 1755 Baclofen 10 MG TID 03/25 09 AC 03/29 PO 2017 Ceftazidime 1,000 MG Q8H 03/31 0814 AC IV Dextrose/Sodium 1,000 ML Q13H 03/30 1130 AC 03/31 Chloride IV 0300 Docusate Sodium 100 MG BID 03/25 0400 AC 03/29 PO 2017 Enoxaparin Sodium 40 MG DAILY 03/24 0900 AC 03/30 SC 0913 Escitalopram Oxalate 5 MG DAILY 03/25 0900 AC 03/29 PO 0949 Insulin Human Regular 0 Q6 03/25 1200 AC SC Oxycodone HCl 10 MG Q6P PRN 03/24 0830 DC 03/29 PO 2017 Sodium Chloride 1,000 ML Q20H 03/25 0545 DC 03/30 IV 0453 Laboratory Tests 03/30/18 0600: CBC w Diff Cancelled, WBC Cancelled, RBC Cancelled, Hgb Cancelled, Hct Cancelled , MCV Cancelled, MCH Cancelled, MCHC Cancelled, RDW Cancelled, Plt Count Cancelled, MPV Cancelled 03/29/18 0945: CBC w Diff NO MAN DIFF REQ, RBC 3.36 L, MCV 88.3, MCH 29.2, MCHC 33.0, RDW 14.6 H, MPV 10.2, Gran % 72.6, Lymphocytes % 16.4 L, Monocytes % 7.2, Eosinophils % 3.4, Basophils % 0.4, Absolute Granulocytes 4.7, Absolute Lymphocytes 1.1 L, Absolute Monocytes 0.5, Absolute Eosinophils 0.2, Absolute Basophils 0 Microbiology 03/28 1207 LOWER RESP: Respiratory Culture - RES PSEUDOMONAS AERUGINOSA GRAM NEGATIVE RODS 03/28 1207 LOWER RESP: Gram Stain - RES Microbiology 03/28 1207 LOWER RESP: Respiratory Culture - RES PSEUDOMONAS AERUGINOSA GRAM NEGATIVE RODS 03/28 1207 LOWER RESP: Gram Stain - RES
--- NOTE | 2018-03-31 12:26 | Discharge Summary ---
Visit Information Visit Dates Admission Date: 03/24/18 Discharge Date: 04/01/2018 Hospital Course Course Attending Physician: Danny Olvera MD Primary Care Physician: Danny Olvera MD Hospital Course: Mr. 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 Vitals at the emergency department with a temperature of 98.5, pulse of 135, respiration of 20/min, blood pressure 141/81, he was saturating initially 89% on room air then he was put on Ventimask where his saturation improved to 95, while on 40% tracheal mask. Lab yee he was found to have a white count of 18.2, H/H of 14.8/44.9, platelet of 314, 91 segmented neutrophils, no bands. Sodium of 143, potassium 4.3, BUN/creatinine 29/0.6, glucose of 200. Initial lactic acid was found to be -1.7, repeat lactic acid was not done in the emergency room. Liver function tests within normal limit, initial set of troponin negative. Chest x-ray showed hypoinflated lungs, bibasilar airspace opacity, which may reflect atelectasis in the setting of consolidation possibly from pneumonia versus aspiration. As per history and physical, nursing staff at the nursing facility did notice some secretions coming out from his tracheostomy, which was more than normal. We will admit the patient to general medicine floor for treatment of following problems. Problem list #leukocytosis with consolidation on chest x-ray, with a history of vomiting and and possible aspiration. On presentation, patient did not have any fever, however the leukocytosis and evidence of consolidation on chest x-ray done both in the nursing facility as well as at [facility], tachycardia, tachypnea, he meets the criteria for SIRS, possible source of sepsis seems to be the pneumonia possibly aspiration. He is afebrile currently however he was noted to have low-grade temperature while at the nursing facility. He does not meet the criteria for severe sepsis, lactic acid is normal. He was continued to monitor vitals, intake and output, continue total respiratory care with suctions every 4 as needed as is done for him at the nursing facility. He received 1 dose of IV Unasyn while in the urgency department, continue IV Unasyn for possible aspiration pneumonia. Continuous IVF as well. Over the hospital course, patient's culture had grown Ps. aeruginosa (S Cipro/ Ceftaz); E. coli ESBL and Proteus; which could represent just colonization; although CT chest revealing aspiration pneumonia; Patient was then switched to ceftazidime and later to Meropenen 1gm q8 for 10 day #Tube Feeding Over the hospital course, patient's tube feeding was clogged, and resumed on tube feeding to max speed once fixed by IR #Chronic indwelling catheter Urine CX had grown Pseudomonas however could be containminnat. Sandy was changed and without any growth since. Full code Lovenox for DVT prophylaxis pain pathway Allergies: Coded Allergies: scopolamine (Mild, HIVES 12/26/16) NSAIDS (Non-Steroidal Anti-Inflamma (PER W-10 12/26/16) adhesive (HIVES - EKG STICKERS, RED DOT MINTO STICKERS 12/26/16) aspirin (PER W-10 12/26/16) clopidogrel (From PLAVIX) (PER W-10 12/26/16) Uncoded Allergies: EKG AND RED DOT LEADS (Intermediate, RASH 09/26/16) Pertinent Lab Results: SERVICE DATE: 03/24/18 EXAM TYPE: RAD - XRY-PORTABLE CHEST XRAY IMPRESSION: Low lung volumes with regions of bibasilar opacity, which may reflect atelectasis in this setting though consolidation such as from pneumonia or aspiration cannot be excluded. SERVICE DATE: 03/29/18- EXAM TYPE: RAD - XRY-SHOULDER COMPLETE-LEFT IMPRESSION: Significantly limited exam. Osteopenia noted. No definite acute fracture or dislocation. SERVICE DATE: 03/30/18- EXAM TYPE: CAT - CT CHEST WO IV CONTRAST IMPRESSION: Right lower and middle consolidations which could be seen in the setting of aspiration. SERVICE DATE: 04/01/18-105 EXAM TYPE: RAD - XRY-PORTABLE CHEST XRAY IMPRESSION: - The tip of the right arm peripherally inserted catheter appears to be within the proximal right atrium approximately 2 cm below the level of the SVC-right atrial junction. - Hypoinflated lungs with bibasilar atelectasis. SERVICE DATE: 04/01/18 EXAM TYPE: RAD - XRY-PORTABLE CHEST XRAY IMPRESSION: The tip of the peripherally inserted catheter appears to be within the proximal right atrium, approximately 2 cm below level level of the SVC-right atrial junction, and unchanged compared to the prior radiograph. Disposition Summary Disposition Principal Diagnosis: Aspiration pneumonia as above Additional Diagnosis: as above Discharge Disposition: SNF Discharge Instructions General Discharge Information Code Status: Full Code Patient's Diet: Tube feeding Patient's Activity: as tolerated Follow-Up Instructions/Appts: - Please continue your IV antibiotics through PICC line for a total of 14 days. - Please follow up with your primary care physician within 1-2 weeks of discharge. Inform your primary care physician of this admission to [facility]. - Continue your current medications per discharge instructions. - Please watch for these problems: Fever, Chills, Nausea, Vomiting, Shortness of Breath, Productive Cough, Chest Pain/Discomfort, Abdominal Pain, Active Bleeding or Bloody urine/stool. Medications at Discharge Discharge Medications: Continue taking these medications: Cholecalciferol (Vitamin D3) 1,000 UNIT TABLET 1 Tablet G TUBE DAILY Comments: not given in hospital Ranitidine HCl (Ranitidine HCl) 15 MG/ML SYRUP 10 Milliliters G TUBE TWICE DAILY Comments: NOT GIVEN IN HOSPITAL Simvastatin (Zocor*) 10 MG TABLET 1 Tablet G TUBE 5 PM Comments: LIPITOR GIVEN IN HOSPITAL Last Taken: 04/01/18 Time: 4:00 pm Baclofen (Baclofen) 10 MG TABLET 1 Tablet G TUBE THREE TIMES DAILY Comments: Last Taken: 04/01/18 Time: 3:25 pm Escitalopram Oxalate (Escitalopram Oxalate) 5 MG TABLET 1 Tablet G TUBE DAILY Comments: Last Taken:04/01/18 Time: 8:00 am Ondansetron HCl (Ondansetron HCl) 4 MG TABLET 1 Tablet G TUBE Q8H as needed for N/V Comments: NOT GIVEN IN HOSPITAL Lactobacillus Acidophilus (Acidophilus) 1 EACH CAPSULE 1 Capsule G TUBE DAILY Comments: not given in hospital Albuterol Sulfate (Albuterol Sulfate) 2.5 MG/3 ML (0.083 %) VIAL.NEB 1 Vial Inhale Solution TWICE DAILY Comments: Last Taken: 03/09/18 Time: 930 AM Acetaminophen (Acetaminophen) 325 MG TABLET 2 Tablet J TUBE Q4H as needed for PAIN/TEMP/>101 Comments: NOT GIVEN IN HOSPITAL Acetaminophen (Acephen) 650 MG SUPP.RECT 1 SUPPOSITORY RECTALLY Q4H as needed for PAIN/TEMP>101 Comments: NOT GIVEN IN HOSPITAL Bisacodyl (Bisacodyl) 10 MG SUPP.RECT 1 Suppository RECTAL DAILY as needed for NO BM - IF MOM INEFFECTIVE Comments: NOT GIVEN IN HOSPITAL Na Phos,M-B/Na Phos,Di-Ba (Fleet Enema) 19 GRAM-7 GRAM/118 ML ENEMA 1 Enema RECTAL DAILY as needed for NO BM - IF BISACODYL INEFFECTI Comments: NOT GIVEN IN HOSPITAL Ipratropium/Albuterol Sulfate (Iprat-Albut 0.5-3(2.5) MG/3 Ml) 0.5 MG-3 MG (2.5 MG BASE)/3 ML AMPUL.NEB 1 VIAL Inhale Solution via Nebulizer Q4H as needed for DYSPNEA Comments: NOT GIVEN IN HOSPITAL Magnesium Hydroxide (Milk Of Magnesia) 400 MG/5 ML ORAL.SUSP 30 Milliliters J TUBE DAILY as needed for NO BM IN 3 DAYS Comments: NOT GIVEN IN HOSPITAL Docusate Sodium (Docusate Sodium) 100 MG TABLET 1 Tablet G TUBE TWICE DAILY Comments: Last Taken: 04/01/18 Time: 8 am Start taking the following new medications: Meropenem (Meropenem) 1 GRAM VIAL 1 VIAL IV Q8H Qty = 36 No Refills Instructions: . Comments: Last Taken: given fortaz 04/01/18 Time: 4:00 pm Copies To: Wade SOTELO,Danny
[2018-03-31 15:32] VITALS: BP 105/60
[2018-03-31 23:00] VITALS: BP 110/60
[2018-04-01 06:45] VITALS: BP 114/72
--- NOTE | 2018-04-01 08:12 | PN- Housestaff ---
Subjective Follow-up For: Aspiration pneumonia, UTI Subjective: Patient seen and examined at bedside. He is nonverbal. According to the nurse patient complaining of pain in left shoulder. She denies that patient having fever, chills, chest pain, diarrhea, constipation. Review of Systems Constitutional: Reports: see HPI. Objective Last 24 Hrs of Vital Signs/I&O Vital Signs Date Time Temp Pulse Resp B/P B/P Pulse O2 O2 Flow FiO2 Mean Ox Delivery Rate 04/01 1707 97.6 73 20 120/74 09 1424 Trach Mask 30% 04/01 1410 97.6 73 20 120/74 98 Trach Mask 04/01 1141 Trach Mask 35% 04/01 0900 94 Trach Mask 35% 04/01 0800 Trach Mask 35% 04/01 0645 97.8 70 20 114/72 96 Aerosol Mask 04/01 0000 96 Trach Mask 35% 03/31 2300 98.1 80 20 110/60 96 Trach Mask Intake & Output 04/01 1600 05 0800 09 0000 Intake Total 1050 1200 900 Output Total 1800 1000 1200 Balance -750 200 -300 Intake, IV 525 600 600 Intake, Oral 0 Intake, Tube 525 600 180 Feeding Intake, Tube 120 Irrigant Output, Urine 1800 1000 1200 Physical Exam General Appearance: Alert, No Acute Distress Cardiovascular: Regular Rate, Normal S1, Normal S2, No Murmurs Lungs: Bilateral corase crepts, less in intensity compare to previuos day. Abdomen: Normal Bowel Sounds, Soft, No Tenderness, No Hepatospenomegaly, No Masses Assessment/Plan Assessment: 57-year-old gentleman came [facility] with past medical history of quadriplegia status post brainstem infarct resulting in lock in syndrome(11 years back), status post tracheostomy with 40% oxygen requirement via trach mask, and status post J-tube placement for feeding and medication, diastolic heart failure, previous multiple admissions for aspiration pneumonia, diabetes, gout, depression, history of [place], MRSA infection in the past, Clostridium difficile infection the past Reason to emergency department with a complaint of black colour vomiting. At the time of presentation to emergency department vitals are following; Vitals: Vitals at the emergency department with a temperature of 98.5, pulse of 135, respiration of 20/min, blood pressure 141/81, he was saturating initially 89% on room air then he was put on Ventimask where his saturation improved to 95, while on 40% tracheal mask. Labs: yee he was found to have a white count of 18.2, H/H of 14.8/44.9, platelet of 314, 91 segmented neutrophils, no bands. Sodium of 143, potassium 4.3, BUN/creatinine 29/0.6, glucose of 200. Initial lactic acid was found to be -1.7, repeat lactic acid was not done in the emergency room. Liver function tests within normal limit, initial set of troponin negative. Chest x-ray showed hypoinflated lungs, bibasilar airspace opacity, which may reflect atelectasis in the setting of consolidation possibly from pneumonia versus aspiration. As per history and physical, nursing staff at the nursing facility did notice some secretions coming out from his tracheostomy, which was more than normal. 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 *Urinary tract infection culture positive for Pseudomonas *Feeding tube blocked *Urinary tract infection culture positive for Pseudomonas: -Patient having Sandy's catheter since many days -Urinalysis shows urine positive for bacteria, -Culture showed Pseudomonas -ID on board -ID recommendation appreciated patient was discharged on meropenem. -PICC line placed for long duration antibiotic administered. *Aspiration pneumonia: Patient history of vomiting, -bedridden, -history of stroke, -endotracheal tube, -CT chest showed right lung consolidation -Treatments started *Patient PEG tube clogged -IR contacted -PEG tube is opened now -Resume feeding *TRC nebulizer order placed *Suctioning every 4 hour *IV hydration *Medication will be continued *Full code *GI DVT prophylaxis *Discharge planned today. Problem List: 1. LOCKED-IN SYNDROME 2. s/p PEG 3. UTI (urinary tract infection) 4. Feeding tube blocked 5. Complaint associated with gastric tube 6. Pneumonia Pain Ratin Pain Location: Left shoulder Pain Goal: Remain pain free Pain Plan: And management. Tomorrow's Labs & Rationales: no labs
[2018-04-01] MEDS ORDERED: MEROPENEM1 G1 IV ×2 (08:16→12:02)
[2018-04-01 08:47] LABS: ABSOLUTE BASOPHIL COUNT 0 /CUMM (0.0-0.2); ABSOLUTE EOSINOPHIL COUNT 0.2 /CUMM (0.0-0.7); ABSOLUTE GRANULOCYTE CT 3.5 /CUMM (1.4-6.5); ABSOLUTE LYMPH COUNT 1.2 /CUMM (1.2-3.4); ABSOLUTE MONOCYTE COUNT 0.5 /CUMM (0.10-0.60); BASOPHIL % 0.8 % (0.0-2.0); EOSINOPHIL % 4.5 % (0-5); GRANULOCYTE % 63.3 % (42.2-75.2); HEMATOCRIT 31.9 % (42-52); MEAN CORPUSCULAR HGB 29.3 PG (27.0-31.0); MEAN CORPUSCULAR HGB CONC 33.1 G/DL (33.0-37.0); MEAN CORPUSCULAR VOLUME 88.4 FL (80.0-94.0); MEAN PLATELET VOLUME 10.4 FL (7.4-10.4); PLATELET COUNT 224 /CUMM (130-400); RBC DISTRIBUTION WIDTH 14.7 % (11.5-14.5); RED BLOOD CELL CT 3.61 /CUMM (4.70-6.10); WHITE BLOOD CELL COUNT 5.5 /CUMM (4.8-10.8)
--- NOTE | 2018-04-01 09:08 | PN- Infect Dx ---
Subjective Subjective: No fever; no new c/o; continues w/ moderate resp secretions. Review of Systems Comments: 12 points reviewed as noted, otherwise negative. Objective Last 24 Hrs of Vital Signs/I&O Vital Signs Date Time Temp Pulse Resp B/P B/P Pulse O2 O2 Flow FiO2 Mean Ox Delivery Rate 04/01 0645 97.8 70 20 114/72 96 Aerosol Mask 04/01 0000 96 Trach Mask 35% 03/31 2300 98.1 80 20 110/60 96 Trach Mask 03/31 1919 95 Trach Mask 35% 03/31 1600 95 Trach Mask 35% 03/31 1532 97.9 78 20 105/60 95 Trach Mask 03/31 0912 91 Trach Mask 35% Intake & Output 04/01 1600 04/01 0800 04/01 0000 Intake Total 1200 900 Output Total 1000 1200 Balance 200 -300 Intake, IV 600 600 Intake, Oral 0 Intake, Tube 600 180 Feeding Intake, Tube 120 Irrigant Output, Urine 1000 1200 Physical Exam Other Physical Findings: General Appearance chronically ill Skin warm and dry HEENT Atraumatic, PERRLA Neck No JVD, Trach in place Cardiovascular Normal S1, Normal S2 Lungs BS present, b/l rhonchi, diminished BS bases, no wheezing Abdomen Normal Bowel Sounds, Soft, No Tenderness G tube in place; Sandy patent; urine clear. Neurological quadriplegia Extremities No Clubbing, No Cyanosis, No Edema, Normal Pulses R UE PICC in place Vascular Normal Pulses Results Last 24 Hours of Lab Results: Laboratory Tests 04/01 07 Hematology CBC w Diff NO MAN DIFF REQ WBC (4.8 - 10.8 /CUMM) 5.5 RBC (4.70 - 6.10 /CUMM) 3.61 L Hgb (14.0 - 18.0 G/DL) 10.6 L Hct (42 - 52 %) 31.9 L MCV (80.0 - 94.0 FL) 88.4 MCH (27.0 - 31.0 PG) 29.3 MCHC (33.0 - 37.0 G/DL) 33.1 RDW (11.5 - 14.5 %) 14.7 H Plt Count (130 - 400 /CUMM) 224 MPV (7.4 - 10.4 FL) 10.4 Gran % (42.2 - 75.2 %) 63.3 Lymphocytes % (20.5 - 51.1 %) 21.8 Monocytes % (1.7 - 9.3 %) 9.6 H Eosinophils % (0 - 5 %) 4.5 Basophils % (0.0 - 2.0 %) 0.8 Absolute Granulocytes (1.4 - 6.5 /CUMM) 3.5 Absolute Lymphocytes (1.2 - 3.4 /CUMM) 1.2 Absolute Monocytes (0.10 - 0.60 /CUMM) 0.5 Absolute Eosinophils (0.0 - 0.7 /CUMM) 0.2 Absolute Basophils (0.0 - 0.2 /CUMM) 0 Last 24 Hours of Rashard Results: SPEC #: [id number] GRACIELA: 03/28/18 STATUS: COMP RECD: 03/28/[address]: Arias Riavs MD, Joshua SOURCE: LOWER RESP ENTR: 03/27/18-[address]: Jarad SOTELO,Eledr SPDESC: SPUTUM Wade SOTELO, Danny ORDERED: LOWER RESPIRATO Procedure Result > GRAM STAIN Final 03/28/18144 WHITE BLOOD CELLS MODERATE SQUAMOUS CELLS RARE GRAM POSITIVE COCCI RARE GRAM NEGATIVE RODS FEW > LOWER RESPIRATORY CULTURE Final 03/31/18-114 SCANT Mixed comap after 2 days WITH: Moderate growth of: PSEUDOMONAS AERUGINOSA Light growth of: PROTEUS MIRABILIS ESCHERICHIA COLI ESBL This isolate is a confirmed Extended Spectrum Beta-lacatmase (ESBL) producing organism. Place Patient on Contact Precaution Called to/readback by JACIEL by LAB.[employer] [facility] [employer] 03/31/18 1131 P. aerugin P.mirabili EC ESBL RX AB RX AB RX AB ------ -- ------ -- ------ -- AMPICILLIN S R CEFAZOLIN S R AMOX/CLAV AUGM S R AMP/SULB-UNASYN S R CEFOXITIN R CEFTAZIDIME S R CEFTRIAXONE R CIPROFLOXACIN S R R GENTAMICIN S S R MEROPENEM S S PIP/TAZOBACTAM S TETRACYCLINE S TRIMETH/SULFA R R 1. PSEUDOMONAS AERUGINOSA RX AB ------ -- CEFTAZIDIME S CIPROFLOXACIN S GENTAMICIN S MEROPENEM S 2. PROTEUS MIRABILIS RX AB ------ -- AMPICILLIN S CEFAZOLIN S AMOXICILLIN/CLAVULINIC ACID S AMPICILLIN/SULBACTAM S CIPROFLOXACIN R GENTAMICIN S TRIMETHOPRIM/SULFAMETHOXAZOLE R 3. ESCHERICHIA COLI ESBL RX AB ------ -- AMPICILLIN R CEFAZOLIN R AMOXICILLIN/CLAVULINIC ACID R AMPICILLIN/SULBACTAM R CEFOXITIN R CEFTAZIDIME R CEFTRIAXONE R CIPROFLOXACIN R GENTAMICIN R MEROPENEM S PIPERACILLIN/TAZOBACTAM S TETRACYCLINE S TRIMETHOPRIM/SULFAMETHOXAZOLE R Recent Imaging Studies: CXR IMPRESSION: Right lower and middle consolidations which could be seen in the setting of aspiration. 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 Aspiration pneumonia; of note clinically improved while treated w/ iv Unasyn; sputum cx from 03/28 + GPC and few GNR; while on Unsyn sputum cx growing Ps. aeruginosa (S Cipro/Ceftaz); E. coli ESBL and Proteus; which could represent just colonization; although CT chest revealing aspiration pneumonia; currently treated w/ iv Ceftazidime D #3. Leukocytosis/resolved Chronic indwelling Sandy cath d/t neurogenic bladder; UC + Ps. aeruginosa 50K CFU; likely colonization; repeat UA w/o significant pyuria Suggestion: 1. As CT chest + RML asp pna, change abx to iv Meropenem 1 gm 8 h x10 d; please obtain procalcitonin level before discharge; if procal level wnl would d/c abx ( results to be communicated to the facility post discharge). 2. Pulm toilet ATC. CBC, BMP in am. 3. Supportive care per team.
--- NOTE | 2018-04-01 11:48 | RADIOLOGY REPORT ---
EXAMINATION: XR PORTABLE CHEST CLINICAL INFORMATION: Right arm peripherally inserted catheter placement. COMPARISON: 03/24/2018 TECHNIQUE: Portable frontal view of the chest was obtained. FINDINGS: The patient's neck/chin overlies the lung apices. Tracheostomy tube remains in place. Lungs are hypoinflated resulting in crowding of bronchovascular structures in the bases. Mild compressive atelectasis in the right lung base. Also, there is mild atelectasis at the left base. The peripherally inserted catheter appears to be within the proximal right atrium approximately 2 cm below the expected location of the cavoatrial junction. There is dextroscoliosis of the cervicothoracic spine. IMPRESSION: - The tip of the right arm peripherally inserted catheter appears to be within the proximal right atrium approximately 2 cm below the level of the SVC-right atrial junction. - Hypoinflated lungs with bibasilar atelectasis.
[2018-04-01 14:10] VITALS: BP 120/74
--- NOTE | 2018-04-01 14:28 | RADIOLOGY REPORT ---
EXAMINATION: XR PORTABLE CHEST CLINICAL INFORMATION: Right arm peripherally inserted catheter placement. COMPARISON: CXR from 04/01/2018 at 11:14 AM TECHNIQUE: Portable frontal view of the chest was obtained. FINDINGS: Lungs remain hypoinflated and right diaphragm elevated. Tracheostomy tube in satisfactory position. Mild atelectasis within the right lung base. Mild cardiomegaly without pulmonary edema or overt pleural effusion. The tip of the right arm peripherally inserted catheter is unchanged in position. IMPRESSION: The tip of the peripherally inserted catheter appears to be within the proximal right atrium, approximately 2 cm below level level of the SVC-right atrial junction, and unchanged compared to the prior radiograph.
--- NOTE | 2018-04-01 15:41 | RADIOLOGY REPORT ---
EXAMINATION: XR PORTABLE CHEST CLINICAL INFORMATION: Follow-up chest x-ray status post PICC retraction. COMPARISON: Chest x-ray earlier 04/01/2018. TECHNIQUE: Portable frontal 65 degrees semiupright view of the chest was obtained. Imaging is suboptimal due to patient rotation and head flexion. FINDINGS: The lungs are hyperexpanded bilaterally with bronchovascular crowding at the bases bilaterally. There is persistent elevation of the right hemidiaphragm. The cardiac silhouette is normal. There are no pneumothoraces or pleural effusions. The study demonstrates the right PICC line, with the tip now noted at the confluence of the left and right brachiocephalic veins. There is been no interval change in the tracheostomy tube. IMPRESSION: 1. The right PICC line has been retracted compared to prior imaging with the tip at the confluence of the left and right brachiocephalic veins. There is no pneumothorax. 2. Imaging is suboptimal due to factors as described above.
--- NOTE | 2018-04-01 16:23 | PN- Att Addend ---
Attending Addendum Attending Brief Note No major issues. A PICC line was inserted. This way he can continue the IV antibiotic therapy and able to return to the [place] [facility]. There is stable no fever. No major changes on physical examination. X-rays were reviewed. Patient stable to go to the [facility]. I will follow him over there. See the CMR and discharge summary please. Intake & Output 04/01 0400 03/31 04003/30 1600 03/30 0400 Intake Total 2250 900 600 300 975 400 Output Total 2800 1200 2050 975 1550 1200 Balance -550 -300 -1450 -675 -575 -800 Intake, IV 1125 600 600 300 900 400 Intake, Oral 0 0 0 Intake, Tube 1125 180 75 Feeding Intake, Tube 120 Irrigant Number 1 Bowel Movements Output, Urine 2800 1200 2050 975 1550 1200 Patient 189 lb Weight Current Medications Sig/Gil Start time Last Medication Dose Route Stop Time Status Admin Acetaminophen 650 MG Q6P PRN 03/24 830 AC 04/01 PO 0802 Acetaminophen 1,000 MG Q6P PRN 03/24 0830 AC 04/01 IV 1205 Albuterol Sulfate 3 ML BID 03/25 2100 AC 04/01 INH 0844 Atorvastatin Calcium 10 MG 1700 03/24 1700 AC 04/01 PO 1609 Baclofen 10 MG TID 03/25 09 AC 04/01 PO 1525 Ceftazidime 1,000 MG Q8H 03/31 0814 AC 04/01 IV 1609 Dextrose/Sodium 1,000 ML Q13H 03/30 1130 AC 04/01 Chloride IV 0426 Docusate Sodium 100 MG BID 03/25 0400 AC 04/01 PO 0800 Enoxaparin Sodium 40 MG DAILY 03/24 09 AC 04/01 SC 0800 Escitalopram Oxalate 5 MG DAILY 03/25 09 AC 04/01 PO 0759 Insulin Human Regular 0 Q6 03/25 1200 AC SC Laboratory Tests 04/01/18 0710: CBC w Diff NO MAN DIFF REQ, RBC 3.61 L, MCV 88.4, MCH 29.3, MCHC 33.1, RDW 14.7 H, MPV 10.4, Gran % 63.3, Lymphocytes % 21.8, Monocytes % 9.6 H, Eosinophils % 4.5, Basophils % 0.8, Absolute Granulocytes 3.5, Absolute Lymphocytes 1.2, Absolute Monocytes 0.5, Absolute Eosinophils 0.2, Absolute Basophils 0 03/30/18 0600: CBC w Diff Cancelled, WBC Cancelled, RBC Cancelled, Hgb Cancelled, Hct Cancelled , MCV Cancelled, MCH Cancelled, MCHC Cancelled, RDW Cancelled, Plt Count Cancelled, MPV Cancelled Microbiology 03/31 1150 LOWER RESP: Respiratory Culture - CAN Cancelled: SPECIMEN NOT RECEIVED IN LABORATORY 03/31 115 LOWER RESP: Gram Stain - CAN Cancelled: SPECIMEN NOT RECEIVED IN LABORATORY Microbiology 03/31 115 LOWER RESP: Respiratory Culture - CAN Cancelled: SPECIMEN NOT RECEIVED IN LABORATORY 03/31 115 LOWER RESP: Gram Stain - CAN Cancelled: SPECIMEN NOT RECEIVED IN LABORATORY Vital Signs Date Time Temp Pulse Resp B/P B/P Pulse O2 O2 Flow FiO2 Mean Ox Delivery Rate 04/01 1424 Trach Mask 30% 04/01 1410 97.6 73 20 120/74 98 Trach Mask 04/01 1141 Trach Mask 35% 04/01 0900 94 Trach Mask 35% 04/01 0800 Trach Mask 35% 04/01 0645 97.8 70 20 114/72 96 Aerosol Mask 04/01 0000 96 Trach Mask 35% 03/31 2300 98.1 80 20 110/60 96 Trach Mask 03/31 1919 95 Trach Mask 35%
[2018-04-01 17:07] VITALS: BP 120/74
== END 2018-04-01 17:42 | DRG 177 ==
LOC: ERH 05:15 → 2NA 06:41 → ERHI 06:41 → ENRESERV 18:59 → ENTRNSPT 20:17 → EDTRNSPT 20:27 → EDTRNSPTSTS 20:27 → 2NA 20:41 → CMPTRNSPT 20:54 → 2NA 03-25 09:42
PROVIDERS: Emergency Medicine; Internal Medicine; Physical Medicine & Rehabilitation Pain Medicine; Preventive Medicine Addiction Medicine
PROC: 05H433Z Insertion of Infusion Device into Left Innominate Vein, Percutaneous Approach (ICD-10-PCS; principal; 2018-04-01)
DX: J69.0 Pneumonitis due to inhalation of food and vomit (principal); G83.5 Locked-in state; G82.50 Quadriplegia, unspecified; I50.32 Chronic diastolic (congestive) heart failure; N39.0 Urinary tract infection, site not specified; R11.10 Vomiting, unspecified; Z93.0 Tracheostomy status; E11.9 Type 2 diabetes mellitus without complications; Z88.6 Allergy status to analgesic agent; E78.5 Hyperlipidemia, unspecified; F32.9 Major depressive disorder, single episode, unspecified; K21.9 Gastro-esophageal reflux disease without esophagitis; Z86.73 Personal history of transient ischemic attack (TIA), and cerebral infarction without residual deficits; F20.9 Schizophrenia, unspecified; Z87.11 Personal history of peptic ulcer disease; Z99.81 Dependence on supplemental oxygen; Z95.9 Presence of cardiac and vascular implant and graft, unspecified; M10.9 Gout, unspecified; Z46.59 Encounter for fitting and adjustment of other gastrointestinal appliance and device; B96.5 Pseudomonas (aeruginosa) (mallei) (pseudomallei) as the cause of diseases classified elsewhere; B96.20 Unspecified Escherichia coli [E. coli] as the cause of diseases classified elsewhere; B96.4 Proteus (mirabilis) (morganii) as the cause of diseases classified elsewhere
CPT/HCPCS: 2NAP; 36592; 71045; 73030-LT; 81001; 82436; 87040; 87070; 87086; 93005; 93010; 96374; 96375; C1769; J0131; J0713; J1650; J2405; J7042

== ENCOUNTER 2018-04-13 11:43 | Emergency (ER) | payer OTHER, MEDICARE ==
[~2018-04-13] VITALS: Ht 182.9 cm; Wt 90.7 kg
[~2018-04-13 11:43] MED LIST changes: +MEROPENEM1 G1 IV
--- NOTE | 2018-04-13 12:43 | ED GENERAL ADULT ---
History of Present Illness General Chief Complaint: General Adult Stated Complaint: BIBA FOR CLOGGED GJ TUBE Source: EMS Exam Limitations: unable to give history Vital Signs & Intake/Output Vital Signs & Intake/Output Vital Signs Date Time Temp Pulse Resp B/P B/P Pulse O2 O2 Flow FiO2 Mean Ox Delivery Rate 04/13 1602 80 22 122/80 94 Trach Mask 35% 04/13 1326 74 22 121/73 96 Trach Mask 35% 04/13 1210 96 Trach Mask 35% 04/13 1155 100 Room Air 04/13 1150 82 20 119/86 100 Room Air Allergies Coded Allergies: scopolamine (Mild, HIVES 12/26/16) NSAIDS (Non-Steroidal Anti-Inflamma (PER 12/26/16) adhesive (HIVES - EKG STICKERS, RED DOT TRIBAL STICKERS 12/26/16) aspirin (PER 12/26/16) clopidogrel (From PLAVIX) (PER 12/26/16) Uncoded Allergies: EKG AND RED DOT LEADS (Intermediate, RASH 09/26/16) Reconcile Medications Acetaminophen (Acephen) 650 MG SUPP.RECT 1 SUPP WV Q4H PRN PAIN/TEMP>101 ( Reported) Acetaminophen 325 MG TABLET 2 TAB J TUBE Q4H PRN PAIN/TEMP/>101 (Reported) Albuterol Sulfate 2.5 MG/3 ML (0.083 %) VIAL.NEB 1 Vial INH/MONICO BID RESP. ( Reported) Baclofen 10 MG TABLET 1 TAB G TUBE TID SPASMS (Reported) Bisacodyl 10 MG SUPP.RECT 1 SUP RC DAILY PRN NO BM - IF MOM INEFFECTIVE ( Reported) Cholecalciferol (Vitamin D3) 1,000 UNIT TABLET 1 TAB G TUBE DAILY SUPPLEMENT (Reported) Docusate Sodium 100 MG TABLET 1 TAB G TUBE BID STOOL SOFTENER (Reported) Escitalopram Oxalate 5 MG TABLET 1 TAB G TUBE DAILY DEPRESSION (Reported) Ipratropium/Albuterol Sulfate (Iprat-Albut 0.5-3(2.5) MG/3 Ml) 0.5 MG-3 MG (2.5 MG BASE)/3 ML AMPUL.NEB 1 VIAL NEB Q4H PRN DYSPNEA (Reported) Lactobacillus Acidophilus (Acidophilus) 1 EACH CAPSULE 1 CAP G TUBE DAILY PROBIOTIC (Reported) Magnesium Hydroxide (Milk Of Magnesia) 400 MG/5 ML ORAL.SUSP 30 ML J TUBE DAILY PRN NO BM IN 3 DAYS (Reported) Meropenem 1 GRAM VIAL 1 VIAL IV Q8H ESBL . Na Phos,M-B/Na Phos,Di-Ba (Fleet Enema) 19 GRAM-7 GRAM/118 ML ENEMA 1 E RC DAILY PRN NO BM - IF BISACODYL INEFFECTI (Reported) Ondansetron HCl 4 MG TABLET 1 TAB G TUBE Q8H PRN N/V (Reported) Ranitidine HCl 15 MG/ML SYRUP 10 ML G TUBE BID GI (Reported) Simvastatin (Zocor*) 10 MG TABLET 1 TAB G TUBE 1700 GI (Reported) Triage Nurses Notes Reviewed? 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 According to nursing staff, the patient was in his usual state of health this morning when they were unable to flush the tube. They used a colonoscope cytology brush to try to clear the debris from the tube and state that the "tip broke off". Patient is nonverbal. Past History Travel History Traveled to [place] past 21 day No Medical History Any Pertinent Medical History? 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 ASP PNA Gastrointestinal: constipation, GERD, peptic ulcer disease, upper GI bleed, C. 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 MOTHER (Type 2 DM). Grand father (CVA). Hx Contributory? No Review of Systems Review of Systems Constitutional: Reports: see HPI. Comments Unable to perform review of systems given patient is nonverbal. Physical Exam Physical Exam General Appearance: no apparent distress, comfortable Comments: Chronically ill-appearing 57-year-old male, no acute distress. Trach in place. Lung sounds diminished bilateral bases with good air movement superiorly. Abdomen is soft nontender with no skin changes surrounding G G-tube. Sandy catheter in place. Quadriplegic. Skin is warm and moist. Core Measures ACS in differential dx? No CVA/TIA Diagnosis: No Sepsis Present: No Sepsis Focused Exam Completed? No Progress Differential Diagnoses I considered the following diagnoses in my evaluation of the patient: Clinically suspect mechanical tube obstruction in this patient. Low suspicion for acute metabolic derangement. Any acute infectious, cardiopulmonary or intra-abdominal pathology would likely be a coincidence and unrelated to this presentation. Plan of Care: Orders Procedure Date/time Status COMPREHENSIVE METABOLIC PANEL 04/13 1321 Complete CBC WITHOUT DIFFERENTIAL 04/13 1321 Complete Laboratory Tests 04/13/18 1429: Anion Gap 10, Estimated GFR > 60, BUN/Creatinine Ratio 40.0 H, Glucose 123 H, Calcium 9.4, Total Bilirubin 0.9, AST 20, ALT 26, Alkaline Phosphatase 96, Total Protein 7.4, Albumin 3.9, Globulin 3.5, Albumin/Globulin Ratio 1.1, CBC w Diff NO MAN DIFF REQ, RBC 4.76, MCV 85.0, MCH 28.0, MCHC 33.0, RDW 14.8 H, MPV 9.8, Gran % 79.8 H, Lymphocytes % 11.6 L, Monocytes % 6.5, Eosinophils % 1.9, Basophils % 0.2, Absolute Granulocytes 7.4 H, Absolute Lymphocytes 1.1 L, Absolute Monocytes 0.6, Absolute Eosinophils 0.2, Absolute Basophils 0 Plan for portable chest film, basic labs, possible interventional radiology consultation for J G-tube replacement. J G-tube replaced without complication. Patient discharged home to nursing facility. Initial ED EKG: none Departure Departure Time of Disposition: 161 Disposition: HOME OR SELF CARE Condition: Stable Clinical Impression Primary Impression: Malfunctioning jejunostomy tube Referrals: Danny Olvera MD (PCP/Family) Departure Forms: Customer Survey General Discharge Information Critical Care Note Critical Care Note Critical Care Time: non-applicable
--- NOTE | 2018-04-13 13:25 | RADIOLOGY REPORT ---
EXAMINATION: XR PORTABLE ABDOMEN CLINICAL INFORMATION: residential states that wire brush broke of into GJ tube. Concern for foreign body to the GJ tube. COMPARISON: KUB dated 10/06/2017. Jejunostomy tube placement 11/25/2017. TECHNIQUE: AP view of the abdomen performed on 2 images. FINDINGS: A gastrostomy tube is seen in place with indwelling jejunostomy tube with tip in region of the proximal jejunum. There is some irregularity of the radiodense lining of the proximal gastrostomy tube just distal to the side port, of uncertain significance. No definite intraluminal or intra-abdominal radiodensity seen. An IVC filter is in place with tip at the right L2 pedicle level. Mild gaseous distention of small and large bowel loops is seen. Calcific densities are seen in the pelvis, similar to prior exam. Diffuse osteopenia is seen with degenerative changes in the spine. Elevation of the right hemidiaphragm is noted. IMPRESSION: Slight irregularity of the proximal gastrostomy tube lining is seen, of uncertain significance. No definite intraluminal or intra-abdominal radiodensity seen to suspect a foreign body.
[2018-04-13 14:39] LABS: ABSOLUTE BASOPHIL COUNT 0 /CUMM (0.0-0.2); ABSOLUTE EOSINOPHIL COUNT 0.2 /CUMM (0.0-0.7); ABSOLUTE GRANULOCYTE CT 7.4 /CUMM (1.4-6.5); ABSOLUTE LYMPH COUNT 1.1 /CUMM (1.2-3.4); ABSOLUTE MONOCYTE COUNT 0.6 /CUMM (0.10-0.60); BASOPHIL % 0.2 % (0.0-2.0); EOSINOPHIL % 1.9 % (0-5); GRANULOCYTE % 79.8 % (42.2-75.2); HEMATOCRIT 40.5 % (42-52); MEAN PLATELET VOLUME 9.8 FL (7.4-10.4); PLATELET COUNT 256 /CUMM (130-400); RBC DISTRIBUTION WIDTH 14.8 % (11.5-14.5); RED BLOOD CELL CT 4.76 /CUMM (4.70-6.10); WHITE BLOOD CELL COUNT 9.3 /CUMM (4.8-10.8)
[2018-04-13 16:02] VITALS: BP 122/80
--- NOTE | 2018-04-13 16:11 | INTERVENTIONAL RADIOLOGY RPT ---
EXAMINATION: GASTROJEJUNOSTOMY TUBE EXCHANGE CLINICAL INFORMATION: 57-year-old male with clogged gastrojejunostomy tube. COMPARISON: Same day abdominal radiograph and gastrojejunostomy tube placement 11/25/2017 Interventional radiologist: Tomas Sparrow M.D. Medication administration: None required for today's procedure. Fluoroscopic Time: 33 seconds Number of images saved to PACS: 3 images Procedure in Detail: Informed consent was obtained from the patient's sister prior to the procedure. During this process, the procedure and potential alternatives were explained along with the intended outcome and benefits. The risks of the procedure including the possibility of an unsuccessful procedure, as well as the risk of not doing the procedure were discussed. The patient's sister was given the opportunity to ask questions regarding the procedure. A consent form which document this discussion was placed in the medical record. Following informed consent the patient was placed supine on the fluoroscopic table. The abdomen was prepped and draped in usual sterile fashion. A time out procedure was performed. Contrast was injected through the existing jejunostomy tube to verify correct positioning within small bowel. A wire was advanced through the existing jejunostomy tube and into the proximal jejunum. The zip tie was released and the existing 12 [place] jejunostomy tube was withdrawn out of the 20 [place] gastrostomy tube over a wire. A new lubricated 12 [place] jejunostomy tube was advanced [id number], through the gastrostomy tube and into the jejunum. The wire was removed and the jejunostomy tube secured to the gastrostomy port with a zip tie. Contrast injection into the jejunostomy port verified optimal positioning. The patient tolerated procedure well without complications. IMPRESSION: Successful [id number] exchange for new 12 [place] jejunostomy tube through existing 20 [place] gastrostomy tube. Tube ready to use at this time.
== END 2018-04-13 17:06 ==
LOC: ERH 11:43
PROVIDERS: Student in an Organized Health Care Education/Training Program
DX: K94.29 Other complications of gastrostomy (principal); I50.30 Unspecified diastolic (congestive) heart failure; G82.50 Quadriplegia, unspecified; I63.9 Cerebral infarction, unspecified
CPT/HCPCS: 1342; 74018